=== PATIENT | male | born 1940 | race Caucasian/White ===

== ENCOUNTER 2020-12-27 09:58 | Outpatient (REF) | payer MEDICARE, OTHER, SELFPAY ==
[2020-12-27 11:17] LABS: MANUAL DIFF FLAG NO
[2020-12-27 11:27] LABS: Basophils Percent Auto 0.4 % (0-2); Eosinophils Absolute Auto 0.1 X10*3/uL (0.0-0.4); Hematocrit 41.9 % (42-52); Hemoglobin 14.5 g/dl (14.0-18.0); Imm Gran Abs Auto 0.01 X10*3/uL (0.00-0.03); Imm Gran Pct Auto 0.2 % (0.0-0.4); Lymphocytes Absolute Auto 0.8 X10*3/uL (1.2-4.9); Lymphocytes Percent Auto 16.8 % (20-40); Mean Corpuscular HGB Conc 34.6 g/dl (31.0-36.0); Mean Corpuscular Hemoglobin 30.2 pg (27.0-33.0); Mean Corpuscular Volume 87.3 fL (80-98); Mean Platelet Volume 9.3 fL (9.4-12.4); Monocytes Absolute Auto 0.6 X10*3/uL (0.1-1.2); Monocytes Percent Auto 11.6 % (2-11); Neutrophils Absolute Auto 3.4 X10*3/uL (2.0-8.3); Platelet Count 146 X10*3/uL (160-400); Red Cell Distribution Width 13.4 % (11.0-16.0); White Blood Count 4.9 X10*3/uL (4.8-10.8)
[2020-12-27 11:34] LABS: Estimated Average Glucose 148 mg/dL; Hemoglobin A1c % 6.8 %
[2020-12-27 12:05] LABS: Alanine Aminotransferase 18 U/L (0-40); Albumin Level 4.5 g/dL (3.5-5.0); Alkaline Phosphatase 68 U/L (39-117); Anion Gap 14 (12-20); Aspartate Amino Transferase 19 U/L (5-37); Blood Urea Nitrogen 18 mg/dL (9-16); Calcium 9.6 mg/dL (8.4-10.2); Carbon Dioxide 24 mmol/L (22-29); Chloride 107 mmol/L (96-108); Estimated Glomerular Filt Rate > 60; Glucose Fasting 142 mg/dL (60-99); Potassium 4.2 mmol/L (3.3-5.1); Sodium 141 mmol/L (135-145); Total Protein 7.1 g/dL (6.5-8.0)
[2020-12-27 12:13] LABS: Cholesterol 150 mg/dL; HDL Cholesterol 52 mg/dL; LDL Cholesterol Calculated 73 mg/dl; Triglycerides 125 mg/dL
[2020-12-27 12:17] LABS: Prostate Specific Antigen Scr < 0.05 ng/mL (<0.05-4.0)
== END 2020-12-27 09:59 | disposition home or self-care (01) ==
LOC: HO.HMGCLDS 09:58
PROVIDERS: Visit Provider Internal Medicine
DX: Z12.5 Encounter for screening for malignant neoplasm of prostate (principal); E78.5 Hyperlipidemia, unspecified; R73.01 Impaired fasting glucose
CPT/HCPCS: 36415; 80053; 80061; 83036; 84153; 85025

== ENCOUNTER 2021-01-30 13:34 | Outpatient (REF) | payer MEDICARE, OTHER, SELFPAY ==
--- NOTE | ~2021-01-30 | US_ITS ---
EXAMINATION: US SCROTUM CLINICAL INFORMATION: Painless mass right testicle. COMPARISON: None TECHNIQUE: A sonogram of the scrotum was performed assessing pastor-scale appearance and color Doppler flow. Spectral Doppler analysis of the arterial and venous flow were performed in the testes bilaterally. FINDINGS: RIGHT: Right testicle measures 3.8 x 1.7 x 3.0 cm, volume 10.2 mL. 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 There is a adjacent 4 mm simple appearing cyst in the inferior testicle adjacent to the dilated rete testis. No other focal testicular lesion is seen. . Spectral Doppler analysis of the arterial and venous flow is normal in the right testis. Right epididymal head is normal in size. No right hydrocele or varicocele is seen. Right epididymal Doppler flow is normal. LEFT: Left testicle measures 3.9 x 1.7 x 2.6 cm, volume 9.2 mL. 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 There is a 9 x 5 x 7 mm adjacent cyst in the inferior left testicle. No other focal testicular parenchymal lesions are visualized. Spectral Doppler analysis of the arterial and venous flow is normal in the left testis. Left epididymal head is normal in size. No left hydrocele or varicocele is seen. Left epididymal Doppler flow is normal. US/US scrotum IMPRESSION: No mass seen. 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
== END 2021-01-30 13:35 | disposition home or self-care (01) ==
LOC: HO.US 13:34
PROVIDERS: Visit Provider Internal Medicine
DX: N50.89 Other specified disorders of the male genital organs (principal)
CPT/HCPCS: 76870

== ENCOUNTER → 2021-03-01 13:45 | Outpatient (BNVA) | payer MEDICARE, OTHER, SELFPAY | PROVIDERS: PCP Internal Medicine; Visit Provider Internal Medicine | DX: G47.33 Obstructive sleep apnea (adult) (pediatric) (principal); Z99.89 Dependence on other enabling machines and devices | CPT/HCPCS: 99212 ==

== ENCOUNTER → 2021-03-15 12:51 | Outpatient (REF) | payer MEDICARE, OTHER, SELFPAY | LOC: HO.SL 12:51 | PROVIDERS: PCP Internal Medicine; Visit Provider Internal Medicine | DX: G47.33 Obstructive sleep apnea (adult) (pediatric) (principal) | CPT/HCPCS: 95806 ==

== ENCOUNTER 2021-06-21 09:39 | Outpatient (REF) | payer MEDICARE, OTHER, SELFPAY ==
[2021-06-21 11:41] LABS: Creatinine Urine 133.91 mg/dL; Microalbum/Creatinine Ratio Ur 42.5 ug/mg cr
[2021-06-21 11:42] LABS: Estimated Average Glucose 151 mg/dL; Hemoglobin A1c % 6.9 %
[2021-06-21 12:02] LABS: Anion Gap 11 (12-20); Blood Urea Nitrogen 17 mg/dL (9-16); Calcium 9.4 mg/dL (8.4-10.2); Carbon Dioxide 26 mmol/L (22-29); Chloride 106 mmol/L (96-108); Estimated Glomerular Filt Rate > 60; Glucose Random 175 mg/dL (60-115); Potassium 4.4 mmol/L (3.3-5.1); Sodium 139 mmol/L (135-145)
== END 2021-06-21 09:40 | disposition home or self-care (01) ==
LOC: HO.HMGCLDS 09:39
PROVIDERS: PCP Internal Medicine; Visit Provider Internal Medicine
DX: E11.9 Type 2 diabetes mellitus without complications (principal); I10 Essential (primary) hypertension
CPT/HCPCS: 36415; 80048; 82043; 83036

== ENCOUNTER → 2021-08-30 13:35 | Outpatient (BNVA) | payer MEDICARE, OTHER, SELFPAY | PROVIDERS: PCP Internal Medicine; Visit Provider Internal Medicine | DX: G47.33 Obstructive sleep apnea (adult) (pediatric) (principal); Z99.89 Dependence on other enabling machines and devices | CPT/HCPCS: Q3014 ==

== ENCOUNTER 2021-12-20 09:00 | Outpatient (REF) | payer MEDICARE, OTHER, SELFPAY ==
[2021-12-20 11:18] LABS: MANUAL DIFF FLAG NO
[2021-12-20 11:43] LABS: Estimated Average Glucose 166 mg/dL; Hemoglobin A1c % 7.4 %
[2021-12-20 11:48] LABS: Alanine Aminotransferase 26 U/L (0-40); Albumin Level 4.2 g/dL (3.5-5.0); Alkaline Phosphatase 62 U/L (39-117); Anion Gap 12 (12-20); Aspartate Amino Transferase 24 U/L (5-37); Bilirubin Total 0.9 mg/dL (0.0-1.0); Blood Urea Nitrogen 12 mg/dL (9-16); Calcium 9.1 mg/dL (8.4-10.2); Carbon Dioxide 26 mmol/L (22-29); Chloride 107 mmol/L (96-108); Cholesterol 141 mg/dL; Estimated Glomerular Filt Rate > 60; Glucose Fasting 158 mg/dL (60-99); HDL Cholesterol 48 mg/dL; LDL Cholesterol Calculated 72 mg/dl; Sodium 141 mmol/L (135-145); Total Protein 6.6 g/dL (6.5-8.0); Triglycerides 106 mg/dL
[2021-12-20 11:55] LABS: Creatinine Urine 145.15 mg/dL; Microalbum/Creatinine Ratio Ur 39.2 ug/mg cr
[2021-12-20 11:57] LABS: Basophils Percent Auto 0.5 % (0-2); Eosinophils Absolute Auto 0.1 X10*3/uL (0.0-0.4); Hematocrit 40.8 % (42.0-52.0); Hemoglobin 13.9 g/dl (14.0-18.0); Imm Gran Abs Auto 0.02 X10*3/uL (0.00-0.03); Imm Gran Pct Auto 0.5 % (0.0-0.4); Lymphocytes Absolute Auto 0.9 X10*3/uL (1.2-4.9); Lymphocytes Percent Auto 20.5 % (20-40); Mean Corpuscular HGB Conc 34.1 g/dl (31.0-36.0); Mean Corpuscular Hemoglobin 29.9 pg (27.0-33.0); Mean Corpuscular Volume 87.7 fL (80.0-98.0); Mean Platelet Volume 9.6 fL (9.4-12.4); Monocytes Absolute Auto 0.7 X10*3/uL (0.1-1.2); Monocytes Percent Auto 16.7 % (2-11); Neutrophils Absolute Auto 2.6 x10*3/uL (2.0-8.3); Neutrophils Percent Auto 58.8 % (45-73); Platelet Count 143 X10*3/uL (160-400); Red Blood Count 4.65 X10*6/uL (4.60-5.80); Red Cell Distribution Width 13.7 % (11.0-16.0); White Blood Count 4.4 X10*3/uL (4.8-10.8)
== END 2021-12-20 09:01 | disposition home or self-care (01) ==
LOC: HO.HMGCLDS 09:00
PROVIDERS: Visit Provider Internal Medicine
DX: E11.9 Type 2 diabetes mellitus without complications (principal); I10 Essential (primary) hypertension; G47.33 Obstructive sleep apnea (adult) (pediatric); E78.00 Pure hypercholesterolemia, unspecified; K57.90 Diverticulosis of intestine, part unspecified, without perforation or abscess without bleeding
CPT/HCPCS: 36415; 80053; 80061; 82043; 83036; 85025

== ENCOUNTER 2022-01-18 11:33 | Outpatient (REF) | payer MEDICARE, OTHER, SELFPAY ==
[2022-01-18 12:47] LABS: Influenza A PCR NEGATIVE (Negative); Influenza B PCR NEGATIVE (Negative); Resp Syncy Virus RNA Qual PCR NEGATIVE (Negative); SARS COV2 PCR INHOUSE NEGATIVE (Negative)
== END 2022-01-18 11:34 | disposition home or self-care (01) ==
LOC: HO.LNP 11:33
PROVIDERS: Visit Provider Internal Medicine
DX: R50.9 Fever, unspecified (principal); R19.7 Diarrhea, unspecified; Z20.822 Contact with and (suspected) exposure to COVID-19
CPT/HCPCS: 0241U

== ENCOUNTER → 2022-08-26 14:09 | Outpatient (BNVA) | payer MEDICARE, OTHER, SELFPAY | PROVIDERS: PCP Internal Medicine; Visit Provider Internal Medicine | DX: G47.33 Obstructive sleep apnea (adult) (pediatric) (principal); Z99.89 Dependence on other enabling machines and devices | CPT/HCPCS: Q3014 ==

== ENCOUNTER 2022-09-26 13:41 | Outpatient (REF) | payer MEDICARE, OTHER, SELFPAY ==
--- NOTE | 2022-09-26 10:00 | EMG_ITS ---
Left median and ulnar motor and sensory studies were performed. Left radial sensory study was performed and paraspinal muscles were tested with a needle. IMPRESSION: 1. 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 2. Mild left ulnar neuropathy across cubital tunnel. MD SHARA Godwin/BAM / [id number]
== END 2022-09-26 13:42 | disposition home or self-care (01) ==
LOC: HO.NEURO 13:41
PROVIDERS: PCP Internal Medicine; Visit Provider Nurse Practitioner Family
DX: M79.602 Pain in left arm (principal)
CPT/HCPCS: 95886; 95909

== ENCOUNTER 2022-11-23 06:37 | Outpatient (REF) | payer MEDICARE, OTHER, SELFPAY ==
[2022-11-23 11:19] LABS: MANUAL DIFF FLAG NO
[2022-11-23 11:29] LABS: Basophils Percent Auto 0.5 % (0-2); Eosinophils Absolute Auto 0.1 X10*3/uL (0.0-0.4); Eosinophils Percent Auto 2.1 % (0-4); Hemoglobin 14.2 g/dl (14.0-18.0); Imm Gran Abs Auto 0.02 X10*3/uL (0.00-0.03); Imm Gran Pct Auto 0.4 % (0.0-0.4); Lymphocytes Absolute Auto 0.8 X10*3/uL (1.2-4.9); Lymphocytes Percent Auto 13.8 % (20-40); Mean Corpuscular HGB Conc 33.8 g/dl (31.0-36.0); Mean Corpuscular Hemoglobin 29.2 pg (27.0-33.0); Mean Corpuscular Volume 86.4 fL (80.0-98.0); Mean Platelet Volume 9.8 fL (9.4-12.4); Monocytes Absolute Auto 0.7 X10*3/uL (0.1-1.2); Neutrophils Percent Auto 71.2 % (45-73); Platelet Count 153 X10*3/uL (160-400); Red Blood Count 4.86 X10*6/uL (4.60-5.80); Red Cell Distribution Width 13.4 % (11.0-16.0); White Blood Count 5.7 X10*3/uL (4.8-10.8)
[2022-11-23 11:35] LABS: Estimated Average Glucose 151 mg/dL; Hemoglobin A1c % 6.9 %
[2022-11-23 11:56] LABS: Alanine Aminotransferase 16 U/L (0-40); Albumin Level 4.1 g/dL (3.5-5.0); Alkaline Phosphatase 58 U/L (39-117); Anion Gap 12 (12-20); Aspartate Amino Transferase 15 U/L (5-37); Bilirubin Direct 0.3 mg/dL (0.0-0.5); Blood Urea Nitrogen 18 mg/dL (9-16); Calcium 9.3 mg/dL (8.4-10.2); Carbon Dioxide 28 mmol/L (22-29); Chloride 105 mmol/L (96-108); Cholesterol 147 mg/dL; Estimated Glomerular Filt Rate > 60; Glucose Fasting 154 mg/dL (60-99); HDL Cholesterol 48 mg/dL; LDL Cholesterol Calculated 74 mg/dl; Potassium 4.8 mmol/L (3.3-5.1); Sodium 140 mmol/L (135-145); Total Protein 6.4 g/dL (6.5-8.0); Triglycerides 125 mg/dL
[2022-11-23 11:57] LABS: Microalbum/Creatinine Ratio Ur 37.3 ug/mg cr; Protein/Creatinine Ratio, Ur 0.12 (<0.2); Total Protein Urine Random 23 mg/dL (<12)
[2022-11-23 11:58] LABS: Free T4 (Free Thyroxine) 1.02 ng/dL (0.71-1.85); Thyroid Stimulating Hormone 0.68 uIU/mL (0.32-4.0)
== END 2022-11-23 06:38 | disposition home or self-care (01) ==
LOC: HO.LAB 06:37
PROVIDERS: Visit Provider Nurse Practitioner Family
DX: I10 Essential (primary) hypertension (principal); E78.5 Hyperlipidemia, unspecified; E11.9 Type 2 diabetes mellitus without complications
CPT/HCPCS: 36415; 80048; 80061; 80076; 82043; 83036; 84156; 84439; 84443; 85025

== ENCOUNTER 2022-12-15 14:58 | Observation (INO) | payer OTHER, MEDICARE, SELFPAY ==
--- NOTE | ~2022-12-15 | CT_ITS ---
EXAMINATION: CT ABDOMEN AND PELVIS WITH CONTRAST CLINICAL INFORMATION: Left lower quadrant pain COMPARISON: None available. TECHNIQUE: Multidetector volumetric images were obtained from the superior aspect of the liver through the pubic symphysis following administration 85 mL of Omnipaque 350 intravenous contrast. Sagittal and coronal reformatted images were obtained on the technologist's workstation. Oral contrast: No This CT examination was performed using dose optimization techniques as appropriate, variously including the following: *Automated exposure control *Adjustment of mA and/or kV according to patient size (this includes techniques or standardized protocols for targeted exams where dose is matched to indication/reason for exam; i.e. extremities or head) *Use of iterative reconstruction technique DLP: 737 mGy-cm FINDINGS: LUNG BASES: The lung bases are clear. The heart size is normal. LIVER, GALLBLADDER, AND BILIARY TREE: The liver is normal in size, shape, and attenuation. No focal hepatic lesion or biliary ductal dilatation is present. The gallbladder is unremarkable with no evidence of radiopaque gallstones, gallbladder wall thickening, or obvious pericholecystic inflammatory changes. PANCREAS: Unremarkable. SPLEEN: Unremarkable. ADRENAL GLANDS: Unremarkable. KIDNEYS AND URETERS: The kidneys are normal in size, shape, and attenuation. No hydronephrosis, hydroureter, or calculi seen. No perinephric stranding. There is a punctate to moderate hypodensity midpole and a 5 mm hypodensity upper pole right kidney probable cysts. BLADDER: Unremarkable. GASTROINTESTINAL TRACT: There is large amount of stool and scattered diverticuli seen throughout the colon without mural thickening or pericolic fat stranding. There is a focal annular short segment thickening of the descending colon on axial image 36/3 and sagittal image 24/6 this may represent spasm or underlying lesion is hard to exclude. The small bowel loops are normal caliber. The stomach is nondistended. No free air or free fluid seen. ABDOMINAL WALL: No significant hernia is appreciated. LYMPH NODES: Normal. VASCULAR: Bilateral sclerotic calcification abdominal aorta without aneurysmal dilatation. There is a reticular aortic left renal vein. PELVIC VISCERA: There is no free fluid or free air. OSSEOUS STRUCTURES: No aggressive lytic or sclerotic process seen. There is vacuum disc phenomena L4-L5 disc level with L4-L5 facet joint arthropathy. No aggressive lytic or sclerotic process seen. CT/CT abdomen pelvis w IV con IMPRESSION: 1. Diffuse colonic diverticulosis without diverticulitis. There is a short segment annular thickening descending colon which could be secondary to spasm or underlying lesion. Correlate with clinical exam, endoscopy or barium enema. No proximal bowel distention seen. Moderate constipation. 2. No acute intra-abdominal process seen. 3. 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 Fleischner guidelines were followed.
[2022-12-15 15:05] VITALS: BP 176/68; PULSE 75; RESP 16; TEMP 36.9; O2SAT 97; BMI 25.5
--- NOTE | 2022-12-15 15:12 | ED.ABDPAIN ---
HPI - Abdominal Pain General Chief Complaint: General Medical <Nishi Tellez NP - Last Filed: 12/15/22 18:41> Stated Complaint: abd pain <Nishi Tellez NP - Last Filed: 12/15/22 18:41> Time Seen by Provider: 12/15/22 15:02 <Nishi Tellez NP - Last Filed: 12/15/22 18:41> Source: patient and family <Nishi Tellez NP - Last Filed: 12/15/22 18:41> Mode of arrival: ambulatory <Nishi Tellez NP - Last Filed: 12/15/22 18:41> Limitations: no limitations <MEHRDAD Patel Last Filed: 12/15/22 18:41> History of Present Illness HPI narrative: 82-year-old male with a history of hypertension and hyperlipidemia presents to the ER with complaints of left lower quadrant abdominal pain for 1 week. Patient reports no nausea, vomiting, diarrhea, fever or urinary symptoms. His last BM was 3 days ago which is atypical for him. Patient is currently taking cephalexin after having a skin surgical procedure several days <Nishi Tellez NP - Last Filed: 12/15/22 18:41> Related Data Home Medications: Home Medications Medication Instructions Recorded Confirmed aspirin 81 mg tablet,delayed 81 mg PO DAILY 08/30/20 release metoprolol tartrate 25 mg tablet 25 mg PO BID 08/30/20 pravastatin 40 mg tablet 40 mg PO BEDTIME 08/30/20 Previous Rx's Medication Instructions Recorded docusate sodium 100 mg capsule 100 mg PO BID #60 caps 12/15/22 (Colace) lactulose 10 gram/15 mL oral 15 ml PO DAILY PRN laxative effect 12/15/22 solution #237 mL polyethylene glycol 3350 17 17 g PO BID #238 grams 12/15/22 gram/dose oral powder (Miralax) <MEHRDAD Patel Last Filed: 12/15/22 18:41> Allergies/Adverse Reactions: Allergies Allergy/AdvReac Type Severity Reaction Status Date / Time lactose [Lactose] Allergy Mild DIARRHEA Verified 08/26/22 14:23 <Nishi Tellez NP - Last Filed: 12/15/22 18:41> Review of Systems Review of Systems Yes all other systems are reviewed and are negative <Nishi Tellez NP - Last Filed: 12/15/22 18:41> Constitutional: Reports no additional constitutional complaints, Denies body ache(s), Denies chills, Denies fever(s), Denies headache(s) and Denies weakness <Nishi Tellez EXPLOSIVE TECHNICIAN - Last Filed: 12/15/22 18:41> Eyes: Reports no additional eye complaints and Denies change in vision <Nishi Tellez EXPLOSIVE TECHNICIAN - Last Filed: 12/15/22 18:41> Reports system reviewed and no additional complaints, except as documented, Denies dizziness, Denies headache(s), Denies nasal congestion, Denies nasal discharge and Denies neck pain <Nishi Tellez NP - Last Filed: 12/15/22 18:41> Cardiovascular: Reports no additional cardiovascular complaints, Denies chest pain, Denies leg edema and Denies dyspnea <Nishi Tellez EXPLOSIVE TECHNICIAN - Last Filed: 12/15/22 18:41> Respiratory: Reports no additional respiratory complaints, Denies cough and Denies dyspnea <Nishi Tellez EXPLOSIVE TECHNICIAN - Last Filed: 12/15/22 18:41> Gastrointestinal: Reports no additional gastrointestinal complaints, Reports abdominal pain, Reports constipation, Denies diarrhea, Denies nausea and Denies vomiting <Nishi Tellez EXPLOSIVE TECHNICIAN - Last Filed: 12/15/22 18:41> Genitourinary: Denies urinary incontinence <Nishi Tellez EXPLOSIVE TECHNICIAN - Last Filed: 12/15/22 18:41> Musculoskeletal: Reports no additional musculoskeletal complaints, Denies back pain, Denies arthralgias, Denies joint swelling, Denies neck pain, Denies numbness and Denies tingling <Nishi Tellez NP - Last Filed: 12/15/22 18:41> Skin/Breast: Reports system reviewed and no additional complaints, except as docu and Denies rash <Nishi Tellez EXPLOSIVE TECHNICIAN - Last Filed: 12/15/22 18:41> Reports system reviewed and no additional complaints, except as documented, Denies dizziness, Denies headache(s), Denies numbness, Denies tingling and Denies weakness <Nishi Tellez NP - Last Filed: 12/15/22 18:41> [facility] Past Medical History Attestation statement: The following information was validated with the patient. <Nishi Tellez NP - Last Filed: 12/15/22 18:41> Source: old records reviewed and nursing notes reviewed <Nishi Tellez NP - Last Filed: 12/15/22 18:41> Medical History: Medical History AAKASH (obstructive sleep apnea) AAKASH on CPAP <Nishi Tellez NP - Last Filed: 12/15/22 18:41> Social History Social History: Social History Patient Tobacco Use Status: Former Tobacco user Advance Directives: No Advance Directives Information Provided: No <Nishi Tellez NP - Last Filed: 12/15/22 18:41> Physical Exam ED Vital Signs: Vital Signs - 24 hr 12/15/22 15:05 12/15/22 16:33 Temperature 98.4 F 98.1 F Pulse Rate 75 65 Respiratory Rate 16 16 Blood Pressure 176/68 H 175/69 H Pulse Oximetry 97 98 Oxygen Delivery Method Room Air Room Air BMI result Body Mass Index 25.5 <Nishi Tellez NP - Last Filed: 12/15/22 18:41> Vital Signs - 24 hr 12/15/22 15:05 12/15/22 16:33 Temperature 98.4 F 98.1 F Pulse Rate 75 65 Respiratory Rate 16 16 Blood Pressure 176/68 H 175/69 H Pulse Oximetry 97 98 Oxygen Delivery Method Room Air Room Air BMI result Body Mass Index 25.5 <Alix Hernandez NP - Last Filed: 12/15/22 22:34> Const General: cooperative, healthy appearing, comfortable and no acute distress <Nishi Tellez NP - Last Filed: 12/15/22 18:41> Orientation/consciousness: patient oriented x3 <Nishi Tellez NP - Last Filed: 12/15/22 18:41> Limitations: no limitations <Nishi Tellez EXPLOSIVE TECHNICIAN - Last Filed: 12/15/22 18:41> HENMT Head: Yes normal to inspection <Nishi Tellez EXPLOSIVE TECHNICIAN - Last Filed: 12/15/22 18:41> Ears: hearing grossly normal bilaterally <Nishi Tellez EXPLOSIVE TECHNICIAN - Last Filed: 12/15/22 18:41> Eyes General: appearance normal, both eyes and all related structures <Nishi Tellez EXPLOSIVE TECHNICIAN - Last Filed: 12/15/22 18:41> Pupils: Equal, round and reactive pupils present <Nishi Tellez EXPLOSIVE TECHNICIAN - Last Filed: 12/15/22 18:41> Neck Neck: Yes normal visual inspection and Yes full ROM <Nishi Tellez EXPLOSIVE TECHNICIAN - Last Filed: 12/15/22 18:41> Chest Chest palpation & inspection: normal inspection of the chest <Nishi eTllez EXPLOSIVE TECHNICIAN - Last Filed: 12/15/22 18:41> Resp Effort & Inspection: normal respiratory effort <Nishi Tellez EXPLOSIVE TECHNICIAN - Last Filed: 12/15/22 18:41> Auscultation: clear to auscultation bilaterally <Nishi Tellez EXPLOSIVE TECHNICIAN - Last Filed: 12/15/22 18:41> Cardio Rate: regular rate <Nishi Tellez EXPLOSIVE TECHNICIAN - Last Filed: 12/15/22 18:41> Rhythm: regular rhythm <Nishi Tellez EXPLOSIVE TECHNICIAN - Last Filed: 12/15/22 18:41> Peripheral pulses: Peripheral pulses 2+ throughout <Nishi Tellez EXPLOSIVE TECHNICIAN - Last Filed: 12/15/22 18:41> GI Inspection: Yes normal to inspection <Nishi Tellez EXPLOSIVE TECHNICIAN - Last Filed: 12/15/22 18:41> Palpation (GI): Soft to palpation and Tenderness to palpation present (GI) in the LLQ <Nishi Tellez EXPLOSIVE TECHNICIAN - Last Filed: 12/15/22 18:41> Auscultation: normal bowel sounds <Nishi Tellez EXPLOSIVE TECHNICIAN - Last Filed: 12/15/22 18:41> General: Yes no CVA tenderness <Nishi Tellez, EXPLOSIVE TECHNICIAN - Last Filed: 12/15/22 18:41> Back/Spine/Pelvis Back: no CVA tenderness <Nishijonny Tellez, EXPLOSIVE TECHNICIAN - Last Filed: 12/15/22 18:41> Thoracic/Lumbar Spine: thoracic and lumbar spine normal to inspection <Nishijonny Tellez, EXPLOSIVE TECHNICIAN - Last Filed: 12/15/22 18:41> Skin General skin exam: no rashes or lesions noted <Nishijonny Tellez, EXPLOSIVE TECHNICIAN - Last Filed: 12/15/22 18:41> Neuro General: patient oriented x3 and moves all extremities <Nishi Tellez, EXPLOSIVE TECHNICIAN - Last Filed: 12/15/22 18:41> Cranial nerves: Yes Equal, round and reactive pupils present <Nishi Tellez, EXPLOSIVE TECHNICIAN - Last Filed: 12/15/22 18:41> Cognition (Neuro): normal cognition <Nishi Tellez, EXPLOSIVE TECHNICIAN - Last Filed: 12/15/22 18:41> Gait exam (Neuro): Normal gait present <Nishi Tellez, EXPLOSIVE TECHNICIAN - Last Filed: 12/15/22 18:41> Extrem General: Yes normal to inspection, Yes no pedal edema and Yes no calf tenderness <Nishi Tellez, EXPLOSIVE TECHNICIAN - Last Filed: 12/15/22 18:41> Course Course Course Narrative: CT shows IMPRESSION: 1.? Diffuse colonic diverticulosis without diverticulitis. There is a short segment annular thickening descending colon which could be secondary to spasm or underlying lesion. Correlate with clinical exam, endoscopy or barium enema. No proximal bowel distention seen. Moderate constipation. 2.? No acute intra-abdominal process seen. 3.? 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 ? -On rectal exam patient with large amount of stool in the rectal vault unable to tolerate rectal disimpaction. Will give SSE <Nishi Tellez, EXPLOSIVE TECHNICIAN - Last Filed: 12/15/22 18:41> CT shows IMPRESSION: 1.? Diffuse colonic diverticulosis without diverticulitis. There is a short segment annular thickening descending colon which could be secondary to spasm or underlying lesion. Correlate with clinical exam, endoscopy or barium enema. No proximal bowel distention seen. Moderate constipation. 2.? No acute intra-abdominal process seen. 3.? 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 ? -On rectal exam patient with large amount of stool in the rectal vault unable to tolerate rectal disimpaction. Will give SSE 22:33 multiple attempts to disimpact, 2nd soapsuds enema given with no affect. Discussion with Gastroenterology as well as hospitalist. Plan of care is to admit, glycerin suppositories, with GoLYTELY. Possible sigmoidoscopy versus colonoscopy tomorrow. Admitted to hospitalist Medicine. <Alix Hernandez NP - Last Filed: 12/15/22 22:34> Reevaluation(s) Reevaluation #1: [id number] out to Alix CRONIN pending repeat exam and having bowel movement <Nishi Tellez NP - Last Filed: 12/15/22 18:41> Medical Decision Making Medical Decision Making MDM Narrative: 82-year-old male with history of hypertension hyperlipidemia here with left lower quadrant abdominal pain for 1 week Patient with tenderness on exam of left lower quadrant with no rebound or guarding Will check labs, UA, CT <Nishi Tellez NP - Last Filed: 12/15/22 18:41> Differential Diagnosis Differential Diagnoses: The differential diagnosis associated with the presentation includes <Nishi Tellez NP - Last Filed: 12/15/22 18:41> Diverticulitis <Nishi Tellez NP - Last Filed: 12/15/22 18:41> Consult Healthcare Provider Management of the patient was discussed with: Wedding Decorator <Nishi Tellez NP - Last Filed: 12/15/22 18:41> CT shows Diffuse colonic diverticulosis without diverticulitis. There is a short segment annular thickening descending colon which could be secondary to spasm or underlying lesion. Correlate with clinical exam, endoscopy or barium enema. No proximal bowel distention seen. Moderate constipation. -I spoke to Dr Ruano as patient will likely need an outpatient colonoscopy. <Nishi Tellez NP - Last Filed: 12/15/22 18:41> Lab Data [facility] Lab Attestation statement: I reviewed the patient's lab results. <Nishi Tellez, MEHRDAD - Last Filed: 12/15/22 18:41> Result Diagrams: 12/15/22 15:20 12/15/22 15:20 <Nishi Tellez NP - Last Filed: 12/15/22 18:41> Labs: Lab Results 12/15/22 12/15/22 12/15/22 Range/Units 15:20 15:20 15:20 WBC 11.4 H (4.8-10.8) X10*3/uL RBC 4.64 (4.60-5.80) X10*6/uL Hgb 13.8 L (14.0-18.0) g/dl Hct 39.0 L (42.0-52.0) % MCV 84.1 (80.0-98.0) fL MCH 29.7 (27.0-33.0) pg MCHC 35.4 (31.0-36.0) g/dl RDW 13.2 (11.0-16.0) % Plt Count 175 (160-400) X10*3/uL MPV 9.1 L (9.4-12.4) fL Immature Gran % (Auto) 0.4 (0.0-0.4) % Neut % (Auto) 82.0 H (45-73) % Lymph % (Auto) 8.0 L (20-40) % [place] % (Auto) 8.6 (2-11) % Eos % (Auto) 0.7 (0-4) % Baso % (Auto) 0.3 (0-2) % Lymph # (Auto) 0.9 L (1.2-4.9) X10*3/uL [place] # (Auto) 1.0 (0.1-1.2) X10*3/uL Eos # (Auto) 0.1 (0.0-0.4) X10*3/uL Baso # (Auto) 0.0 (0.0-0.2) X10*3/uL Abs Immat Gran (auto) 0.05 H (0.00-0.03) X10*3/uL Absolute Neuts (auto) 9.3 H (2.0-8.3) x10*3/uL Absolute Nucleated RBC 0.000 (0.0-0.012) X10*3/uL Nucleated RBC % (auto) 0.0 (0.0-0.2) /100WBC Sodium 139 (135-145) mmol/L Potassium 4.7 (3.3-5.1) mmol/L Chloride 106 (96-108) mmol/L Carbon Dioxide 23 (22-29) mmol/L Anion Gap 15 (12-20) BUN 19 H (9-16) mg/dL Creatinine 1.14 (0.5-1.4) mg/dL Estim Creat Clear Calc 48.3 Estimated GFR > 60 Random Glucose 244 H (60-115) mg/dL Calcium 9.4 (8.4-10.2) mg/dL Magnesium 2.2 (1.6-2.6) mg/dL Total Bilirubin 0.6 (0.0-1.0) mg/dL Direct Bilirubin 0.2 (0.0-0.5) mg/dL AST 16 (5-37) U/L ALT 17 (0-40) U/L Alkaline Phosphatase 66 (39-117) U/L Total Protein 6.5 (6.5-8.0) g/dL Albumin 4.1 (3.5-5.0) g/dL Lipase 18 (8-78) U/L Urine Color Urine Appearance Urine pH (5.0-9.0) Ur Specific [place] (1.005-1.025) Urine Protein (Neg-Trace) mg/dL Urine Glucose (UA) (Negative) mg/dL Urine Ketones (Negative) mg/dL Urine Blood (Negative) Urine Nitrite (Negative) Ur Leukocyte Esterase (Negative) 12/15/22 Range/Units 17:23 WBC (4.8-10.8) X10*3/uL RBC (4.60-5.80) X10*6/uL Hgb (14.0-18.0) g/dl Hct (42.0-52.0) % MCV (80.0-98.0) fL MCH (27.0-33.0) pg MCHC (31.0-36.0) g/dl RDW (11.0-16.0) % Plt Count (160-400) X10*3/uL MPV (9.4-12.4) fL Immature Gran % (Auto) (0.0-0.4) % Neut % (Auto) (45-73) % Lymph % (Auto) (20-40) % [place] % (Auto) (2-11) % Eos % (Auto) (0-4) % Baso % (Auto) (0-2) % Lymph # (Auto) (1.2-4.9) X10*3/uL [place] # (Auto) (0.1-1.2) X10*3/uL Eos # (Auto) (0.0-0.4) X10*3/uL Baso # (Auto) (0.0-0.2) X10*3/uL Abs Immat Gran (auto) (0.00-0.03) X10*3/uL Absolute Neuts (auto) (2.0-8.3) x10*3/uL Absolute Nucleated RBC (0.0-0.012) X10*3/uL Nucleated RBC % (auto) (0.0-0.2) /100WBC Sodium (135-145) mmol/L Potassium (3.3-5.1) mmol/L Chloride (96-108) mmol/L Carbon Dioxide (22-29) mmol/L Anion Gap (12-20) BUN (9-16) mg/dL Creatinine (0.5-1.4) mg/dL Estim Creat Clear Calc Estimated GFR Random Glucose (60-115) mg/dL Calcium (8.4-10.2) mg/dL Magnesium (1.6-2.6) mg/dL Total Bilirubin (0.0-1.0) mg/dL Direct Bilirubin (0.0-0.5) mg/dL AST (5-37) U/L ALT (0-40) U/L Alkaline Phosphatase (39-117) U/L Total Protein (6.5-8.0) g/dL Albumin (3.5-5.0) g/dL Lipase (8-78) U/L Urine Color Yellow Urine Appearance Clear Urine pH 8.0 (5.0-9.0) Ur Specific [place] >= 1.030 H (1.005-1.025) Urine Protein Negative (Neg-Trace) mg/dL Urine Glucose (UA) 500 H (Negative) mg/dL Urine Ketones Negative (Negative) mg/dL Urine Blood Negative (Negative) Urine Nitrite Negative (Negative) Ur Leukocyte Esterase Negative (Negative) <Nishi Tellez, EXPLOSIVE TECHNICIAN - Last Filed: 12/15/22 18:41> Lab Results 12/15/22 12/15/22 12/15/22 Range/Units 15:20 15:20 15:20 WBC 11.4 H (4.8-10.8) X10*3/uL RBC 4.64 (4.60-5.80) X10*6/uL Hgb 13.8 L (14.0-18.0) g/dl Hct 39.0 L (42.0-52.0) % MCV 84.1 (80.0-98.0) fL MCH 29.7 (27.0-33.0) pg MCHC 35.4 (31.0-36.0) g/dl RDW 13.2 (11.0-16.0) % Plt Count 175 (160-400) X10*3/uL MPV 9.1 L (9.4-12.4) fL Immature Gran % (Auto) 0.4 (0.0-0.4) % Neut % (Auto) 82.0 H (45-73) % Lymph % (Auto) 8.0 L (20-40) % [place] % (Auto) 8.6 (2-11) % Eos % (Auto) 0.7 (0-4) % Baso % (Auto) 0.3 (0-2) % Lymph # (Auto) 0.9 L (1.2-4.9) X10*3/uL [place] # (Auto) 1.0 (0.1-1.2) X10*3/uL Eos # (Auto) 0.1 (0.0-0.4) X10*3/uL Baso # (Auto) 0.0 (0.0-0.2) X10*3/uL Abs Immat Gran (auto) 0.05 H (0.00-0.03) X10*3/uL Absolute Neuts (auto) 9.3 H (2.0-8.3) x10*3/uL Absolute Nucleated RBC 0.000 (0.0-0.012) X10*3/uL Nucleated RBC % (auto) 0.0 (0.0-0.2) /100WBC Sodium 139 (135-145) mmol/L Potassium 4.7 (3.3-5.1) mmol/L Chloride 106 (96-108) mmol/L Carbon Dioxide 23 (22-29) mmol/L Anion Gap 15 (12-20) BUN 19 H (9-16) mg/dL Creatinine 1.14 (0.5-1.4) mg/dL Estim Creat Clear Calc 48.3 Estimated GFR > 60 Random Glucose 244 H (60-115) mg/dL Calcium 9.4 (8.4-10.2) mg/dL Magnesium 2.2 (1.6-2.6) mg/dL Total Bilirubin 0.6 (0.0-1.0) mg/dL Direct Bilirubin 0.2 (0.0-0.5) mg/dL AST 16 (5-37) U/L ALT 17 (0-40) U/L Alkaline Phosphatase 66 (39-117) U/L Total Protein 6.5 (6.5-8.0) g/dL Albumin 4.1 (3.5-5.0) g/dL Lipase 18 (8-78) U/L Urine Color Urine Appearance Urine pH (5.0-9.0) Ur Specific [place] (1.005-1.025) Urine Protein (Neg-Trace) mg/dL Urine Glucose (UA) (Negative) mg/dL Urine Ketones (Negative) mg/dL Urine Blood (Negative) Urine Nitrite (Negative) Ur Leukocyte Esterase (Negative) 12/15/22 Range/Units 17:23 WBC (4.8-10.8) X10*3/uL RBC (4.60-5.80) X10*6/uL Hgb (14.0-18.0) g/dl Hct (42.0-52.0) % MCV (80.0-98.0) fL MCH (27.0-33.0) pg MCHC (31.0-36.0) g/dl RDW (11.0-16.0) % Plt Count (160-400) X10*3/uL MPV (9.4-12.4) fL Immature Gran % (Auto) (0.0-0.4) % Neut % (Auto) (45-73) % Lymph % (Auto) (20-40) % [place] % (Auto) (2-11) % Eos % (Auto) (0-4) % Baso % (Auto) (0-2) % Lymph # (Auto) (1.2-4.9) X10*3/uL [place] # (Auto) (0.1-1.2) X10*3/uL Eos # (Auto) (0.0-0.4) X10*3/uL Baso # (Auto) (0.0-0.2) X10*3/uL Abs Immat Gran (auto) (0.00-0.03) X10*3/uL Absolute Neuts (auto) (2.0-8.3) x10*3/uL Absolute Nucleated RBC (0.0-0.012) X10*3/uL Nucleated RBC % (auto) (0.0-0.2) /100WBC Sodium (135-145) mmol/L Potassium (3.3-5.1) mmol/L Chloride (96-108) mmol/L Carbon Dioxide (22-29) mmol/L Anion Gap (12-20) BUN (9-16) mg/dL Creatinine (0.5-1.4) mg/dL Estim Creat Clear Calc Estimated GFR Random Glucose (60-115) mg/dL Calcium (8.4-10.2) mg/dL Magnesium (1.6-2.6) mg/dL Total Bilirubin (0.0-1.0) mg/dL Direct Bilirubin (0.0-0.5) mg/dL AST (5-37) U/L ALT (0-40) U/L Alkaline Phosphatase (39-117) U/L Total Protein (6.5-8.0) g/dL Albumin (3.5-5.0) g/dL Lipase (8-78) U/L Urine Color Yellow Urine Appearance Clear Urine pH 8.0 (5.0-9.0) Ur Specific [place] >= 1.030 H (1.005-1.025) Urine Protein Negative (Neg-Trace) mg/dL Urine Glucose (UA) 500 H (Negative) mg/dL Urine Ketones Negative (Negative) mg/dL Urine Blood Negative (Negative) Urine Nitrite Negative (Negative) Ur Leukocyte Esterase Negative (Negative) <Alix Hernandez, EXPLOSIVE TECHNICIAN - Last Filed: 12/15/22 22:34> Independent Interpretation I performed an independent interpretation of an: CT Scan <Nishi Tellez NP - Last Filed: 12/15/22 18:41> Interpretation: I indepedentely reviewed the CT scan and agree with the radiologist report <Nishi Tellez NP - Last Filed: 12/15/22 18:41> Radiology Impression Discussion of test interpretation with radiology: I have reviewed the radiologist's reading. <Nishi Tellez NP - Last Filed: 12/15/22 18:41> Radiologist Impression: FINDINGS: LUNG BASES: The lung bases are clear. The heart size is normal.? LIVER, GALLBLADDER, AND BILIARY TREE: The liver is normal in size, shape, and attenuation. No focal hepatic lesion or biliary ductal dilatation is present. The gallbladder is unremarkable with no evidence of radiopaque gallstones, gallbladder wall thickening, or obvious pericholecystic inflammatory changes.? PANCREAS: Unremarkable.? SPLEEN: Unremarkable.? ADRENAL GLANDS: Unremarkable.? KIDNEYS AND URETERS: The kidneys are normal in size, shape, and attenuation. No hydronephrosis, hydroureter, or calculi seen. No perinephric stranding. There is a punctate to moderate hypodensity midpole and a 5 mm hypodensity upper pole right kidney probable cysts. BLADDER: Unremarkable.? GASTROINTESTINAL TRACT: There is large amount of stool and scattered diverticuli seen throughout the colon without mural thickening or pericolic fat stranding. There is a focal annular short segment thickening of the descending colon on axial image 36/3 and sagittal image 24/6 this may represent spasm or underlying lesion is hard to exclude. The small bowel loops are normal caliber. The stomach is nondistended. No free air or free fluid seen. ABDOMINAL WALL: No significant hernia is appreciated.? LYMPH NODES: Normal. VASCULAR: Bilateral sclerotic calcification abdominal aorta without aneurysmal dilatation. There is a reticular aortic left renal vein. PELVIC VISCERA: There is no free fluid or free air.? OSSEOUS STRUCTURES: No aggressive lytic or sclerotic process seen. There is vacuum disc phenomena L4-L5 disc level with L4-L5 facet joint arthropathy. No aggressive lytic or sclerotic process seen.? CT/CT abdomen pelvis w IV con IMPRESSION: 1.? Diffuse colonic diverticulosis without diverticulitis. There is a short segment annular thickening descending colon which could be secondary to spasm or underlying lesion. Correlate with clinical exam, endoscopy or barium enema. No proximal bowel distention seen. Moderate constipation. 2.? No acute intra-abdominal process seen. 3.? 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 ? Fleischner guidelines were followed. <Nishi Tellez NP - Last Filed: 12/15/22 18:41> Medications Administered Discontinued Medications Generic Name Dose Route Start Last Admin Trade Name Freq PRN Reason Stop Dose Admin Acetaminophen 650 mg 12/15/22 20:08 12/15/22 21:24 Acetaminophen 325 Mg Tablet PO 12/15/22 20:09 Not Given ONCE ONE Iohexol 100 ml 12/15/22 16:21 12/15/22 16:22 Iohexol 350 Mg/Ml 100 Ml Infus..Btl IV 12/15/22 16:22 85 ml ONCE ONE Administration <Nishi Tellez NP - Last Filed: 12/15/22 18:41> Medications Administered Discontinued Medications Generic Name Dose Route Start Last Admin Trade Name Freq PRN Reason Stop Dose Admin Acetaminophen 650 mg 12/15/22 20:08 12/15/22 21:24 Acetaminophen 325 Mg Tablet PO 12/15/22 20:09 Not Given ONCE ONE Iohexol 100 ml 12/15/22 16:21 12/15/22 16:22 Iohexol 350 Mg/Ml 100 Ml Infus..Btl IV 12/15/22 16:22 85 ml ONCE ONE Administration <Alix Hernandez NP - Last Filed: 12/15/22 22:34> Discharge Plan Discharge Clinical Impression: Constipation <Nishi Tellez NP - Last Filed: 12/15/22 18:41> Patient Disposition: Admitted As Inpatient <Nishi Tellez NP - Last Filed: 12/15/22 18:41> Additional Instructions: Your CT scan shows a lot of constipation. You also have diverticulosis but no signs of diverticulitis. This is a common finding in patients. It is not a cause of your pain. There is some thickening in the lower colon. This may be from spasming of the colon but we cannot rule out a lesion or mass. Therefore it is recommended that you have a colonoscopy to evaluate this further. I spoke to the hat binder on-call. Please call them tomorrow to set up an appointment We are starting you on a bowel regimen Make sure you are increasing fluids and fiber in your diet Return for any worsening pain, vomiting, fever, black or bloody stool <Nishi Tellez NP - Last Filed: 12/15/22 18:41>
[2022-12-15 15:24] LABS: MANUAL DIFF FLAG NO
[2022-12-15 15:25] LABS: Basophils Percent Auto 0.3 % (0-2); Eosinophils Absolute Auto 0.1 X10*3/uL (0.0-0.4); Eosinophils Percent Auto 0.7 % (0-4); Hemoglobin 13.8 g/dl (14.0-18.0); Imm Gran Abs Auto 0.05 X10*3/uL (0.00-0.03); Imm Gran Pct Auto 0.4 % (0.0-0.4); Lymphocytes Absolute Auto 0.9 X10*3/uL (1.2-4.9); Mean Corpuscular HGB Conc 35.4 g/dl (31.0-36.0); Mean Corpuscular Hemoglobin 29.7 pg (27.0-33.0); Mean Corpuscular Volume 84.1 fL (80.0-98.0); Mean Platelet Volume 9.1 fL (9.4-12.4); Monocytes Percent Auto 8.6 % (2-11); Neutrophils Absolute Auto 9.3 x10*3/uL (2.0-8.3); Platelet Count 175 X10*3/uL (160-400); Red Blood Count 4.64 X10*6/uL (4.60-5.80); Red Cell Distribution Width 13.2 % (11.0-16.0); White Blood Count 11.4 X10*3/uL (4.8-10.8)
--- NOTE | 2022-12-15 15:31 | PC.NURSE ---
Alert and oriented, resp even and unlabored. IV established, labs drawn and sent. Pt awaiting CT scan, resting in bed with call kaufman in reach.
[2022-12-15 15:44] LABS: Alanine Aminotransferase 17 U/L (0-40); Albumin Level 4.1 g/dL (3.5-5.0); Alkaline Phosphatase 66 U/L (39-117); Anion Gap 15 (12-20); Aspartate Amino Transferase 16 U/L (5-37); Bilirubin Direct 0.2 mg/dL (0.0-0.5); Bilirubin Total 0.6 mg/dL (0.0-1.0); Blood Urea Nitrogen 19 mg/dL (9-16); Calcium 9.4 mg/dL (8.4-10.2); Carbon Dioxide 23 mmol/L (22-29); Chloride 106 mmol/L (96-108); Creatinine Clr Calc Pharmacy 48.3; Estimated Glomerular Filt Rate > 60; Glucose Random 244 mg/dL (60-115); Lipase 18 U/L (8-78); Magnesium 2.2 mg/dL (1.6-2.6); Potassium 4.7 mmol/L (3.3-5.1); Sodium 139 mmol/L (135-145); Total Protein 6.5 g/dL (6.5-8.0)
--- NOTE | 2022-12-15 16:07 | PC.NURSE ---
Pt off to CT scan
[2022-12-15] MEDS: iohexoL 350 MG/ML 100 ML INFUS..BTL IV (16:22)
[2022-12-15 16:33] VITALS: BP 175/69; PULSE 65; RESP 16; TEMP 36.7; O2SAT 98
[2022-12-15 17:32] LABS: Appearance Urine Clear; Color Urine Yellow; Glucose Urine UA 500 mg/dL (Negative); Leukocyte Esterase Urine Negative (Negative); Nitrite Urine Negative (Negative); Specific Gravity - Urine >= 1.030 (1.005-1.025); Urine Blood Negative (Negative); Urine Ketones Negative (Negative); Urine Protein Negative (Neg-Trace)
--- NOTE | 2022-12-15 18:08 | PC.NURSE ---
Provider to do rectal exam, soap cricket enema provided for patient, tolerating well.
--- NOTE | 2022-12-15 20:08 | PC.NURSE ---
pt states he is in 10/10 pain Candy, [employer] aware per verbal order 650 mg tylenol to be administered to pt order entered per verbal order med to follow
--- NOTE | 2022-12-15 21:24 | PC.NURSE ---
pt refused tylenol for pain states that tylenol causes constipation
--- NOTE | 2022-12-15 22:26 | PC.NURSE ---
PEG med not in ED Pyxis called pharmacy no answer
--- NOTE | 2022-12-15 22:39 | PC.NURSE ---
pharmacy brought down glycerin supp to ED
[2022-12-15] MEDS: Glycerin Adult SUPP.RECT 2 SUPP PR (22:45)
[2022-12-15] MEDS: PEG 3350/Na Sulf,Bicarb,Cl/KCL 4,000 ML SOLN.RECON 4000 ML PO (22:57)
--- NOTE | 2022-12-15 23:08 | PM.IMHP ---
History of Present Illness Date of Service: 12/15/22 Chief Complaint: constipation 82-year-old male with past medical history of AAKASH on CPAP, who presents to the hospital with complaints of constipation. Patient reports that he had a surgery on his eye on Friday of last week, he underwent anesthesia and ever since has not had a bowel movement. States that he developed lower abdominal pain which brought him to the hospital. He states that he had mild constipation the day prior to his surgery but usually has regular bowel movements. his abdominal pain is 8/10, localized to the lower abdomen, nonradiating, constant, no relieving factors, worsened when they placed glycerin suppository in the ED. vitals reviewed stable labs are significant for WBC count of 11.4, labs otherwise unremarkable, Abdomen pelvic CT shows diffuse colonic diverticulosis without diverticulitis, short-segment annular thickening descending colon which could be secondary to spasm or underlying lesion, no acute intra-abdominal process seen patient given multiple enemas, suppositories with no success, patient started on GoLYTELY, GI consulted recommend admission for observation, possible sigmoidoscopy in a.m. Review of Systems Review of Systems: Yes all other systems are reviewed and are negative [facility] Medical History History of prostate cancer AAKASH (obstructive sleep apnea) AAKASH on CPAP Surgical History H/O prostatectomy History of eye surgery Social History Patient Tobacco Use Status: Former Tobacco user Advance Directives: No Advance Directives Information Provided: No Meds Allergies Allergy/AdvReac Type Severity Reaction Status Date / Time lactose [Lactose] Allergy Mild DIARRHEA Verified 12/15/22 23:45 Home Medications Medication Instructions Recorded Confirmed Last Taken Type aspirin 81 mg tablet,delayed 81 mg PO DAILY 08/30/20 12/15/22 Unknown History release metoprolol tartrate 25 mg tablet 25 mg PO BID 08/30/20 12/15/22 Unknown History pravastatin 40 mg tablet 40 mg PO BEDTIME 08/30/20 12/15/22 Unknown History Physical Exam Vital Signs and Narrative: Vital Signs: Last Vital Signs Temp 98.1 F 12/15/22 16:33 Pulse 65 12/15/22 16:33 Resp 16 12/15/22 16:33 BP 175/69 H 12/15/22 16:33 Pulse Ox 98 12/15/22 16:33 O2 Del Method Room Air 12/15/22 16:33 BMI result Body Mass Index 25.5 Const: General: cooperative and no acute distress Orientation/consciousness: patient oriented x3 Eyes: General: appearance normal, both eyes and all related structures Pupils: Equal, round and reactive pupils present Resp: Effort & Inspection: normal respiratory effort Auscultation: clear to auscultation bilaterally Cardio: Rate: regular rate Rhythm: regular rhythm GI: Other: tender in the lower abdomen, no rebound or guarding Palpation (GI): Soft to palpation Auscultation: normal bowel sounds Skin: General skin exam: no rashes or lesions noted Neuro: General: patient oriented x3 Cranial nerves: Yes Equal, round and reactive pupils present Cognition (Neuro): normal cognition Extrem: General: Yes normal to inspection and Yes no pedal edema Results Labs 12/15/22 15:20 12/15/22 15:20 Labs: Laboratory Results - last 24 hr 12/15/22 12/15/22 12/15/22 15:20 15:20 15:20 MCV 84.1 MCH 29.7 MCHC 35.4 RDW 13.2 Plt Count 175 MPV 9.1 L Immature Gran % (Auto) 0.4 Neut % (Auto) 82.0 H Lymph % (Auto) 8.0 L [place] % (Auto) 8.6 Eos % (Auto) 0.7 Baso % (Auto) 0.3 Lymph # (Auto) 0.9 L [place] # (Auto) 1.0 Eos # (Auto) 0.1 Baso # (Auto) 0.0 Abs Immat Gran (auto) 0.05 H Absolute Neuts (auto) 9.3 H Absolute Nucleated RBC 0.000 Nucleated RBC % (auto) 0.0 Anion Gap 15 Estim Creat Clear Calc 48.3 Estimated GFR > 60 Random Glucose 244 H Calcium 9.4 Magnesium 2.2 Total Bilirubin 0.6 Direct Bilirubin 0.2 AST 16 ALT 17 Alkaline Phosphatase 66 Total Protein 6.5 Albumin 4.1 Lipase 18 Urine Color Urine Appearance Urine pH Ur Specific [place] Urine Protein Urine Glucose (UA) Urine Ketones Urine Blood Urine Nitrite Ur Leukocyte Esterase 12/15/22 17:23 MCV MCH MCHC RDW Plt Count MPV Immature Gran % (Auto) Neut % (Auto) Lymph % (Auto) [place] % (Auto) Eos % (Auto) Baso % (Auto) Lymph # (Auto) [place] # (Auto) Eos # (Auto) Baso # (Auto) Abs Immat Gran (auto) Absolute Neuts (auto) Absolute Nucleated RBC Nucleated RBC % (auto) Anion Gap Estim Creat Clear Calc Estimated GFR Random Glucose Calcium Magnesium Total Bilirubin Direct Bilirubin AST ALT Alkaline Phosphatase Total Protein Albumin Lipase Urine Color Yellow Urine Appearance Clear Urine pH 8.0 Ur Specific [place] >= 1.030 H Urine Protein Negative Urine Glucose (UA) 500 H Urine Ketones Negative Urine Blood Negative Urine Nitrite Negative Ur Leukocyte Esterase Negative Imaging Radiologist's Impressions: Impressions Abdomen/Pelvis CT 12/15/22 16:41 IMPRESSION: 1. Diffuse colonic diverticulosis without diverticulitis. There is a short segment annular thickening descending colon which could be secondary to spasm or underlying lesion. Correlate with clinical exam, endoscopy or barium enema. No proximal bowel distention seen. Moderate constipation. 2. No acute intra-abdominal process seen. 3. 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 Fleischner guidelines were followed. Assessment and Plan (1) Constipation: Status: Acute (2) Abnormal abdominal CT scan: Status: Acute (3) Abdominal pain: Status: Acute Plan 82-year-old male with past medical history of AAKASH on CPAP as well as prostate cancer status post prostatectomy presents to the hospital with complaints of abdominal pain and constipation # acute abdominal pain - likely secondary to constipation - GI consult, recommended glycerin suppositories as well as GoLYTELY - if does not have BM, plan for possible sigmoidoscopy in a.m. - Tylenol p.r.n. for pain control # constipation - likely secondary to anesthesia - management as above - monitor for BM # abnormal CT scan of the abdomen - shows mass versus spasm - patient states heads colonoscopy in 2018 which showed polyp and he is planned for a repeat colonoscopy in June - GI consulted DVT prophylaxis: SCDs /early ambulation Time Spent With Patient Time: Total time managing care of this patient today ____ minutes. Quality Stroke Does the patient have a stroke diagnosis?: No VTE Prior VTE?: No VTE Risk Level:: Medical - low VTE Device Contraindication: N/A - Device Ordered VTE Drug Contraindication: Treatment Not Indicated
--- NOTE | 2022-12-15 23:39 | PC.NURSE ---
called nursing sup, text med, pt and location of med to be brought down to ED
--- NOTE | 2022-12-15 23:46 | PC.NURSE ---
med rec completed
[2022-12-16] MEDS: 0.9 % Sodium Chloride Flush 3 ML SYRINGE IVFLUSH ×2 (00:23→07:34)
[2022-12-16 01:03] LABS: COVID-19 Test Negative (Negative); IDNOW Serial# BCCEAD1C
--- NOTE | 2022-12-16 01:24 | PC.NURSE ---
report given to MARSHA Benavides; pt to room 386
[2022-12-16 02:21] VITALS: BMI 26.0
[2022-12-16 02:30] VITALS: BP 161/72; PULSE 86; RESP 16; TEMP 36.7; O2SAT 97
--- NOTE | 2022-12-16 03:15 | PC.NURSE ---
PATIENT ADMITTED TO [place] [id number] VIA STRETCHER FROM ED WITH DX:CONSTIPATION. PT TREATED IN ED WITH SSE AND CARE(SEE ED REPORTS). PT ADMITTED WITH STOOL PREP IN PROGRESS FOR PLANNED COLONOSCOPY/SIGMOIDOSCOPY AND TOLERATING WELL. BEDSIDE COMMODE TO ROOM, PT A/O TIMES 3, DENIED PAIN, ABD ROUND, SOFT, WITH SOME TENDERNESS, ABLE TO HAVE A STOOL IN ED PRIOR TO TRANSFER, LUNG ALDANA CLEAR, BP SLIGHTLY ELEVATED BUT NOTED BETTER THAN PREVIOUS READINGS AND WILL MONITOR. PT DENIED HEADACHES, WEAKNESS, DIZZINESS, OR NAUSEA. PT ADMITTED PLACEMENT OBSERVATION AND INTERVENTIONS COMPLETED. PT WEARS A CPAP AT HOME FOR AAKASH, HOWEVER, HE RECENTLY HAD A SURGICAL PROCEDURE UNDER LEFT EYE/FACIAL CHEEK AND UNABLE TO WEAR CPAP PAST WEEK, MD AWARE, PT WITH NO S/SX DISTRESS. LEFT FACIAL CHEEK IS BRUISED, VERY SMALL DRSG, AND FEW SUTURES NOTED. PT STATED SUTURES WERE DUE FOR REMOVAL TODAY, 12-16-22 AND WILL FOLLOW UP. ACCOMPANIED PT TO FLOOR AND THEN ESCORTED BACK TO ED WAITING AREA FOR CLOSER ACCESS TO HER CAR. PT EDUCATED ON BED CONTROLS, CALL TAVAREZ USE, SAFETY, AND PLAN OF CARE.
[2022-12-16 04:00] VITALS: RESP 20
[2022-12-16 06:23] LABS: MANUAL DIFF FLAG NO
[2022-12-16 06:27] LABS: Basophils Percent Auto 0.3 % (0-2); Eosinophils Percent Auto 0.3 % (0-4); Hematocrit 38.6 % (42.0-52.0); Hemoglobin 13.4 g/dl (14.0-18.0); Imm Gran Abs Auto 0.06 X10*3/uL (0.00-0.03); Imm Gran Pct Auto 0.5 % (0.0-0.4); Lymphocytes Absolute Auto 0.7 X10*3/uL (1.2-4.9); Lymphocytes Percent Auto 6.1 % (20-40); Mean Corpuscular HGB Conc 34.7 g/dl (31.0-36.0); Mean Corpuscular Hemoglobin 29.8 pg (27.0-33.0); Mean Corpuscular Volume 85.8 fL (80.0-98.0); Mean Platelet Volume 9.4 fL (9.4-12.4); Monocytes Absolute Auto 0.9 X10*3/uL (0.1-1.2); Monocytes Percent Auto 8.4 % (2-11); Neutrophils Absolute Auto 9.3 x10*3/uL (2.0-8.3); Neutrophils Percent Auto 84.4 % (45-73); Platelet Count 171 X10*3/uL (160-400); Red Cell Distribution Width 13.2 % (11.0-16.0)
[2022-12-16 06:53] LABS: Anion Gap 17 (12-20); Blood Urea Nitrogen 14 mg/dL (9-16); Calcium 9.3 mg/dL (8.4-10.2); Carbon Dioxide 26 mmol/L (22-29); Chloride 103 mmol/L (96-108); Estimated Glomerular Filt Rate > 60; Glucose Random 158 mg/dL (60-115); Potassium 4.5 mmol/L (3.3-5.1); Sodium 141 mmol/L (135-145)
[2022-12-16 07:14] VITALS: BP 114/54; PULSE 61; RESP 18; TEMP 36.9; O2SAT 96
--- NOTE | 2022-12-16 07:47 | PHA.MEDREC ---
Pharmacy Consult ? Medication Reconciliation Pharmacy has reviewed the medication reconciliation completed by Dina. Metformin was missed and added to home list. Patient reported he has not take aspirin is a while, therefore it was removed from list. Shelby Rodriguez, PharmD
[2022-12-16] MEDS: Aspirin Enteric Coated 81 MG TABLET.DR PO (09:36)
[2022-12-16] MEDS: Metoprolol Tartrate 25 MG TABLET PO (09:36)
--- NOTE | 2022-12-16 10:17 | PM.DS ---
DS: Providers Provider Date of Service: 12/16/22 Date of admission: 12/15/22 23:06 Date of discharge: 12/16/22 Primary care physician: Royce Kay MD Consults: 12/15/22 23:06 Consult to Gastroenterology Routine Consulting Provider: David Vaughn Reason for consultation: pt known to you. Severe constipation, Mass? Has provider been notified: No DS: Diagnosis Discharge Diagnosis (1) Constipation: Status: Acute (2) Abnormal abdominal CT scan: Status: Acute (3) Abdominal pain: Status: Acute DS: Summary Hospital Course Hospital Course: From admission H+P by hospitalist Radha Real, 12/15/22: 82-year-old male with past medical history of AAKASH on CPAP, who presents to the hospital with complaints of constipation.? Patient reports that he had a surgery on his eye on Friday of last week, he underwent anesthesia and ever since has not had a bowel movement.? States that he developed lower abdominal pain? which brought him to the hospital.? He states that he had mild constipation the day prior to his surgery but usually has regular bowel movements.? his abdominal pain is 8/10, localized to the lower abdomen, nonradiating, constant,? no relieving factors,? worsened when they? placed glycerin suppository in the ED. ?vitals reviewed stable ?labs are significant for WBC count of 11.4, labs otherwise unremarkable, Abdomen pelvic CT shows diffuse colonic diverticulosis without diverticulitis, short-segment annular thickening descending colon which could be secondary to spasm or underlying lesion, no acute intra-abdominal process seen ?patient given multiple enemas, suppositories with no success, patient started on GoLYTELY, GI consulted recommend admission for observation, possible sigmoidoscopy in a.m. He was admitted to the medical-surgical floor with Gastroenterology consultation. He was given GoLYTELY preparation and had several bowel movements. He was prescribed a bowel regimen and discharged. As for the CT finding on the descending colon, he should follow up with his physician office secretary, Dr Vaughn, for colonoscopy. Time Spent with Patient Time attestation: Total time managing care of this patient today __25__ minutes. Discharge coordination time: Less than 30 minutes Quality: Safe Use of Opioids Does Pt have an Active Cancer Diagnosis on the Problem List?: No Quality: Stroke Does the patient have a stroke diagnosis?: No Physical Exam Vital Signs: Vital Signs: Last Vital Signs Temp 98.5 F 12/16/22 07:14 Pulse 61 12/16/22 07:14 Resp 18 12/16/22 07:14 BP 114/54 L 12/16/22 07:14 Pulse Ox 96 12/16/22 07:14 O2 Del Method Room Air 12/16/22 07:14 BMI result Body Mass Index 26.0 Gen: in no acute distress HEENT: sclera anicteric, moist mucus membranes Neck: supple Lungs: clear to auscultation bilaterally Heart: regular rate and rhythm, no murmurs Abd: soft, non-tender, non-distended Ext: no edema Skin: warm/well-perfused Neuro: alert and oriented x3, no focal findings Psych: appropriate affect DS: Data Data Completed and Pending Completed studies during hospitalization [Text1]: Laboratory Results WBC 11.0 X10*3/uL (4.8-10.8) H 12/16/22 05:38 RBC 4.50 X10*6/uL (4.60-5.80) L 12/16/22 05:38 Hgb 13.4 g/dl (14.0-18.0) L 12/16/22 05:38 Hct 38.6 % (42.0-52.0) L 12/16/22 05:38 MCV 85.8 fL (80.0-98.0) 12/16/22 05:38 MCH 29.8 pg (27.0-33.0) 12/16/22 05:38 MCHC 34.7 g/dl (31.0-36.0) 12/16/22 05:38 RDW 13.2 % (11.0-16.0) 12/16/22 05:38 Plt Count 171 X10*3/uL (160-400) 12/16/22 05:38 MPV 9.4 fL (9.4-12.4) 12/16/22 05:38 Immature Gran % (Auto) 0.5 % (0.0-0.4) H 12/16/22 05:38 Neut % (Auto) 84.4 % (45-73) H 12/16/22 05:38 Lymph % (Auto) 6.1 % (20-40) L 12/16/22 05:38 [place] % (Auto) 8.4 % (2-11) 12/16/22 05:38 Eos % (Auto) 0.3 % (0-4) 12/16/22 05:38 Baso % (Auto) 0.3 % (0-2) 12/16/22 05:38 Lymph # (Auto) 0.7 X10*3/uL (1.2-4.9) L 12/16/22 05:38 [place] # (Auto) 0.9 X10*3/uL (0.1-1.2) 12/16/22 05:38 Eos # (Auto) 0.0 X10*3/uL (0.0-0.4) 12/16/22 05:38 Baso # (Auto) 0.0 X10*3/uL (0.0-0.2) 12/16/22 05:38 Abs Immat Gran (auto) 0.06 X10*3/uL (0.00-0.03) H 12/16/22 05:38 Absolute Neuts (auto) 9.3 x10*3/uL (2.0-8.3) H 12/16/22 05:38 Absolute Nucleated RBC 0.000 X10*3/uL (0.0-0.012) 12/16/22 05:38 Nucleated RBC % (auto) 0.0 /100WBC (0.0-0.2) 12/16/22 05:38 Sodium 141 mmol/L (135-145) 12/16/22 05:38 Potassium 4.5 mmol/L (3.3-5.1) 12/16/22 05:38 Chloride 103 mmol/L (96-108) 12/16/22 05:38 Carbon Dioxide 26 mmol/L (22-29) 12/16/22 05:38 Anion Gap 17 (12-20) 12/16/22 05:38 BUN 14 mg/dL (9-16) 12/16/22 05:38 Creatinine 1.08 mg/dL (0.5-1.4) 12/16/22 05:38 Estim Creat Clear Calc 51.0 12/16/22 05:38 Estimated GFR > 60 12/16/22 05:38 Random Glucose 158 mg/dL (60-115) H 12/16/22 05:38 Calcium 9.3 mg/dL (8.4-10.2) 12/16/22 05:38 Magnesium 2.2 mg/dL (1.6-2.6) 12/15/22 15:20 Total Bilirubin 0.6 mg/dL (0.0-1.0) 12/15/22 15:20 Direct Bilirubin 0.2 mg/dL (0.0-0.5) 12/15/22 15:20 AST 16 U/L (5-37) 12/15/22 15:20 ALT 17 U/L (0-40) 12/15/22 15:20 Alkaline Phosphatase 66 U/L (39-117) 12/15/22 15:20 Total Protein 6.5 g/dL (6.5-8.0) 12/15/22 15:20 Albumin 4.1 g/dL (3.5-5.0) 12/15/22 15:20 Lipase 18 U/L (8-78) 12/15/22 15:20 Urine Color Yellow 12/15/22 17:23 Urine Appearance Clear 12/15/22 17:23 Urine pH 8.0 (5.0-9.0) 12/15/22 17:23 Ur Specific [place] >= 1.030 (1.005-1.025) H 12/15/22 17:23 Urine Protein Negative mg/dL (Neg-Trace) 12/15/22 17:23 Urine Glucose (UA) 500 mg/dL (Negative) H 12/15/22 17:23 Urine Ketones Negative mg/dL (Negative) 12/15/22 17:23 Urine Blood Negative (Negative) 12/15/22 17:23 Urine Nitrite Negative (Negative) 12/15/22 17:23 Ur Leukocyte Esterase Negative (Negative) 12/15/22 17:23 COVID-19 ([facility]) Negative (Negative) 12/16/22 00:37 COVID-19 Clin Com See Note 12/16/22 00:37 Impressions Abdomen/Pelvis CT 12/15/22 16:41 IMPRESSION: 1. Diffuse colonic diverticulosis without diverticulitis. There is a short segment annular thickening descending colon which could be secondary to spasm or underlying lesion. Correlate with clinical exam, endoscopy or barium enema. No proximal bowel distention seen. Moderate constipation. 2. No acute intra-abdominal process seen. 3. 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 Fleischner guidelines were followed. Discharge Plan Discharge Patient Disposition: Home, Self-Care Discharge Diagnosis: severe constipation Referrals: David Vaughn [Physician] - 1 Week Royce Kay MD [Primary Care Provider] - 1 week Discharge Medications: New polyethylene glycol 3350 [Miralax] 17 gram/dose powder 17 g PO BID Qty: 238 0RF docusate sodium [Colace] 100 mg capsule 100 mg PO BID Qty: 60 0RF lactulose 10 gram/15 mL solution 15 ml PO DAILY PRN (Reason: laxative effect) Qty: 237 0RF polyethylene glycol 3350 [Miralax] 17 gram/dose powder 17 g PO DAILY Qty: 510 0RF Continued metformin 500 mg tablet 250 mg PO DAILY Probiotic 1 cap PO DAILY metoprolol tartrate 25 mg tablet 25 mg PO BID pravastatin 40 mg tablet 40 mg PO BEDTIME Discharge Orders: Discharge Order (Routine); Ordered 12/16/22 Ordered By: Lesley He Diet: high-fibre Activity on Discharge: As tolerated Stand Alone Forms: Patient Portal Discharge page Care Plan Goals: relief of constipation Health Concerns: constipation thickening in lower colon Plan of Treatment: Your CT scan shows a lot of constipation. You also have diverticulosis but no signs of diverticulitis. This is a common finding in patients. It is not a cause of your pain. There is some thickening in the lower colon. This may be from spasming of the colon but we cannot rule out a lesion or mass. Therefore it is recommended that you have a colonoscopy to evaluate this further. I spoke to the physician office secretary on-call. Please call them tomorrow to set up an appointment We are starting you on a bowel regimen Make sure you are increasing fluids and fiber in your diet Return for any worsening pain, vomiting, fever, black or bloody stool Assessment: See Discharge Summary.
--- NOTE | 2022-12-16 10:18 | PM.GICN ---
History of Present Illness Data of Consult Service Date: 12/16/22 Primary Care Provider: Royce Kay MD [facility] Reason for consult: Constipation This is an 82-year-old gentleman with past medical history of prostate cancer, obstructive sleep apnea, recent eye surgery, who presented to the hospital yesterday for worsening abdominal pain. Patient reports that since his surgery last week, he has not been able to have any bowel movements, and has progressively developed lower crampy abdominal pain which he could not manage at home. This was associated with nausea, but no vomiting. He tried ioip-wnw-metylre medications at home without any luck. In the emergency room, he was noted to be widely stable. Labs were significant for mild leukocytosis Chem 7 within normal limits with normal calcium. Magnesium not checked. TSH normal from last month. CT abdomen and pelvis personally reviewed and shows large fecal burden. There also seems to be small area of focal wall thickening in the descending colon. A bedside evaluation today, patient reports resolution of his symptoms. Has passed at least 10 bowel movements since last night after starting GoLYTELY. Has a good appetite. Reports his last colonoscopy was in 2019, and due for the next 06/[address] Vaughn office. Review of Systems Review of Systems: Yes all other systems are reviewed and are negative PMFSH Past Medical History Medical History History of prostate cancer AAKASH (obstructive sleep apnea) AAKASH on CPAP Surgical History Surgical History H/O prostatectomy History of eye surgery Social History Social History Patient Tobacco Use Status: Former Tobacco user Second Hand Smoke Exposure: No Meds Allergies Allergy/AdvReac Type Severity Reaction Status Date / Time lactose [Lactose] Allergy Mild DIARRHEA Verified 12/15/22 23:45 Active Medications: Current Medications Acetaminophen (Acetaminophen 325 Mg Tablet) 650 mg PO Q6H PRN PRN Reason: Pain, Mild (Pain Scale 1-3) Aspirin (Aspirin Enteric Coated 81 Mg Tablet.) 81 mg PO DAILY [facility] Last Admin: 12/16/22 09:36 Dose: 81 mg Metoprolol Tartrate (Metoprolol Tartrate 25 Mg Tablet) 25 mg PO BID [facility]; Protocol Last Admin: 12/16/22 09:36 Dose: 25 mg Ondansetron HCl (Ondansetron Hcl 4 Mg/2 Ml Vial) 4 mg IVPUSH Q8H PRN PRN Reason: Nausea and Vomiting Pravastatin Sodium (Pravastatin Sodium 40 Mg Tablet) 40 mg PO BEDTIME CARRIE Sodium Chloride (0.9 % Sodium Chloride Flush 3 Ml Syringe) 3 ml IVFLUSH QSHIFT CARRIE Last Admin: 12/16/22 07:34 Dose: 3 ml Home Medications Medication Instructions Recorded Confirmed Last Taken Type metoprolol tartrate 25 mg tablet 25 mg PO BID 08/30/20 12/15/22 Unknown History pravastatin 40 mg tablet 40 mg PO BEDTIME 08/30/20 12/15/22 Unknown History Probiotic 1 cap PO DAILY 12/16/22 12/16/22 Unknown History metformin 500 mg tablet 250 mg PO DAILY 12/16/22 12/16/22 Unknown History Physical Exam Vital Signs: Vital Signs: Last Vital Signs Temp 98.5 F 12/16/22 07:14 Pulse 61 12/16/22 07:14 Resp 18 12/16/22 07:14 BP 114/54 L 12/16/22 07:14 Pulse Ox 96 12/16/22 07:14 O2 Del Method Room Air 12/16/22 07:14 BMI result Body Mass Index 26.0 Gen appear: Nontoxic-appearing HEENT: no icterus, no cervical lymphadenopathy Chest: No overt resp distress CVS: S1/S2, regular Abd: soft, nontender, nondistended, bowel sounds normoactive Psych: Stable affect, answering questions appropriately Neuro: A/Ox3 noted to move all extremities spontaneously Ext: no peripheral edema Results Labs 12/16/22 05:38 12/16/22 05:38 Labs: Short CBC 12/15/22 12/16/22 Range/Units 15:20 05:38 WBC 11.4 H 11.0 H (4.8-10.8) X10*3/uL Hgb 13.8 L 13.4 L (14.0-18.0) g/dl Hct 39.0 L 38.6 L (42.0-52.0) % Plt Count 175 171 (160-400) X10*3/uL BMP 12/15/22 12/16/22 15:20 05:38 Sodium 139 141 Potassium 4.7 4.5 Chloride 106 103 Carbon Dioxide 23 26 BUN 19 H 14 Creatinine 1.14 1.08 Calcium 9.4 9.3 Liver Function 12/15/22 Range/Units 15:20 Total Bilirubin 0.6 (0.0-1.0) mg/dL Direct Bilirubin 0.2 (0.0-0.5) mg/dL AST 16 (5-37) U/L ALT 17 (0-40) U/L Alkaline Phosphatase 66 (39-117) U/L Albumin 4.1 (3.5-5.0) g/dL Urine 12/15/22 Range/Units 17:23 Urine Color Yellow Urine Appearance Clear Urine pH 8.0 (5.0-9.0) Ur Specific Lebo >= 1.030 H (1.005-1.025) Urine Protein Negative (Neg-Trace) mg/dL Urine Glucose (UA) 500 H (Negative) mg/dL Imaging CT scan - abdomen: Radiologist's impression: 1.? Diffuse colonic diverticulosis without diverticulitis. There is a short segment annular thickening descending colon which could be secondary to spasm or underlying lesion. Correlate with clinical exam, endoscopy or barium enema. No proximal bowel distention seen. Moderate constipation. 2.? No acute intra-abdominal process seen. 3.? 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 Assessment and Plan (1) Abnormal abdominal CT scan: Status: Acute (2) Abdominal pain: Status: Acute (3) Constipation: Status: Acute Symptoms of abdominal pain and cramping have resolved with the resolution of constipation. Would recommend discharging on a scheduled regimen. He was also advised to call the GI office for follow up on abnormal CT scan. Recommendations: - Cont miralax PO daily, can decrease to PRN when BMs regulated - Increase fiber intake - Encourage ambulation - Outpatient GI follow up with Dr Vaughn for abnormal CT scan Thank you for allowing me to participate in his care. Please not hesitate to reach out for any questions or concerns. Time Spent With Patient Time: Total time managing care of this patient today ____ minutes. Procedures Date of Service Date of Service: 12/16/22
--- NOTE | 2022-12-16 10:28 | MHC.CM.PN ---
PATIENT LIVES WITH /HCP COPY REQUESTED. SHE IS ON HER WAY IN TO TRANSPORT PATIENT HOME - SELF CARE COVID VACCINATED. NO CANE OR WALKER. RAJPUT 4 IN CHART
[2022-12-16 10:59] LABS: Magnesium 2.2 mg/dL (1.6-2.6)
== END 2022-12-16 12:00 | disposition home or self-care (01) ==
LOC: HO.ED 22:33 → HO.EDOVER 23:14 → HO.S3 12-16 01:10
PROVIDERS: Internal Medicine; Nurse Practitioner Family; Physician Assistant; Admitting Provider Internal Medicine; Emergency Provider Emergency Medicine; PCP Internal Medicine; Visit Provider Family Medicine
DX: K59.00 Constipation, unspecified (principal); R10.32 Left lower quadrant pain; R93.5 Abnormal findings on diagnostic imaging of other abdominal regions, including retroperitoneum; K57.90 Diverticulosis of intestine, part unspecified, without perforation or abscess without bleeding; Z20.822 Contact with and (suspected) exposure to COVID-19; I10 Essential (primary) hypertension; E78.5 Hyperlipidemia, unspecified; Z85.46 Personal history of malignant neoplasm of prostate; Z79.82 Long term (current) use of aspirin; Z79.02 Long term (current) use of antithrombotics/antiplatelets; Z79.899 Other long term (current) drug therapy
CPT/HCPCS: 36415; 74177; 80048; 80076; 81003; 83690; 83735; 85025; 87635; 99221; 99284; 99285; Q9967

== ENCOUNTER 2023-02-12 11:43 | Day surgery (SDC) | payer MEDICARE, OTHER, SELFPAY ==
[2023-02-12 12:19] LABS: Glucose, Whole Blood 90 mg/dL (60-115)
[2023-02-12 12:20] VITALS: BMI 24.7
[2023-02-12 12:26] VITALS: BP 146/74; PULSE 88; RESP 18; TEMP 36.2; O2SAT 98
--- NOTE | 2023-02-12 13:05 | MHC.SHP ---
Pre-Procedural Eval Section A Date of Service: 02/12/23 The patient is an INPATIENT: No Changes since office visit: No Cold of Flu in the past 2 weeks, No New Medical Problems, No Changes in Medication and No Patient answered all questions The History & Physical has been completed within 30 days and I have reviewed it.: Yes Section B Chief Complaint: Abnormal findings on diagnostic imaging Allergies: Allergies Allergy/AdvReac Type Severity Reaction Status Date / Time lactose [Lactose] Allergy Mild DIARRHEA Verified 12/15/22 23:45 Plan I have reviewed the history and physical and performed a pertinent physical examination on my patient. No changes have occurred unless specified. Time Spent With Patient Time: Total time managing care of this patient today ____ minutes.
--- NOTE | 2023-02-12 13:07 | HO.ANESPROP2 ---
[facility] Active Problems Active Problems: All Active Problems (Updated 02/11/23 @ 12:55 by Letitia Najera RN) Constipation (Acute) AAKASH (obstructive sleep apnea) (Acute) AAKASH on CPAP (Acute) Past Medical History Medical History Abdominal pain Abnormal abdominal CT scan Diabetes History of prostate cancer AAKASH (obstructive sleep apnea) AAKASH on CPAP Surgical History Surgical History H/O prostatectomy History of bladder surgery History of eye surgery History of Problems with Anesthesia: No Social History Social History Patient Tobacco Use Status: Former Tobacco user Quit Date: 1998 Second Hand Smoke Exposure: No Use of substances other than those prescribed or required for medical reasons: No Are you DNR?: No Advance Directives: No Advance Directives Information Provided: Yes Current occupational status: retired [employer] Allergies Allergy/AdvReac Type Severity Reaction Status Date / Time lactose [Lactose] Allergy Mild DIARRHEA Verified 12/15/22 23:45 Home Medications Medication Instructions Recorded Confirmed Last Taken Type metoprolol tartrate 25 mg tablet 25 mg PO BID 08/30/20 12/15/22 Unknown History pravastatin 40 mg tablet 40 mg PO BEDTIME 08/30/20 12/15/22 Unknown History Probiotic 1 cap PO DAILY 12/16/22 12/16/22 Unknown History metformin 500 mg tablet 250 mg PO DAILY 12/16/22 12/16/22 Unknown History Exam Exam Date and Time: February 12, 2023 1307 Height,Weight and Vital Signs: Height 5 ft 7 in Weight 71.668 kg Last Vital Signs Temp 97.2 F 02/12/23 12:26 Pulse 88 02/12/23 12:26 Resp 18 02/12/23 12:26 BP 146/74 H 02/12/23 12:26 Pulse Ox 98 02/12/23 12:26 O2 Del Method Room Air 02/12/23 12:26 Pertinent Lab Results Pertinent Lab Results: Laboratory Tests 02/12/23 12:15 POC Glucose 90 Airway Mallampati Class: II TM Dist: >3cm Neck ROM: Full Heart: RRR Lungs: CTA Assessment and Plan Final Anesthetic Review History of Problems with Anesthesia: No NPO: Yes ASA Class: II Final Preanesthetic Review: Meds/Allgs Chart Reviewed, Consent Obtained/Reviewed and Anes Risks/Benef Reviewed Patient Risk: Low Procedure Risk: Low Anesthetic Plan Anesthetic Plan: MAC: Disposition: Standard PACU
[2023-02-12] MEDS: Lactated Ringers 1,000 ML 100 ML IVCONT (13:11)
[2023-02-12 13:40] VITALS: BP 117/65; PULSE 71; RESP 16; TEMP 36.5; O2SAT 94
--- NOTE | 2023-02-12 13:43 | PM.OP ---
Brief Operative Note Date of Service: 02/12/23 Pre-op diagnosis: abnl ct scan colon Post-op diagnosis: same Procedure: colonosocpy Surgeon: David Vaughn Anesthesia: MAC Was an Major Assembler used for this Procedure?: No Estimated blood loss (mL): 0 Pathology: none sent Condition: stable Disposition: PACU
--- NOTE | 2023-02-12 13:52 | OP_ITS ---
DATE OF SERVICE: 02/12/2023 SURGEON: David Vaughn MD INDICATIONS: Abnormal CT scan of the colon. PREOPERATIVE DIAGNOSIS: POSTOPERATIVE DIAGNOSIS: PROCEDURE PERFORMED: Colonoscopy to the terminal ileum. ESTIMATED BLOOD LOSS: COMPLICATIONS: ANESTHESIA: Monitored anesthesia care. ASSISTANTS: SPECIMENS: DESCRIPTION OF PROCEDURE: A history and physical was performed. The risks and benefits of the procedure were explained to the patient. Informed consent was obtained. The patient was placed in the left lateral decubitus position. A digital rectal exam was performed and was found to be normal. The Olympus pediatric video colonoscope was introduced into the rectum and advanced to the cecum without difficulty. The cecum was identified by transillumination, palpation, and identification of ileocecal valve. Examination was performed. The scope was removed. He tolerated the procedure well and was returned to the recovery area in stable condition. FINDINGS: The terminal ileum was examined and appeared normal. The visualized colonic mucosa was normal. The quality of the prep was good. There was extensive sigmoid diverticulosis with diverticula throughout the remainder of the colon. No mass, lesion was identified. No polyps were seen. Retroflexed examination showed some moderate-sized internal hemorrhoids. IMPRESSION: Normal colonoscopy. RECOMMENDATION: 1. Follow up as needed. 2. Repeat colonoscopy is recommended in 10 years for average risk individuals. This is optional based on the patient's age. MD NICKIE Conner/BAM / [id number]
[2023-02-12 13:55] VITALS: BP 118/59; PULSE 71; RESP 16; TEMP 36.9; O2SAT 95
== END 2023-02-12 14:19 | disposition home or self-care (01) ==
PROVIDERS: PCP Internal Medicine; Visit Provider Internal Medicine Gastroenterology
PROC: 0DJD8ZZ Inspection of Lower Intestinal Tract, Via Natural or Artificial Opening Endoscopic (ICD-10-PCS; CPT 45378; principal; 2023-02-12 13:00)
DX: R93.3 Abnormal findings on diagnostic imaging of other parts of digestive tract (principal); R10.31 Right lower quadrant pain; K57.30 Diverticulosis of large intestine without perforation or abscess without bleeding; K64.8 Other hemorrhoids; Z86.010 Personal history of colon polyps; K59.01 Slow transit constipation; M19.90 Unspecified osteoarthritis, unspecified site; G47.33 Obstructive sleep apnea (adult) (pediatric); E78.00 Pure hypercholesterolemia, unspecified; R73.03 Prediabetes; E73.9 Lactose intolerance, unspecified; Z79.84 Long term (current) use of oral hypoglycemic drugs; Z79.82 Long term (current) use of aspirin; Z79.899 Other long term (current) drug therapy; Z85.46 Personal history of malignant neoplasm of prostate; Z87.891 Personal history of nicotine dependence
CPT/HCPCS: 45378; 82947

== ENCOUNTER 2023-03-25 14:32 | Outpatient (REF) | payer MEDICARE, OTHER, SELFPAY ==
[2023-03-25 16:35] LABS: Estimated Average Glucose 140 mg/dL; Hemoglobin A1c % 6.5 %
[2023-03-25 16:41] LABS: Anion Gap 13 (12-20); Blood Urea Nitrogen 17 mg/dL (9-16); Calcium 10.4 mg/dL (8.4-10.2); Carbon Dioxide 27 mmol/L (22-29); Chloride 106 mmol/L (96-108); Estimated Glomerular Filt Rate > 60; Glucose Random 149 mg/dL (60-115); Potassium 4.8 mmol/L (3.3-5.1); Sodium 141 mmol/L (135-145)
== END 2023-03-25 14:33 | disposition home or self-care (01) ==
LOC: HO.HMGCLDS 14:32
PROVIDERS: PCP Internal Medicine; Visit Provider Internal Medicine
DX: E11.9 Type 2 diabetes mellitus without complications (principal); I10 Essential (primary) hypertension
CPT/HCPCS: 36415; 80048; 83036

== ENCOUNTER 2023-05-14 13:20 | Outpatient (AMB) | payer MEDICARE, OTHER, SELFPAY ==
[2023-05-14 13:25] VITALS: BP 142/68; PULSE 53; O2SAT 98; BMI 26.4
--- NOTE | 2023-05-14 13:25 | A.OFFVIS_ITS ---
Intake Vital Signs 05/14/23 13:25 Height 5 ft 7 in Weight 168 lb 10.458 oz BMI 26.4 BP 142/68 H Blood Pressure Location Lt brachial Position Sitting Pulse 53 Pulse Source Pulse Oximeter Pulse Oximetry (%) 98 Oxygen Delivery Method Room Air Intake Visit Reasons: Obstructive sleep apnea Director Of Promotions Required: No Accompanied by: Self / Same As Patient Allergies lactose [Lactose] Allergy (Mild, Verified 05/14/23 13:50) DIARRHEA Medication List - Last Reconciled 05/14/23 by Tom Capellan MD aspirin 81 mg PO DAILY diclofenac potassium 50 mg PO TID PRN docusate sodium (Colace) 100 mg PO BID lactulose 15 mL PO DAILY PRN metformin 250 mg PO DAILY metoprolol tartrate 25 mg PO BID pravastatin 40 mg PO BEDTIME [Probiotic 1 cap PO DAILY] Do you need a note to return to daycare/school/sports/work: No HPI Obstructive sleep apnea HPI Details Aldair is 83 years old male, with diagnosis of chronic obstructive sleep apnea, which has been treated with CPAP all along. His current CPAP machine, was refurbished about 5 months ago, .and is working well He uses every night for 5-6 hours and sleeps well. He gets his CPAP supplies from the [place] respiratory services. Denies any issues with the CPAP mask or machine at this time. [facility] Medical History Abdominal pain Abnormal abdominal CT scan Diabetes History of prostate cancer AAKASH (obstructive sleep apnea) AAKASH on CPAP Surgical History H/O prostatectomy History of bladder surgery History of eye surgery Social History Patient Tobacco Use Status: Former Tobacco user Quit Date: quit 1998 Second Hand Smoke Exposure: No Current occupational status: retired Review of Systems Const All systems reviewed & are unremarkable except as noted in HPI and below Eyes Reports no additional complaints ENT Reports no additional complaints Card Denies chest pain, Denies irregular heart rhythm, Denies leg edema and Denies dyspnea Resp Denies cough, Denies dyspnea and Denies wheezing GI Reports no additional complaints Reports no additional complaints Skin/Breast Reports system reviewed and no additional complaints, except as documented Neuro Reports no additional complaints Psych Reports no additional complaints Aller/Immun Denies wheezing Physical Exam Vital Signs: Last Vital Signs Pulse 53 05/14/23 13:25 BP 142/68 H 05/14/23 13:25 Pulse Ox 98 05/14/23 13:25 Oxygen Delivery Method Room Air 05/14/23 13:25 BMI result Body Mass Index 26.4 Const General: healthy appearing, comfortable, no acute distress, alert and awake Orientation/consciousness: patient oriented x3 HEENT Head: Yes normal to inspection General nose exam: No nasal polyps present and No nasal discharge present Face and sinus: Yes sinuses nontender Mouth: oropharynx normal Teeth and gingiva: other (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) Throat: Yes posterior oropharynx normal Eyes General: appearance normal, both eyes and all related structures Neck Neck: Yes normal visual inspection, Yes no lymphadenopathy, Yes trachea midline and Yes no JVD Thyroid: Thyroid normal Chest Chest palpation & inspection: normal inspection of the chest, normal palpation of entire chest wall and no tenderness Resp Effort & Inspection: normal respiratory effort Auscultation: clear to auscultation bilaterally and no wheezes Cardio Palpation: normal PMI Rate: regular rate Rhythm: regular rhythm Heart sounds: no gallops and no murmurs Peripheral pulses: Peripheral pulses 2+ throughout GI Palpation (GI): Soft to palpation, nontender, No hepatosplenomegaly present and no masses Auscultation: normal bowel sounds Back/Spine/Pelvis Thoracic/Lumbar Spine: thoracic and lumbar spine normal to inspection Skin General skin exam: no rashes or lesions noted Neuro General: patient oriented x3 and no focal motor deficits Cranial nerves: Yes CN's II-XII intact bilaterally Extrem General: Yes normal to inspection, Yes no clubbing, cyanosis or edema and Yes no calf tenderness Psych Speech and movement: Normal speech and movement present Results Reviewed Results Reviewed: Compliance report is reviewed for the last 30 nights. Used 30/30 nights, 100%. Average use per night 5 hours 24 minutes. 95th percentile pressure used 9.6. Residual AHI 0.8 Assessment & Plan Assessment & Plan (1) AAKASH on CPAP: Comment: He is regular user of CPAP, every night and is benefitting. Has no issues with the CPAP mask or the machine . The new machine that he uses is not noisy . PATIENT COMMENDED FOR HIS GOOD COMPLIANCE, AND ADVISED TO CONTINUE USING THE MACHINE REGULARLY. REVISIT Q 6 MONTHS Code(s): G47.33 - Obstructive sleep apnea (adult) (pediatric); Z99.89 - Dependence on other enabling machines and devices Coding Level of Care Code Est Pt Level 3 (66464) Diagnoses AAKASH on CPAP G47.33; Z99.89
== END 2023-05-14 13:49 | disposition home or self-care (01) ==
PROVIDERS: PCP Internal Medicine; Visit Provider Internal Medicine
DX: G47.33 Obstructive sleep apnea (adult) (pediatric) (principal); Z99.89 Dependence on other enabling machines and devices
CPT/HCPCS: 99213

== ENCOUNTER → 2023-05-14 13:20 | Outpatient (BNVA) | payer MEDICARE, OTHER, SELFPAY | PROVIDERS: PCP Internal Medicine; Visit Provider Internal Medicine | DX: G47.33 Obstructive sleep apnea (adult) (pediatric) (principal); Z99.89 Dependence on other enabling machines and devices; Z87.891 Personal history of nicotine dependence | CPT/HCPCS: 99212 ==

== ENCOUNTER 2023-05-27 12:49 | Outpatient (AMB) | payer MEDICARE, OTHER, SELFPAY ==
--- NOTE | 2023-05-27 13:05 | MHC.OFFVIS ---
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 He complains of pain, locking and catching of the left ring finger for a little over a year now. [facility], he had no improvements. History of left middle finger trigger release. He is looking to discuss surgery. 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 He complains of pain, locking and catching of the left ring finger for a little over a year now. He has a history of osteoarthritis. [facility], he had no improvements. When asked about numbness and tingling he reports that he has trouble with numbness and tingling every night in both hands. He also says that he had a nerve conduction study. History of left middle finger trigger release and release of his right middle finger and right ring finger. He has a history of diabetes mellitus and he is currently taking metformin. His average blood glucose level ranges around 130-140. His HbA1C was 6.7%. He is not taking Eliquis or Plavix. He is taking medication for hyperlipidemia. [facility] Medical History (Updated 05/27/23 @ 14:08 by Filomena Allen MD) Diabetes Abdominal pain Abnormal abdominal CT scan History of prostate cancer AAKASH (obstructive sleep apnea) AAKASH on CPAP Surgical History (Updated 05/27/23 @ 13:17 by Bhavana Brito CMA) S/P trigger finger release History of bladder surgery H/O prostatectomy History of eye surgery Social History Patient Tobacco Use Status: Former Tobacco user Quit Date: quit 1998 Second Hand Smoke Exposure: No Current occupational status: retired Review of Systems Const All systems reviewed & are unremarkable except as noted in HPI and below Physical Exam Vital Signs: BMI result Body Mass Index 26.3 Const General: cooperative, healthy appearing and no acute distress Orientation/consciousness: patient oriented x3 HEENT Head: Yes normocephalic and Yes atraumatic Eyes EOM: EOMs intact bilaterally Resp Effort & Inspection: normal respiratory effort and able to speak in complete sentences Cardio Jugular venous distension: no JVD Skin General skin exam: turgor normal, ecchymosis (No) and erythema (No) Rashes: no rashes Trauma: no lacerations or abrasions Neuro Other: Vascular: Cap refill brisk General: patient oriented x3 Extrem Other: Evaluation of left Upper Extremity: The patient is alert, oriented, and in no acute distress He has some generalized osteoarthritic changes in both hands. His arthritis has resulted in him having slight flexion contractures of multiple PIP joints. He can bring his fingers close to a fist. Left upper extremity exam: He has some visible catching of the left ring finger and some tenderness over the left ring finger A1 gustavo. He feels like the sensation in his left hand is normal.? He reports that he gets numbness and tingling at night and with daily activities. No erythema or ecchymosis. Good cap refill to all digits. 09/26/22: EMG/NCV. By Dr. Garner. I have reviewed the nerve conduction study report today.? Impression: 1. 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 Left ring finger trigger finger 2. Left carpal tunnel syndrome, mild to moderate Symptoms intermittent but daily worse at night. I educated the patient about these, conditions Discussed operative and non operative treatment options, and he would like to proceed with surgery. The risks and benefits of operative treatment were discussed with the patient and the patient wishes to proceed with surgery. These risks include, but are not limited to risk of damage to blood vessels, nerves, tendons, infection, recurrence, incomplete relief of preoperative symptoms, persistent pain, possible need for further surgery and the risks associated with regional blocks and anesthesia. The plan is to take the patient to the operating room sometime in the next few weeks for the following procedures: 1. Left ring finger trigger release under local 2. Left carpal tunnel release All of the preoperative paperwork including the consent was filled out today. All the patient's questions were answered. The patient understands that they will be contacted by our home care scheduler soon to schedule this procedure 3. Right hand numbness and tingling Unfortunately he did not have a nerve conduction study on this side. He says the symptoms are intermittent but daily We will reassess this side at a later date. It is possible we may be able to proceed without new nerve conduction study. Scribed for Dr. Filomena Allen by Luis El, medical chief technician, on 05/27/2023. I, Dr. Filomena Allen, have personally reviewed and agree with the information entered by the scribe. Coding Level of Care Code New Pt Level 4 (54770) Diagnoses Carpal tunnel syndrome of left wrist G56.02 Trigger finger, left ring finger M65.342
[2023-05-27 13:17] VITALS: BMI 26.3
== END 2023-05-27 13:58 | disposition home or self-care (01) ==
PROVIDERS: PCP Internal Medicine; Visit Provider Orthopaedic Surgery
DX: G56.02 Carpal tunnel syndrome, left upper limb (principal); M65.342 Trigger finger, left ring finger
CPT/HCPCS: 99204

== ENCOUNTER → 2023-05-27 12:49 | Outpatient (BNVA) | payer MEDICARE, OTHER, SELFPAY | PROVIDERS: PCP Internal Medicine; Visit Provider Orthopaedic Surgery ==

== ENCOUNTER 2023-06-28 09:11 | Outpatient (REF) | payer MEDICARE, OTHER, SELFPAY ==
[2023-06-28 11:19] LABS: MANUAL DIFF FLAG NO
[2023-06-28 11:22] LABS: Basophils Percent Auto 0.4 % (0-2); Eosinophils Absolute Auto 0.1 X10*3/uL (0.0-0.4); Eosinophils Percent Auto 1.8 % (0-4); Hematocrit 39.2 % (42.0-52.0); Hemoglobin 13.6 g/dl (14.0-18.0); Imm Gran Abs Auto 0.02 X10*3/uL (0.00-0.03); Imm Gran Pct Auto 0.4 % (0.0-0.4); Lymphocytes Absolute Auto 0.9 X10*3/uL (1.2-4.9); Lymphocytes Percent Auto 17.2 % (20-40); Mean Corpuscular HGB Conc 34.7 g/dl (31.0-36.0); Mean Corpuscular Hemoglobin 30.4 pg (27.0-33.0); Mean Corpuscular Volume 87.5 fL (80.0-98.0); Mean Platelet Volume 9.5 fL (9.4-12.4); Monocytes Absolute Auto 0.6 X10*3/uL (0.1-1.2); Monocytes Percent Auto 11.2 % (2-11); Neutrophils Absolute Auto 3.5 x10*3/uL (2.0-8.3); Platelet Count 154 X10*3/uL (160-400); Red Blood Count 4.48 X10*6/uL (4.60-5.80); Red Cell Distribution Width 13.2 % (11.0-16.0)
[2023-06-28 11:47] LABS: Alanine Aminotransferase 15 U/L (0-40); Albumin Level 4.3 g/dL (3.5-5.0); Alkaline Phosphatase 59 U/L (39-117); Anion Gap 14 (12-20); Aspartate Amino Transferase 18 U/L (5-37); Bilirubin Total 0.9 mg/dL (0.0-1.0); Blood Urea Nitrogen 16 mg/dL (9-16); Calcium 9.9 mg/dL (8.4-10.2); Carbon Dioxide 24 mmol/L (22-29); Chloride 106 mmol/L (96-108); Cholesterol 146 mg/dL (<200); Estimated Glomerular Filt Rate > 60; Glucose Fasting 146 mg/dL (60-99); HDL Cholesterol 53 mg/dL (>40); LDL Cholesterol Calculated 71 mg/dL (<100); Potassium 4.2 mmol/L (3.3-5.1); Sodium 140 mmol/L (135-145); Total Protein 7.1 g/dL (6.5-8.0); Triglycerides 111 mg/dL (<150)
[2023-06-28 11:49] LABS: Estimated Average Glucose 146 mg/dL; Hemoglobin A1c % 6.7 % (<6.0)
[2023-06-28 11:50] LABS: Creatinine Urine 108.85 mg/dL; Microalbum/Creatinine Ratio Ur 40.4 ug/mg cr (<30)
[2023-06-28 12:24] LABS: Prostate Specific Antigen < 0.10 ng/mL (<0.05-4.0)
== END 2023-06-28 09:12 | disposition home or self-care (01) ==
LOC: HO.HMGCLDS 09:11
PROVIDERS: PCP Internal Medicine; Visit Provider Internal Medicine
DX: Z12.5 Encounter for screening for malignant neoplasm of prostate (principal); I10 Essential (primary) hypertension; E11.9 Type 2 diabetes mellitus without complications; E78.00 Pure hypercholesterolemia, unspecified; G47.33 Obstructive sleep apnea (adult) (pediatric)
CPT/HCPCS: 36415; 80053; 80061; 82043; 82570; 83036; 84153; 85025

== ENCOUNTER 2023-07-03 11:26 | Day surgery (SDC) | payer MEDICARE, OTHER, SELFPAY ==
[2023-07-03 12:05] VITALS: BMI 26.3
--- NOTE | 2023-07-03 15:02 | P.OP_ITS ---
Operative Note Operative Note Date of Service: 07/03/23 Narrative: Preop diagnosis: 1. left Carpal tunnel syndrome 2. Left ring finger trigger finger Postop diagnosis: same Procedure: 1. left Carpal tunnel release 2. Left ring finger trigger release Surgeon: Filomena Allen MD Anesthesia: local block using 1% lidocaine with epinephrine Findings: Thickened transverse carpal ligament. EBL: Less than 5 mL Specimens: None Complications: None Disposition: Brought to recovery room in stable condition Plan: Follow-up for 10-14 days for wound check and suture removal Indications: The patient is 83 years old, with left carpal tunnel syndrome and a left ring finger trigger finger that have been unresponsive to nonoperative management. The risks and benefits of operative treatment including but not limited to risk of damage to blood vessels, nerves, tendons, infection, persistent pain, persistent symptoms, or possible need for additional surgery were discussed with the patient and the patient wishes to proceed with surgery. Procedure: Once consent was obtained a local block was performed using a combination of 1% lidocaine with epinephrine. The patient was then brought back to the operating suite and placed on the operative table in supine position. The left upper extremity was prepped and draped in a standard surgical fashion. Once assured that we had a good block, a 2.0 cm longitudinal incision was made centered over the carpal tunnel. The incision was made through the skin to the subcutaneous tissues using a #15 blade. Dissection was made down to the level of the transverse carpal ligament with care being taken to protect the palmar cutaneous nerve. Once the transverse carpal ligament was clearly visualized, a longitudinal incision was made in the transverse carpal ligament 1st using a #15 blade, then using tenotomy scissors under direct visualization. Care was taken to look for and protect the motor branch of the median nerve. Our attention was then turned to the trigger finger. A 1.5 cm oblique inc ision was made centered over the A1 gustavo of the left ring finger . The incision was made through the skin to the subcutaneous tissues using a #15 blade. Careful dissection was made down to the level of the A1 gustavo using tenotomy scissors, with care being taken to protect the nearby neurovascular structures. A longitudinal incision was made in the A1 gustavo 1st using a #15 blade, then using tenotomy scissors under direct visualization. The A1 gustvao was noted to be thickened. Following our A1 gustavo release, we no longer saw any locking or catching of the digit with flexion and extension. Once satisfied with our carpal tunnel release and trigger finger release the wounds were copiously irrigated with normal saline and hemostasis was obtained with a brief period of local pressure. The skin edges were reapproximated with some 5.0 nylon suture material and a sterile dressing was applied. The patient appears to have tolerated the procedure well and with no complications. All digits were well vascularized at the conclusion of the case.
--- NOTE | 2023-07-03 15:02 | MHC.SHP ---
Pre-Procedural Eval Section A Date of Service: 07/03/23 The patient is an INPATIENT: No Changes since office visit: No Cold of Flu in the past 2 weeks, No New Medical Problems, No Changes in Medication and No Patient answered all questions The History & Physical has been completed within 30 days and I have reviewed it.: Yes Section B Chief Complaint: trigger finger,carpal tunnel syndrome Allergies: Allergies Allergy/AdvReac Type Severity Reaction Status Date / Time lactose [Lactose] Allergy Mild DIARRHEA Verified 05/14/23 13:50 Plan I have reviewed the history and physical and performed a pertinent physical examination on my patient. No changes have occurred unless specified. Time Spent With Patient Time: Total time managing care of this patient today ____ minutes.
[2023-07-03 15:45] VITALS: BP 138/63; PULSE 58; RESP 20; TEMP 36.3; O2SAT 96
== END 2023-07-03 16:04 | disposition home or self-care (01) ==
PROVIDERS: PCP Internal Medicine; Visit Provider Orthopaedic Surgery
PROC: (CPT 26055; principal; 2023-07-03 13:00)
PROC: (CPT 64721; 2023-07-03 13:00)
DX: G56.02 Carpal tunnel syndrome, left upper limb (principal); M65.342 Trigger finger, left ring finger; E11.9 Type 2 diabetes mellitus without complications; G47.33 Obstructive sleep apnea (adult) (pediatric); Z99.89 Dependence on other enabling machines and devices; Z98.890 Other specified postprocedural states
CPT/HCPCS: 64721; 26055; J0171

== ENCOUNTER → 2023-07-03 11:26 | Outpatient (BNV) | payer MEDICARE, OTHER, SELFPAY | PROVIDERS: PCP Internal Medicine; Visit Provider Orthopaedic Surgery | DX: G56.02 Carpal tunnel syndrome, left upper limb (principal); M65.342 Trigger finger, left ring finger | CPT/HCPCS: 26055; 64721 ==

== ENCOUNTER 2023-07-04 10:31 | Outpatient (AMB) | payer MEDICARE, OTHER, SELFPAY ==
--- NOTE | 2023-07-04 10:44 | A.OFFVIS_ITS ---
Intake Vital Signs 07/04/23 10:45 Height 5 ft 7 in Weight 168 lb BMI 26.3 Intake Visit Reasons: PO LT RF TR, CTR 07/03/23AR Intake Note: Aldair an 83 year old male presents today for a post operative dressing change s/p left RF trigger release and CTR, DOS 07/03/23 AR. Allergies lactose [Lactose] Allergy (Mild, Verified 07/04/23 10:46) DIARRHEA HPI PO LT RF TR, CTR 07/03/23AR HPI Details 83-year-old male who returns to the [facility] today for post-op dressing change for left ring finger CTR, 07/03/[address] Allen. [facility] Medical History (Updated 05/27/23 @ 14:08 by Filomena Allen MD) Diabetes Abdominal pain Abnormal abdominal CT scan History of prostate cancer AAKASH (obstructive sleep apnea) AAKASH on CPAP Surgical History S/P trigger finger release History of bladder surgery H/O prostatectomy History of eye surgery Social History Patient Tobacco Use Status: Former Tobacco user Quit Date: quit 1998 Second Hand Smoke Exposure: No Current occupational status: retired Review of Systems Const All systems reviewed & are unremarkable except as noted in HPI and below Physical Exam Vital Signs: BMI result Body Mass Index 26.3 Extrem Other: Left ring finger: Incision clean, dry and intact. No erythema or drainage. NVI. Assessment & Plan Assessment & Plan (1) Trigger finger, left ring finger: Code(s): M65.342 - Trigger finger, left ring finger Plan His incision was redressed with gauze and nonstick bandages and wrapped with Coban. He will see us back for his routine post-op appointment. Patient Instructions: Scribed for Blanca Hui PA-C, by Richie Vines medical record coder, on 07/04/2023 at 10:45 AM EST. I, Blanca Hui PA-C, have personally reviewed and agree with the information entered by the scribe. Coding Level of Care Code Global (70278) Diagnoses Trigger finger, left ring finger M65.342
[2023-07-04 10:45] VITALS: BMI 26.3
== END 2023-07-04 11:15 | disposition home or self-care (01) ==
PROVIDERS: PCP Internal Medicine; Visit Provider Physician Assistant
DX: M65.342 Trigger finger, left ring finger (principal); G56.02 Carpal tunnel syndrome, left upper limb
CPT/HCPCS: 99024

== ENCOUNTER → 2023-07-04 10:31 | Outpatient (BNVA) | payer MEDICARE, OTHER, SELFPAY | PROVIDERS: PCP Internal Medicine; Visit Provider Physician Assistant ==

== ENCOUNTER 2023-07-15 15:14 | Outpatient (AMB) | payer OTHER, SELFPAY ==
--- NOTE | 2023-07-15 15:42 | MHC.OFFVIS ---
Intake Vital Signs 07/15/23 15:58 Height 5 ft 7 in Weight 168 lb BMI 26.3 Intake Visit Reasons: PO LT RF TR, CTR 07/03/23AR Intake Note: Aldair 83 yr old male presents today for his P/O visit for his left Ring trigger release and CTR from 07/03/23. States his numbness has improved. Sutures removed and steri strips applied. Allergies lactose [Lactose] Allergy (Mild, Verified 07/15/23 15:58) DIARRHEA HPI PO LT RF TR, CTR 07/03/23AR HPI Details Aldair is an 83 year old right hand dominant man who presents S/P left ring finger trigger release & left carpal tunnel release, DOS: 07/03/23. He says his sensation is now normal and he no longer has any locking or catching. He is happy with the results of his surgery. He does have some stiffness in his fingers, due to PIP joint OA. [facility] Medical History (Updated 05/27/23 @ 14:08 by Filomena Allen MD) Diabetes Abdominal pain Abnormal abdominal CT scan History of prostate cancer AAKASH (obstructive sleep apnea) AAKASH on CPAP Surgical History S/P trigger finger release History of bladder surgery H/O prostatectomy History of eye surgery Social History Patient Tobacco Use Status: Former Tobacco user Quit Date: quit 1998 Second Hand Smoke Exposure: No Current occupational status: retired Review of Systems Const All systems reviewed & are unremarkable except as noted in HPI and below Physical Exam Vital Signs: BMI result Body Mass Index 26.3 Const General: no acute distress and alert Orientation/consciousness: patient oriented x3 Neuro General: patient oriented x3 Extrem Other: The patient was alert oriented and in no acute distress The incision is healing well with no erythema drainage or evidence of infection. Sutures removed and Steri-Strips applied No locking or catching of the ring finger Normal sensation to all digits Cap refill is brisk Psych Appearance: grossly normal Affect: normal affect Attitude: cooperative Assessment & Plan Assessment & Plan (1) Carpal tunnel syndrome of left wrist: Code(s): G56.02 - Carpal tunnel syndrome, left upper limb (2) Trigger finger, left ring finger: Code(s): M65.342 - Trigger finger, left ring finger Plan Assessment and plan: 1. Left ring finger trigger finger, S/P release DOS: 07/03/23 2. Left carpal tunnel syndrome, S/P release DOS: 07/03/23 Pre-operative symptoms intermittent but daily worse at night. Now with normal sensation He has a flexion contracture of the ring finger PIP joint Measuring ~15-20 degrees The patient appears to be doing well post-operatively I educated him about the post-operative course I explained the signs and symptoms of infection, if the patient develops any new or worsening erythema, drainage, pain, or warmth they should contact the clinic or attend the ED. I discussed activity modifications, he is to lift nothing heavier than a cellphone for the next two weeks I demonstrated ROM exercises today in clinic for him to perform at home He will perform gentle ROM exercises at home, 20x daily for minimum 10 seconds He should avoid any underwater activities for the next 5 days He should gently massage about the incision site to reduce the risk of hypersensitivity He can follow up prn 3. Right hand numbness and tingling Unfortunately he did not have a nerve conduction study on this side. He says the symptoms are intermittent but daily We will reassess this side at a later date. It is possible we may be able to proceed without new nerve conduction study. Scribed for Filomena Allen MD by Wenceslao Solano, anesthesiology medical doctor, on 07/15/23 at 4:00 PM, EST. Coding Level of Care Code Global (92162) Diagnoses Carpal tunnel syndrome of left wrist G56.02 Trigger finger, left ring finger M65.342
[2023-07-15 15:58] VITALS: BMI 26.3
== END 2023-07-15 16:16 | disposition home or self-care (01) ==
PROVIDERS: PCP Internal Medicine; Visit Provider Orthopaedic Surgery
DX: G56.02 Carpal tunnel syndrome, left upper limb (principal); M65.342 Trigger finger, left ring finger
CPT/HCPCS: 99024

== ENCOUNTER → 2023-07-15 15:14 | Outpatient (BNVA) | payer MEDICARE, OTHER, SELFPAY | PROVIDERS: PCP Internal Medicine; Visit Provider Orthopaedic Surgery ==

== ENCOUNTER 2023-10-30 08:13 | Outpatient (AMB) | payer MEDICARE, OTHER, SELFPAY ==
[2023-10-30 08:17] VITALS: BP 150/70; PULSE 70; TEMP 36.8; O2SAT 98; BMI 26.0
--- NOTE | 2023-10-30 08:17 | AM.OFFWIN_ITS ---
Intake Vital Signs 10/30/23 08:17 Height 5 ft 7 in Weight 166 lb BMI 26.0 BP 150/70 H Blood Pressure Location Lt brachial Position Sitting Pulse 70 Pulse Source Pulse Oximeter Temp 98.3 F Temp Source Temporal Artery Scan Pulse Oximetry (%) 98 Oxygen Delivery Method Room Air Intake Visit Reasons: EP sore throat nasal drip chills in lobby Intake Note: pt is here for c.o sore throat, nasal drip and body chills Patient Tobacco Use Status: Former Tobacco user Quit Date: quit 1998 Allergies lactose [Lactose] Allergy (Mild, Verified 10/30/23 08:17) DIARRHEA Do you need a note to return to daycare/school/sports/work: No HPI HPI Comments History of Present Illness Details This is an 83-year-old male with a past medical history of [id number] diabetes, hypertension, hyperlipidemia and sleep apnea presenting for evaluation of postnasal drip, sore throat and cough that he has had for the past three days. Patient denies having any fevers, chills, difficulty swallowing, chest pain or shortness a breath. Patient does report right ear pain that has resolved and is not currently present. Patient has not taken any medication for treatment of his symptoms and states that his is now exhibiting similar symptoms. [facility] Medical History (Updated 10/30/23 @ 08:45 by Sushila Beatty PA-C) Diabetes Abdominal pain Abnormal abdominal CT scan History of prostate cancer AAKASH (obstructive sleep apnea) AAKASH on CPAP Surgical History S/P trigger finger release History of bladder surgery H/O prostatectomy History of eye surgery Social History Comment: S3 Patient Tobacco Use Status: Former Tobacco user Quit Date: quit 1998 Second Hand Smoke Exposure: No Current occupational status: retired Review of Systems Const All systems reviewed & are unremarkable except as noted in HPI and below Denies chills, Denies fatigue and Denies fever(s) Eyes Reports no additional complaints ENT Reports as per HPI, Reports otalgia (right ear pain, resolved), Denies lip swelling, Denies nasal congestion, Reports post nasal drip and Reports sore throat Card Reports no additional complaints and Denies dyspnea Resp Reports as per HPI, Reports cough, Denies pain with cough, Denies dyspnea, Denies stridor and Denies wheezing GI Reports as per HPI Skin/Breast Reports system reviewed and no additional complaints, except as documented Endo Denies fatigue Aller/Immun Reports no additional complaints, Denies lip swelling and Denies wheezing Physical Exam Vital Signs: Last Vital Signs Temp 98.3 F 10/30/23 08:17 Pulse 70 10/30/23 08:17 BP 150/70 H 10/30/23 08:17 Pulse Ox 98 10/30/23 08:17 Oxygen Delivery Method Room Air 10/30/23 08:17 BMI result Body Mass Index 26.0 afebrile Const General: cooperative, healthy appearing, comfortable, no acute distress, well developed, alert and awake; No ill appearing Nutritional Appearance: average body habitus Orientation/consciousness: patient oriented x3 Limitations: no limitations HEENT Head: Yes normal to inspection and Yes normocephalic Ears: hearing grossly normal bilaterally, external ears normal, TM's normal bilaterally and EAC's normal General nose exam: Normal external nose present Face and sinus: Yes normal facial exam and Yes sinuses nontender Mouth: moist mucous membranes Teeth and gingiva: dentition normal Throat: Yes posterior oropharynx normal (There is no edema, erythema or exudates of the posterior oropharynx.) and Yes postnasal drainage Eyes Conjunctivae: conjunctivae normal Sclerae: sclerae normal Corneas: corneas normal Pupils: Equal, round and reactive pupils present EOM: EOMs intact bilaterally Neck Lymphatic: no lymphadenopathy noted Resp Effort & Inspection: normal respiratory effort Auscultation: clear to auscultation bilaterally Cardio Rate: regular rate Rhythm: regular rhythm Skin General skin exam: no rashes or lesions noted Neuro General: patient oriented x3 Cranial nerves: Yes Equal, round and reactive pupils present Psych Appearance: grossly normal Mental Status: mental status grossly normal Insight: Good insight present (Psych) Judgement: Good judgement present (Psych) Results Reviewed Results Reviewed: Rapid strep testing is negative. Assessment & Plan Assessment & Plan (1) Acute pharyngitis: Comment: Rapid strep test is negative. Code(s): J02.9 - Acute pharyngitis, unspecified Plan: Tylenol as needed for discomfort and. Patient to follow up with his primary care provider if symptoms are not improving in 5-7 days. Coding Level of Care Code Est Pt Level 3 (33779) Diagnoses Acute pharyngitis J02.9 Time Spent (min) 20
== END 2023-10-30 10:08 | disposition home or self-care (01) ==
PROVIDERS: PCP Internal Medicine; Visit Provider Physician Assistant
DX: J02.9 Acute pharyngitis, unspecified (principal)
CPT/HCPCS: 87880; 99213

== ENCOUNTER 2023-11-10 13:10 | Outpatient (AMB) | payer OTHER, SELFPAY ==
[2023-11-10 13:22] VITALS: BP 122/62; PULSE 58; O2SAT 98; BMI 26.6
--- NOTE | 2023-11-10 13:22 | A.OFFVIS_ITS ---
Intake Vital Signs 11/10/23 13:22 Height 5 ft 7 in Weight 170 lb BMI 26.6 BP 122/62 Blood Pressure Location Lt brachial Position Sitting Pulse 58 Pulse Source Pulse Oximeter Pulse Oximetry (%) 98 Oxygen Delivery Method Room Air Intake Visit Reasons: Obstructive sleep apnea Intake Note: pt is here for follow up and states he had some lack of usage on cpap due to URI. Regional Clinical Director Required: No Allergies lactose [Lactose] Allergy (Mild, Verified 11/10/23 13:41) DIARRHEA Medication List - Last Reconciled 11/10/23 by Tom Capellan MD aspirin 81 mg PO DAILY diclofenac potassium 50 mg PO TID PRN lactulose 15 mL PO DAILY PRN metformin 250 mg PO DAILY metoprolol tartrate 25 mg PO BID pravastatin 40 mg PO BEDTIME [Probiotic 1 cap PO DAILY] Do you need a note to return to daycare/school/sports/work: No HPI Obstructive sleep apnea HPI Details Aldair is 83 years old gentleman, a , who is here for follow-up for his sleep apnea. In the last 6 months he has been using CPAP regularly except for the last 10 days, that he could not use the CPAP due to acute respiratory infection. He has been treated with a course of azithromycin and now he does feel better, but. Nose is still somewhat congested Before this episode he was using it every night at least for 5 hours per night and sleeping well. He has no issue with the CPAP device, he has been getting his supplies from the [place] outpatient. With the use of CPAP his sleep has definitely . Improved [facility] Medical History Diabetes Abdominal pain Abnormal abdominal CT scan History of prostate cancer AAKASH (obstructive sleep apnea) AAKASH on CPAP Surgical History S/P trigger finger release History of bladder surgery H/O prostatectomy History of eye surgery Social History Comment: S3 Patient Tobacco Use Status: Former Tobacco user Quit Date: quit 1998 Second Hand Smoke Exposure: No Current occupational status: retired Review of Systems Const All systems reviewed & are unremarkable except as noted in HPI and below Eyes Reports no additional complaints ENT Reports no additional complaints Card Denies chest pain, Denies irregular heart rhythm, Denies leg edema and Denies dyspnea Resp Denies cough, Denies dyspnea and Denies wheezing GI Reports no additional complaints Reports no additional complaints Skin/Breast Reports system reviewed and no additional complaints, except as documented Neuro Reports no additional complaints Psych Reports no additional complaints Aller/Immun Denies wheezing Physical Exam Vital Signs: Last Vital Signs Pulse 58 11/10/23 13:22 BP 122/62 11/10/23 13:22 Pulse Ox 98 11/10/23 13:22 Oxygen Delivery Method Room Air 11/10/23 13:22 BMI result Body Mass Index 26.6 Const General: healthy appearing, comfortable, no acute distress, alert and awake Orientation/consciousness: patient oriented x3 HEENT Head: Yes normal to inspection General nose exam: No nasal polyps present and No nasal discharge present Face and sinus: Yes sinuses nontender Mouth: oropharynx normal Teeth and gingiva: other (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) Throat: Yes posterior oropharynx normal Eyes General: appearance normal, both eyes and all related structures Neck Neck: Yes normal visual inspection, Yes no lymphadenopathy, Yes trachea midline and Yes no JVD Thyroid: Thyroid normal Chest Chest palpation & inspection: normal inspection of the chest, normal palpation of entire chest wall and no tenderness Resp Effort & Inspection: normal respiratory effort Auscultation: clear to auscultation bilaterally and no wheezes Cardio Palpation: normal PMI Rate: regular rate Rhythm: regular rhythm Heart sounds: no gallops and no murmurs Peripheral pulses: Peripheral pulses 2+ throughout GI Palpation (GI): Soft to palpation, nontender, No hepatosplenomegaly present and no masses Auscultation: normal bowel sounds Back/Spine/Pelvis Thoracic/Lumbar Spine: thoracic and lumbar spine normal to inspection Skin General skin exam: no rashes or lesions noted Neuro General: patient oriented x3 and no focal motor deficits Cranial nerves: Yes CN's II-XII intact bilaterally Extrem General: Yes normal to inspection, Yes no clubbing, cyanosis or edema and Yes no calf tenderness Psych Speech and movement: Normal speech and movement present Results Reviewed Results Reviewed: Compliance report for the last 30 nights is reviewed Before October 27 he was using the CPAP every night. Average use per night 5 hours 37 minutes. There is no air leak. Residual AHI 0.7 Assessment & Plan Assessment & Plan (1) AAKASH on CPAP: Comment: He is a regular user of CPAP, every night and is benefitting. Has no issues with the CPAP mask or the machine . The new machine that he uses is not noisy . Code(s): G47.33 - Obstructive sleep apnea (adult) (pediatric); Z99.89 - Dependence on other enabling machines and devices Plan: PATIENT COMMENDED FOR HIS GOOD COMPLIANCE, AND ADVISED TO CONTINUE USING THE MACHINE REGULARLY. REVISIT Q 6 MONTHS. ADVISED TO START USING THE CPAP SOON HIS NASAL CONGESTION IMPROVES. ADVISE THAT HE MAY USE FLONASE 2 SPRAY IN EACH NOSTRIL DAILY IN THE EVENING. Coding Level of Care Code Est Pt Level 3 (00350) Diagnoses AAKASH on CPAP G47.33; Z99.89
== END 2023-11-10 13:46 | disposition home or self-care (01) ==
PROVIDERS: PCP Internal Medicine; Visit Provider Internal Medicine
DX: G47.33 Obstructive sleep apnea (adult) (pediatric) (principal); Z99.89 Dependence on other enabling machines and devices
CPT/HCPCS: 99213

== ENCOUNTER → 2023-11-10 13:10 | Outpatient (BNVA) | payer MEDICARE, OTHER, SELFPAY | PROVIDERS: PCP Internal Medicine; Visit Provider Internal Medicine | DX: G47.33 Obstructive sleep apnea (adult) (pediatric) (principal); Z99.89 Dependence on other enabling machines and devices | CPT/HCPCS: 99212 ==

== ENCOUNTER 2023-12-02 13:00 | Outpatient (RCR) | payer OTHER, SELFPAY ==
--- NOTE | 2023-10-10 16:34 | MHC.OT.OEV ---
[address] [phone] F: [phone] Occupational Therapy Evaluation Patient Name: Aldair Galvez Diagnosis: (L) post carpal tunnel release and (L)4th digit trigger finger release Date of Onset: Date of Surgery: 07/03/23 Attending Provider: Filomena Allen Prescribed Treatment: Follow Up Appointment: History of Current Condition: Patient is an 83 year old male who was referred by Filomena Allen MD s/p (L) carpal tunnel release and 4th digit trigger release on 07/03/2023. Significant Medical History: Diabetes II Abdominal pain Abnormal abdominal CT scan History of prostate cancer AAKASH (obstructive sleep apnea) HTN Hyperlipidemia AAKASH on CPAP Precautions/Contraindications: Diabetes II Patient Goals: To increase skip operator strength and to decrease pain. 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 Current Level of Function and Occupation Self Care, Employment, Leisure: min (A) self care tasks Sons complete heavy chores such as mowing the lawn Sleep: Pain wakes him up AAKASH Driving: (I) Vision: Balance: Pain Assessment Pain Score: 10 Pain Scale Used: Pain Location and Description: (L)ring finger to volar wrist can go from 2/10 to 10/10 Aggravating Factors: Making a fist, holding digits in a flexion for long periods of time. Alleviating Factors: Skin and Soft Tissue Assessment Skin and Soft Tissue: Scar Tissue Comments: Nerve assessment Ulnar Nerve: Median Nerve: Left Impaired Radial Nerve: Comments: Sensory Assessment Temperature: Light Touch: Left Impaired Proprioception: Vibration: Comments: Monofilament Test Edema Assessment Upper Extremity: Lower Extremity: Comments: Edema present in hands (B'ly) Dexterity Assessment Dexterity: Right Impaired Comments: Flexion Dexterity Test (L)hand 31.78seconds Special Tests Comments: AROM(PROM) Strength Cervical Cervical Flexion: Cervical Extension: Cervical Lateral Flexion: Cervical Rotation: Comments: Shoulder Flexion: Extension: Abduction: Internal Rotation: External Rotation: Comments: WFL Flexion: Extension: Abduction: Internal Rotation: External Rotation: Comments: Elbow Flexion: Extension: Pronation: Supination: Comments: WFL Flexion: Extension: Pronation: Supination: Comments: Wrist Flexion: Extension: Ulnar Deviation: Radial Deviation: Comments: Flexion: 75* (L) Extension: 60* (L) Ulnar Deviation: Radial Deviation: Comments: Thumb Thumb CMC Flexion: Thumb MCP Flexion: Thumb IP Flexion: Radial Abduction: Palmar Abduction: B[place]all (Kapandji 0-10): Comments: Thumb opposition impaired, restricted due to pain Digits Index MCP: PIP: 64 flexion (L) DIP: Long MCP: PIP: 72 flexion (L) DIP: Ring MCP: PIP: 82 flexion (L) DIP: Small MCP: PIP: 80 flexion (L) DIP: Comments: (L)PIP extension WFL Gross Grasp: Lateral Pinch: Two-Point Pinch: Three-Jaw Casey: Comments: Not TESTED Patient Education Primary Language: [place]an Gifts Officer Required: No Current Knowledge: Teaching Method: Education Needs Identified on Evaluation: How did patient/family demonstrate learning? Barriers to Learning: Readiness for Learning: Who was educated? Comments: Plan of Care Assessment: Patient is an 83 year old right handed male with PMHx of DM s/p (L) carpal tunnel release and 4th digit trigger release on 07/03/2023. Patient reports he lives in s [address] [place] home with his and was (I)ADLs/IADLs. 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 He reported pain that can fo from a 2 to a 10/10 pain from the volar (L) wrist to his 4th digit and at times he will feel a zap . He stated he is having difficulty with open jars and that he would have a hard time bunching a balloon. Patient's (L) digit range of motion is as follows: PIP 2nd 64*, 3rd 72*,4th 82*,5th 80*; extension WFL; wrist flexion 75*, extension 60*. Edema is present in both hands. Quick DASH= 36.4 indicating patient's perceived impairment of upper extremity. Patient presents with impaired strength, pain, edema, impaired ROM and impaired performance during self care tasks. Due to the documented impairments it is recommended that patient receive skilled OT in order for patient to achieve his PLOF of (I) and to achieve his stated goals. Thank you for your referral. STG Duration: 2 weeks Short Term Goals: Patient will report 8/10 pain in (L) hand Patient will increase skip operator strength in order to perform functional tasks Patient will increase wrist extension to 70* Patient will increase 4th digit PIP flexion to 90* LTG Duration: Skilled Nursing Goals: Patient will report 8/10 pain in (L) hand Patient will increase skip operator strength in order to perform functional tasks Patient will be (I) with HEP Patient will have ROM of 4th digit WFL Patient will have wrist ROM WFL Frequency and Duration: The patient will be seen 2x a week for 4 weeks Treatment Plan: Therapeutic Exercise Therapeutic Activity Home Exercise Program Patient Education Edema Control ADL Training Kinesiotaping OT evaluation and treat Electronically Signed By: Penny Zhou OTR/L, CLT Reviewed/agree with student documentation: Therapist: Please sign and return to therapist, Thank you for your referral.
--- NOTE | 2023-12-02 13:33 | MHC.OT.DC ---
[address] [phone] F: [phone] Occupational Therapy Discharge Note Patient Name: Aldair Galvez Provider: Filomena Allen Diagnosis: (L) post carpal tunnel release and (L)4th digit trigger finger release Date of Surgery: 07/03/23 Date of Evaluation: 10/10/23 Date of Discharge: Treatments to Date: 8 Cancellations to Date: No Shows to Date: Discharge Status: Improved Function Independent with HEP Patient Elected to Stop Discharge Summary: Patient is discharged from skilled OT as patient has achieved maximal potential during therapy. He reports 0/10 in the (L) volar wrist and in the (L)4th digit. He has increased his PIP flexion to 90* and is able to make a functional fist. His wrist flexion is a slightly under as he achieved 60* but is functional. He is (I) with HEP. Patient stated he would like to elect to stop therapy as he has no pain and is able to perform functional tasks. As patient is pain free and able to perform functional tasks with (I) patient no longer requires skilled OT intervention. Thank you for your referral patient was a pleasure to work with. Electronically Signed By: SYLVAIN Ayala/Lilly, CLT Reviewed/agree with student documentation: Therapist: Please Sign and return to therapist, thank you for your referral.
== END 2023-12-02 13:35 | disposition home or self-care (01) ==
LOC: HO.OT 13:00
PROVIDERS: PCP Internal Medicine; Visit Provider Orthopaedic Surgery
DX: M25.642 Stiffness of left hand, not elsewhere classified (principal); M65.342 Trigger finger, left ring finger; G56.02 Carpal tunnel syndrome, left upper limb
CPT/HCPCS: 97035; 97110; 97140; 97166

== ENCOUNTER 2024-02-03 14:56 | Outpatient (REF) | payer MEDICARE, OTHER, SELFPAY ==
[2024-02-03 15:59] LABS: Anion Gap 15 (12-20); Blood Urea Nitrogen 27 mg/dL (9-16); Calcium 10.1 mg/dL (8.4-10.2); Carbon Dioxide 25 mmol/L (22-29); Chloride 109 mmol/L (96-108); Estimated Glomerular Filt Rate > 60; Glucose Random 110 mg/dL (60-115); Potassium 5.1 mmol/L (3.3-5.1); Sodium 144 mmol/L (135-145)
== END 2024-02-03 14:57 | disposition home or self-care (01) ==
LOC: HO.LAB 14:56
PROVIDERS: PCP Internal Medicine; Visit Provider Internal Medicine
DX: I12.9 Hypertensive chronic kidney disease with stage 1 through stage 4 chronic kidney disease, or unspecified chronic kidney disease (principal); N18.9 Chronic kidney disease, unspecified; E87.5 Hyperkalemia
CPT/HCPCS: 36415; 80048

== ENCOUNTER 2024-05-25 13:17 | Outpatient (AMB) | payer MEDICARE, OTHER, SELFPAY ==
[2024-05-25 13:25] VITALS: BP 120/60; PULSE 66; O2SAT 98; BMI 24.7
--- NOTE | 2024-05-25 13:25 | A.OFFVIS_ITS ---
Vital Signs 05/25/24 13:25 Height 5 ft 7 in Weight 158 lb BMI 24.7 BP 120/60 Blood Pressure Location Lt brachial Position Sitting Pulse 66 Pulse Source Pulse Oximeter Pulse Oximetry (%) 98 Oxygen Delivery Method Room Air Intake Visit Reasons: Obstructive sleep apnea Intake Note: pt is here for follow up and states he is feeling good, had a back surgery. Fringe Maker Required: No Allergies lactose [Lactose] Allergy (Mild, Verified 05/25/24 13:58) DIARRHEA Medication List - Last Reconciled 05/25/24 by Tom Capellan MD aspirin 81 mg PO DAILY lactulose 15 mL PO DAILY PRN metformin 250 mg PO DAILY metoprolol tartrate 25 mg PO BID pravastatin 40 mg PO BEDTIME [Probiotic 1 cap PO DAILY] Do you need a note to return to daycare/school/sports/work: No HPI HPI Obstructive sleep apnea: Details: HANNA, 84 YEARS OLD GENTLEMAN, COMES FOR FOLLOW-UP AFTER 6 MONTHS FOR HIS USE OF CPAP. 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 HE IS VERY COMPLIANT AND BENEFITING FROM THE USE OF CPAP. HOWEVER HE WOULD LIKE TO TAKE A BREAK ONCE OR TWICE A MONTH. HIS USAGE OVERNIGHT HAS BEEN AROUND 5 HOURS. HE HAS LOST SOME WEIGHT BECAUSE HE HAD BACK SURGERY AND ALSO HE WAS STARTED ON METFORMIN FOR CONTROL OF DIABETES. HE HAS NO ISSUES WITH THE USE OF CPAP. [facility] Medical History Diabetes Abdominal pain Abnormal abdominal CT scan History of prostate cancer AAKASH (obstructive sleep apnea) AAKASH on CPAP Surgical History S/P trigger finger release History of bladder surgery H/O prostatectomy History of eye surgery Social History Comment: S3 Patient Tobacco Use Status: Former Tobacco user Second Hand Smoke Exposure: No Current occupational status: retired Review of Systems Const All systems reviewed & are unremarkable except as noted in HPI and below Eyes Reports no additional complaints ENT Reports no additional complaints Card Denies chest pain, Denies irregular heart rhythm, Denies leg edema and Denies dyspnea Resp Denies cough, Denies dyspnea and Denies wheezing GI Reports no additional complaints Reports no additional complaints Skin/Breast Reports system reviewed and no additional complaints, except as documented Neuro Reports no additional complaints Psych Reports no additional complaints Aller/Immun Denies wheezing Physical Exam Vital Signs: Last Vital Signs Pulse 66 05/25/24 13:25 BP 120/60 05/25/24 13:25 Pulse Ox 98 05/25/24 13:25 Oxygen Delivery Method Room Air 05/25/24 13:25 BMI result Body Mass Index 24.7 Const General: healthy appearing, comfortable, no acute distress, alert and awake Orientation/consciousness: patient oriented x3 HEENT Head: Yes normal to inspection General nose exam: No nasal polyps present and No nasal discharge present Face and sinus: Yes sinuses nontender Mouth: oropharynx normal Teeth and gingiva: other (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) Throat: Yes posterior oropharynx normal Eyes General: appearance normal, both eyes and all related structures Neck Neck: Yes normal visual inspection, Yes no lymphadenopathy, Yes trachea midline and Yes no JVD Thyroid: Thyroid normal Chest Chest palpation & inspection: normal inspection of the chest, normal palpation of entire chest wall and no tenderness Resp Effort & Inspection: normal respiratory effort Auscultation: clear to auscultation bilaterally and no wheezes Cardio Palpation: normal PMI Rate: regular rate Rhythm: regular rhythm Heart sounds: no gallops and no murmurs Peripheral pulses: Peripheral pulses 2+ throughout GI Palpation (GI): Soft to palpation, nontender, No hepatosplenomegaly present and no masses Auscultation: normal bowel sounds Back/Spine/Pelvis Thoracic/Lumbar Spine: Thoracic/lumbar spine scar(s) (TWO SMALL SCARS OVER THE LOWER BACK FROM RECENT SPINAL SURGERY) and thoraco-lumbar ROM limited Skin General skin exam: no rashes or lesions noted Neuro General: patient oriented x3 and no focal motor deficits Cranial nerves: Yes CN's II-XII intact bilaterally Extrem General: Yes normal to inspection, Yes no clubbing, cyanosis or edema and Yes no calf tenderness Psych Speech and movement: Normal speech and movement present Results Reviewed Results Reviewed: COMPLIANCE REPORT FOR THE LAST 30 NIGHTS SHOWS THAT HE HAS USED 100% OF THE NIGHTS. AVERAGE USE IT PER NIGHT 5 HOURS 10 MINUTES. PRESSURE USED MOSTLY 8-9 CM. NO SIGNIFICANT AIR LEAK. 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 HE IS VERY COMPLIANT, USING 100% OF THE TIME., AND SLEEPS VERY WELL. HE HAS NO ISSUES WITH THE MASK OR CPAP DEVICE. Code(s): G47.33 - Obstructive sleep apnea (adult) (pediatric); Z99.89 - Dependence on other enabling machines and devices Category: Medical Plan: COMMENDED FOR GOOD COMPLIANCE AND ADVISED TO CONTINUE USING THE CPAP EVERY NIGHT. HE WANTS TO TAKE BREAK ABOUT 1 DAY A WEEK, AND I SAID OKAY LONG HE DOES NOT MAKE MORE OFTEN. Coding Level of Care Code Est Pt Level 3 (57222) Diagnoses AAKASH on CPAP G47.33; Z99.89
== END 2024-05-25 13:59 | disposition home or self-care (01) ==
PROVIDERS: PCP Internal Medicine; Visit Provider Internal Medicine
DX: G47.33 Obstructive sleep apnea (adult) (pediatric) (principal); Z99.89 Dependence on other enabling machines and devices
CPT/HCPCS: 99213

== ENCOUNTER → 2024-05-25 13:17 | Outpatient (BNVA) | payer MEDICARE, OTHER, SELFPAY | PROVIDERS: PCP Internal Medicine; Visit Provider Internal Medicine | DX: G47.33 Obstructive sleep apnea (adult) (pediatric) (principal); Z99.89 Dependence on other enabling machines and devices | CPT/HCPCS: 99212 ==

== ENCOUNTER 2024-07-21 08:38 | Outpatient (REF) | payer MEDICARE, OTHER, SELFPAY ==
[2024-07-21 10:07] LABS: MANUAL DIFF FLAG NO
[2024-07-21 10:17] LABS: Basophils Percent Auto 0.6 % (0-2); Eosinophils Absolute Auto 0.1 X10*3/uL (0.0-0.4); Eosinophils Percent Auto 2.4 % (0-4); Hematocrit 39.2 % (42.0-52.0); Hemoglobin 13.5 g/dl (14.0-18.0); Imm Gran Abs Auto 0.01 X10*3/uL (0.00-0.03); Imm Gran Pct Auto 0.2 % (0.0-0.4); Lymphocytes Absolute Auto 0.7 X10*3/uL (1.2-4.9); Lymphocytes Percent Auto 13.3 % (20-40); Mean Corpuscular HGB Conc 34.4 g/dl (31.0-36.0); Mean Corpuscular Hemoglobin 30.3 pg (27.0-33.0); Mean Corpuscular Volume 87.9 fL (80.0-98.0); Mean Platelet Volume 9.5 fL (9.4-12.4); Monocytes Absolute Auto 0.5 X10*3/uL (0.1-1.2); Monocytes Percent Auto 9.7 % (2-11); Neutrophils Absolute Auto 3.9 x10*3/uL (2.0-8.3); Neutrophils Percent Auto 73.8 % (45-73); Platelet Count 137 X10*3/uL (160-400); Red Blood Count 4.46 X10*6/uL (4.60-5.80); Red Cell Distribution Width 14.2 % (11.0-16.0); White Blood Count 5.3 X10*3/uL (4.8-10.8)
[2024-07-21 10:18] LABS: Appearance Urine Clear; Color Urine Yellow; Glucose Urine UA Negative (Negative); Leukocyte Esterase Urine Negative (Negative); Nitrite Urine Negative (Negative); PH 5.5 (5.0-9.0); Urine Blood Negative (Negative); Urine Ketones Negative (Negative); Urine Protein Trace mg/dL (Neg-Trace)
[2024-07-21 10:29] LABS: Estimated Average Glucose 146 mg/dL; Hemoglobin A1c % 6.7 % (<6.0); Total Hemoglobin (HGBA1C) 3548.1151 umol/L
[2024-07-21 10:32] LABS: Alanine Aminotransferase 19 U/L (0-40); Albumin Level 4.5 g/dL (3.5-5.0); Alkaline Phosphatase 62 U/L (39-117); Anion Gap 13 (12-20); Aspartate Amino Transferase 22 U/L (5-37); Bilirubin Total 0.7 mg/dL (0.0-1.0); Blood Urea Nitrogen 18 mg/dL (9-16); Calcium 10.1 mg/dL (8.4-10.2); Carbon Dioxide 27 mmol/L (22-29); Chloride 106 mmol/L (96-108); Cholesterol 153 mg/dL (<200); Estimated Glomerular Filt Rate > 60; Glucose Fasting 146 mg/dL (60-99); HDL Cholesterol 55 mg/dL (>40); LDL Cholesterol Calculated 73 mg/dL (<100); Potassium 5.1 mmol/L (3.3-5.1); Sodium 141 mmol/L (135-145); Total Protein 7.2 g/dL (6.5-8.0); Triglycerides 125 mg/dL (<150)
[2024-07-21 11:16] LABS: Creatinine Urine 134.09 mg/dL; Microalbum/Creatinine Ratio Ur 44.7 ug/mg cr (<30)
[2024-07-21 11:38] LABS: Prostate Specific Antigen Scr < 0.10 ng/mL (<0.05-4.0)
== END 2024-07-21 08:39 | disposition home or self-care (01) ==
LOC: HO.HMGCLDS 08:38
PROVIDERS: PCP Internal Medicine; Visit Provider Internal Medicine
DX: I10 Essential (primary) hypertension (principal); E11.9 Type 2 diabetes mellitus without complications; E78.00 Pure hypercholesterolemia, unspecified; G47.33 Obstructive sleep apnea (adult) (pediatric); Z12.5 Encounter for screening for malignant neoplasm of prostate
CPT/HCPCS: 36415; 80053; 80061; 81003; 82043; 82570; 83036; 84153; 85025

== ENCOUNTER 2024-11-17 13:09 | Outpatient (AMB) | payer MEDICARE, OTHER, SELFPAY ==
--- NOTE | 2024-11-17 13:23 | A.OFFVIS_ITS ---
Vital Signs 11/17/24 13:24 Height 5 ft 7 in Weight 162 lb 0.636 oz BMI 25.4 BP 130/64 Blood Pressure Location Lt brachial Position Sitting Pulse 54 Pulse Source Pulse Oximeter Pulse Oximetry (%) 96 Oxygen Delivery Method Room Air Intake Visit Reasons: Obstructive sleep apnea Intake Note: pt is here for AAKASH follow up and states he is having an issue with his tongue ? cpap related. Allergies lactose [Lactose] Allergy (Mild, Verified 11/17/24 13:40) DIARRHEA Medication List - Last Reconciled 11/17/24 by Tom Capellan MD aspirin 81 mg PO DAILY lactulose 15 mL PO DAILY PRN metformin 250 mg PO DAILY metoprolol tartrate 25 mg PO BID pravastatin 40 mg PO BEDTIME [Probiotic 1 cap PO DAILY] Do you need a note to return to daycare/school/sports/work: No HPI HPI Obstructive sleep apnea: Details: Hanna is 84 years old gentleman, a , who comes for follow-up related to his sleep apnea and use of CPAP. He has lost some weight and actually at this time his BMI is perfectly normal. 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 He uses CPAP very regularly and he gets his supplies the on time from the [place] outpatient respiratory service. He is complaining of dryness of the mouth when he wakes up in the morning. And during the daytime he has some irritation of the tongue. Currently using nasal mask which is causing irritation of the skin. And he probably keeps his mouth open during the night. [facility] Medical History Diabetes Abdominal pain Abnormal abdominal CT scan History of prostate cancer AAKASH (obstructive sleep apnea) AAKASH on CPAP Surgical History S/P trigger finger release History of bladder surgery H/O prostatectomy History of eye surgery Social History Comment: S3 Patient Tobacco Use Status: Former Tobacco user Second Hand Smoke Exposure: No Current occupational status: retired Review of Systems Const All systems reviewed & are unremarkable except as noted in HPI and below Eyes Reports no additional complaints ENT Reports no additional complaints Card Denies chest pain, Denies irregular heart rhythm, Denies leg edema and Denies dyspnea Resp Denies cough, Denies dyspnea and Denies wheezing GI Reports no additional complaints Reports no additional complaints Skin/Breast Reports system reviewed and no additional complaints, except as documented Neuro Reports no additional complaints Psych Reports no additional complaints Aller/Immun Denies wheezing Physical Exam Vital Signs: Last Vital Signs Pulse 54 11/17/24 13:24 BP 130/64 11/17/24 13:24 Pulse Ox 96 11/17/24 13:24 Oxygen Delivery Method Room Air 11/17/24 13:24 BMI result Body Mass Index 25.4 Const General: healthy appearing, comfortable, no acute distress, alert and awake Orientation/consciousness: patient oriented x3 HEENT Head: Yes normal to inspection General nose exam: No nasal polyps present and No nasal discharge present Face and sinus: Yes sinuses nontender Mouth: oropharynx abnormals (But space is a bit narrow, Mallampati class 3.) Teeth and gingiva: other (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) Throat: Yes posterior oropharynx normal and Yes other (He has whitish covering on the tongue withreddish areas,geographical tongue) Eyes General: appearance normal, both eyes and all related structures Neck Neck: Yes normal visual inspection, Yes no lymphadenopathy, Yes trachea midline and Yes no JVD Thyroid: Thyroid normal Chest Chest palpation & inspection: normal inspection of the chest, normal palpation of entire chest wall and no tenderness Resp Effort & Inspection: normal respiratory effort Auscultation: clear to auscultation bilaterally and no wheezes Cardio Palpation: normal PMI Rate: regular rate Rhythm: regular rhythm Heart sounds: no gallops and no murmurs Peripheral pulses: Peripheral pulses 2+ throughout GI Palpation (GI): Soft to palpation, nontender, No hepatosplenomegaly present and no masses Auscultation: normal bowel sounds Back/Spine/Pelvis Thoracic/Lumbar Spine: Thoracic/lumbar spine scar(s) (TWO SMALL SCARS OVER THE LOWER BACK FROM RECENT SPINAL SURGERY) and thoraco-lumbar ROM limited Skin General skin exam: no rashes or lesions noted Neuro General: patient oriented x3 and no focal motor deficits Cranial nerves: Yes CN's II-XII intact bilaterally Extrem General: Yes normal to inspection, Yes no clubbing, cyanosis or edema and Yes no calf tenderness Psych Speech and movement: Normal speech and movement present Assessment & Plan Assessment & Plan (1) AAKASH on CPAP: Comment: HANNA DOES HAVE OBSTRUCTIVE SLEEP APNEA, 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 HE IS VERY COMPLIANT, USING 100% OF THE TIME., AND SLEEPS VERY WELL. He is having some skin irritation due to the nasal mask, Complains of dry mouth because he is using nasal mask and most likely keeps his mouth open during sleep. Code(s): G47.33 - Obstructive sleep apnea (adult) (pediatric); Z99.89 - Dependence on other enabling machines and devices Category: Medical Plan: Will change the mask to fullface, advised to use. Humidification regularly He can do frequent mouth washes during the daytime. Coding Level of Care Code Est Pt Level 3 (05828) Diagnoses AAKASH on CPAP G47.33; Z99.89
[2024-11-17 13:24] VITALS: BP 130/64; PULSE 54; O2SAT 96; BMI 25.4
--- OUTSIDE RECORDS SUMMARY | 2024-11-17 15:40 | XMS_ITS | Encounter Summary ---
Author Name [facility] [place] Organization [place] Address [address] [place] [id number] Care Team Providers Care Band Saw Marker Name Role Phone AIYANA HANDY Primary Care Provider Unavaila ble Insurance Providers: All historical and current Section Date Range: From patient's date of to the date document was created. This section includes the names of all active insurance providers for the patient. Insurance Provider Type of Coverage Plan Name Start of Policy Coverage End of Policy Coverage Group Number Member ID Insurance Provider's Telephone Number Policy Navarrete's Name Patient's Relationship to Policy Navarrete [employer] [place] [facility] [address] [address] Mar 15, 2018 [id number] PATIENT MEDICARE (WNR) MEDICARE (M) PART B Nov 13, 2010 PART B [id number] DOMINIC BEDOLLA RT PATIENT MEDICARE (WNR) MEDICARE (M) PART A January 13, 2007 PART A [id number] DOMINIC BEDOLLA RT PATIENT Selected Encounter This section includes the information on record at [place] for the Encounter. Date/Time Encounter Type Encounter Description Reason Provider Source Oct 21, 2024 02:00 PM OFFICE O/P EST MOD 30 MIN DERMATOLOGY ICD-10-CM L82.0 Inflamed seborrheic keratosis ABRAHAM LOPEZ Encounter Template Text not used by [place] Assessments - Encounter Diagnoses This section includes the primary and secondary diagnoses documented for the Encounter. Date/Time Primary/Secondary Diagnosis Diagnosis Name Provider Source Oct 21, 2024 02:56 PM PRIMARY Inflamed seborrheic keratosis [facility] [place] [facility] Oct 21, 2024 02:56 PM SECONDARY Nevus, [facility] [place] [facility] Oct 21, 2024 02:56 PM SECONDARY Other melanin hyperpigmentation [facility] [place] [facility] Oct 21, 2024 02:56 PM SECONDARY Other seborrheic keratosis [facility] [place] [facility] Oct 21, 2024 02:56 PM SECONDARY Other specified follicular disorders [facility] [place] [facility] Plan of Treatment: Future Appointments (+ 6 months) and Future Tests (+/- 45 days) The Plan of Treatment section includes future care activities for the patient [facility] [place] [facility]. This section includes future appointments and future orders which are active, pending or scheduled. Future Appointments This section includes appointments that were scheduled to occur 6 months from the date of the Encounter, up to a maximum of 20 appointments. The data comes from all [place] treatment facilities. Appointment Date/Time Appointment Type Appointme nt Facility Name January 18, 2025 01:00 PM AMBULATORY - MEDICINE [facility] [place] [facility] January 24, 2025 01:30 PM AMBULATORY - MEDICINE [facility] [place] [facility] Active, Pending, and Scheduled Orders This section includes a listing of several types of active, pending, and scheduled orders, including clinic medications orders, diagnostic test orders, procedure orders and consult orders; where the start date of the order is 45 days before the date of the Encounter or 45 days after the date of theEncounter. The data comes from all [place] treatment facilities. Test Date/Time Test Type Test Details Facility Name Sep 24, 2024 06:41 AM Consult Order COMMUNITY CARE-PODIATRY Cons Ged In[facility]'s [facility] [place] [facility] Social History: Smoking Status (Most current) and Tobacco Use (All prior to encounter date) This section includes the most current, and the historical, smoking and tobacco- related health factors from the [place] facility where the Encounter took place. Current Smoking Status This section includes the most current smoking, or tobacco-related health factor, from the [place] facility where the Encounter took place. Date/Time Current Smoking Status Comment Facil ity 2024 02:30 PM VA-TOBACCO QUIT 15 YRS OR MORE [place] [facility] Tobacco Use History This section includes a history of the smoking, or tobacco-related health factors, that were collected on or before the date of the Encounter. The data comes from the [place] facility where the Encounter took place. Date/Time Smoking Status/Tobacco Use Comment F acmarie 2024 02:30 PM VA-TOBACCO QUIT 15 YRS OR MORE [facility] [place] [facility] Dec 23, 2022 02:30 PM VA-TOBACCO FORMER USER [facility] [place] [facility] Dec 23, 2022 02:30 PM VA-TOBACCO QUIT 15 YRS OR MORE [facility] [facility] Nov 19, 2021 02:00 PM VA-TOBACCO FORMER USER [facility] [facility] Nov 19, 2021 02:00 PM VA-TOBACCO QUIT 15 YRS OR MORE [facility] [facility] Dec 08, 2020 11:00 AM VA-TOBACCO FORMER USER [facility] [facility] Dec 08, 2020 11:00 AM VA-TOBACCO QUIT 15 YRS OR MORE [place] [facility] [place] [facility] Encounter Notes: All associated encounter notes This section contains the clinical notes associated to the Encounter. Date/Time Encounter Note(s) Provider Source Oct 21, 2024 01:55 PM DERMATOLOGY OUTPATIENT NOTE: LOCAL TITLE: DERMATOLOGY CLINIC NOTE STANDARD TITLE: DERMATOLOGY OUTPATIENT NOTE DATE OF NOTE: OCT 21, 2024@13:55 ENTRY DATE: OCT 21, 2024@13:55:19 AUTHOR: LUIS ANGEL LOPEZ EXP COSIGNER: URGENCY: STATUS: COMPLETED OCT 21, 2024 ASHLEYLAURAAGUILAR MARTINEZ January 84 PATIENT PHONE - Patient here for FOLLOW UP CHIEF COMPLAINT: Irritated Seborrheic Keratoses HPI: Reviewed records from last Dermatology visit: 11/11/23; ISKs s/p LN2. is also s/p TeleDerm 05/2024. Reviewed images and report; L arm lesion. [place] reports he was seen by non-VA Derm at [facility] - L arm lesion treated with cryo, but states 'the doc said it was nothing.' He has a few areas on L side of face and back, occasionally itchy. Would like them looked at. denies any other new/changing/bleeding/non- healing lesions. REVIEW OF SYSTEMS: Constitutional-neg Skin/Hair/Nails-see HPI DermHx: Denies h/o MM or NMSC Family Hx: Denies known h/o MM PastMedHx: Reviewed History of Sun Exposure/Sunburns: +yes, h/o sunburns - none blistering. Denies prior use of tanning beds. Active Outpatient Medications (including Supplies): Active Outpatient Medications Status 1) ACCU-CHEK GUIDE (GLUCOSE) TEST STRIP USE 1 STRIP TO TEST ACTIVE BLOOD SUGARS DIRECTED BY PROVIDER 2) ACETAMINOPHEN 325MG TAB TAKE TWO TABLETS BY MOUTH EVERY 4 ACTIVE HOURS NEEDED Indication: FOR PAIN 3) DM 10/GUAIFENESN 100MG/5ML (AF & SF) LIQ TAKE 5 MLS (1 HOLD TEASPOONFUL) BY MOUTH EVERY 6 HOURS NEEDED Indication: FOR COUGH 4) INCONT LINER PREVAIL GUARDS #[id number] USE 1 LINER TOPICALLY ACTIVE EVERY 6 HOURS NEEDED Active Non-VA Medications Status 1) Non-VA ASPIRIN 81MG EC TAB 81MG BY MOUTH ONCE DAILY ACTIVE 2) Non-VA METFORMIN HCL 500MG TAB 250MG BY MOUTH TWICE DAILY ACTIVE 3) Non-VA METOPROLOL TARTRATE 50MG TAB 25MG BY MOUTH TWICE ACTIVE DAILY 4) Non-VA PRAVASTATIN NA 40MG TAB 40MG BY MOUTH ONCE DAILY ACTIVE 8 Total Medications PHYSICAL EXAM: Powell Skintype II General-AxOx3, NAD, pleasant, breathing unlabored, speech clear Focused cutaneous examination, as permitted by the patient, including scalp, face, eyes, ears, neck, chest, back, abd, hands, fingers Pertinent findings per below: -Multiple scattered stuck-on appearing waxy mayen and brown papules and plaques with noted milia-like cysts, comedo-like openings and fissures/ridges on dermoscopy [lesions of concern]. -Scattered uniformly pigmented light mayen and brown jagged macules in sun distributed areas. -Multiple scattered symmetrical evenly pigmented brown macules and papules, most under 6mm. -L upper arm with atrophic scar at site of prior cryo [telderm imaged] -face with a few scattered flesh tone papules with dermoscopy noting white/yellowish content/lobules and a crown of vessels peripherally not crossing the center of lesion , <3mm Diagnosis/Plan: #Seborrheic Keratoses, Irritated -The was educated regarding the benign nature, but given irritation/pain, destructive treatment requested. -Liquid nitrogen cryotherapy performed as a destructive method. -Liquid nitrogen (2 cycles x 5-8sec) x #3 lesions performed. -Side effects including but not limited to redness, crusting, swelling, blistering, scarring, and hypopigmentation discussed. -Wound care discussed in length. #Seborrheic Keratoses: -The was educated regarding the benign nature, but to return with any growth, change or symptoms in area. #Solar Lentigines -The was educated regarding the benign nature and relation to chronic sun exposure, but to return with any growth, change or symptoms in area. -Photoprotection discussed. #Nevi: -ABCDEs of melanotic lesions discussed, self examinations encouraged -No concerning lesions today on examination -A full body skin check is recommended yearly -Photoprotection discussed. #Sebaceous Hyperplasia -The was educated regarding the benign nature of these enlarged oil glands, but to return with any growth, change or symptoms in area. RTC PRN * educated to RTC ofe if any new, changing, symptomatic lesions. * Education on sun protection and avoidance strategies was provided. * Differential diagnosis, prescription options and risks/benefits were discussed with the patient, who consented to treatment plan. * consented to photography for documentation if indicated. * A dermatoscope was used during the exam. * NUB = Neoplasm of Uncertain Behavior of Skin * NMSC = Nonmelanoma Skin Cancer * AK = Actinic Keratosis ------TIME ESTIMATION To include but not limied to: -Review of medical records -Time spent with patient including obtaining history, physical exam, shared decision making, procedures and counseling -Post visit documentation; HPI and physical exam findings, clinical researching, medical decision making, medication and lab ordering Total estimated time = 30 min ------- Medication Reconciliation: Outpatient: Has the patient been taking medications as documented in the EMLR? YES: The patient has been taking medications as documented in the EMLR. Essential Medication List for Review used to complete this medication reconciliation. INCLUDED IN THIS LIST: Alphabetical list of active outpatient prescriptions dispensed from this [facility] (local) and dispensed from another [place] or [facility]D facility (remote) as well as inpatient orders (local, pending and active), local clinic medications, locally documented non-VA medications, and local prescriptions that have or been discontinued in the past 90 days. - All changes in medications, including all non-VA/Herbal/OTC medications were entered into CPRS. - If there were any medications the patient should no longer take, they were discontinued. - The patient/caregiver was instructed to update this list, discard old lists, and take this list to the next appointment, whether with a VA or non-VA provider. JLV Link Data on this list may not be complete. Please check JLV. Allergies/ADRs (Tool #5) FACILITY ALLERGY/ADR -------- No Remote Allergy/ADR Data available for this patient [place] [facility] [place] [facility] No Known Allergies Med Recon [facility] (Tool #1) INCLUDED IN THIS LIST: Alphabetical list of active outpatient prescriptions dispensed from this [place] (local) and dispensed from another [place] or [facility] facility (remote) as well as inpatient orders (local pending and active), local clinic medications, locally documented non-VA medications, and local prescriptions that have or been discontinued in the past 90 days. Non-VA Meds Last Documented On: Jun 14, 2022 NOTE The display of VA prescriptions dispensed from another [place] or [facility] facility (remote) is limited to active outpatient prescription entries matched to National Drug File at the originating site and may not include some items such as investigational drugs, compounds, etc. NOT INCLUDED IN THIS LIST: Medications self-entered by the patient into personal health records (i.e. [employer]frame) are NOT included in this list. Non-VA medications documented outside this [place], remote inpatient orders (regardless of status) and remote clinic medications are NOT included in this list. The patient and provider must always discuss medications the patient is taking, regardless of where the medication was dispensed or obtained. OUTPT ACETAMINOPHEN 325MG TAB (Status = Active) TAKE TWO TABLETS BY MOUTH EVERY 4 HOURS NEEDED FOR PAIN Rx# [id number] Last Released: 06/11/24 Qty/Days Supply: 200/30 Rx Expiration Date: 02/16/25 Refills Remainin Indication: FOR PAIN Non-VA ASPIRIN 81MG EC TAB TAKE ONE TABLET BY MOUTH ONCE DAILY Medication prescribed by Non-VA provider. OUTPT DM 10/GUAIFENESN 100MG/5ML (AF & SF) LIQ (Status = On Hold) TAKE 5 MLS (1 TEASPOONFUL) BY MOUTH EVERY 6 HOURS NEEDED FOR COUGH Rx# [id number] Last Released: 12/01/23 Qty/Days Supply: 240/10 Rx Expiration Date: 12/01/24 Refills Remainin Indication: FOR COUGH Non-VA METFORMIN HCL 500MG TAB TAKE ONE-HALF TABLET BY MOUTH TWICE DAILY Medication prescribed by Non-VA provider. Non-VA METOPROLOL TARTRATE 50MG TAB TAKE ONE-HALF TABLET BY MOUTH TWICE DAILY Medication prescribed by Non-VA provider. Non-VA PRAVASTATIN NA 40MG TAB TAKE ONE TABLET BY MOUTH ONCE DAILY Medication prescribed by Non-VA provider. SUPPLIES OUTPT ACCU-CHEK GUIDE (GLUCOSE) TEST STRIP (Status = Active) USE 1 STRIP TO TEST BLOOD SUGARS DIRECTED BY PROVIDER Rx# [id number] Last Released: 10/20/24 Qty/Days Supply: 50/180 Rx Expiration Date: 05/04/25 Refills Remainin OUTPT INCONT LINER PREVAIL GUARDS #[id number] (Status = Active) USE 1 LINER TOPICALLY EVERY 6 HOURS NEEDED Rx# [id number] Last Released: 10/18/24 Qty/Days Supply: 126/30 Rx Expiration Date: 05/27/25 Refills Remainin /amrita/ LUIS ANGEL LOPEZ DNP, PROGRAM CHECKER-C NURSE PRACTITIONER Signed: 10/21/2024 14:56 LUIS ANGEL LOPEZ [facility]
--- OUTSIDE RECORDS SUMMARY | 2024-11-17 15:40 | XMS_ITS | Encounter Summary ---
Author Name [facility] [place] Address [address] [place] [address] Care Team Providers Care Medical Assembler Name Role Phone CECIL GELLER Primary Care Provider Unavaila ble Insurance Providers: [...] to Policy Navarrete [employer] [place] MED[employer] SUPP[employer] STATE [employer] Y SUPP PL Mar 15, 2018 [id number] [address]A RT PATIENT MEDICARE (WNR) MEDICARE (M) PART B Nov 13, 2010 PART B [id number] DOMINIC BEDOLLA RT PATIENT MEDICARE (WNR) MEDICARE (M) PART A January 13, 2007 PART A [id number] DOMINIC BEDOLLA RT PATIENT Selected Encounter This section includes the information on record at [place] for the Encounter. Date/Time Encounter Type Encounter Description Reason Pro vider Source May 26, 2024 12:44 PM Outpatient Encounter ADMIN PAT ACTIVTIES (MASNONCT) IHE Encounter Template Text not used by [place] Plan of Treatment: Future Appointments (+ 6 months) and Future Tests (+/- 45 days) The Plan of Treatment section includes future care activities for the patient from all [place] [facility]. This section includes future appointments and future orders which are active, pending or scheduled. Future Appointments This section includes appointments that were scheduled to occur 6 months from the date of the Encounter, up to a maximum of 20 appointments. The data comes from all [place] treatment facilities. Appointment Date/Time Appointment Type Appointme nt Facility Name Jun 15, 2024 02:00 PM AMBULATORY - MEDICINE [place] [facility] [place] [facility] Jul 14, 2024 01:00 PM AMBULATORY - MEDICINE [place] C [facility] [place] [facility] Jul 23, 2024 01:20 PM AMBULATORY - MEDICINE [place] C [facility] [place] [facility] Jul 29, 2024 02:00 PM AMBULATORY - MEDICINE [place] C [facility] [place] [facility] Aug 03, 2024 10:00 AM AMBULATORY - MEDICINE [place] C [facility] [place] [facility] Aug 11, 2024 01:00 PM AMBULATORY - NONE [place] [facility] [facility] Aug 18, 2024 01:30 PM AMBULATORY - REHAB MEDICIN E [place] [facility] [place] [facility] Aug 19, 2024 01:00 PM AMBULATORY - MEDICINE [place] C [facility] [facility] Sep 28, 2024 01:00 PM AMBULATORY - NONE [place] [facility] [facility] Oct 21, 2024 02:00 PM AMBULATORY - MEDICINE [facility] [place] [facility] Social History: Smoking Status (Most current) and Tobacco Use (All prior to encounter date) This section includes the most current, and the historical, smoking and tobacco- related health factors from the [place] facility where the Encounter took place. Current Smoking Status This section includes the most current smoking, or tobacco-related health factor, from the [place] facility where the Encounter took place. Date/Time Current Smoking Status Comment Facil ity 2024 02:30 PM [facility]CO [facility]RS [facility] Tobacco Use History This section includes a history of the smoking, or tobacco-related health factors, that were collected on or before the date of the Encounter. The data comes from the [place] facility where the Encounter took place. Date/Time Smoking Status/Tobacco Use Comment F acility 2024 02:30 PM VA-TOBACCO QUIT 15 YRS OR MORE [facility] [facility] Dec 23, 2022 02:30 PM VA-TOBACCO FORMER USER VA [facility] [facility] Dec 23, 2022 02:30 PM VA-TOBACCO QUIT 15 YRS OR MORE [facility] [facility] Nov 19, 2021 02:00 PM VA-TOBACCO FORMER USER VA [facility] [facility] Nov 19, 2021 02:00 PM VA-TOBACCO QUIT 15 YRS OR MORE [facility] [facility] Dec 08, 2020 11:00 AM VA-TOBACCO FORMER USER VA [facility] [facility] Dec 08, 2020 11:00 AM VA-TOBACCO QUIT 15 YRS OR MORE [place] [facility] [place] [facility] Encounter Notes: All associated encounter notes This section contains the clinical notes associated to the Encounter. Date/Time Encounter Note(s) Provider Source May 26, 2024 12:44 PM PHARMACY NOTE: LOCAL TITLE: V1 PHARMACY CUSTOMER CARE MEDICATION RENEWAL STANDARD TITLE: PHARMACY NOTE DATE OF NOTE: MAY 26, 2024@12:44 ENTRY DATE: MAY 26, 2024@12:44:47 AUTHOR: JOSE DANIEL PULIDO EXP COSIGNER: URGENCY: STATUS: COMPLETED V1 PHARMACY CUSTOMER CARE MEDICATION RENEWAL Has ADDENDA Date: May Division: [facility] referred by Pharmacy Call Center for medication renewal: Non-controlled/maintenanc e medication Medications requested: [id number] INCONT LINER PREVAIL GUARDS #[id number] Defer to primary care provider To be mailed . Please review and renew if appropriate. *This note was generated by [facility]/[place] Pharmacy Customer Care. If you have any questions or need assistance, do not contact this author. Please refer all questions to your local, on-site pharmacy departments. /amrita/ JOSE DANIEL PULIDO Shift Stacker, [place]/Pharmacy Customer Care Signed: 05/26/2024 12:45 Receipt Acknowledged By: 05/27/2024 07:51 /amrita/ Cecil Geller DNP, BLENDING TECHNICIAN-BC, CNL Primary Care Nurse Practitioner 05/26/2024 13:46 /amrita/ Mirtha Ludwig MSN RN CNL Primary Care RN 05/26/2024 ADDENDUM STATUS: COMPLETED Renewed as requested /amrita/ Mirtha Ludwig MSN RN CNL Primary Care RN Signed: 05/26/2024 13:47 JOSE DANIEL PULIDO [facility]
--- OUTSIDE RECORDS SUMMARY | 2024-11-17 15:40 | XMS_ITS | Encounter Summary ---
Author Name [facility] [facility] [place] Address [address] [place] [id number] Care Team Providers Care Hearing Therapy Director Name Role Phone AIYANA HANDY Primary Care [...] to Policy [facility] [facility] [address] Mar 15, 2018 [id number] DOM[address] BEDOLLA RT PATIENT MEDICARE (WNR) MEDICARE (M) PART B Nov 13, 2010 PART B [id number] DOMINIC BEDOLLA RT PATIENT MEDICARE (WNR) MEDICARE (M) PART A January 13, 2007 PART A [id number] DOMINIC BEDOLLA RT PATIENT Selected Encounter This section includes the information on record at [place] for the Encounter. Date/Time Encounter Type Encounter Description Reason Provider Source Nov 04, 2024 09:23 AM COLLJ & INTERPJ DATA EA 30 D SLEEP MEDICINE ICD-10-CM G47.33 Obstructive sleep apnea (adult) (pediatric) RODOLFO MCDANIEL IHE Encounter Template Text not used by [place] Assessments - Encounter Diagnoses This section includes the primary and secondary diagnoses documented for the Encounter. Date/Time Primary/Secondary Diagnosis Diagnosis Name Provider Source Nov 04, 2024 09:25 AM PRIMARY Obstructive sleep apnea (adult) (pediatric) RODOLFO MCDANIEL [facility] Plan of Treatment: Future Appointments (+ 6 months) and Future Tests (+/- 45 days) The Plan of Treatment section includes future care activities for the patient from all [place] [facility]. This section includes future appointments and future orders which are active, pending or scheduled. Future Appointments This section includes appointments that were scheduled to occur 6 months from the date of the Encounter, up to a maximum of 20 appointments. The data comes from all [place] treatment facilities. Appointment Date/Time Appointment Type Appointme nt Facility Name January 18, 2025 01:00 PM AMBULATORY - MEDICINE [facility] January 24, 2025 01:30 PM AMBULATORY MEDICINE [facility] Active, Pending, and Scheduled Orders This section includes a listing of several types of active, pending, and scheduled orders, including clinic medications orders, diagnostic test orders, procedure orders and consult orders; where the start date of the order is 45 days before the date of the Encounter or 45 days after the date of theEncounter. The data comes from all [place] treatment facilities. Test Date/Time Test Type Test Details Facility Name Sep 24, 2024 06:41 AM Consult Order COMMUNITY CARE-PODIATRY Cons [facility] Worker's Choice [facility] Social History: Smoking Status (Most current) and Tobacco Use (All prior to encounter date) This section includes the most current, and the historical, smoking and tobacco- related health factors from the [place] facility where the Encounter took place. Current Smoking Status This section includes the most current smoking, or tobacco-related health factor, from the [place] facility where the Encounter took place. Date/Time Current Smoking Status Comment Facil ity 2024 02:30 PM [place]-TOBACCO FORMER USER [facility] Tobacco Use History This section includes a history of the smoking, or tobacco-related health factors, that were collected on or before the date of the Encounter. The data comes from the [place] facility where the Encounter took place. Date/Time Smoking Status/Tobacco Use Comment F acility 2024 02:30 PM [place]-TOBACCO QUIT 15 YRS OR MORE [facility] [place] [facility] Dec 23, 2022 02:30 PM VA-TOBACCO FORMER USER [facility] [place] [facility] Dec 23, 2022 02:30 PM VA-TOBACCO QUIT 15 YRS OR MORE [facility] [place] [facility] Nov 19, 2021 02:00 PM VA-TOBACCO FORMER USER [facility] [place] [facility] Nov 19, 2021 02:00 PM VA-TOBACCO QUIT 15 YRS OR MORE [facility] [place] [facility] Dec 08, 2020 11:00 AM VA-TOBACCO FORMER USER [facility] [place] [facility] Dec 08, 2020 11:00 AM VA-TOBACCO QUIT 15 YRS OR MORE [place] [facility] [place] [facility] Encounter Notes: All associated encounter notes This section contains the clinical notes associated to the Encounter. Date/Time Encounter Note(s) Provider Source Nov 04, 2024 09:23 AM SLEEP MEDICINE NOT E: LOCAL TITLE: CPAP CLINIC NOTE STANDARD TITLE: SLEEP MEDICINE NOTE DATE OF NOTE: NOV 04, 2024@09:23 ENTRY DATE: NOV 04, 2024@09:23:49 AUTHOR: RODOLFO MCDANIEL COSIGNER: URGENCY: STATUS: COMPLETED [employer] diagnosed with sleep apnea had Airview data download after device replacement. Supplies ordered via [facility]. AirView Compliance Report Usage 10/05/2024 - 11/03/2024 Usage days 21/30 days (70%) >= 4 hours 15 days (50%) < 4 hours 6 days (20%) Usage hours 98 hours 59 minutes Average usage (total days) 3 hours 18 minutes Average usage (days used) 4 hours 43 minutes Median usage (days used) 4 hours 52 minutes Total used hours (value since last reset - 11/03/2024) 113 hours AirS[employer] 11 AutoSet Serial number [id number] Mode AutoSet Min Pressure 6 cmH2O Max Pressure 16 cmH2O EPR Fulltime EPR level 3 Response Soft Therapy Pressure - cmH2O Median: 6.4 95th percentile: 9.4 Maximum: 10.5 Leaks - L/min Median: 0.2 95th percentile: 8.9 Maximum: 24.5 Events per hour AI: 0.6 HI: 0.1 AHI: 0.7 Apnea Index Central: 0.1 Obstructive: 0.5 Unknown: 0.0 RERA Index 0.0 [place] respiration (average duration per night) 0 minutes (0%) /amrita/ RODOLFO MCDANIEL RESPIRATORY THERAPIST Signed: 11/04/2024 09:26 RODOLFO MCDANIEL [place] [facility]
--- OUTSIDE RECORDS SUMMARY | 2024-11-17 15:40 | XMS_ITS ---
Author Name [facility] [place] Organization [facility] [place] [facility] [place] Address [address] [place] [id number] Care Team Providers Care Associate [employer] Name Role Phone AIYANA GELLER Primary Care Provider Unavaila ble Insurance [...] to Policy [facility] [place] [facility] [address] Mar 15, 2018 [id number] DOM[address] BEDOLLA RT PATIENT MEDICARE (WNR) MEDICARE (M) PART B Nov 13, 2010 PART B [id number] RODOLFO THORNTONLAURAENETU RT PATIENT MEDICARE (WNR) MEDICARE (M) PART A January 13, 2007 PART A [id number] DOMINIC BEDOLLA RT PATIENT Selected Encounter This section includes the information on record at [place] for the Encounter. Date/Time Encounter Type Encounter Description Reason Provider Source Jul 29, 2024 02:00 PM OFFICE O/P EST MOD 30 MIN PRIMARY CARE/MEDICINE ICD-10-CM M54.2 Cervicalgia JARRETT GELLER AM Encounter Template Text not used by [place] Assessments - Encounter Diagnoses This section includes the primary and secondary diagnoses documented for the Encounter. 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 GELLER,WILL [facility] [place] [facility] Jul 29, 2024 02:24 PM SECONDARY Pain in unspecified hand GELLER,WILL [facility] [place] [facility] Jul 29, 2024 02:24 PM SECONDARY Type 2 diabetes mellitus without complications GELLER,WILL [facility] [place] [facility] Plan of Treatment: Future Appointments (+ 6 months) and Future Tests (+/- 45 days) The Plan of Treatment section includes future care activities for the patient from all [place] [facility]. This section includes future appointments and future orders which are active, pending or scheduled. Future Appointments This section includes appointments that were scheduled to occur 6 months from the date of the Encounter, up to a maximum of 20 appointments. The data comes from all [place] treatment facilities. Appointment Date/Time Appointment Type Appointme nt Facility Name Aug 03, 2024 10:00 AM AMBULATORY - MEDICINE [place] [facility] [place] [facility] Aug 11, 2024 01:00 PM AMBULATORY - NONE [place] [facility] [place] [facility] Aug 18, 2024 01:30 PM AMBULATORY - REHAB MEDICIN [facility] [place] [facility] Aug 19, 2024 01:00 PM AMBULATORY - MEDICINE [place] [facility] [place] [facility] Sep 28, 2024 01:00 PM AMBULATORY - NONE [place] [facility] [place] [facility] Oct 21, 2024 02:00 PM AMBULATORY - MEDICINE [place] [facility] [place] [facility] January 18, 2025 01:00 PM AMBULATORY - MEDICINE [place] [facility] [place] [facility] January 24, 2025 01:30 PM AMBULATORY - MEDICINE [facility] Lab Results: +/- 30 days of the encounter This section includes the Chemistry and Hematology Lab Results on record with [place] for the patient. Radiology Reports and Pathology Reports are provided separately, in subsequent sections. Lab Results This section contains the Chemistry/Hematology Results that were resulted 30 days before or 30 daysafter the date of the Encounter. Date/Time Source Result Type Result - Unit Interpretation Reference Range Comment Aug 11, 2024 12:49 PM [facility] BASIC METABOLIC PANEL (non-fasting) Specimen Type: SERUM No comment entered. Ordering Provider: JARRETT GELLER AM Report Released Date/Time: Jul 07, 2024 09:55 AM Reporting Lab: [address] [address] Performing Lab: [address] [address] UREA NITROGEN 23 mg/dL 7-25 GLUCOSE 123 mg/dL H 65-100 SODIUM 141 mmol/L 135-145 POTASSIUM 4.9 mmol/L 3.5-5.0 CHLORIDE 108 mmol/L 100-110 CO2 23 meq/L 20-30 CREATININE, Serum 1.08 mg/dL 0.50-1.40 eGFR(CKD-EPI 2020) 69 mL/min >60 Aug 11, 2024 12:49 PM [facility] CBC Specimen Type: BLOOD No comment entered. Ordering Provider: JARRETT GELLER AM Report Released Date/Time: Jul 07, 2024 09:55 AM Reporting Lab: [address] [address] Performing Lab: [address] [address] WBC 6.26 10*3/uL 4.50-11.00 RBC 4.21 10*6/uL L 4.23-5.66 HGB 12.8 g/dL 12.8-17 HCT 36.2 L 39.2-50.4 MCV 86.0 fL 82-99 MCHC 35.4 g/dL H 30.8-35.1 PLT 149 10*3/uL 140-360 RDW-CV 13.2 12.0-16.0 MCH 30.4 pg 26.2-32.6 Aug 11, 2024 12:49 PM [facility] LIPID PANEL, NON FASTING Specimen Type: SERUM No comment entered. Ordering Provider: JARRETT GELLER AM Report Released Date/Time: Jul 07, 2024 09:55 AM Reporting Lab: [address] [address] Performing Lab: [address] [address] CHOLESTEROL 144 mg/dL TRIGLYCERIDE 204 mg/dL H 0-150 LDL calculated 52 mg/dL 0-129 CHOL/HDL 2.8 HDL CHOLESTEROL 51 mg/dL 40-60 Aug 11, 2024 12:49 PM [facility] HEMOGLOBIN A1C PANEL Specimen Type: BLOOD Comment: Values obtained from A1C measurements can vary. For atypical A1C assays, a reported value of 7.0 could actually be between 6.72 and 7.28 if measured by a reference method. A reported value of 9.0 could actually be between 8.73 and 9.27. Ref: http://www.ngs p.org/CAPdata. asp Ordering Provider: JARRETT GELLER AM Report Released Date/Time: Jul 07, 2024 09:55 AM Reporting Lab: [address] [address] Performing Lab: [address] [address] HEMOGLOBIN A1C 6.8 H 4.0-5.6 Aug 11, 2024 12:49 PM [facility] LIVER FUNCTION Specimen Type: SERUM No comment entered. Ordering Provider: JARRETT GELLER AM Report Released Date/Time: Jul 07, 2024 09:55 AM Reporting Lab: [address] [address] Performing Lab: [address] [address] PROTEIN,TOTAL 6.8 g/dL 6.0-8.3 ALBUMIN 3.9 g/dL 3.5-5.0 ALKALINE PHOSPHATASE 56 U/L 40-150 AST 16 U/L 5-34 ALT 16 U/L BILIRUBIN, TOTAL 0.4 mg/dL 0.2-1.2 Aug 11, 2024 12:49 PM [facility] MICROALBUMIN CREATININE RATIO PANEL Specimen Type: URINE No comment entered. Ordering Provider: JARRETT GELLER AM Report Released Date/Time: Jul 07, 2024 09:55 AM Reporting Lab: [facility] [address] [facility] [address] Performing Lab: [address] [address] MICROALBUMIN/C REATININE RATIO 63.6 mg/g H 0-29.9 MICROALBUMIN,Q UANTITATIVE 4.8 mg/dL RR UNAVAIL CREATININE URINE 75.42 mg/dL Vital Signs: All taken on the encounter date This section contains inpatient and outpatient Vital Signs collected on the date of the Encounter. Date/Time Temperature Pulse Blood Pressure Respiratory Rate SP02 Pain Height Weight Body Mass Index Source Jul 29, 2024 02:00 PM 138/78 [facility] Jul 29, 2024 01:49 PM 98.3 60 155/71 20 98 8 65 161 27 [facility] Social History: Smoking Status (Most current) and Tobacco Use (All prior to encounter date) This section includes the most current, and the historical, smoking and tobacco- related health factors from the [place] facility where the Encounter took place. Current Smoking Status This section includes the most current smoking, or tobacco-related health factor, from the [place] facility where the Encounter took place. Date/Time Current Smoking Status Comment Facil ity 2024 02:30 PM VA-TOBACCO FORMER USER [facility] Tobacco Use History This section includes a history of the smoking, or tobacco-related health factors, that were collected on or before the date of the Encounter. The data comes from the [place] facility where the Encounter took place. Date/Time Smoking Status/Tobacco Use Comment F acility 2024 02:30 PM VA-TOBACCO QUIT 15 YRS OR MORE [facility] Dec 23, 2022 02:30 PM VA-TOBACCO FORMER USER [place] [facility] [place] [facility] Dec 23, 2022 02:30 PM VA-TOBACCO QUIT 15 YRS OR MORE [facility] [place] [facility] Nov 19, 2021 02:00 PM VA-TOBACCO FORMER USER [facility] [place] [facility] Nov 19, 2021 02:00 PM VA-TOBACCO QUIT 15 YRS OR MORE [facility] [place] [facility] Dec 08, 2020 11:00 AM VA-TOBACCO FORMER USER [facility] [place] [facility] Dec 08, 2020 11:00 AM VA-TOBACCO QUIT 15 YRS OR MORE [facility] Radiology Reports: +/- 30 days of the encounter Radiology Reports For cases when an order for radiology services may have been completed prior to the date of the Encounter, the report list includes the Radiology Reports that were completed up to 30 days before dateof the Encounter. For cases when an order for radiology services may have been completed after the date of the Encounter, the report list also includes the Radiology Reports that were completed up to30 days after date of the Encounter. The data comes from all [place] treatment facilities. Date/Time Radiology Report Provider Source Aug 11, 2024 12:58 PM ULTRASOUND SCROTUM: HANNA RAMIREZ [id number] -[id number] M Exm Date: AUG 11, 2024@12:58 Req Phys: AIYANA GELLER Loc: CWM/NO/PACT 7 (Req'g Loc) Img Loc: ULTRASOUND Service: Unknown [place] [facility] [place] [address] (Case [id number] COMPLETE) ULTRASOUND SCROTUM (US Detailed) CPT:89457 Reason for Study: mass Clinical History: small mobile non painful lump left side of scrotum Report Status: Verified Date Reported: AUG 11, 2024 Date Verified: AUG 11, 2024 Beverage Host E-Sig: Report: SCROTAL SONOGRAM Technique: Multiple transverse and longitudinal sonograms of the scrotum. Color Doppler was used where appropriate. 27 images available for review. Comparison: None History: mass FINDINGS: Right: The right testis is 4.0 x 1.7 x 2.2 cm and has a homogeneous echo pattern. A 0.4 cm cyst. No solid lesion. Normal Doppler flow and arterial and venous signal within the testis. The epididymis is normal. No hydrocele. Left: The left testis is 3.9 x 1.6 x 3.1 cm and is also homogeneous. Tubular ectasia of the rete testis. No focal lesion. Normal Doppler flow and arterial and venous signal within the testis. The epididymis is normal. No hydrocele. No discrete abnormality in the area of palpable lump. Impression: No significant abnormality. READING PHYSICIAN: Cy Candelario M.D. -[phone] 08/11/2024 11:56 [facility] [employer] [phone] (For Medical Practitioner Use Only) Attention Patients / Veterans: If you have questions or concerns about these test results, please contact your ordering provider or primary care team. Primary Diagnostic Code: NO ALERT REQUIRED Primary Interpreting Staff: RADIOLOGY,OUTSIDE SERVICE, Staff Physician / RADIOLOGY,OUTSIDE SERVICE [facility] Encounter Notes: All associated encounter notes This section contains the clinical notes associated to the Encounter. Date/Time Encounter Note(s) Provider Source Jul 29, 2024 02:17 PM PRIMARY CARE NURSE PRACTITIONER OUTPATIENT NOTE: LOCAL TITLE: NURSE PRACTITIONER OUTPATIENT NOTE STANDARD TITLE: PRIMARY CARE NURSE PRACTITIONER OUTPATIENT NOTE DATE OF NOTE: JUL 29, 2024@14:17 ENTRY DATE: JUL 29, 2024@14:17:20 AUTHOR: AIYANA GELLER COSIGNER: URGENCY: STATUS: COMPLETED Chief complaint: Patient is a 84 year old . HPI: Pleasant male [place] here to follow up. He had cervical spinal fusion in March, was doing well, now having radiating pain from neck down into both arms. I suggested he follow back with neurosurgery, he is in agreement. He also noticed a marble size lump left side of testicle, non painful, will get u/s. Also having bilat thumb joint pain, will refer to OT. Allergies: Patient has answered NKA The following VA and Non-VA meds were reconciled with patient. The patient was educated on the use of the medications including indication and side effects. Active and Recently Outpatient Medications (excluding Supplies): Active Outpatient Medications Status = 1) ACCU-CHEK GUIDE (GLUCOSE) TEST STRIP USE 1 STRIP TO ACTIVE (S) TEST BLOOD SUGARS DIRECTED BY PROVIDER 2) ACETAMINOPHEN 325MG TAB TAKE TWO TABLETS BY MOUTH ACTIVE EVERY 4 HOURS NEEDED FOR PAIN 3) DM 10/GUAIFENESN 100MG/5ML (AF & SF) LIQ TAKE 5 MLS HOLD (1 TEASPOONFUL) BY MOUTH EVERY 6 HOURS NEEDED FOR COUGH Inactive Outpatient Medications Status = 1) GOV-PAXLOVID [id number] RENAL PKT 2 TAKE 1 TABLET NILMATRELVIR AND 1 TABLET RITONAVIR BY MOUTH TWICE DAILY FOR COVID-19 - PLEASE OVERNIGHT MAIL 2) GUAIFENESIN 100MG/5ML (ALC-F/SF) LIQUID TAKE 1 TEASPOONFUL BY MOUTH EVERY 6 HOURS NEEDED FOR COUGH -- PLEASE MAIL OVERNIGHT WITH PAXLOVID. Active Non-VA Medications Status = 1) Non-VA ASPIRIN 81MG EC TAB 81MG BY MOUTH ONCE DAILY ACTIVE 2) Non-VA METFORMIN HCL 500MG TAB 250MG BY MOUTH TWICE ACTIVE DAILY 3) Non-VA METOPROLOL TARTRATE 50MG TAB 25MG BY MOUTH ACTIVE TWICE DAILY 4) Non-VA PRAVASTATIN NA 40MG TAB 40MG BY MOUTH ONCE ACTIVE DAILY 9 Total Medications Review of Systems: Constitutional: (-)for Fevers, chills, weakness, nights sweats On examination: 98.3 F [36.8 C] (07/29/2024 13:49)155/71 (07/29/2024 13:49)60 (07/29/2024 13:49)20 (07/29/2024 13:49)8 (07/29/2024 13:49)BMI: 26.8161 lb [73.03 kg] (07/29/2024 13:49) [place] is alert and oriented X3 Neck: supple without masses, trachea midline, ln not palpable, no thyromegaly Cardiovasc: 2plus carotids without bruits, no JVD Heart Reguler rate and rhythm NL S1S2 no S3 or murmur Respiration: Normal respiratory effort, lungs clear ABD: Benign normal active bowel sounds no HSM no rebound or referred pain EXT: no clubbing, edema, or cyanosis : small palpable mass left side of scrotum Assessment/plan: Active problems - Computerized Problem List is the source for the followin. Cervicalgia - see above 2. 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 Diabetes Mellitus Type 2 ([facility] [id number]) - well controlled 4. Hypertension - repeat 138/78 Review of medial record = 5mins Time spent with Patient including shared decision making = 20 mins Post visit documentation = 5mins Total time = 30 mins Follow up visit in 6 mos. PAVE Foot Check: A complete foot check was completed at this encounter. VISUAL INSPECTION: Includes inspection for skin breaks, deformity, erythema, trauma, pallor on elevation, dependent rubor, nail deformities, extensive callus and pitting edema. Visual exam results: Normal PEDAL PULSES: Includes palpation of dorsalis and posterior tibial pulses and signs/symptoms of vascular compromise like pain, pallor, parasthesia or paralysis. Present (even if diminished) SENSORY CHECK: Includes 10 gram Monofilament ([place]-Delisa) test of sensation. Intact (Greater than or equal to 80% of sites checked) Abnormal (Less than 80% of sites checked): Intact LOW-RISK: LOW RISK INFORMATION PROVIDED: 1. Advised patient not to walk barefoot. 2. Explained the importance of daily foot checks for changes. 3. Stressed the importance of daily foot hygiene, including bathing and complete drying. Medication Reconciliation: Outpatient: Has the patient been taking medications as documented in the EMLR? YES: The patient has been taking medications as documented in the EMLR. Essential Medication List for Review used to complete this medication reconciliation. INCLUDED IN THIS LIST: Alphabetical list of active outpatient prescriptions dispensed from this [place] (local) and dispensed from another [place] or [facility] facility (remote) as well as inpatient orders [...] whether with a VA or non-VA provider. /amrita/ Aiyana Geller DNP, PARTS FINISHER-BC, CNL Primary Care Nurse Practitioner Signed: 07/29/2024 14:23 AIYANA GELLER [facility] Jul 29, 2024 01:57 PM PREVENTIVE MEDICINE NURSING NOTE: LOCAL TITLE: CLINICAL REMINDERS/NURSING STANDARD TITLE: PREVENTIVE MEDICINE NURSING NOTE DATE OF NOTE: JUL 29, 2024@13:57 ENTRY DATE: JUL 29, 2024@13:57:16 AUTHOR: MAXIMINO SHAH COSIGNER: URGENCY: STATUS: COMPLETED Influenza Immunization: The patient has received the seasonal influenza vaccine for the current season at another location. Documented: INFLUENZA, UNSPECIFIED FORMULATION Historical Date Administered: Jun 24, 2024 Outside Location: Outside Healthcare Provider Information Source: FROM PATIENT'S RECALL Comment: per statement from vet COVID-19 Immunization: Vaccine given previously - no written/electronic documentation available Comment: per statement from vett The patient was instructed to bring a copy of their COVID-19 vaccine information to their next appointment so that this can be accurately recorded in their [place] medical record. /amrita/ Maximino Shah [employer] Cataloger CAMPAIGN MANAGEMENT SENIOR MANAGER,PRIMARY CARE Signed: 07/29/2024 13:59 MAXIMINO SHAH [facility] Jul 29, 2024 01:53 PM PREVENTIVE MEDICINE NURSING NOTE: LOCAL TITLE: CLINICAL REMINDERS/NURSING STANDARD TITLE: PREVENTIVE MEDICINE NURSING NOTE DATE OF NOTE: JUL 29, 2024@13:53 ENTRY DATE: JUL 29, 2024@13:53:46 AUTHOR: MAXIMINO SHAH [facility] COSIGNER: URGENCY: STATUS: COMPLETED Advance Directive Screen MH AD: Patient does not have an Advance Directive completed and is requesting more information. A consult was sent to Social Work Services at this visit so that an appointment can be made with the patient to review the advance directive. The patient received education about Advance Directives and written notification of his/her rights. RHS Screen: RHS Screen Session Format: Face to Face Environmental Check Upon inquiry, the individual reports that the environment is safe to proceed. Informed Consent to Screen and Document The individual consents to proceed with screening. The individual consents to documentation of responses. PRIMARY SCREEN: In the past 12 months, how often did a current or former intimate partner (e.g., boyfriend, girlfriend, , , sexual partner): 1. Scream or curse at you Never 2. Insult or talk down to you Never 3. Threaten you with harm Never 4. Physically hurt you Never 5. Force or pressure you to have sexual contact against your will, or when you were unable to say no Never ?? The HITS tool (items 1-4 above) is [place] copyright protected by Jordon Mckeon MD, and the user has full rights to use it throughout the [place] system. PRIMARY SCREEN RESULT: The Primary Screen is NEGATIVE. The individual answered never to all forms of IPV above (i.e., answered never to all 5 items) The individual accepts education and/or resources: No EDUCATION: Other: not interested at this time /amrita/ Maximino Shah [employer] Cataloger CAMPAIGN MANAGEMENT SENIOR MANAGER,PRIMARY CARE Signed: 07/29/2024 13:55 MAXIMINO SHAH [facility]
--- OUTSIDE RECORDS SUMMARY | 2024-11-17 15:40 | XMS_ITS | Clinical Summary ---
Author Organization 175 [facility] Address [address] [place] [address] Phone Care Team Providers Care Green End Department Supervisor Name Role Phone Daniel Chen MD Primary Care Provider [phone] Allergies Active Allergy Reactions Criticality Noted Date Comments Lactose Diarrhea 08/19/2024 Medications acetaminophen (TYLENOL) 325 mg tablet Take 3 tablets (975 mg total) by mouth. 04/15/2024 Active aspirin 81 mg EC tablet Take 1 tablet (81 mg total) by mouth 1 (one) time each day. 05/08/2024 Active blood sugar diagnostic (FreeStyle Lite Strips) test strip USE 1 STRIP VIA METER ONCE DAILY 06/23/2024 Active diazePAM (Valium) 2 mg tablet Take 1 tablet (2 mg total) by mouth. 04/15/2024 Active metFORMIN (GLUCOPHAGE) 500 mg tablet Take 0.5 tablets (250 mg total) by mouth 1 (one) time each day. 05/28/2024 Active metoprolol tartrate (LOPRESSOR) 25 mg tablet Take 1 tablet (25 mg total) by mouth. 12/06/2022 Active oxyCODONE (ROXICODONE) 5 mg immediate release tablet Take 1 tablet (5 mg total) by mouth every 6 (six) hours if needed. for pain for 3 days Max Daily Amount: 20 mg 04/21/2024 Active pravastatin (PRAVACHOL) 40 mg tablet Take 1 tablet (40 mg total) by mouth 1 (one) time each day. Active tamsulosin (Flomax) 0.4 mg 24 hr capsule Take 1 capsule (0.4 mg total) by mouth. 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; Acute pain of left shoulder 09/14/2024 1:00 PM EST Treatment [facility] Occup[facility] [address] [phone] Carolee Wilson, OT Pain of both elbows (Primary Dx) 09/09/2024 12:30 PM EST Treatment [facility] [address] [phone] Carolee Wilson, OT Pain of both elbows (Primary Dx) 09/07/2024 12:30 PM EST Treatment [facility] [address] [phone] Carolee Wilson, OT Pain of both elbows (Primary Dx) 09/02/2024 1:00 PM EST Treatment [facility] [address] [place] [phone] Carolee Wilson, OT Pain of both elbows (Primary Dx) 08/30/2024 1:00 PM EST Evaluation [facility] [address] [place] [phone] Carolee Wilson, OT Pain of both elbows 08/30/2024 Plan of Care Documentation [facility] [address] [place] [phone] 08/19/2024 1:00 PM EST Consult Orthopedic Surgery [facility] [address] [phone] Carolee Hanson PA Bilateral hand pain (Primary Dx); Pain of both elbows; Arthritis of carpometacarpal (CMC) joint of both thumbs; Lateral epicondylitis of both elbows from Last 3 Months Immunizations Name Administration Dates Next Due Influenza Quadravalent, 0.5m l (Fluad) 65yo and older 06/02/2020 Influenza Quadravalent, 0.5m l (Fluzone High-dose) 65yo and older 05/26/2023,06/20/2022,06/16/2021 Influenza trivalent, 0.5mL ( Fluzone High-dose) 65yo and older 06/23/2019,06/15/2018,06/11/2017 Influenza trivalent, with pr eservative (Fluzone; Afluria) 6mo and older 05/30/2010 Pneumococcal conjugate 13 va lent (Prevnar 13, PCV13) 2mo and older 06/19/2016,07/25/2015 Pneumococcal polysaccharide 23 valent (Pneumovax 23) 2yo and older 01/03/2007 RSV, bivalent, protein subun it RSVpreF, 0.5mL, Preservative Free (Arexvy) 60yo and older 06/16/2023 Zoster Live 08/16/2009 Zoster recombinant (Shingrix ) 19yo and older 11/25/2019 Social History Tobacco Use Types Packs/Day Years Used Date Smoking Tobacco: Never Assessed Sex and Gender Information Value Date Recorded Sex Assigned at Not on file Legal Sex Male 4:02 PM EST Gender Identity Not on file Sexual Orientation Not on file Last Filed Vital Signs Vital Sign Reading Time Taken Comments Blood Pressure - - Pulse - - Temperature - - Respiratory Rate - - Oxygen Saturation - - Inhaled Oxygen Concentration - - Weight 70.8 kg (156 lb) 08/19/2024 12:39 PM EST Height 170.2 cm (5' 7 ) 08/19/2024 12:39 PM EST Body Mass Index 24.43 08/19/2024 12:39 PM EST Plan of Treatment Health Maintenance Due Date Last Done Comments Diabetes: Annual GFR (Glomerular Filtration Rate) 1942 Diabetes: Annual Foot Exam 01/30/1952 Diabetes: Annual Retina Eye Exam 01/30/1952 Pneumococcal Vaccine: 50+ Years (3 of 3 - PPSV23, PCV20 or PCV21) 08/14/2016 06/19/2016, 07/25/2015, 07/25/2015, Additional history exists Cholesterol Screening (Lipid Panel) 08/10/2024 Depression Screening 08/10/2024 Falls Risk Assessment 08/10/2024 Medicare Annual Wellness Visit 08/10/2024 Social Influencers of Health Screening 08/10/2024 Diabetes: Annual Urine Albumin-Creatinine Ratio (uACR) 08/30/2024 Diabetes: Blood Sugar Control Test (HGBA1C) 08/30/2024 Hypertension/CHF/CAD Annual BMP Blood Test 08/30/2024 DTaP,Tdap,and Td Vaccines (2 - Td or Tdap) 06/04/2030 06/04/2020 Zoster Vaccines Completed 04/01/2020, 11/13, 08/16/2009 RSV Immunization Patients 60+ Years Old Completed 06/16/2023 COVID-19 Vaccine Completed 05/28/2024, 10/2022, 01/10/2023, Additional history exists Influenza Vaccine Completed 06/24/2024, , 06/20/2022, Additional history exists HIB Vaccines Aged Out No longer eligi ble based on patient's age to complete this topic HPV Vaccines Aged Out No longer eligi ble based on patient's age to complete this topic Hepatitis A Vaccines Aged Out No long er eligible based on patient's age to complete this topic Hepatitis B Vaccines Aged Out No long er eligible based on patient's age to complete this topic IPV Vaccines Aged Out No longer eligi ble based on patient's age to complete this topic MMR Vaccines Aged Out No longer eligi ble based on patient's age to complete this topic Meningococcal ACWY Vaccine Aged Out N o longer eligible based on patient's age to complete this topic Meningococcal B Vacine Aged Out No lo nger eligible based on patient's age to complete this topic RSV Immunization Patients Under 20 months Aged Out No longer eligible based on patient's age to complete this topic Varicella Vaccines Aged Out No longer eligible based on patient's age to complete this topic Goals Goal Patient Goal Type Associated Problems Recent Progress Patient-Stated? 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 Non-dom L steam cleaner at least 70% of R 09/14/24 MET and EXCEEDED Procedures Procedure Name Priority Date/Time Associated Diagnosis Comments XR ELBOW 3+ VIEWS BILAT Routine 08/19/2024 1:26 PM EST Pain of both elbows XR HAND 3+ VIEWS BILAT Routine 08/19/2024 1:18 PM EST Bilateral hand pain HI ARTHROCENTESIS/ASP IRATION/INJECTION SMALL JOINT/BURSA WO U/S GUIDANCE Routine 08/19/2024 1:00 PM EST Arthritis of carpometacarpal (CMC) joint of both thumbs from Last 3 Months Results * XR Elbow 3+ Views bilat (08/19/2024 1:26 PM EST) Anatomical Region Laterality Modality Upper Extremities, Elbow Bilateral Compute d Radiography Narrative 08/19/2024 2:17 PM EST Date of Visit: 08/18/2024 Reason for visit: Bilateral elbow pain Views: AP, lateral complete bilateral elbows Comparison: None Findings: No fracture, dislocation or lytic lesions. ??There is calcification/bone spurs noted at bilateral lateral epicondyles. ?? Olecranon bone spurs noted. ??Normal radiocapitellar and ulnohumeral relationships. Impression: Spurring of bilateral lateral epicondyles with questionable lateral epicondylitis and olecranon bone spurs. us Carolee VILLANUEVA IMG XR PROCEDURES Final Resul t * XR Hand 3+ Views bilat (08/19/2024 1:18 PM EST) Anatomical Region Laterality Modality Upper Extremities, Hand Bilateral Computed Radiography Narrative 08/19/2024 2:16 PM EST Date of Visit:08/19/24 Reason for visit: Bilateral thumb pain Views: AP, lateral oblique hands Comparison: None Findings: No fracture, dislocation or lytic lesions. ??There is diffuse arthritic changes in his hands with arthritic changes at DIP and PIP joints. ??Moderate bilateral thumb basal joint arthritis with bone spur formation and subchondral bone cyst. 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 Carolee VILLANUEVA IMG XR PROCEDURES Final Resul t * HI ARTHROCENTESIS/ASPIRATION/INJECTION SMALL JOINT/BURSA WO U/S GUIDANCE (08/19/2024 1:00 PM EST) Narrative Carolee Hanson PA - 08/19/2024 1:00 PM EST RICH Busch ? 08/19/2024 ??2:20 PM Hand / UE Inj/Asp: bilateral thumb CMC for osteoarthritis Indications: pain Details: dorsal approach Medications (Right): 0.5 mL lidocaine 1 %; 40 mg triamcinolone acetonide 40 mg/mL Medications (Left): 0.5 mL lidocaine 1 %; 40 mg triamcinolone acetonide 40 mg/mL Informed Consent: ??Laterality: ??Bilateral ??Relevant images/test results available and reviewed: yes ?Health status cleared: ??Yes ??Procedure/treatment, purpose, treatment alternatives, risks/potential complications and benefits explained: yes ?Risk/complications/benefits details: ??Risks of infection, thinning of the skin and temporary skin discoloration discussed. ??Discussed risks of temporary increased pain after injection and swelling and mild redness at injection site for couple days. ??Explained occasionally cortisone injection can cause facial flushing temporarily. ??Benefits pain management. ??For postop injection pain ice, Tylenol and/or NSAIDs if patient can take ??Patient questions answered: yes ?Patient agrees, verbalizes understanding, and wants to proceed: yes ?Consent given by: ??Patient ??Pre-procedure timeout performed: yes ?? Carolee VILLANUEVA IN CLINIC/BEDSIDE ORDERABLES Final Result from Last 3 Months Insurance MEDICARE [facility] Care Teams Green End Department Supervisor Relationship Specialty Start Date End Date Daniel Chen MD [address] [place] [phone] PCP - General Family Medicine 08/10/24
--- OUTSIDE RECORDS SUMMARY | 2024-11-17 15:40 | XMS_ITS ---
Author Name [facility] Organization [facility] [place] Address [address] [place] [id number] Care Team Providers Care Textile Artist Name Role Phone AIYANA GELLER Primary Care [...] to Policy [facility] Mar 15, 2018 [id number] RT PATIENT MEDICARE (WNR) MEDICARE (M) PART B Nov 13, 2010 PART B [id number] DOMINIC BEDOLLA RT PATIENT MEDICARE (WNR) MEDICARE (M) PART A January 13, 2007 PART A [id number] DOMINIC BEDOLLA RT PATIENT Selected Encounter This section includes the information on record at [place] for the Encounter. Date/Time Encounter Type Encounter Description Reason Provider Source May 21, 2024 01:30 PM UNLISTED SPEC DERM SVC/PX DERMATOLOGY ICD-10-CM Z13.89 Encounter for screening for other disorder WARD PEREZ Encounter Template Text not used by [place] Assessments - Encounter Diagnoses This section includes the primary and secondary diagnoses documented for the Encounter. Date/Time Primary/Secondary Diagnosis Diagnosis Name Provider Source May 21, 2024 01:12 PM PRIMARY Encounter for screening for other disorder WARD PEREZ [facility] [place] [facility] Plan of Treatment: Future Appointments (+ 6 months) and Future Tests (+/- 45 days) The Plan of Treatment section includes future care activities for the patient [facility] This section includes future appointments and future orders which are active, pending or scheduled. Future Appointments This section includes appointments that were scheduled to occur 6 months from the date of the Encounter, up to a maximum of 20 appointments. The data comes from all [place] treatment facilities. Appointment Date/Time Appointment Type Appointme nt Facility Name May 25, 2024 01:45 PM AMBULATORY - MEDICINE [facility] [place] [facility] Jun 15, 2024 02:00 PM AMBULATORY - MEDICINE [facility] [place] [facility] Jul 14, 2024 01:00 PM AMBULATORY - MEDICINE [facility] [place] [facility] Jul 23, 2024 01:20 PM AMBULATORY - MEDICINE [facility] [place] [facility] Jul 29, 2024 02:00 PM AMBULATORY - MEDICINE [facility] [place] [facility] Aug 03, 2024 10:00 AM AMBULATORY - MEDICINE [facility] [place] [facility] Aug 11, 2024 01:00 PM AMBULATORY - NONE [facility] [place] [facility] Aug 18, 2024 01:30 PM AMBULATORY - REHAB MEDICIN E [facility] [place] [facility] Aug 19, 2024 01:00 PM AMBULATORY - MEDICINE [facility] [place] [facility] Sep 28, 2024 01:00 PM AMBULATORY - NONE [facility] [place] [facility] Oct 21, 2024 02:00 PM AM[facility]ULATORY - MEDICINE [facility] [place] [facility] Social History: Smoking Status (Most current) and Tobacco Use (All prior to encounter date) This section includes the most current, and the historical, smoking and tobacco- related health factors from the [place] facility where the Encounter took place. Current Smoking Status This section includes the most current smoking, or tobacco-related health factor, from the [place] facility where the Encounter took place. Date/Time Current Smoking Status Comment Facil ity 2024 02:30 PM VA-TOBACCO QUIT 15 YRS OR MORE [facility] [place] [facility] Tobacco Use History This section includes a history of the smoking, or tobacco-related health factors, that were collected on or before the date of the Encounter. The data comes from the [place] facility where the Encounter took place. Date/Time Smoking Status/Tobacco Use Comment F acility 2024 02:30 PM VA-TOBACCO QUIT 15 YRS OR MORE [facility] [place] [facility] Dec 23, 2022 02:30 PM VA-TOBACCO FORMER USER [facility] [place] [facility] Dec 23, 2022 02:30 PM VA-TOBACCO QUIT 15 YRS OR MORE [facility] [place] [facility] Nov 19, 2021 02:00 PM VA-TOBACCO FORMER USER [facility] [place] [facility] Nov 19, 2021 02:00 PM VA-TOBACCO QUIT 15 YRS OR MORE [facility] [place] [facility] Dec 08, 2020 11:00 AM VA-TOBACCO FORMER USER [facility] [place] [facility] Dec 08, 2020 11:00 AM VA-TOBACCO QUIT 15 YRS OR MORE [facility] [place] [facility] Encounter Notes: All associated encounter notes This section contains the clinical notes associated to the Encounter. Date/Time Encounter Note(s) Provider Source Jun 15, 2024 08:02 AM ADDENDUM: LOCAL TITLE: Addendum STANDARD TITLE: ADDENDUM DATE OF NOTE: JUN 15, 2024@08:02:18 ENTRY DATE: JUN 15, 2024@08:02:18 AUTHOR: LUIS ANGEL LOPEZ EXP COSIGNER: URGENCY: STATUS: COMPLETED DERM PR[employer] EXCHANGE SERVICE ADVISOR - please notify that the lesion on his arm can be treated at upcoming appt 10/2024, however - to reach out to clinic for any further changes or symptoms in the area. /amrita/ LUIS ANGEL LOPEZ DNP, TECHNICAL BUSINESS ANALYST-C NURSE PRACTITIONER Signed: 06/15/2024 08:03 Receipt Acknowledged By: 06/30/2024 15:34 /amrita/ LUKASZ MAN LPN PRIVATE BRAN[employer] EXCHANGE SERVICE ADVISOR --- Original Document --- 05/25/24 PATIENT NOTIFICATION TELEHEALTH RESULTS: Provided below are the results from pts telederm imaging reading. Ordering Provider is responsible to give pt the results and prescribe any treatments, recommendations or consult to dermatology for a face to face etc. REMOTE RESULTS SAGE Document from: [facility] Associated on: May 24, 2024@12:46:50 LOCAL TITLE: CONSULT-TELEDERMATOLOGY IMAGING REPORT STANDARD TITLE: TELEIMAGING REPORT DATE OF NOTE: MAY 24, 2024@12:45 ENTRY DATE: MAY 24, 2024@12:45:04 AUTHOR: PADDY ROSENBERG EXP COSIGNER: URGENCY: STATUS: COMPLETED HISTORY: 84-year-old male presents for evaluation of a lesion on the left upper arm that he reports has been present for a few months now. It is associated with itching and redness. He does not have a history of skin problems and does not have a family history of melanoma. OVERALL CONSULT/IMAGE QUALITY: Fully satisfactory EXAM: 5 mm x 8 mm pink, scaly papule on the left upper lateral arm. IMPRESSION BASED ON IMAGES AND INFORMATION REVIEWED: PROBLEM A: Diagnosis: Actinic Keratosis vs Irritated seborrheic keratosis RECOMMENDATIONS FOR REFERRING PROVIDER: PROBLEM A: Liquid nitrogen cryotherapy: RECOMMENDED FOLLOW-UP: Consult to Dermatology clinic for follow up MADIE: Routine Cumulative time of review and management: 5 minutes or more /qi Rosenberg PA-C Dermatology Signed: 05/24/2024 12:46 * END OF REMOTE RESULTS * /amrita/ WARD PEREZ TELEHEALTH CLINICAL CAKE PULLER Signed: 05/25/2024 09:20 Receipt Acknowledged By: 06/15/2024 08:02 /es/ LUIS ANGEL LOPEZ DNP, TECHNICAL BUSINESS ANALYST-C NURSE PRACTITIONER 05/27/2024 07:52 /es/ Aiyana Geller DNP, TECHNICAL BUSINESS ANALYST-BC, CNL Primary Care Nurse Practitioner LUIS ANGEL LOPEZ [facility] [place] [facility] May 25, 2024 09:19 AM TELEHEALTH NOTE: LOCAL TITLE: PATIENT NOTIFICATION TELEHEALTH RESULTS STANDARD TITLE: TELEHEALTH NOTE DATE OF NOTE: MAY 25, 2024@09:19 ENTRY DATE: MAY 25, 2024@09:19:25 AUTHOR: WARD PEREZ EXP COSIGNER: URGENCY: STATUS: COMPLETED PATIENT NOTIFICATION TELEHEALTH RESULTS Has ADDENDA Provided below are the results from pts telederm imaging reading. Ordering Provider is responsible to give pt the results and prescribe any treatments, recommendations or consult to dermatology for a face to face etc. REMOTE RESULTS SAGE Document from: [facility] Associated on: May 24, 2024@12:46:50 LOCAL TITLE: CONSULT-TELEDERMATOLOGY IMAGING REPORT STANDARD TITLE: TELEIMAGING REPORT DATE OF NOTE: MAY 24, 2024@12:45 ENTRY DATE: MAY 24, 2024@12:45:04 AUTHOR: PADDY ROSENBERG EXP COSIGNER: URGENCY: STATUS: COMPLETED HISTORY: 84-year-old male presents for evaluation of a lesion on the left upper arm that he reports has been present for a few months now. It is associated with itching and redness. He does not have a history of skin problems and does not have a family history of melanoma. OVERALL CONSULT/IMAGE QUALITY: Fully satisfactory EXAM: 5 mm x 8 mm pink, scaly papule on the left upper lateral arm. IMPRESSION BASED ON IMAGES AND INFORMATION REVIEWED: PROBLEM A: Diagnosis: Actinic Keratosis vs Irritated seborrheic keratosis RECOMMENDATIONS FOR REFERRING PROVIDER: PROBLEM A: Liquid nitrogen cryotherapy: RECOMMENDED FOLLOW-UP: Consult to Dermatology clinic for follow up MADIE: Routine Cumulative time of review and management: 5 minutes or more /amrita/ Paddy Rosenberg PA-C Dermatology Signed: 05/24/2024 12:46 * END OF REMOTE RESULTS * /amrita/ WARD PEREZ TELEHEALTH CLINICAL CAKE PULLER Signed: 05/25/2024 09:20 Receipt Acknowledged By: 06/15/2024 08:02 /amrita/ LUIS ANGEL LOPEZ DNP, ABDON-C NURSE PRACTITIONER 05/27/2024 07:52 /amrita/ Aiyana Geller DNP, JOHN, CNL Primary Care Nurse Practitioner 06/15/2024 ADDENDUM STATUS: COMPLETED DERM PR[employer] EXCHANGE SERVICE ADVISOR - please notify that the lesion on his arm can be treated at upcoming appt 10/2024, however - to reach out to clinic for any further changes or symptoms in the area. /amrita/ LUIS ANGEL LOPEZ DNP, TECHNICAL BUSINESS ANALYST-C NURSE PRACTITIONER Signed: 06/15/2024 08:03 Receipt Acknowledged By: 06/30/2024 15:34 /amrita/ LUKASZ MAN LPN LPN 06/30/2024 ADDENDUM STATUS: COMPLETED notified of message from provider. He agrees and will contact if area worsens. /amrita/ LUKASZ MAN LPN LPN Signed: 06/30/2024 15:36 WARD PEREZ [facility] [place] [facility] May 21, 2024 12:56 PM TELEHEALTH CONSULT: LOCAL TITLE: CONSULT REPORT/TELEDERMATOLOGY IMAGING REQUEST STANDARD TITLE: TELEHEALTH CONSULT DATE OF NOTE: MAY 21, 2024@12:56 ENTRY DATE: MAY 21, 2024@12:56:44 AUTHOR: WARD PEREZ EXP COSIGNER: URGENCY: STATUS: COMPLETED Teledermatology Consult Request The patient was educated regarding the Teledermatology process at this encounter. Comment: Patient educated on telederm process and verbalizes understanding Patient DOES consent to have images taken, viewed, and interpreted using the Teledermatology process. This consult addresses: A new condition Images were acquired: In clinic HISTORY: Prior skin history: None reported Have you had a skin cancer before? None Reported Patient reports no family history of melanoma. Taking new med/supplements: None reported Immunosuppression history: None reported Other significant history: None reported Chief Complaint: left upper arm is a red spot, a quarter of an inch big and is rough to the touch and states that it's getting bigger in the past three or four months PROBLEM A LOCATION(S): Upper Extremity Left upper arm DURATION: few months maybe 3 SYMPTOMS: Itch, Redness CHANGES: Size TREATMENT: No BIOPSY: No Supervisor Abattoir's comments: Imaged per providers direction and facility protocol /amrita/ WARD PEREZ TELEHEALTH CLINICAL CAKE PULLER Signed: 05/21/2024 13:12 WARD PEREZ [facility]
--- OUTSIDE RECORDS SUMMARY | 2024-11-17 15:40 | XMS_ITS ---
Author Name [facility] Organization [facility] [place] Address [address] [place] [id number] Care Team Providers Care Scouring Train Operator Name Role Phone AIYANA HANDY Primary Care [...] to Policy [facility] [place] [facility] [employer] [address] Mar 15, 2018 [id number] DOMINIC BEDOLLA RT PATIENT MEDICARE (WNR) MEDICARE (M) PART B Nov 13, 2010 PART B [id number] DOMINIC BEDOLLA RT PATIENT MEDICARE (WNR) MEDICARE (M) PART A January 13, 2007 PART A [id number] DOMINIC BEDOLLA PATIENT Selected Encounter This section includes the information on record at NH for the Encounter. Date/Time Encounter Type Encounter Description Reason Provider Source Jul 14, 2024 01:00 PM COMPRE OPH EXAM EST PT 1/> OPTOMETRY ICD-10-CM H25.813 Combined forms of age-related cataract, bilateral MIKAYLA GIFFORD [facility] Encounter Template Text not used by NH Assessments - Encounter Diagnoses This section includes the primary and secondary diagnoses documented for the Encounter. Date/Time Primary/Secondary Diagnosis Diagnosis Name Provider Source Jul 14, 2024 02:13 PM PRIMARY Combined forms of age-related cataract, bilateral MIKAYLA GIFFORD [place] [facility] [place] [facility] Jul 14, 2024 02:13 PM SECONDARY Tesha's syndrome MIKAYLA GIFFORD [facility] [place] [facility] Jul 14, 2024 02:13 PM SECONDARY Unspecified disorder of refraction [facility] Plan of Treatment: Future Appointments (+ 6 months) and Future Tests (+/- 45 days) The Plan of Treatment section includes future care activities for the [facility] This section includes future appointments and future orders which are active, pending or scheduled. Future Appointments This section includes appointments that were scheduled to occur 6 months from the date of the Encounter, up to a maximum of 20 appointments. The data comes from all [place] treatment facilities. Appointment Date/Time Appointment Type Appointme nt Facility Name Jul 23, 2024 01:20 PM AMBULATORY - MEDICINE [facility] [place] [facility] Jul 29, 2024 02:00 PM AMBULATORY - MEDICINE [facility] [place] [facility] Aug 03, 2024 10:00 AM AMBULATORY - MEDICINE [facility] [place] [facility] Aug 11, 2024 01:00 PM AMBULATORY - NONE [facility] [place] [facility] Aug 18, 2024 01:30 PM AMBULATORY - REHAB MEDICIN E [facility] [place] [facility] Aug 19, 2024 01:00 PM AMBULATORY - MEDICINE [facility] [place] [facility] Sep 28, 2024 01:00 PM AMBULATORY - NONE [facility] [place] [facility] Oct 21, 2024 02:00 PM AMBULATORY - MEDICINE [facility] [place] [facility] Lab Results: +/- 30 days of the encounter This section includes the Chemistry and Hematology Lab Results on record with VA for the patient. Radiology Reports and Pathology Reports are provided separately, in subsequent sections. Lab Results This section contains the Chemistry/Hematology Results that were resulted 30 days before or 30 daysafter the date of the Encounter. Date/Time Source Result Type Result - Unit Interpretation Reference Range Comment Aug 11, 2024 12:49 PM [facility] LIPID PANEL, NON FASTING Specimen Type: SERUM No comment entered. Ordering Provider: JARRETT HANDY AM Report Released Date/Time: Jul 07, 2024 09:55 AM Reporting Lab: [address] [address] Performing Lab: [address] [address] CHOLESTEROL 144 mg/dL TRIGLYCERIDE 204 mg/dL H 0-150 LDL calculated 52 mg/dL 0-129 CHOL/HDL 2.8 HDL CHOLESTEROL 51 mg/dL 40-60 Aug 11, 2024 12:49 PM [facility] CBC Specimen Type: BLOOD No comment entered. Ordering Provider: JARRETT HANDY AM Report Released Date/Time: Jul 07, 2024 09:55 AM Reporting Lab: [address] [address] Performing Lab: [address] [address] WBC 6.26 10*3/uL 4.50-11.00 RBC 4.21 10*6/uL L 4.23-5.66 HGB 12.8 g/dL 12.8-17 HCT 36.2 L 39.2-50.4 MCV 86.0 fL 82-99 MCHC 35.4 g/dL H 30.8-35.1 PLT 149 10*3/uL 140-360 RDW-CV 13.2 12.0-16.0 MCH 30.4 pg 26.2-32.6 Aug 11, 2024 12:49 PM [facility] BASIC METABOLIC PANEL (non-fasting) Specimen Type: SERUM No comment entered. Ordering Provider: JARRETT HANDY AM Report Released Date/Time: Jul 07, 2024 09:55 AM Reporting Lab: [address] [address] Performing Lab: [facility] [address] [facility] [address] UREA NITROGEN 23 mg/dL 7-25 GLUCOSE 123 mg/dL H 65-100 SODIUM 141 mmol/L 135-145 POTASSIUM 4.9 mmol/L 3.5-5.0 CHLORIDE 108 mmol/L 100-110 CO2 23 meq/L 20-30 CREATININE, Serum 1.08 mg/dL 0.50-1.40 eGFR(CKD-EPI 2020) 69 mL/min >60 Aug 11, 2024 12:49 PM [facility] HEMOGLOBIN A1C PANEL Specimen Type: BLOOD Comment: Values obtained from A1C measurements can vary. For atypical A1C assays, a reported value of 7.0 could actually be between 6.72 and 7.28 if measured by a reference method. A reported value of 9.0 could actually be between 8.73 and 9.27. Ref: http://www.ngs p.org/CAPdata. asp Ordering Provider: JARRETT HANDY AM Report Released Date/Time: Jul 07, 2024 09:55 AM Reporting Lab: [facility] [address] [facility] [address] Performing Lab: [address] [address] HEMOGLOBIN A1C 6.8 H 4.0-5.6 Aug 11, 2024 12:49 PM [facility] MICROALBUMIN CREATININE RATIO PANEL Specimen Type: URINE No comment entered. Ordering Provider: JARRETT HANDY AM Report Released Date/Time: Jul 07, 2024 09:55 AM Reporting Lab: [facility] [address] [facility] [address] Performing Lab: [address] [address] MICROALBUMIN/C REATININE RATIO 63.6 mg/g H 0-29.9 MICROALBUMIN,Q UANTITATIVE 4.8 mg/dL RR UNAVAIL CREATININE URINE 75.42 mg/dL Aug 11, 2024 12:49 PM [facility] LIVER FUNCTION Specimen Type: SERUM No comment entered. Ordering Provider: JARRETT HANDY AM Report Released Date/Time: Jul 07, 2024 09:55 AM Reporting Lab: [facility] [place] [facility] [address] [facility] [address] Performing Lab: [facility] [place] [facility] [address] [facility] [address] PROTEIN,TOTAL 6.8 g/dL 6.0-8.3 ALBUMIN 3.9 g/dL 3.5-5.0 ALKALINE PHOSPHATASE 56 U/L 40-150 AST 16 U/L 5-34 ALT 16 U/L BILIRUBIN, TOTAL 0.4 mg/dL 0.2-1.2 Social History: Smoking Status (Most current) and Tobacco Use (All prior to encounter date) This section includes the most current, and the historical, smoking and tobacco- related health factors from the NH facility where the Encounter took place. Current Smoking Status This section includes the most current smoking, or tobacco-related health factor, from the NH facility where the Encounter took place. Date/Time Current Smoking Status Comment Facil ity 2024 02:30 PM [facility]-TOBACCO QUIT 15 YRS OR MORE [facility] Tobacco Use History This section includes a history of the smoking, or tobacco-related health factors, that were collected on or before the date of the Encounter. The data comes from the [place] facility where the Encounter took place. Date/Time Smoking Status/Tobacco Use Comment F acmarie 2024 02:30 PM VA-TOBACCO QUIT 15 YRS OR MORE [facility] [place] [facility] Dec 23, 2022 02:30 PM VA-TOBACCO FORMER USER [facility] [place] [facility] Dec 23, 2022 02:30 PM VA-TOBACCO QUIT 15 YRS OR MORE [facility] [place] [facility] Nov 19, 2021 02:00 PM VA-TOBACCO FORMER USER [facility] [place] [facility] Nov 19, 2021 02:00 PM VA-TOBACCO QUIT 15 YRS OR MORE [facility] [place] [facility] Dec 08, 2020 11:00 AM VA-TOBACCO FORMER USER [facility] [place] [facility] Dec 08, 2020 11:00 AM VA-TOBACCO QUIT 15 YRS OR MORE [facility] Radiology Reports: +/- 30 days of [...] the Encounter. The data comes from all [place] treatment facilities. Date/Time Radiology Report Provider Source Aug 11, 2024 12:58 PM ULTRASOUND SCROTUM: HANNA RAMIREZ [id number] -[id number] M Exm Date: AUG 11, 2024@12:58 Req Phys: AIYANA HANDY Loc: CWM/NO/PACT 7 (Req'g Loc) Img Loc: ULTRASOUND Service: [facility] [place] [address] (Case [id number] COMPLETE) ULTRASOUND SCROTUM (US Detailed) CPT:81538 Reason for Study: mass Clinical History: small mobile non painful lump left side of scrotum Report Status: Verified Date Reported: AUG 11, 2024 Date Verified: AUG 11, 2024 Staple Side Laster E-Sig: Report: SCROTAL SONOGRAM Technique: Multiple transverse [...] significant abnormality. READING PHYSICIAN: Cy Candelario M.D. -[phone] 08/11/2024 11:56 PST [facility] Active Circleradiology Program [phone] (For Medical Practitioner Use Only) Attention Patients / Veterans: If you have questions or concerns about these test results, please contact your ordering provider or primary care team. Primary Diagnostic Code: NO ALERT REQUIRED Primary Interpreting Staff: RADIOLOGY,OUTSIDE SERVICE, Staff Physician / RADIOLOGY,OUTSIDE SERVICE [facility] Encounter Notes: All associated encounter notes This section contains the clinical notes associated to the Encounter. Date/Time Encounter Note(s) Provider Source Jul 14, 2024 11:03 AM OPTOMETRY TECHNICI AN NOTE: LOCAL TITLE: OPTOMETRY FILM LABORATORY TECHNICIAN NOTE STANDARD TITLE: OPTOMETRY FILM LABORATORY TECHNICIAN NOTE DATE OF NOTE: JUL 14, 2024@11:03 ENTRY DATE: JUL 14, 2024@11:03:44 AUTHOR: JOE SUAREZ COSIGNER: URGENCY: STATUS: COMPLETED OPTOMETRY FILM LABORATORY TECHNICIAN NOTE Has ADDENDA Active problems - Computerized Problem List is the source for the followin. Low back pain 2. Cervicalgia 3. Sleep apnea 4. Primary malignant neoplasm of lacrimal gland duct 5. Diabetes Mellitus Type 2 ([facility] [id number]) 6. Hypertension 7. Erectile Dysfunction ([facility] [id number]) 8. Hyperlipidemia ([facility] [id number]) 9. Skin Lesion ([facility] [id number]) 10. Prostate Cancer ([facility] [id number]) 11. Under care of multiple providers 12. Tinnitus 13. Diverticulosis of colon without diverticulitis 14. Hand pain Active Outpatient Medications (including Supplies): Active Outpatient [...] MOUTH EVERY 6 HOURS NEEDED FOR COUGH 4) GOV-PAXLOVID [id number] RENAL PKT 2 TAKE 1 ACTIVE TABLET NILMATRELVIR AND 1 TABLET RITONAVIR BY MOUTH TWICE DAILY FOR COVID-19 - PLEASE OVERNIGHT MAIL 5) GUAIFENESIN 100MG/5ML (ALC-F/SF) LIQUID TAKE 1 ACTIVE TEASPOONFUL BY MOUTH EVERY 6 HOURS NEEDED FOR COUGH -- PLEASE MAIL OVERNIGHT WITH PAXLOVID. 6) INCONT LINER PREVAIL GUARDS #[id number] USE 1 LINER ACTIVE (S) TOPICALLY EVERY 6 HOURS NEEDED Active Non-VA Medications Status 1) Non-VA ASPIRIN 81MG EC TAB 81MG BY MOUTH ONCE DAILY ACTIVE 2) Non-VA METFORMIN HCL 500MG TAB 250MG BY MOUTH TWICE ACTIVE DAILY 3) Non-VA METOPROLOL TARTRATE 50MG TAB 25MG BY MOUTH ACTIVE TWICE DAILY 4) Non-VA PRAVASTATIN NA 40MG TAB 40MG BY MOUTH ONCE ACTIVE DAILY 10 Total Medications Allergies: Patient has answered NKA All medications including those prescribed by outside VA's, community providers, and all OTC meds were reviewed and reconciled with patient to the best of their abilities. This 84 year old MALE is seen today for a CEE. Medical, eye, personal, and social history are all reviewed and is contributory or is not contributory to today's visit. Optometry Business Services Coordinator Attending Provider Note: Date of Last Exam:07/07/2023 Location: [facility] Last Dr Dewey appt: 3-4 months ago, and due in August 2024 again there. Chief Complaint:Vision may be a little harder in the distance, for driving (maybe). TV viewing is OK. 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 Upper lid surgery by Dr. Bermeo OU with a history of Tesha syndrome OS. Ophthalmic Migarane hisory:(self reported) None recently (-) Pain: (-) CHAND: (-) Diplopia: (-) Flashes: (+) Floaters:not new (-) Amaurosis Fugax/Tia's: (-) Eye Injury: (+) Eye Surgery: Oncocytoma removal x2 left caruncle. Blepharoplasty OU upper lids. (-) TBI DIABEIC: Yes LAST A1C: PERTINENT LABS: HEMOGLOBIN A1C TREND Collection DT Spec HGBA1c 01/26/2024 13:07 BLOOD 6.8 H 05/22/2023 08:38 BLOOD 6.7 H 06/07/2022 08:25 BLOOD 6.3 H NEW ALLERGIES TO REPORT: No EYE MEDICATION(S):None CURRENT RX WITH BCVA: Refraction:06/2023 +2.75 - 1.00 X 72 20/20 - +2.50 sphere 20/20 - +2.50 for reading DVA: ( )SC ( )CC (x)Phoropter ( )CL OD: 20/25-1/+2 OS: 20/20-1/+2 NVA OU: 20/ MANIFEST REFRACTION(MRx): OD:+2.75 -1.25 x 067 20/20-2 OS:no improvement 20/20+2 ADD:+2.50 OU 20/20 16-20 CVF: Appear FTFC OU EOMS: Appear Full OU PUPILS: Appear ERRL(-)APD seen (OS min react) INTRAOCULAR PRESSURE (IOP) METHOD: Goldmann Time:1:18 OD:15 OS:15 ANTERIOR CHAMBER (AC): Penlight or slit lamp (if available) exam appears unremarkable. Pupils are dilated. Dilation and driving precautions reviewed with patient and patient expresses understanding. Medication: 1% Tropicamide, 2.5% Phenylephrine OU Time:1:20 Visual Imaging Performed Today:none Additional Comments: /amrita/ JOE SUAREZ OPTOMETRY TECH Signed: 07/14/2024 13:25 07/14/2024 ADDENDUM STATUS: COMPLETED 84-year-old male is in for annual follow-up without complaints. He had seen Dr. Campbell at [facility] over the years. He also saw for removal of oncocytoma of the left caruncle x2 this past November and December 2022. He also denies any other eye injury or disease since his last exam. Medical history includes type 2 diabetes. 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 Upper lid surgery by Dr. Bermeo OU with a history of Tesha syndrome OS. JAZMÍN: 07/07/2023 (-) Pain: (-) CHAND: (-) Diplopia: (-) Flashes: (-) Floaters: (-) Amaurosis Fugax/Tia's: (-) Eye Injury: (+) Eye Surgery: Oncocytoma removal x2 left caruncle. Blepharoplasty OU upper lids. (-) TBI Lids and lashes were clear both eyes. Corneas and conjunctiva were clear both eyes. Anterior chambers were deep clear and quiet with open angles. Iris was flat both eyes without neovascularization. Grade 2+ nuclear sclerotic and cortical cataracts were seen OU. Vitreous is clear and clear OU. Approximately 40% horizontal and vertical cupping was seen OU with healthy rims and margins and no neovascularization. Normal pigmentary architecture of the macula was seen with a two third artery to vein ratio. No lipid or edema was seen OU. Retinal peripheries were intact in all quadrants OU. A: Combined cataracts not visually significant OU. 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 History of diabetes without ocular manifestations. Refraction disorder P: Ordered PAL. The patient will return in 12 months or sooner if any problems arise. [place] Education: After discussion and answering all 's questions, demonstrated and verbalized understanding of diagnosis and treatment. Yes [x] No [ ] Medication Reconciliation: Outpatient: Has the patient been taking medications as documented in the EMLR? YES: The patient has been taking medications as documented in the EMLR. Essential Medication List for Review used to complete this medication reconciliation. INCLUDED IN THIS LIST: Alphabetical list of active outpatient prescriptions dispensed from this [facility] (local) and dispensed from another VA or [facility]D facility (remote) as well as [...] with a VA or non-VA provider. /amrita/ MIKAYLA GIFFORD OD STAFF BLUNGER LOADER Signed: 07/14/2024 14:14 JOE SUAREZ [facility]
--- OUTSIDE RECORDS SUMMARY | 2024-11-17 15:40 | XMS_ITS | Patient Health Record ---
Author Organization [facility] Address [address] [place] [address] Care Team Providers Care Dialysis Nurse Name Role Phone Royce Kay MD Primary Care Provider David Stewart Jr Unavailable Allergies Allergen (clinical drug ingredient) Drug/Non Drug Allergy documented on EMR Reaction Allergy Type Onset Date Status lactose intolerant (uncoded) Unknown Allergy Active Reason For Referral No Information Medications Medication SIG (Take, Route, Frequency, Duration) Notes Start Date End Date Status Metoprolol Succinate ER 25 MG 1 tablet Orally twice a day Active Fiber Complete - as directed Orally o nce a day Active Probiotic - 1 capsule Orally onc e a day Active Aspir-Low 81 MG 1 tablet Orally Once a day for 30 day(s) Active Pravastatin Sodium 40 MG 1 tablet Orally Once a day for 30 day(s) Active MiraLax (colon prep) 17 GM/SCOOP mixed with Gatorade or Crystal Light Orally begin at 5:00 p.m. the day before the procedure for 1 day 01/31/2023 Active Dicyclomine HCl 10 MG 1 tablet Orally 2- 4 times a day 01/31/2023 Active metFORMIN HCl ER 500 MG 1 tablet with ev ening meal Orally Once a day for 30 day(s) Active Immunizations Vaccine Route Administration Date Status Comme nts Influenza Unknown 07/22/2018 Administered Influenza Unknown 06/25/2022 Administered Social History Tobacco Use: Social History Observation Description Date Details (start date - stop date) Former Smoker NA - NA Tobacco Use/Smoking Question Answer Notes Patient is a former smoker How long has it been since you last smoked? > 10 years Alcohol Screen Question Answer Notes Did you have a drink contain ing alcohol in the past year? Yes How often did you have a dri nk containing alcohol in the past year? 4 or more times a week (4 points) How many drinks did you have on a typical day when you were drinking in the past year? 1 or 2 drinks (0 point) How often did you have 6 or more drinks on one occasion in the past year? Never (0 point) Points 4 Interpretation Positive Problems Problem Type SNOMED Code ICD Code Onset Dates Problem Status W/U Status Risk Notes Problem 354915293 Colon cancer screening (Z12.11) Active confirmed Problem 00895313 Slow transit constipation (K59.01) Active confirmed Problem 190571863 Abnormal CT scan , colon (R93.3) Active confirmed Problem 71140708 Hypertension, unspecified type (I10) Active confirmed Problem 295525379 RLQ abdominal pain (R10.31) Active confirmed Plan Of Treatment Future Test Test Name Order Date COLONOSCOPY 03/17/2019 COLONOSCOPY 01/31/2023 Insurance Providers Payer Name Payer Address Payer Phone Subscriber Number Group Number Insured Name Patient Relationship to Insured Coverage Start Date Coverage End Date MEDICARE OF [place] [address] [place] [address] [id number] HANNA JEAN-BAPTISTE Self - patient is the insured [facility] [address] [place] [phone] [id number] HANNA JEAN-BAPTISTE Self - patient is the insured Medical (General) History Medical History History ICD Code prostate cancer AAKASH/CPAP pre diabetes Elevated cholesterol Colon polyps, colonoscopy 07/03, five-ye ar followup Surgical History Surgery Date(Month/Year) prostatectomy Urethral sling 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
--- OUTSIDE RECORDS SUMMARY | 2024-11-17 15:41 | XMS_ITS ---
Author Name [facility] Organization [facility] Address [address] [place] [id number] Care Team Providers Care Composition Molder Name Role Phone AIYANA GELLER Primary Care Provider [facility] Insurance Providers: All historical and current Section [...] to Policy [facility] [facility] Mar 15, 2018 [id number] DOMINIC BEDOLLA RT PATIENT MEDICARE (WNR) MEDICARE (M) PART B Nov 13, 2010 PART B [id number] DOMINIC BEDOLLA RT PATIENT MEDICARE (WNR) MEDICARE (M) PART A January 13, 2007 PART A [id number] DOMINIC BEDOLLA RT PATIENT Selected Encounter This section includes the information on record at NH for the Encounter. Date/Time Encounter Type Encounter Description Reason Provider Source Aug 18, 2024 01:30 PM MANUAL THERAPY 1/> [facility] ICD-10-CM M79.643 Pain in unspecified hand MACHON,SHAVONNE E IHE Encounter Template Text not used by [place] Assessments - Encounter Diagnoses This section includes the primary and secondary diagnoses documented for the Encounter. Date/Time Primary/Secondary Diagnosis Diagnosis Name Provider Source Aug 18, 2024 03:49 PM PRIMARY Pain in unspecified hand YASMINROSSSHAVONNE [facility] Plan of Treatment: Future Appointments (+ 6 months) and Future Tests (+/- 45 days) The Plan of Treatment section includes future care activities for the patient from [facility] This section includes future appointments and future orders which are active, pending or scheduled. Future Appointments This section includes appointments that were scheduled to occur 6 months from the date of the Encounter, up to a maximum of 20 appointments. The data comes from all [place] treatment facilities. Appointment Date/Time Appointment Type Appointme nt Facility Name Aug 19, 2024 01:00 PM AMBULATORY - MEDICINE [facility] Sep 28, 2024 01:00 PM [facility] Oct 21, 2024 02:00 PM [facility] January 24, 2025 01:30 PM [facility] Active, Pending, and Scheduled Orders This section includes a listing of several types of active, pending, and scheduled orders, including clinic medications orders, diagnostic test orders, procedure orders and consult orders; where the start date of the order is 45 days before the date of the Encounter or 45 days after the date of theEncounter. The data comes from all [place] treatment [facility]. Test Date/Time Test Type Test Details Facility Name Jul 07, 2024 09:17 AM Consult Order RESPIRATOR Y THERAPY/ [facility] OUTPT Cons Director [employer] [facility] [facility] Jul 30, 2024 11:22 AM Consult Order COMMUNITY CARE-NEUROSURGERY Cons Director [employer] [facility] Aug 04, 2024 09:37 AM Consult Order COMMUNITY CARE-ORTHO SURGICAL Cons Director [employer] [facility] Lab Results: +/- 30 days of the encounter This section includes the Chemistry and Hematology Lab Results on record with NH for the patient. Radiology Reports and Pathology Reports are provided separately, in subsequent sections. Lab Results This section contains the Chemistry/Hematology Results that were resulted 30 days before or 30 daysafter the date of the Encounter. Date/Time Source Result Type Result - Unit Interpretation Reference Range Comment Aug 11, 2024 12:49 PM [facility] LIPID PANEL, NON FASTING Specimen Type: SERUM No comment entered. Ordering Provider: JARRETT GELLER AM Report Released Date/Time: Jul 07, 2024 09:55 AM Reporting Lab: [address] [address] Performing Lab: [address] [address] CHOLESTEROL 144 mg/dL TRIGLYCERIDE 204 mg/dL H 0-150 LDL calculated 52 mg/dL 0-129 CHOL/HDL 2.8 HDL CHOLESTEROL 51 mg/dL 40-60 Aug 11, 2024 12:49 PM [facility] CBC Specimen Type: BLOOD No comment entered. Ordering Provider: JARRETT GELLER AM Report Released Date/Time: Jul 07, 2024 09:55 AM Reporting Lab: [address] [address] Performing Lab: [address] [address] WBC 6.26 10*3/uL 4.50-11.00 RBC 4.21 10*6/uL L 4.23-5.66 HGB 12.8 g/dL 12.8-17 HCT 36.2 L 39.2-50.4 MCV 86.0 fL 82-99 MCHC 35.4 g/dL H 30.8-35.1 PLT 149 10*3/uL 140-360 RDW-CV 13.2 12.0-16.0 MCH 30.4 pg 26.2-32.6 Aug 11, 2024 12:49 PM [facility] BASIC METABOLIC PANEL (non-fasting) Specimen Type: SERUM No comment entered. Ordering Provider: JARRETT GELLER AM Report Released Date/Time: Jul 07, 2024 09:55 AM Reporting Lab: [address] [address] Performing Lab: [facility] [address] [facility] [address] UREA NITROGEN 23 mg/dL 7-25 GLUCOSE 123 mg/dL H 65-100 SODIUM 141 mmol/L 135-145 POTASSIUM 4.9 mmol/L 3.5-5.0 CHLORIDE 108 mmol/L 100-110 CO2 23 meq/L 20-30 CREATININE, Serum 1.08 mg/dL 0.50-1.40 eGFR(CKD-EPI 2020) 69 mL/min >60 Aug 11, 2024 12:49 PM [facility] HEMOGLOBIN A1C PANEL Specimen Type: [...] Jul 07, 2024 09:55 AM Reporting Lab: [facility] [address] [facility] [address] Performing Lab: [address] [address] HEMOGLOBIN A1C 6.8 H 4.0-5.6 Aug 11, 2024 12:49 PM [facility] MICROALBUMIN CREATININE RATIO PANEL Specimen Type: URINE No comment entered. Ordering Provider: JARRETT GELLER AM Report Released Date/Time: Jul 07, 2024 09:55 AM Reporting Lab: [facility] [address] [facility] [address] Performing Lab: [address] [address] MICROALBUMIN/C REATININE RATIO 63.6 mg/g H 0-29.9 MICROALBUMIN,Q UANTITATIVE 4.8 mg/dL RR UNAVAIL CREATININE URINE 75.42 mg/dL Aug 11, 2024 12:49 PM [facility] LIVER FUNCTION Specimen Type: SERUM No comment entered. Ordering Provider: JARRETT GELLER AM Report Released Date/Time: Jul 07, 2024 09:55 AM Reporting Lab: [place] [facility] [place] [facility] [address] [facility] [address] Performing Lab: [place] [facility] [place] [facility] [address] [facility] [address] PROTEIN,TOTAL 6.8 g/dL 6.0-8.3 ALBUMIN 3.9 g/dL [...] ity 2024 02:30 PM VA-TOBACCO FORMER USER [place] [facility] Tobacco Use History This section includes a history of the smoking, or tobacco-related health factors, that were collected on or before the date of the Encounter. The data comes from the [place] facility where the Encounter took place. Date/Time Smoking Status/Tobacco Use Comment F acmarie 2024 02:30 PM VA-TOBACCO QUIT 15 YRS OR MORE [place] [facility] [place] [facility] Dec 23, 2022 02:30 PM VA-TOBACCO FORMER USER [facility] [place] [facility] Dec 23, 2022 02:30 PM VA-TOBACCO QUIT 15 YRS OR MORE [facility] [place] [facility] Nov 19, 2021 02:00 PM VA-TOBACCO FORMER USER [facility] [place] [facility] Nov 19, 2021 02:00 PM VA-TOBACCO QUIT 15 YRS OR MORE [facility] [place] [facility] Dec 08, 2020 11:00 AM VA-TOBACCO FORMER USER [facility] [place] [facility] Dec 08, 2020 11:00 AM VA-TOBACCO QUIT 15 YRS OR MORE [place] [facility] [place] [facility] Radiology Reports: +/- 30 days of the [...] 2024 12:58 PM ULTRASOUND SCROTUM: HANNA RAMIREZ [id number] -[id number] M Exm Date: AUG 11, 2024@12:58 Req Phys: AIYANA GELLER Loc: CWM/NO/PACT 7 (Req'g Loc) Img Loc: ULTRASOUND Service: [facility] [place] [address] (Case [id number] COMPLETE) ULTRASOUND SCROTUM (US Detailed) CPT:32941 Reason for Study: mass Clinical History: small mobile non painful lump left side of scrotum Report Status: Verified Date Reported: AUG 11, 2024 Date Verified: AUG 11, 2024 Bedspread Seamer E-Sig: Report: SCROTAL SONOGRAM Technique: Multiple transverse [...] significant abnormality. READING PHYSICIAN: Cy Candelario M.D. -[id number] 08/11/2024 11:56 PST [facility] [employer]radiology Program [phone] (For Medical Practitioner Use Only) Attention Patients / Veterans: If you have questions or concerns about these test results, please contact your ordering provider or primary care team. Primary Diagnostic Code: NO ALERT REQUIRED Primary Interpreting Staff: RADIOLOGY,OUTSIDE SERVICE, Staff Physician / RADIOLOGY,OUTSIDE SERVICE [facility] Encounter Notes: All associated encounter notes This section contains the clinical notes associated to the Encounter. Date/Time Encounter Note(s) Provider Source Aug 18, 2024 12:43 PM OCCUPATIONAL MEDIC INE CONSULT: LOCAL TITLE: CONSULT REPORT/OCCUPATIONAL THERAPY STANDARD TITLE: OCCUPATIONAL MEDICINE CONSULT DATE OF NOTE: AUG 18, 2024@12:43 ENTRY DATE: AUG 18, 2024@12:43:53 AUTHOR: SHAVONNE FLORES COSIGNER: AIYANA GELLER URGENCY: STATUS: COMPLETED Initial Evaluation date: Aug Progress Note Date: Treatment #: eval Treatment time: Diagnosis: Pain in unspecified Hand(ICD-10-CM M79.643) Provider: Yimi OT Treatment Precautions: CA (treated, not cleared) Patient identified by full name and date of * S: Mr. Ramirez is an 84 y/o [facility] male who was referred to OT for b/l hand pain. He was seen in the OT clinic on 08/18/2024. He is known to this keno writer from previous sessions. PMH: Active problems - Computerized Problem List is the source for the followin. Low back pain 2. Cervicalgia 3. Sleep apnea 4. Primary malignant neoplasm of lacrimal gland duct 5. Diabetes Mellitus Type [address] ([facility] [id number]) 6. Hypertension 7. Erectile Dysfunction ([facility] [id number]) 8. Hyperlipidemia ([facility] [id number]) 9. Skin Lesion ([facility] [id number]) 10. Prostate Cancer ([facility] [id number]) 11. Under care of multiple providers 12. Tinnitus 13. Diverticulosis of colon without diverticulitis 14. Hand pain JAIME: pt reports that his b/l thumbs have been bothering him for a little less than a year. it seems to be flaring up lately. He also feels that he has no strength in his hands. he reports they ache at night and the aching radiates up his arm. since he last saw this keno writer he had CTR and trigger finger releases of b/l hands. he feels his L is worse than his R. he reports he will be seeing Dr. Ibarra tomorrow for similar issues (L lat epi, possible CTS). Imaging: none of the hand in CPRS Pain Level: 3-4/10 at rest, increasing to 9/10 at worst Pain Location: thenar musculature/cmc joint Aggravating Factors: gripping, night time Alleviating Factors: Tylenol Arthritis O: Pt is R hand dominant. Carson is retired. 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 Carson worked with [employer] equipment in the [employer] for 3 years. He enjoys doing crossword puzzles on his computer during. 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 Special Tests: Grind: (+) L [place]: (-) b/l Emotional Disabilities Teacher Strength Per Dynamometer: measured in pounds per pressure (norms: age) [R] [L] 1. 36# (norm:85#) 28# (norm:80#) 2. 37# 28# 3. 43# 26# Prehension Strength (pinch meter/pounds per pressure) [R] [L] lat: 20# (norm: 19#) 14# (norm: 19#) 2 pt: 10# (norm: 14#) 5# (norm: 13#) 3 pt: 12# (norm: 18#) 8# (norm: 19#) Palpation: pt reports numbness in his R hand upon waking. will monitor. TX: *MHP to L hand prior to tx, x3' *mobilization/FDM to 1st dorsal interosseous/thenar musculature x9' *measurements obtained for CMC restriction splint; 8.25 . ordered Comfort Cool CMC Restriction splint to be delivered to pt's home. ASSESSMENT: Kenny is an 84 y/o male who presents to the OT clinic w/ s/s of b/l CMC arthritis, L>R, as evidenced by pt report, clinical presentation and positive provocative testing. His resources representative and pinch are decreased as compared to norms b/l, but more so on the L. He was interested in trialing tx and reported that the L had less pain than the R following. Pt was interested in f/u in 2 weeks. Will discuss CMC splint as well as his visit w/ Dr. Ibarra. PLAN: Plan to f/u w/ in 2 weeks. Will perform another tx and review CMC wear. May also add on visits if pt feels it is helpful. Pt also presenting w/ likely lat epi, may request another consult to address this as well. Pt is in agreement w/ this POC. GOALS: 1. pt will be compliant w/ splint wear 2. pt will report pain < 9/10 at worst 3. pt will report 50% improvement since initiating tx * The practitioner's co-signature on this note signifies agreement with plan of care and clinical diagnosis code. /amrita/ Shavonne Flores, MS OTR/L, CHT Occupational Therapist Signed: 08/18/2024 15:49 /amrita/ Aiyana Geller DNP, SOAP TENDER-BC, CNL Primary Care Nurse Practitioner Cosigned: 08/19/2024 06:44 SHAVONNE FLORES [facility]
--- OUTSIDE RECORDS SUMMARY | 2024-11-17 15:41 | XMS_ITS | Continuity of Care Document ---
Author Name [facility] Organization [facility] Care Team Providers Care Lead Network Architect Name Role Phone [facility] Unavailable Unavailable Problems Combined list of problems from Department of Defense and Veterans Affairs facilities. It does not include entries that were removed or entered in error. Problem Status Onset Date Problem Type Date of Resolution Comments Source Cervicalgia Active Condition [facility] Diabetes Mellitus Type 2 (SCT 62401177) Active Condition [facility] Diverticulosis of colon without diverticulitis Active Condition [facility] Erectile Dysfunction (SCT 499279376) Active Condition [facility] Hand pain Active Condition [facility] Hyperlipidemia (SCT 69556519) Active Condition [facility] Hypertension Active Condition [facility] Low back pain Active Condition [facility] 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 Alva [facility] Skin Lesion (SCT 17614498) Active Condition Dec 08, 2020 Entered By: JARRETT HANDY AM Comment: maintains annual visits [facility] Sleep apnea Active Condition Dec 24, 2022 Entered By: JARRETT HANDY AM Comment: Sleep Study done at [facility] Tinnitus Active Condition [facility] Under care of multiple providers Active Condition Dec 08, 2020 Entered By: JARRETT HANDY AM Comment: [facility] Diagnosis: ICD-10-CM G47.33 Obstructive sleep apnea (adult) (pediatric) Active Diagnosis [facility] Diagnosis: ICD-10-CM L82.0 Inflamed seborrheic keratosis Active Diagnosis [facility] Diagnosis: ICD-10-CM M79.643 Pain in unspecified hand Active Diagnosis [facility] Diagnosis: ICD-10-CM M54.2 Cervicalgia Active Diagnosis [facility] Diagnosis: ICD-10-CM Z46.0 Encounter for fit/adjst of spectacles and contact lenses Active Diagnosis [facility] Diagnosis: ICD-10-CM H25.813 Combined forms of age-related cataract, bilateral Active Diagnosis [facility] Diagnosis: ICD-10-CM U07.1 COVID-19 Active Diagnosis [facility] Diagnosis: ICD-10-CM L57.0 Actinic keratosis Active Diagnosis [facility] Diagnosis: ICD-10-CM Z13.89 Encounter for screening for other disorder Active Diagnosis [facility] Diagnosis: ICD-10-CM M54.50 Low back pain, unspecified Active Diagnosis [facility] Diagnosis: ICD-10-CM J20.9 Acute bronchitis, unspecified Active Diagnosis [facility] Diagnosis: ICD-10-CM Z71.89 Other specified counseling Active Diagnosis [facility] Diagnosis: ICD-10-CM M77.9 Enthesopathy, unspecified Active Diagnosis [facility] Medications Combined list of outpatient medications from Department of Defense and Veterans Affairs facilities.Medications provided include 1) outpatient medications from the last 15 months, and 2) patient-reported medications. Medication Details Route Status Patient Instructions Prescription Expires Prescription Number Last Dispense Date Ordering Provider Order Date Order Qty Source ACETAMINOPH EN 325MG TAB TAKE TWO TABLETS BY MOUTH EVERY 4 HOURS NEEDED FOR PAIN ORAL ACTIVE 02/16/2025 [id number] AIYANA HANDY 2023 [facility] ALBUTEROL 90MCG/ACTUA T (CFC-F) INHL,ORAL,8 .5GM DOSE COUNTER INHALE 2 PUFFS BY MOUTH EVERY 4 HOURS NEEDED FOR BRONCHOS PASM RESPIR ATORY (INHAL ATION) 12/31/2023 [id number] 4 ANA MARADIAGA 2023 1 [facility] ASPIRIN 81MG TAB,EC TAKE ONE TABLET BY MOUTH ONCE DAILY ORAL ACTIVE [facility] AZITHROMYCI N 250MG TAB TAKE TWO TABLETS BY MOUTH NOW FOR 1 DAY, THEN TAKE ONE TABLET ONCE DAILY FOR 4 DAYS ORAL 11/30/2023 [id number] 4 AIYANA HANDY 2023 6 [facility] DEXTROMETHO RPHAN HBR 10MG/GUAIFE NESIN 100MG/5ML (AF & SF) LIQUID TAKE 5 MLS (1 TEASPOON FUL) BY MOUTH EVERY 6 HOURS NEEDED FOR COUGH ORAL HOLD 12/01/2024 [id number] 4 ANA MARADIAGA 2023 240 [facility] DEXTROMETHO RPHAN HBR 10MG/GUAIFE NESIN 100MG/5ML (AF & SF) LIQUID TAKE 5 MLS BY MOUTH EVERY 6 HOURS NEEDED FOR COUGH ORAL DISCONT INUED (EDIT) 12/01/2024 [id number] 4 ANA MARADIAGA 2023 240 [place] [facility] DICLOFENAC NA 50MG TAB,EC TAKE ONE TABLET BY MOUTH EVERY 8 HOURS NEEDED FOR PAIN AND INFLAMMA TION ORAL DISCONT INUED BY PROVIDE R 12/23/2024 [id number] 4 AIYANA HANDY 2023 90 [place] [facility] DICLOFENAC NA 50MG TAB,EC TAKE ONE TABLET BY MOUTH EVERY 8 HOURS NEEDED FOR PAIN AND INFLAMMA TION ORAL DISCONT INUED 05/26/2024 [id number] 4 AIYANA HANDY [address] [facility] GOV-NIRMATR CAREY 150MG X 1/RITONAVIR 100MG X 1 TAB RENAL PACK,2 TAKE 1 TABLET NILMATRE LVIR AND 1 TABLET RITONAVI R BY MOUTH TWICE DAILY FOR COVID-19 - PLEASE OVERANALY T MAIL ORAL 07/15/2024 [id number] 4 HOLLIE DAVIS [address] [facility] GUAIFENESIN 100MG/5ML (SF & AF) LIQUID TAKE 1 TEASPOON FUL BY MOUTH EVERY 6 HOURS NEEDED FOR COUGH -- PLEASE MAIL OVERNIGH Samina WITH PAXLOVID . ORAL 07/15/2024 [id number] 4 HOLLIE DAVIS [address] [facility] METFORMIN HCL 500MG TAB TAKE ONE-HALF TABLET BY MOUTH TWICE DAILY ORAL ACTIVE AIYANA HANDY [address] [facility] METOPROLOL TARTRATE 50MG TAB TAKE ONE-HALF TABLET BY MOUTH TWICE DAILY ORAL ACTIVE AIYANA HANDY [address] [facility] PRAVASTATIN NA 40MG TAB TAKE ONE TABLET BY MOUTH ONCE DAILY ORAL ACTIVE AIYANA HNADY [address] [facility] PREDNISONE 20MG TAB TAKE TWO TABLETS BY MOUTH ONCE DAILY DIRECTED BY PROVIDER ORAL 12/31/2023 [id number] 4 ANA MARADIAGA [address] [facility] Immunizations Combined list of available immunizations from the Department of Defense and Veterans Affairs facilities. Immunization Series Date Given Administered By Site Reaction Lot Number CVX Code Drug Project Surveyor Status Comments Source INFLUENZA, UNSPECIFIED FORMULATION 2023 88 complet ed per statement from vet [facility] INFLUENZA, HIGH-DOSE, QUADRIVALENT 2022 SREE [place] LEFT DELTO ID [id number] A 197 complet ed [facility] COVID-19 (PFIZER), MRNA, LNP-S, PF, 30 MCG/0.3 ML DOSE 2 2021 208 complet ed [facility] COVID-19 (PFIZER), MRNA, LNP-S, PF, 30 MCG/0.3 ML DOSE 1 2021 208 complet ed [facility] INFLUENZA, UNSPECIFIED FORMULATION 2020 88 complet ed [facility] INFLUENZA, UNSPECIFIED FORMULATION 2019 88 complet ed [facility] TD(ADULT) UNSPECIFIED FORMULATION 2019 139 complet ed [facility] ZOSTER RECOMBINANT 2 2019 187 complet ed YES [facility] ZOSTER RECOMBINANT 1 2019 187 complet ed YES [facility] PNEUMOCOCCAL POLYSACCHARID E PPV23 2014 33 complet ed [facility] Results Combined list of recent chemistry, hematology and other laboratory results from Department of Defense and Veterans Affairs, ranging from 15 months to all on record, depending upon the facility. Order Name Results Value Reference Range Date Interpretation Specimen Comments Source CBC LEUKOCYTES [#/VOLUME] IN BLOOD BY AUTOMATED COUNT 6.26 10*3/u L 4.50 - 11.00 08/11 Specimen Type: BLOOD No comment entered. Ordering Provider: KATE HANDY Report Released Date/Time: Jul 07, 2024 09:55 AM Reporting Lab: [place] [facility] [place] [facility] [address] [facility] [address] Performing Lab: [facility] [address] [facility] [address] [facility] CBC ERYTHROCYTE S [#/VOLUME] IN BLOOD BY AUTOMATED COUNT 4.21 10*6/u L 4.23 - 5.66 08/11 L Specimen Type: BLOOD No comment entered. Ordering Provider: KATE HANDY Report Released Date/Time: Jul 07, 2024 09:55 AM Reporting Lab: [facility] [facility] [address] [facility] [address] Performing Lab: [facility] [place] [facility] [address] [facility] [address] [facility] CBC HEMOGLOBIN [MASS/VOLUM E] IN BLOOD 12.8 g/dL 12.8 - 17 08/11 Specimen Type: BLOOD No comment entered. Ordering Provider: KATE HANDY Report Released Date/Time: Jul 07, 2024 09:55 AM Reporting Lab: [facility] [place] [facility] [address] [facility] [address] Performing Lab: [facility] [place] [address] [address] [place] [facility] CBC HEMATOCRIT [VOLUME FRACTION] OF BLOOD BY AUTOMATED COUNT 36.2 39.2 - 50.4 08/11 L Specimen Type: BLOOD No comment entered. Ordering Provider: KATE HANDY Report Released Date/Time: Jul 07, 2024 09:55 AM Reporting Lab: [facility] [place] [facility] [address] [facility] [address] Performing Lab: [facility] [place] [address] [address] [facility] CBC MCV [ENTITIC VOLUME] BY AUTOMATED COUNT 86.0 fL 82 - 99 08/11 Specimen Type: BLOOD No comment entered. Ordering Provider: KATE HANDY Report Released Date/Time: Jul 07, 2024 09:55 AM Reporting Lab: [facility] [place] [facility] [address] [facility] [address] Performing Lab: [facility] [place] [address] [address] [facility] CBC MCHC [MASS/VOLUM E] BY AUTOMATED COUNT 35.4 g/dL 30.8 - 35.1 08/11 H Specimen Type: BLOOD No comment entered. Ordering Provider: KATE HANDY Report Released Date/Time: Jul 07, 2024 09:55 AM Reporting Lab: [facility] [place] [facility] [address] [facility] [address] Performing Lab: [facility] [place] [facility] [address] [facility] [address] [facility] CBC PLATELETS [#/VOLUME] IN BLOOD BY AUTOMATED COUNT 149 10*3/u L 140 - 360 08/11 Specimen Type: BLOOD No comment entered. Ordering Provider: KATE HANDY Report Released Date/Time: Jul 07, 2024 09:55 AM Reporting Lab: [facility] [place] [address] [address] Performing Lab: [facility] [place] [facility] [address] [facility] [address] [facility] [facility] CBC ERYTHROCYTE DISTRIBUTIO N WIDTH [RATIO] BY AUTOMATED COUNT 13.2 12.0 - 16.0 08/11 Specimen Type: BLOOD No comment entered. Ordering Provider: KATE HANDY Report Released Date/Time: Jul 07, 2024 09:55 AM Reporting Lab: [facility] [place] [address] [address] Performing Lab: [facility] [place] [facility] [address] [facility] [address] [facility] CBC MCH [ENTITIC MASS] BY AUTOMATED COUNT 30.4 pg 26.2 - 32.6 08/11 Specimen Type: BLOOD No comment entered. Ordering Provider: KATE HANDY Report Released Date/Time: Jul 07, 2024 09:55 AM Reporting Lab: [facility] [place] [address] [address] Performing Lab: [facility] [place] [address] [address] [facility] BASIC METABOLIC PANEL (non-fast ing) UREA NITROGEN [MASS/VOLUM E] IN SERUM OR PLASMA 23 mg/dL 7 - 25 08/11 Specimen Type: SERUM No comment entered. Ordering Provider: KATE HANDY Report Released Date/Time: Jul 07, 2024 09:55 AM Reporting Lab: [address] [address] Performing Lab: [facility] [address] [facility] [address] [facility] BASIC METABOLIC PANEL (non-fast ing) GLUCOSE [MASS/VOLUM E] IN SERUM OR PLASMA 123 mg/dL 65 - 100 08/11 H Specimen Type: SERUM No comment entered. Ordering Provider: KATE HANDY Report Released Date/Time: Jul 07, 2024 09:55 AM Reporting Lab: [address] [address] Performing Lab: [facility] [address] [facility] [address] [facility] BASIC METABOLIC PANEL (non-fast ing) SODIUM [MOLES/VOLU ME] IN SERUM OR PLASMA 141 mmol/L 135 - 145 08/11 Specimen Type: SERUM No comment entered. Ordering Provider: KATE HANDY Report Released Date/Time: Jul 07, 2024 09:55 AM Reporting Lab: [address] [address] Performing Lab: [facility] [address] [facility] [address] [facility] BASIC METABOLIC PANEL (non-fast ing) POTASSIUM [MOLES/VOLU ME] IN SERUM OR PLASMA 4.9 mmol/L 3.5 - 5.0 08/11 Specimen Type: SERUM No comment entered. Ordering Provider: KATE HANDY Report Released Date/Time: Jul 07, 2024 09:55 AM Reporting [facility]: [facility] [place] [facility] [address] [facility] [address] Performing Lab: [facility] [address] [facility] [address] [facility] BASIC METABOLIC PANEL (non-fast ing) CHLORIDE [MOLES/VOLU ME] IN SERUM OR PLASMA 108 mmol/L 100 - 110 08/11 Specimen Type: SERUM No comment entered. Ordering Provider: KATE HANDY Report Released Date/Time: Jul 07, 2024 09:55 AM Reporting Lab: [facility] [address] [facility] [address] Performing Lab: [facility]-BIRMINGHAMTRN [facility]ENTERUSE[address] [address] [facility]ITALN [facility]ENTERUSE [facility] BASIC METABOLIC PANEL (non-fast ing) CARBON DIOXIDE, TOTAL [MOLES/VOLU ME] IN SERUM OR PLASMA 23 meq/L 20 - 30 08/11 Specimen Type: SERUM No comment entered. Ordering Provider: KATE HANDY Report Released Date/Time: Jul 07, 2024 09:55 AM Reporting Lab: [facility]-BIRMINGHAMTRN [facility] [address] [facility] [address] Performing Lab: [facility]ENTERUSE[address] [address] [facility]ITALN [facility]ENTERUSE [facility] BASIC METABOLIC PANEL (non-fast ing) CREATININE [MASS/VOLUM E] IN SERUM OR PLASMA 1.08 mg/dL 0.50 - 1.40 08/11 Specimen Type: SERUM No comment entered. Ordering Provider: KATE HANDY Report Released Date/Time: Jul 07, 2024 09:55 AM Reporting Lab: [facility] [place] [facility] [address] [facility] [address] Performing Lab: [facility]ENTERUSE[address] [address] [facility]ITALN [facility]ENTERUSE [facility] BASIC METABOLIC PANEL (non-fast ing) GLOMERULAR FILTRATION RATE/1.73 SQ M.PREDICTED [VOLUME RATE/AREA] IN SERUM, PLASMA OR BLOOD BY CREATININE- BASED FORMULA (CKD-EPI 2020) 69 mL/min 60 08/11 Specimen Type: SERUM No comment entered. Ordering Provider: KATE HANDY Report Released Date/Time: Jul 07, 2024 09:55 AM Reporting Lab: [facility] [place] [address] [address] Performing Lab: [place] [facility] [address] [address] [facility]ENTERUSE [facility] LIPID PANEL, NON FASTING CHOLESTEROL [MASS/VOLUM E] IN SERUM OR PLASMA 144 mg/dL 08/11 Specimen Type: SERUM No comment entered. Ordering Provider: KATE HANDY Report Released Date/Time: Jul 07, 2024 09:55 AM Reporting Lab: [facility] [place] [address] [address] Performing Lab: [facility] [place] [address] [address] [facility]ERN [facility]USE [facility] LIPID PANEL, NON FASTING TRIGLYCERID E [MASS/VOLUM E] IN SERUM OR PLASMA 204 mg/dL 0 - 150 08/11 H Specimen Type: SERUM No comment entered. Ordering Provider: KATE HANDY Report Released Date/Time: Jul 07, 2024 09:55 AM Reporting Lab: [facility] [place] [address] [address] Performing Lab: [facility] [place] [address] [address] [facility] TRN MASSUSE [facility] LIPID PANEL, NON FASTING CHOLESTEROL IN LDL [MASS/VOLUM E] IN SERUM OR PLASMA BY CALCULATION 52 mg/dL 0 - 129 08/11 Specimen Type: SERUM No comment entered. Ordering Provider: KATE HANDY Report Released Date/Time: Jul 07, 2024 09:55 AM Reporting Lab: [facility] [place] [address] [address] Performing Lab: [facility] [address] [facility] [address] [facility]N [facility]ENTERUSE [facility] LIPID PANEL, NON FASTING CHOLESTEROL .TOTAL/CHOL ESTEROL IN HDL [MASS RATIO] IN SERUM OR PLASMA 2.8 08/11 Specimen Type: SERUM No comment entered. Ordering Provider: KATE HANDY Report Released Date/Time: Jul 07, 2024 09:55 AM Reporting Lab: [facility]N [facility] [address] [facility] [address] Performing Lab: [facility] CENTERUSE[address] [address] [facility] LIPID PANEL, NON FASTING CHOLESTEROL IN HDL [MASS/VOLUM E] IN SERUM OR PLASMA 51 mg/dL 40 - 60 08/11 Specimen Type: SERUM No comment entered. Ordering Provider: KATE HANDY Report Released Date/Time: Jul 07, 2024 09:55 AM Reporting Lab: [facility] [address] [facility] [address] Performing Lab: [facility]ITALN [address] [address] [facility] HEMOGLOBI N A1C PANEL HEMOGLOBIN A1C/HEMOGLO BIN.TOTAL IN BLOOD BY HPLC 6.8 4.0 - 5.6 08/11 H Specimen Type: BLOOD Comment: Values obtained from A1C measurement s can vary. For atypical A1C assays, a reported value of 7.0 could actually be between 6.72 and 7.28 if measured by a reference method. A reported value of 9.0 could actually be between 8.73 and 9.27. Ref: http://www. ngsp.org/[place] Pdata.asp Ordering Provider: KATE HANDY Report Released Date/Time: Jul 07, 2024 09:55 AM Reporting Lab: [address] [address] Performing Lab: [address] [address] [facility] MICROALBU MIN CREATININ E RATIO PANEL MICROALBUMI N/CREATININ E [MASS RATIO] IN URINE 63.6 mg/g 0 - 29.9 08/11 H Specimen Type: URINE No comment entered. Ordering Provider: KATE HANDY Report Released Date/Time: Jul 07, 2024 09:55 AM Reporting Lab: [facility] [place] [facility] [address] [facility] [address] Performing Lab: [facility] [place] [facility] [address] [facility] [address] [facility] MICROALBU MIN CREATININ E RATIO PANEL MICROALBUMI N [MASS/VOLUM E] IN URINE 4.8 mg/dL 08/11 Specimen Type: URINE No comment entered. Ordering Provider: KATE HANDY Report Released Date/Time: Jul 07, 2024 09:55 AM Reporting Lab: [facility] [place] [address] [address] Performing Lab: [facility] [place] [address] [address] [facility] MICROALBU MIN CREATININ E RATIO PANEL CREATININE [MASS/VOLUM E] IN URINE 75.42 mg/dL 08/11 Specimen Type: URINE No comment entered. Ordering Provider: KATE HANDY Report Released Date/Time: Jul 07, 2024 09:55 AM Reporting Lab: [facility] [place] [facility] [address] [place] [address] Performing Lab: [facility] [place] [facility] [address] [place] [address] [facility] LIVER FUNCTION PROTEIN [MASS/VOLUM E] IN SERUM OR PLASMA 6.8 g/dL 6.0 - 8.3 08/11 Specimen Type: SERUM No comment entered. Ordering Provider: KATE HANYD Report Released Date/Time: Jul 07, 2024 09:55 AM Reporting Lab: [facility] [place] [address] [address] Performing Lab: [facility] [place] [facility] [address] [facility] [address] [facility] [place] [facility] LIVER FUNCTION ALBUMIN [MASS/VOLUM E] IN SERUM OR PLASMA 3.9 g/dL 3.5 - 5.0 08/11 Specimen Type: SERUM No comment entered. Ordering Provider: KATE HANDY Report Released Date/Time: Jul 07, 2024 09:55 AM Reporting Lab: [facility] [place] [facility] [address] [facility] [address] Performing Lab: [facility] [place] [facility] [address] [facility] [address] [place] [facility] [place] [facility] LIVER FUNCTION ALKALINE PHOSPHATASE [ENZYMATIC ACTIVITY/VO LUME] IN SERUM OR PLASMA 56 U/L 40 - 150 08/11 Specimen Type: SERUM No comment entered. Ordering Provider: KATE HANDY Report Released Date/Time: Jul 07, 2024 09:55 AM Reporting Lab: [facility] [place] [facility] [address] [facility] [address] Performing Lab: [facility] [place] [facility] [address] [facility] [address] [facility] [place] [facility] LIVER FUNCTION ASPARTATE AMINOTRANSF ERASE [ENZYMATIC ACTIVITY/VO LUME] IN SERUM OR PLASMA 16 U/L 5 - 34 08/11 Specimen Type: SERUM No comment entered. Ordering Provider: KATE HANDY Report Released Date/Time: Jul 07, 2024 09:55 AM Reporting Lab: [facility] [place] [facility] [address] [facility] [address] Performing Lab: [facility] [place] [facility] [address] [facility] [address] [facility] [place] [facility] LIVER FUNCTION ALANINE AMINOTRANSF ERASE [ENZYMATIC ACTIVITY/VO LUME] IN SERUM OR PLASMA 16 U/L 08/11 Specimen Type: SERUM No comment entered. Ordering Provider: HANDY,WI LLIAM J Report Released Date/Time: Jul 07, 2024 09:55 AM Reporting Lab: [facility] [place] [facility] [address] [facility] [address] Performing Lab: [facility] [place] [facility] [address] [facility] [address] [facility] LIVER FUNCTION BILIRUBIN.T OTAL [MASS/VOLUM E] IN SERUM OR PLASMA 0.4 mg/dL 0.2 - 1.2 08/11 Specimen Type: SERUM No comment entered. Ordering Provider: KATE HANDY Report Released Date/Time: Jul 07, 2024 09:55 AM Reporting Lab: [facility] [address] [facility] [address] Performing Lab: [facility] [address] [facility] [address] [facility] CBC LEUKOCYTES [#/VOLUME] IN BLOOD BY AUTOMATED COUNT 5.89 10*3/u L 4.50 - 11.00 01/25 Specimen Type: BLOOD No comment entered. Ordering Provider: KATE HANDY Report Released Date/Time: January 14, 2024 03:08 PM Reporting Lab: [facility] [address] [facility] [address] Performing Lab: [facility] [address] [facility] [address] [facility] CBC ERYTHROCYTE S [#/VOLUME] IN BLOOD BY AUTOMATED COUNT 4.41 10*6/u L 4.23 - 5.66 01/25 Specimen Type: BLOOD No comment entered. Ordering Provider: KATE HANDY Report Released Date/Time: January 14, 2024 03:08 PM Reporting Lab: [facility] [place] [facility] [address] [facility] [address] Performing Lab: [facility] [address] [place] [address] [facility] CBC HEMOGLOBIN [MASS/VOLUM E] IN BLOOD 13.4 g/dL 12.8 - 17 01/25 Specimen Type: BLOOD No comment entered. Ordering Provider: KATE HANDY Report Released Date/Time: January 14, 2024 03:08 PM Reporting Lab: [facility] [address] [facility] [address] Performing Lab: [facility] [place] [facility] [address] [facility] [address] [facility] CBC HEMATOCRIT [VOLUME FRACTION] OF BLOOD BY AUTOMATED COUNT 38.2 39.2 - 50.4 01/25 L Specimen Type: BLOOD No comment entered. Ordering Provider: KATE HANDY Report Released Date/Time: January 14, 2024 03:08 PM Reporting Lab: [facility] [address] [facility] [address] Performing Lab: [facility] [place] [facility] [address] [facility] [address] [facility] CBC MCV [ENTITIC VOLUME] BY AUTOMATED COUNT 86.6 fL 82 - 99 01/25 Specimen Type: BLOOD No comment entered. Ordering Provider: KATE HANDY Report Released Date/Time: January 14, 2024 03:08 PM Reporting Lab: [facility] [place] [facility] [address] [facility] [address] Performing Lab: [facility] [place] [facility] [address] [facility] [address] [facility] CBC MCHC [MASS/VOLUM E] BY AUTOMATED COUNT 35.1 g/dL 30.8 - 35.1 01/25 Specimen Type: BLOOD No comment entered. Ordering Provider: KATE HANDY Report Released Date/Time: January 14, 2024 03:08 PM Reporting Lab: [facility] [place] [facility] [address] [facility] [address] Performing Lab: [facility] [place] [facility] [address] [facility] [address] [facility] CBC PLATELETS [#/VOLUME] IN BLOOD BY AUTOMATED COUNT 156 10*3/u L 140 - 360 01/25 Specimen Type: BLOOD No comment entered. Ordering Provider: KATE HANDY Report Released Date/Time: January 14, 2024 03:08 PM Reporting Lab: [facility] [place] [facility] [address] [facility] [address] Performing Lab: [facility] [place] [facility] [address] [facility] [address] [facility] CBC ERYTHROCYTE DISTRIBUTIO N WIDTH [RATIO] BY AUTOMATED COUNT 13.4 12.0 - 16.0 01/25 Specimen Type: BLOOD No comment entered. Ordering Provider: KATE HANDY Report Released Date/Time: January 14, 2024 03:08 PM Reporting Lab: [facility] [place] [address] [address] Performing Lab: [facility] [place] [facility] [address] [facility] [address] [facility] CBC MCH [ENTITIC MASS] BY AUTOMATED COUNT 30.4 pg 26.2 - 32.6 01/25 Specimen Type: BLOOD No comment entered. Ordering Provider: KATE HANDY Report Released Date/Time: January 14, 2024 03:08 PM Reporting Lab: [facility] [place] [address] [address] Performing Lab: [facility] [place] [address] [address] [facility] BASIC METABOLIC PANEL (non-fast ing) UREA NITROGEN [MASS/VOLUM E] IN SERUM OR PLASMA 30 mg/dL 7 - 25 01/25 H Specimen Type: SERUM No comment entered. Ordering Provider: KATE HANDY Report Released Date/Time: January 14, 2024 03:08 PM Reporting Lab: [facility] [place] [address] [address] Performing Lab: [facility] [place] [address] [facility] BASIC METABOLIC PANEL (non-fast ing) GLUCOSE [MASS/VOLUM E] IN SERUM OR PLASMA 113 mg/dL 65 - 100 01/25 H Specimen Type: SERUM No comment entered. Ordering Provider: KATE HANDY Report Released Date/Time: January 14, 2024 03:08 PM Reporting Lab: [address] [address] Performing Lab: [address] [address] [facility] BASIC METABOLIC PANEL (non-fast ing) SODIUM [MOLES/VOLU ME] IN SERUM OR PLASMA 140 mmol/L 135 - 145 01/25 Specimen Type: SERUM No comment entered. Ordering Provider: KATE HANDY Report Released Date/Time: January 14, 2024 03:08 PM Reporting Lab: [address] [address] Performing Lab: [address] [address] [facility] BASIC METABOLIC PANEL (non-fast ing) POTASSIUM [MOLES/VOLU ME] IN SERUM OR PLASMA 6.0 mmol/L 3.5 - 5.0 01/25 H Specimen Type: SERUM No comment entered. Ordering Provider: KATE HANDY Report Released Date/Time: January 14, 2024 03:08 PM Reporting Lab: [address] [address] Performing Lab: [address] [address] [facility] BASIC METABOLIC PANEL (non-fast ing) CHLORIDE [MOLES/VOLU ME] IN SERUM OR PLASMA 107 mmol/L 100 - 110 01/25 Specimen Type: SERUM No comment entered. Ordering Provider: KATE HANDY Report Released Date/Time: January 14, 2024 03:08 PM Reporting Lab: [facility] [place] [facility] [address] [facility] [address] Performing Lab: [facility] [place] [address] [facility] BASIC METABOLIC PANEL (non-fast ing) CARBON DIOXIDE, TOTAL [MOLES/VOLU ME] IN SERUM OR PLASMA 26 meq/L 20 - 30 01/25 Specimen Type: SERUM No comment entered. Ordering Provider: KATE HANDY Report Released Date/Time: January 14, 2024 03:08 PM Reporting Lab: [facility] [place] [address] Performing Lab: [facility] [address] [facility] BASIC METABOLIC PANEL (non-fast ing) CREATININE [MASS/VOLUM E] IN SERUM OR PLASMA 1.40 mg/dL 0.50 - 1.40 01/25 Specimen Type: SERUM No comment entered. Ordering Provider: KATE HANDY Report Released Date/Time: January 14, 2024 03:08 PM Reporting Lab: [facility] [place] [address] Performing Lab: [facility] [address] [facility]N [facility] BASIC METABOLIC PANEL (non-fast ing) GLOMERULAR FILTRATION RATE/1.73 SQ M.PREDICTED [VOLUME RATE/AREA] IN SERUM, PLASMA OR BLOOD BY CREATININE- BASED FORMULA (CKD-EPI 2020) 50 mL/min 60 01/25 L Specimen Type: SERUM No comment entered. Ordering Provider: KATE HANDY Report Released Date/Time: January 14, 2024 03:08 PM Reporting Lab: [facility] [place] [address] [address] Performing Lab: [facility] [address] [address] [facility] [place] [facility] LIPID PANEL, NON FASTING CHOLESTEROL [MASS/VOLUM E] IN SERUM OR PLASMA 146 mg/dL 01/25 Specimen Type: SERUM No comment entered. Ordering Provider: KATE HANDY Report Released Date/Time: January 14, 2024 03:08 PM Reporting Lab: [facility]IRMINGHAMTRN [facility]ENTER[facility] [address] [address] Performing Lab: [facility]MINGHAMTRN [facility]ENTERUSE[address] [address] [facility]ITALN [facility]ENTERUSE [facility] LIPID PANEL, NON FASTING TRIGLYCERID E [MASS/VOLUM E] IN SERUM OR PLASMA 132 mg/dL 0 - 150 01/25 Specimen Type: SERUM No comment entered. Ordering Provider: KATE HANDY Report Released Date/Time: January 14, 2024 03:08 PM Reporting Lab: [facility] [address] Performing Lab: [facility] [address] [facility]ENTERUSE [facility] LIPID PANEL, NON FASTING CHOLESTEROL IN LDL [MASS/VOLUM E] IN SERUM OR PLASMA BY CALCULATION 71 mg/dL 0 - 129 01/25 Specimen Type: SERUM No comment entered. Ordering Provider: KATE HANDY Report Released Date/Time: January 14, 2024 03:08 PM Reporting Lab: [facility]MINGHAMTRN [place] [address] [address] Performing Lab: [facility]-BIRMINGHAMTRN [facility]ENTERUSETS [address] [address] [facility]ENTERUSE [facility] LIPID PANEL, NON FASTING CHOLESTEROL .TOTAL/CHOL ESTEROL IN HDL [MASS RATIO] IN SERUM OR PLASMA 3.0 01/25 Specimen Type: SERUM No comment entered. Ordering Provider: KATE HANDY Report Released Date/Time: January 14, 2024 03:08 PM Reporting Lab: [facility]ENTERUSE[address] [address] Performing Lab: [facility] [address] [facility] [address] [facility]ENTERUSE [facility] LIPID PANEL, NON FASTING CHOLESTEROL IN HDL [MASS/VOLUM E] IN SERUM OR PLASMA 49 mg/dL 40 - 60 01/25 Specimen Type: SERUM No comment entered. Ordering Provider: KATE HANDY Report Released Date/Time: January 14, 2024 03:08 PM Reporting Lab: [facility]ITALN [facility] [address] [facility] [address] Performing Lab: [facility]PITALN [facility]ENTERUSE[facility] [address] [facility] [address] [facility]ENTERUSE [facility] HEMOGLOBI N A1C PANEL HEMOGLOBIN A1C/HEMOGLO BIN.TOTAL IN BLOOD BY HPLC 6.8 4.0 - 5.6 01/25 H Specimen Type: BLOOD Comment: Values obtained from A1C measurement s can vary. For atypical A1C assays, a reported value of 7.0 could actually be between 6.72 and 7.28 if measured by a reference method. A reported value of 9.0 could actually be between 8.73 and 9.27. Ref: http://www. ngsp.org/[place] Pdata.asp Ordering Provider: KATE HANDY Report Released Date/Time: January 14, 2024 03:08 PM Reporting Lab: [facility]USE[facility] [address] [facility] [address] Performing Lab: [facility]ENTERUSE[address] [address] [facility] Vital Signs Combined list of inpatient and outpatient Vital Signs from Department of Defense and Veterans Affairs, ranging from 12 months to all on record, depending upon the facility. Vital Sign Value Date Comments Source SYSTOLIC BLOOD PRESSURE 155 07/29/20 24 13:49:44 [facility] DIASTOLIC BLOOD PRESSURE 71 024 13:49:44 [facility] PULSE OXIMETRY 98 07/29/2024 13:49:44 [facility] WEIGHT 161 07/29/2024 13:49:44 [facility] BMI 27 kg/m2 07/29/2024 13:49:44 [facility] PAIN 8 07/29/2024 13:49:44 [facility] HEIGHT 65 07/29/2024 13:49:44 [facility] TEMPERATURE 98.3 07/29/2024 13:49:44 [facility] PULSE 60 07/29/2024 13:49:44 [facility] RESPIRATION 20 07/29/2024 13:49:44 [facility] SYSTOLIC BLOOD PRESSURE 171 01/29/20 24 14:10:21 [facility] DIASTOLIC BLOOD PRESSURE 72 024 14:10:21 [facility] PULSE OXIMETRY 99 2024 14[facility]10:21 [facility] WEIGHT 168 2024 14:10:21 [facility] BMI 28 kg/m2 2024 14:10:21 [facility] PAIN 0 2024 14:10:21 [facility] HEIGHT 65 2024 14:10:21 [facility] TEMPERATURE 98.6 2024 14:10:21 [facility] PULSE 52 2024 14:10:21 [facility] RESPIRATION 20 2024 14:10:21 [facility] SYSTOLIC BLOOD PRESSURE 140 12/01/19 24 10:08:33 [facility] DIASTOLIC BLOOD PRESSURE 60 024 10:08:33 [facility] PULSE OXIMETRY 98 12/01/2023 10:08:33 [facility] WEIGHT 169 12/01/2023 10:08:33 [facility] BMI 28 kg/m2 12/01/2023 10:08:33 [facility] TEMPERATURE 97.7 12/01/2023 10:08:33 [facility] PULSE 78 12/01/2023 10:08:33 [facility] RESPIRATION 18 12/01/2023 10:08:33 [facility] Encounters Combined list of: 1) Encounters from Department of Veterans Affairs facilities going backup to the last 18 months, not all VA inpatient encounters are included; 2) Encounters from the Department of [facility] facilities going backup to 280 months. Location Location Details Encounter Type Encounter Number Reason For Visit Attending Provider ADM Date DC Date Status Disposition Source [facility] Out[facility] Encounter [id number] Nellie HANDY 05/20 [facility] Encounter [id number] 05/21 [facility] Out[facility] Encounter [id number] 05/22 [facility] OFFICE O/P EST MOD 30-39 MIN [id number] Diagnos is: ICD-10- CM M54.2 Cervica lgia Nellie HANDY 05/26 [facility] Encounter [id number] 05/27 [facility] Out[facility] Encounter [id number] Nellie HANDYJENISE Celio 05/28 [facility] THERAPEUTI C EXERCISES [id number] Diagnos is: ICD-10- CM M77.9 Entheso lizzy, unspeci CHANCE Fritz 06/02 [facility] Out[facility] Encounter [id number] 06/17 [facility] THERAPEUTI C EXERCISES [id number] Diagnos is: ICD-10- CM M77.9 Entheso lizzy, unspeci CHANCE Fritz 06/26 [facility] Out[facility] Encounter [id number] 07/03 [facility] Encounter [id number] 07/04 [facility] Encounter [id number] 07/07 [facility] EYE EXAM NEW PATIENT [id number] Diagnos is: ICD-10- CM 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 t, bilDAVON Bear 07/07 [facility] Encounter [id number] 07/08 [facility] Out[facility] Encounter [id number] 07/08 [facility] FIT SPECTACLES MULTIFOCAL [id number] Diagnos is: ICD-10- CM Z46.0 Encount er for fit/adj st of spectac les and contact lenses JOSELITOSERAFIN CABRAL 07/08 [facility] THERAPEUTI C EXERCISES [id number] Diagnos is: ICD-10- CM M77.9 Entheso lizzy, unspeci Timothy Castellanos 07/09 [facility] Encounter [id number] 07/10 [facility] Out[facility] Encounter [id number] 07/15 [facility] Out[facility] Encounter [id number] 07/15 [facility] THERAPEUTI C EXERCISES [id number] Diagnos is: ICD-10- CM M77.9 Entheso lizzy, unspeci ROOSEVELT Calhoun 07/31 [facility] THERAPEUTI C EXERCISES [id number] Diagnos is: ICD-10- CM M77.9 Entheso lizzy, unspeci CHANCE Fritz 08/14 [facility] THERAPEUTI C EXERCISES [id number] Diagnos is: ICD-10- CM M77.9 Entheso lizzy, unspeci CHANCE Fritz 09/10 [facility] THERAPEUTI C EXERCISES [id number] Diagnos is: ICD-10- CM M77.9 Entheso lizzy, unspeci CHANCE Fritz 09/25 [facility] Out[facility] Encounter [id number] 09/26 [facility] SPRING[facility] COLLJ & INTERPJ DATA EA 30 D [id number] Diagnos is: ICD-10- CM G47.33 Obstruc tive sleep apnea (adult) (pediat jimena) MELODIE ESCALONA 09/30 [facility] Outpatient Encounter [id number] Nellie HANDY 10/06 [facility] Encounter [id number] 10/08 [facility] Encounter [id number] [place] CAMERON 10/29 [facility] Encounter [id number] 10/29 [facility] Out[facility] Encounter [id number] Timothy PERALES 10/29 [facility] OFFICE O/P EST MOD 30 MIN [id number] Diagnos is: ICD-10- CM M54.50 Low back pain, unspeci fied Nellie HANDY 10/31 [facility] En[facility] [id number] 11/06 [facility] Encounter [id number] 11/10 [facility] OFFICE O/P NEW LOW 30 MIN [id number] Diagnos is: ICD-10- CM L82.0 Inflame d seborrh eic keratos is LUIS ANGEL LOPEZ 11/11 [facility] En[facility] [id number] 11/25 [facility] Out[facility] Encounter [id number] 11/26 [facility] OFF/OP EST MAY X REQ PHY/QHP [id number] Diagnos is: ICD-10- CM Z71.89 Other specifi ed bereavement counselor Manny Stockton 11/30 [facility] OFFICE O/P EST LOW 20 MIN [id number] Diagnos is: ICD-10- CM J20.9 Acute bronchi tis, unspeci fiJACQUELINE Crawford 11/30 [facility] En[facility] [id number] 11/30 [facility] Out[facility] Encounter [id number] 12/23 [facility] Out[facility] Encounter [id number] 01/20 [facility] Encounter [id number] 01/26 [facility] OFFICE O/P EST LOW 20 MIN [id number] Diagnos is: ICD-10- CM M54.50 Low back pain, unspeci fied Nellie HANDY 01/28 [facility] Encounter [id number] 02/01 [facility] Out[facility] Encounter [id number] 02/15 [facility] Out[facility] Encounter [id number] 03/02 [facility] POS AIRWAY PRESSURE CPAP [id number] Diagnos is: ICD-10- CM G47.33 Obstruc tive sleep apnea (adult) (pediat jimena) MELODIE ESCALONA 03/09 [facility] En[facility] [id number] 03/29 [facility] Encounter [id number]/[id number] [facility] Encounter [id number] 1.04/14 [facility] Encounter [id number] 04/28 [facility] Encounter [id number] 04/30 [facility] Encounter [id number]/03 [facility] En[facility] [id number] 1.05/06 [facility] [id number] 1.05/13 [facility] [id number] 1.05/14 [facility] [id number] 1.05/18 [facility] [id number] [facility] [id number] [facility] UNLISTED SPEC DERM SVC/PX [id number] 1. Diagnos is: ICD-10- CM [facility] PER PEREZ ICA A 05/21 [facility] Outpatient Encounter [id number] Diagnos is: ICD-10- CM L57.0 Actinic keratos is DANIELLE PANTOJA PH J 05/24 [facility] Out[facility] En[facility] [id number] 1.05/24 [facility] [id number] 1.05/25 [facility] [id number] [facility] [id number] 06/11 [facility] En[facility] [id number] 1.06/15 [facility] En[facility] [id number] Diagnos is: ICD-10- CM U07.1 COVID-1 9 EMANUEL PHELPS 06/15 [facility] (631GE) QNHP OL DIG ASSMT&MGMT 5-10 [id number] 1GE. 94 Diagnos is: ICD-10- CM U07.1 COVID-1 9 NGHIA PRADO 06/15 [facility] (631GE[facility] [place] [facility] Outpatient Encounter [id number] 06/24 [facility] Outpatient Encounter [id number] 07/06 [facility]LL[facility] & INTERPJ DATA EA 30 D [id number] Diagnos is: ICD-10- CM G47.33 Obstruc tive sleep apnea (adult) (pediat jimena) MELODIE ESCALONA 07/07 [place] [facility] COMPRE [place]PH EXAM EST PT 1/ [id number] Diagnos is: ICD-10- CM 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 t, bilater al DAVON GIFFORD 07/14 [facility] FIT SPECTACLES MULTIFOCAL [id number] Diagnos is: ICD-10- CM Z46.0 Encount er for fit/adj st of spectac les and contact lenses DAVON GIFFORD 07/14 [facility] Outpatient [facility]counter [id number] 07/23 [facility] RPR&REFITG SPECT XCP APHAKIA [id number] Diagnos is: ICD-10- CM Z46.0 Encount er for fit/adj st of spectac les and contact lenses ALEXIS GOLDSTEIN 07/23 [facility] OFFICE O/P EST MOD 30 MIN [id number] Diagnos is: ICD-10- CM M54.2 Cervica Nellie Castillo 07/29 [facility] Outpatient Encounter [id number] 08/03 [facility] Outpatient Encounter [id number] 08/04 [facility] MANUAL THERAPY 1/> REGIONS [id number] 1. Diagnos is: ICD-10- CM M79.643 Pain in unspeci fied hand MACHON,PAUL LIE E 08/18 [facility] Outpatient Encounter [id number] 08/19 [facility] Out[facility] Encounter [id number] 08/27 [facility] Out[facility] Encounter [id number] 08/29 [facility] Out[facility] Encounter [id number] 09/09 [facility] Outpatient Encounter [id number] 09/21 [facility] PT EDUCATION NOC INDIVID [id number] Diagnos is: ICD-10- CM G47.33 Obstruc tive sleep apnea (adult) (pediat jimena) [facility] STEPHANIA ROCHE E P 09/28 [facility] OFF[facility] O/P EST MOD 30 MIN [id number] Diagnos is: ICD-10- CM L82.0 Inflame d seborrh eic keratos is LUIS ANGEL LOPEZ 10/21 [place] [facility] [place] [facility] [place] [facility] COLLJ & INTERPJ DATA EA 30 D [id number] Diagnos is: ICD-10- CM G47.33 Obstruc tive sleep apnea (adult) (pediat jimena) STEPHANIA MCDANIEL 11/04 [place] [facility] [place] [facility] Social History Combined list of available smoking, tobacco, and other social history from Department of Defense and Veterans Affairs facilities. Social History Type Response Date Comment Sourc e Tobacco smoking status NHIS VA-TOBACCO FORMER USER 2024 [place] [facility] [place] [facility] History of tobacco use KS-TOBACCO QUIT 15 YRS OR MORE 2024 [place] [facility] [facility] History of tobacco use KS-TOBACCO FORMER USER 12/23/2022 [facility] [place] [facility] History of tobacco use KS-TOBACCO FORMER USER 11/19/2021 [place] [facility] [place] [facility] History of tobacco use KS-TOBACCO FORMER USER 12/08/2020 [place] [facility] [place] [facility] Plan of Care List of future care activities from Department of Veterans Affairs facilities. Additional future care activities may be listed in the Assessment and Plan section. Date/Time Care Activity Care Activity Detail Facili ty 01/18/2025 AMBULATORY - MEDICINE AMBULATORY - MEDICI [place] [facility] [place] [facility] 01/24/2025 AMBULATORY - MEDICINE AMBULATORY - MEDICI NE [facility] [place] [facility]
--- OUTSIDE RECORDS SUMMARY | 2024-11-17 15:41 | XMS_ITS ---
Author Name [facility] [place] [facility] [place] Address [address] [place] [id number] Care Team Providers Care Manager Pathology Name Role Phone CECIL GELLER Primary Care [...] AGENC Y SUPP PL Mar 15, 2018 [id number] RT PATIENT MEDICARE (WNR) MEDICARE (M) PART B Nov 13, 2010 PART B [id number] DOMINIC BEDOLLA RT PATIENT MEDICARE (WNR) MEDICARE (M) PART A January 13, 2007 PART A [id number] DOMINIC BEDOLLA RT PATIENT Selected Encounter This section includes the information on record at [place] for the Encounter. Date/Time Encounter Type Encounter Description Reason Pro vider Source May 03, 2024 01:27 PM Outpatient Encounter ADMIN PAT ACTIVTIES (MASNONCT) IHE Encounter Template Text not used by [place] Plan of Treatment: Future Appointments (+ 6 months) and Future Tests (+/- 45 days) The Plan of Treatment section includes future care activities for the patient from all [place] [facility]. This section includes future appointments and future orders which are active, pending or scheduled. Future Appointments This section includes appointments that were scheduled to occur 6 months from the date of the Encounter, up to a maximum of 20 appointments. The data comes from all [place] treatment facilities. Appointment Date/Time Appointment Type Appointme nt Facility Name May 21, 2024 01:30 PM AMBULATORY - NONE [facility] [place] [facility] May 25, 2024 01:45 PM AMBULATORY - MEDICINE [place] [facility] [place] [facility] Jun 15, 2024 02:00 PM AMBULATORY - MEDICINE [place] [facility] [place] [facility] Jul 14, 2024 01:00 PM AMBULATORY - MEDICINE [place] [facility] [place] [facility] Jul 23, 2024 01:20 PM AMBULATORY - MEDICINE [place] [facility] [place] [facility] Jul 29, 2024 02:00 PM AMBULATORY - MEDICINE [place] [facility] [place] [facility] Aug 03, 2024 10:00 AM AMBULATORY - MEDICINE [place] [facility] [place] [facility] Aug 11, 2024 01:00 PM AMBULATORY - NONE [facility] [place] [facility] Aug 18, 2024 01:30 PM AMBULATORY - REHAB MEDICIN E [facility] [place] [facility] Aug 19, 2024 01:00 PM AMBULATORY - MEDICINE [place] [facility] [place] [facility] Sep 28, 2024 01:00 PM AMBULATORY - NONE [place] [facility] [place] [facility] Oct 21, 2024 02:00 PM AMBULATORY - MEDICINE [place] [facility] [place] [facility] Social History: Smoking Status (Most current) and Tobacco Use (All prior to encounter date) This section includes the most current, and the historical, smoking and tobacco- related health factors from the [facility] facility where the Encounter took place. Current Smoking Status This section includes the most current smoking, or tobacco-related health factor, from the [place] facility where the Encounter took place. Date/Time Current Smoking Status Comment Efren ity 2024 02:30 PM VA-TOBACCO FORMER USER [place] [facility] [place] [facility] Tobacco Use History This section includes a history of the smoking, or tobacco-related health factors, that were collected on or before the date of the Encounter. The data comes from the [place] facility where the Encounter took place. Date/Time Smoking Status/Tobacco Use Comment F acility 2024 02:30 PM VA-TOBACCO QUIT 15 YRS OR MORE [place] [facility] [place] [facility] Dec 23, 2022 02:30 PM VA-TOBACCO FORMER USER [place] [facility] [place] [facility] Dec 23, 2022 02:30 PM VA-TOBACCO QUIT 15 YRS OR MORE [place] [facility] [place] [facility] Nov 19, 2021 02:00 PM VA-TOBACCO FORMER USER [place] [facility] [place] [facility] Nov 19, 2021 02:00 PM VA-TOBACCO QUIT 15 YRS OR MORE [place] [facility] [place] [facility] Dec 08, 2020 11:00 AM VA-TOBACCO FORMER USER [place] [facility] [facility] Dec 08, 2020 11:00 AM VA-TOBACCO QUIT 15 YRS OR MORE [place] [facility] [place] [facility] Encounter Notes: All associated encounter notes This section contains the clinical notes associated to the Encounter. Date/Time Encounter Note(s) Provider Source May 03, 2024 01:27 PM MEDICATION MGT NOT E: LOCAL TITLE: MEDICATION RENEWAL STANDARD TITLE: MEDICATION MGT NOTE DATE OF NOTE: MAY 03, 2024@13:27 ENTRY DATE: MAY 03, 2024@13:27:36 AUTHOR: SASCHA RIVERA EXP COSIGNER: URGENCY: STATUS: COMPLETED MEDICATION RENEWAL Has ADDENDA pt req new medication order for: = 1) ACCU-CHEK GUIDE (GLUCOSE) TEST Thank you, Sascha /amrita/ SASCHA RIVERA Closing Manager Signed: 05/03/2024 13:30 Receipt Acknowledged By: 05/05/2024 12:49 /amrita/ Cecil J Geller DNP, J2EE DEVELOPER-BC, CNL Primary Care Nurse Practitioner 05/03/2024 13:35 /es/ Mirtha Ludwig MSN RN CNL Primary Care RN 05/03/2024 ADDENDUM STATUS: COMPLETED Renewed as requested /amrita/ Mirtha Ludwig MSN RN CNL Primary Care RN Signed: 05/03/2024 13:35 SASCHA RIVERA [facility]
--- OUTSIDE RECORDS SUMMARY | 2024-11-17 15:41 | XMS_ITS | Encounter Summary ---
Author Name [facility] [place] Address [address] [place] [id number] Care Team Providers Care Statistical Financial Analyst Name Role Phone AIYANA HANDY Primary Care [...] Policy [facility] MED[facility] [employer] [facility] SUPP PL Mar 15, 2018 [id number] [address]A RT PATIENT MEDICARE (WNR) MEDICARE (M) PART B Nov 13, 2010 PART B [id number] DOMINIC BEDOLLA RT PATIENT MEDICARE (WNR) MEDICARE (M) PART A January 13, 2007 PART A [id number] DOMINIC BEDOLLA PATIENT Selected Encounter This section includes the information on record at [place] for the Encounter. Date/Time Encounter Type Encounter Description Reason Provider Source Jul 23, 2024 01:20 PM RPR&REFITG SPECT XCP APHAKIA OPTOMETRY ICD-10-CM Z46.0 Encounter for fit/adjst of spectacles and contact lenses SAV GOLDSTEIN [facility] Encounter Template Text not used by [place] Assessments - Encounter Diagnoses This section includes the primary and secondary diagnoses documented for the Encounter. Date/Time Primary/Secondary Diagnosis Diagnosis Name Provider Source Jul 23, 2024 01:40 PM PRIMARY Encounter for fit/adjst of spectacles and contact lenses SAV GOLDSTEIN [place] [facility] [place] [facility] Plan of Treatment: Future Appointments (+ 6 months) and Future Tests (+/- 45 days) The Plan of Treatment section includes future care activities for the patient from all [place] treatmentfacilities. This section includes future appointments and future orders which are active, pending or scheduled. Future Appointments This section includes appointments that were scheduled to occur 6 months from the date of the Encounter, up to a maximum of 20 appointments. The data comes from all [place] treatment facilities. Appointment Date/Time Appointment Type Appointme nt Facility Name Jul 29, 2024 02:00 PM AMBULATORY - MEDICINE [place] [facility] [place] [facility] Aug 03, 2024 10:00 AM AMBULATORY - MEDICINE [place] [facility] [place] [facility] Aug 11, 2024 01:00 PM AMBULATORY - NONE [place] [facility] [place] [facility] Aug 18, 2024 01:30 PM AMBULATORY - REHAB MEDICIN E [facility] [place] [facility] Aug 19, 2024 01:00 PM AMBULATORY - MEDICINE [place] [facility] [place] [facility] Sep 28, 2024 01:00 PM AMBULATORY - NONE [place] [facility] [place] [facility] Oct 21, 2024 02:00 PM AMBULATORY - MEDICINE [place] [facility] [place] [facility] January 18, 2025 01:00 PM AMBULATORY - MEDICINE [place] [facility] [place] [facility] Lab Results: +/- 30 days of the encounter This section includes the Chemistry and Hematology Lab Results on record with [place] for the patient. Radiology Reports and Pathology Reports are provided separately, in subsequent sections. Lab Results This section contains the Chemistry/Hematology Results that were resulted 30 days before or 30 daysafter the date of the Encounter. Date/Time Source Result Type Result - Unit Interpretation Reference Range Comment Aug 11, 2024 12:49 PM [place] [facility] [facility] LIPID PANEL, NON FASTING Specimen Type: SERUM No comment entered. Ordering Provider: JARRETT HANDY AM Report Released Date/Time: Jul 07, 2024 09:55 AM Reporting Lab: [address] [address] Performing Lab: [address] [address] CHOLESTEROL 144 mg/dL TRIGLYCERIDE 204 mg/dL H 0-150 LDL calculated 52 mg/dL 0-129 CHOL/HDL 2.8 HDL CHOLESTEROL 51 mg/dL 40-60 Aug 11, 2024 12:49 PM [facility] CBC Specimen Type: BLOOD No comment entered. Ordering Provider: JARRETT HANDY AM Report Released Date/Time: Jul 07, 2024 09:55 AM Reporting Lab: [address] [address] Performing Lab: [address] [address] WBC 6.26 10*3/uL 4.50-11.00 RBC 4.21 10*6/uL L 4.23-5.66 HGB 12.8 g/dL 12.8-17 HCT 36.2 L 39.2-50.4 MCV 86.0 fL 82-99 MCHC 35.4 g/dL H 30.8-35.1 PLT 149 10*3/uL 140-360 RDW-CV 13.2 12.0-16.0 MCH 30.4 pg 26.2-32.6 Aug 11, 2024 12:49 PM [facility] BASIC METABOLIC PANEL (non-fasting) Specimen Type: SERUM No comment entered. Ordering Provider: JARRETT HANDY AM Report Released Date/Time: Jul 07, 2024 09:55 AM Reporting Lab: [address] [address] Performing Lab: [address] [address] UREA NITROGEN 23 mg/dL 7-25 GLUCOSE 123 mg/dL H 65-100 SODIUM 141 mmol/L 135-145 POTASSIUM 4.9 mmol/L 3.5-5.0 CHLORIDE 108 mmol/L 100-110 CO2 23 meq/L 20-30 CREATININE, Serum 1.08 mg/dL 0.50-1.40 eGFR(CKD-EPI 2020) 69 mL/min >60 Aug 11, 2024 12:49 PM [facility] HEMOGLOBIN A1C PANEL Specimen Type: BLOOD [...] Jul 07, 2024 09:55 AM Reporting Lab: [address] [address] Performing Lab: [address] [address] HEMOGLOBIN A1C 6.8 H 4.0-5.6 Aug 11, 2024 12:49 PM [facility] MICROALBUMIN CREATININE RATIO PANEL Specimen Type: URINE No comment entered. Ordering Provider: JARRETT HANDY AM Report Released Date/Time: Jul 07, 2024 09:55 AM Reporting Lab: [address] [address] Performing Lab: [address] [address] MICROALBUMIN/C REATININE RATIO 63.6 mg/g H 0-29.9 MICROALBUMIN,Q UANTITATIVE 4.8 mg/dL RR UNAVAIL CREATININE URINE 75.42 mg/dL Aug 11, 2024 12:49 PM [facility] LIVER FUNCTION Specimen Type: SERUM No comment entered. Ordering Provider: JARRETT HANDY AM Report Released Date/Time: Jul 07, 2024 09:55 AM Reporting Lab: [address] [address] Performing Lab: [facility] [facility] [address] [facility] [address] PROTEIN,TOTAL 6.8 g/dL 6.0-8.3 ALBUMIN 3.9 g/dL 3.5-5.0 ALKALINE PHOSPHATASE 56 U/L 40-150 AST 16 U/L 5-34 ALT 16 U/L BILIRUBIN, TOTAL 0.4 mg/dL 0.2-1.2 Social History: Smoking Status (Most current) and Tobacco Use (All prior to encounter date) This section includes the most current, and the historical, smoking and tobacco- related health factors from the [place] facility where the Encounter took place. Current Smoking Status This section includes the most current smoking, or tobacco-related health factor, from the [place] facility where the Encounter took place. Date/Time Current Smoking Status Comment Facil ity 2024 02:30 PM [facility]CO [facility] Tobacco Use History This section includes a history of the smoking, or tobacco-related health factors, that were collected on or before the date of the Encounter. The data comes from the [place] facility where the Encounter took place. Date/Time Smoking Status/Tobacco Use Comment F acility 2024 02:30 PM VA-TOBACCO QUIT 15 YRS OR MORE [place] [facility] [place] [facility] Dec 23, 2022 02:30 PM VA-TOBACCO FORMER USER [place] [facility] [place] [facility] Dec 23, 2022 02:30 PM VA-TOBACCO QUIT 15 YRS OR MORE [place] [facility] [place] [facility] Nov 19, 2021 02:00 PM VA-TOBACCO FORMER USER [place] [facility] [place] [facility] Nov 19, 2021 02:00 PM VA-TOBACCO QUIT 15 YRS OR MORE [place] [facility] [place] [facility] Dec 08, 2020 11:00 AM VA-TOBACCO FORMER USER [place] [facility] [place] [facility] Dec 08, 2020 11:00 AM VA-TOBACCO QUIT 15 YRS OR MORE [place] [facility] [place] [facility] Radiology Reports: +/- 30 days of [...] the Encounter. The data comes from all [place] treatment facilities. Date/Time Radiology Report Provider Source Aug 11, 2024 12:58 PM ULTRASOUND SCROTUM: HANNA RAMIREZ [id number] -[id number] M Exm Date: AUG 11, 2024@12:58 Req Phys: AIYANA HANDY Loc: CWM/NO/PACT 7 (Req'g Loc) Img Loc: ULTRASOUND Service: [place] [address] (Case [id number] COMPLETE) ULTRASOUND SCROTUM (US Detailed) CPT:89632 Reason for Study: mass Clinical History: small mobile non painful lump left side of scrotum Report Status: Verified Date Reported: AUG 11, 2024 Date Verified: AUG 11, 2024 Bone Cooking Operator E-Sig: Report: SCROTAL SONOGRAM Technique: Multiple transverse [...] significant abnormality. READING PHYSICIAN: Cy Candelario M.D. -[phone] 08/11/2024 11:56 [facility] National Teleradiology Program [phone] (For Medical Practitioner Use Only) Attention Patients / Veterans: If you have questions or concerns about these test results, please contact your ordering provider or primary care team. Primary Diagnostic Code: NO ALERT REQUIRED Primary Interpreting Staff: RADIOLOGY,OUTSIDE SERVICE, Staff Physician / RADIOLOGY,OUTSIDE SERVICE [facility] Encounter Notes: All associated encounter notes This section contains the clinical notes associated to the Encounter. Date/Time Encounter Note(s) Provider Source Jul 28, 2024 09:47 AM ADDENDUM: LOCAL TITLE: Addendum STANDARD TITLE: ADDENDUM DATE OF NOTE: JUL 28, 2024@09:47:06 ENTRY DATE: JUL 28, 2024@09:47:06 AUTHOR: MIKAYLA GIFFORD EXP COSIGNER: URGENCY: STATUS: COMPLETED Please order OD with +2.75 -1.25 X067. /amrita/ MIKAYLA GIFFODR OD STAFF COMMUNITY HEALTH ADVISOR Signed: 07/28/2024 09:48 Receipt Acknowledged By: 07/28/2024 10:12 /amrita/ Sav Goldstein [facility] [employer] Mixer ========= --- Original Document --- 07/23/24 OPTOMETRY NOTE: Patient seen for fitting appt today, c/o of OD blurry. Checked RX, OD was ordered as +1.25 -1.25 x067. Plant Hr Manager pulled orig eyeglass ticket today and verified this was what was written on ticket. Patient also requesting a smaller size frame today as well. Will ask provider to please advise on what RX should be ordered for OD. Per exam note, refraction OD was +2.75 -1.25 X067. Patient picked following frame below. New measurements taken. Will order once provider finalizes OD RX. FITTING INFORMATION FPD: NPD: [place]:R:34 L:32 SEG HT:R:14 L:14 Tint:None Shade:None VA Billable Items FRAME: MODERN MODZFLEX [id number] BROWN 50-19 Right Lens: POLY VA PROGRESSIVE PHOTOCHROMIC HENRY 1.586 POLY Left Lens: POLY VA PROGRESSIVE PHOTOCHROMIC HENRY 1.586 POLY KLEAR ANTI-REFLECTIVE COATING CLIN items Open [employer] - AR Coating 0004 - Progressive - Glass Plastic Poly 0005 - Transition /amrita/ Sav Goldstein [facility] [employer] Mixer Signed: 07/23/2024 13:40 Receipt Acknowledged By: 07/28/2024 09:46 /amrita/ MIKAYLA GIFFORD OD STAFF COMMUNITY HEALTH ADVISOR MIKAYLA GIFFORD [facility] [place] [place] [facility] Jul 23, 2024 01:33 PM OPTOMETRY NOTE: LOCAL TITLE: OPTOMETRY NOTE STANDARD TITLE: OPTOMETRY NOTE DATE OF NOTE: JUL 23, 2024@13:33 ENTRY DATE: JUL 23, 2024@13:34:01 AUTHOR: SAV GOLDSTEIN EXP COSIGNER: URGENCY: STATUS: COMPLETED OPTOMETRY NOTE Has ADDENDA Patient seen for fitting appt today, c/o of OD blurry. Checked RX, OD was ordered as +1.25 -1.25 x067. Plant Hr Manager pulled orig eyeglass ticket today and verified this was what was written on ticket. Patient also requesting a smaller size frame today as well. Will ask provider to please advise on what RX should be ordered for OD. Per exam note, refraction OD was +2.75 -1.25 X067. Patient picked following frame below. New measurements taken. Will order once provider finalizes OD RX. FITTING INFORMATION FPD: NPD: [place]:R:34 L:32 SEG HT:R:14 L:14 Tint:None Shade:None VA Billable Items FRAME: MODERN MODZFLEX [id number] BROWN 50-19 Right Lens: POLY VA PROGRESSIVE PHOTOCHROMIC HENRY 1.586 POLY Left Lens: POLY VA PROGRESSIVE PHOTOCHROMIC HENRY 1.586 POLY KLEAR ANTI-REFLECTIVE COATING CLIN items [employer] - AR Coating 0004 - Progressive - Glass Plastic Poly 0005 - Transition /amrita/ Sav Goldstein [facility] [employer] Mixer Signed: 07/23/2024 13:40 Receipt Acknowledged By: 07/28/2024 09:46 /amrita/ MIKAYLA GIFFORD OD STAFF COMMUNITY HEALTH ADVISOR 07/28/2024 ADDENDUM STATUS: COMPLETED Please order OD with +2.75 -1.25 X067. /amrita/ MIKAYLA GIFFORD OD STAFF COMMUNITY HEALTH ADVISOR Signed: 07/28/2024 09:48 Receipt Acknowledged By: * AWAITING SIGNATURE * SAV GOLDSTEIN CYNTHIA CHRISTINE [facility]
== END 2024-11-17 13:40 | disposition home or self-care (01) ==
PROVIDERS: PCP Internal Medicine; Visit Provider Internal Medicine
DX: G47.33 Obstructive sleep apnea (adult) (pediatric) (principal); Z99.89 Dependence on other enabling machines and devices
CPT/HCPCS: 99213

== ENCOUNTER → 2024-11-17 13:09 | Outpatient (BNVA) | payer MEDICARE, OTHER, SELFPAY | PROVIDERS: PCP Internal Medicine; Visit Provider Internal Medicine | DX: G47.33 Obstructive sleep apnea (adult) (pediatric) (principal); Z99.89 Dependence on other enabling machines and devices | CPT/HCPCS: 99212 ==

== ENCOUNTER 2024-12-02 13:32 | Outpatient (AMB) | payer MEDICARE, OTHER, SELFPAY ==
--- NOTE | 2024-12-02 13:52 | A.OFFPC_ITS ---
Vital Signs 12/02/24 13:54 Height 5 ft 7 in Weight 158 lb BMI 24.7 BP 124/70 Blood Pressure Location Lt brachial Position Sitting Pulse 52 Pulse Oximetry (%) 98 Oxygen Delivery Method Room Air Intake Visit Reasons: routine Intake Note: Pt is here for a follow appt,pt said he can not move his thumbs for a couple month after the OK gave him a shot. He also wanna speak with the Doctor regarding his sugar. Senior Software Engineer Required: No Allergies lactose [Lactose] Allergy (Mild, Verified 12/02/24 13:59) DIARRHEA Fall risk assessment: No Falls in past year Dental Screening Did you have a dental visit in the last 12 months?: Yes Did you have a dental problem in the last 6 months where you did not have access to dental care?: Yes Was dental information given to patient?: Yes HPI HPI Comments History of Present Illness Details This is an 84-year-old male with a past medical history of lsh-wlpvvzc-qfjfcwbpe diabetes, hypertension, hyperlipidemia and sleep apnea. Also follows OK Diabetes: on metformin 250 Reports blood glucose has been running high 150s-180s when previously under 150. Uses freestyle lite. Checks once daily fasting. Has been cheating on diet. Eye exam is up to date. Intermittently getting blurry vision Sees GI Dr Vaughn. ROS CONSTITUTIONAL: Denies weight loss, fever and chills. HEENT: Denies changes in vision and hearing. RESPIRATORY: Denies SOB and cough. CV: Denies palpitations and CP GI: Denies abdominal pain, nausea, vomiting and diarrhea. : Denies dysuria and urinary frequency. MSK: Denies new myalgia and joint pain. SKIN: Denies rash and pruritus. NEUROLOGICAL: Denies headache PSYCHIATRIC: Denies recent changes in mood. PHYSICAL EXAM: GENERAL: Alert and oriented x 3. NAD EYES: EOMI. Anicteric. HENT: Moist mucous membranes. No scleral icterus. No cervical lymphadenopathy. LUNGS: Clear to auscultation bilaterally. CARDIOVASCULAR: Regular rate and rhythm. No murmur. No JVD. ABDOMEN: Soft, non-tender +bs EXTREMITIES: No edema. Non-tender. SKIN: No rashes or lesions. Warm. NEUROLOGIC: No focal neurological deficits. CN II-XII grossly intact PSYCHIATRIC: Cooperative. Appropriate mood and affect [facility] Medical History (Updated 12/02/24 @ 14:31 by Flaquita Gómez MD) Diabetes Abdominal pain Abnormal abdominal CT scan History of prostate cancer AAKASH (obstructive sleep apnea) AAKASH on CPAP Surgical History S/P trigger finger release History of bladder surgery H/O prostatectomy History of eye surgery Social History Housing: House Comment: S3 Patient Tobacco Use Status: Former Tobacco user Second Hand Smoke Exposure: No service: No Current occupational status: retired Current occupational exposures/hazards: No Cognitive needs: No Hearing needs: No Vision needs: No Physical exam (Primary Care) Vital Signs: Last Vital Signs Pulse 52 12/02/24 13:54 BP 124/70 12/02/24 13:54 Pulse Ox 98 12/02/24 13:54 Oxygen Delivery Method Room Air 12/02/24 13:54 BMI result Body Mass Index 24.7 Tobacco/Smoking Status: Tobacco use Status Patient Tobacco Use Status Former Tobacco user 12/02/24 14:03 Coding Level of Care Code New Pt Level 4 (46874) Diagnoses Diabetes E11.9 Assessment & Plan Assessment & Plan (1) Diabetes: Code(s): E11.9 - Type 2 diabetes mellitus without complications Category: Medical Plan 84 y/o to establish care past medical, sugical social family reviewed meds [facility] return here for follow up improved dietary discretion Orders: Orders MMR IgG Measles Mumps Rubella Today Z01.84 - Encounter for antibody response examination Medications: New nystatin swish and spit 1 mL PO QID 10 days 40 mL 0RF
[2024-12-02 13:54] VITALS: BP 124/70; PULSE 52; O2SAT 98; BMI 24.7
--- OUTSIDE RECORDS SUMMARY | 2024-12-02 16:05 | XMS_ITS | Encounter Summary ---
Author Organization [facility] Address [address] [place] [address] Care Team Providers Care Licensed Pharmacist Name Role Phone Daniel Chen MD Primary Care Provider [phone] Reason for Visit * Reason Onset Date Comments provider 11/29/2024 Encounter Details Date Type Department Care Team (Late st Contact Info) Description 11/29/2024 Telephone Orthopedic Surgery - [place] [address] [facility] [address] [place] [phone] Carolee Hanson PA [address] [place] [phone] provider Social History Tobacco Use Types Packs/Day Years Used Date Smoking Tobacco: Never Assessed Sex and Gender Information Value Date Recorded Sex Assigned at Not on file Legal Sex Male 4:02 PM EST Gender Identity Not on file Sexual Orientation Not on file documented as of this encounter Progress Notes * RICH Busch - 11/29/2024 12:07 PM EDT I returned patient's call. He states cortisone injection to bilateral basal joints done August 19 helped significantly for about 2 months then over the past month he has been having increasing pain and some redness and inflammation over the basal joints. Seems to be worse in the morning and then get better as the day goes on though he does notice some skin discoloration. He does feel a bone spuron the right side and does have pain over the area. Does not sound like there is any infection. I stated I think this is most likely a flare of his arthritis some of the skin findings could be related to the cortisone. I offered an appointment. Wants to try to hold off on further cortisone injections. I recommended Tylenol and heat. He is seeing his primary care doctor on stated they could at least take a look at it and if there is any concerns again I would be happy to see him. He will call for an appointment if needed. * Judith Pollock - 11/29/2024 11:21 AM EDT Patient is calling stating that he was seen on 09/24 and had B/:L Thumb Cortisone Injections. And he now states both sites are Red to Pinkish in color, and very Painful to touch x ! Month if not longer. Please call him back @ [phone] . Thanks. documented in this encounter Plan of Treatment Not on file documented as of this encounter Goals Goal Patient Goal Type Associated Problems Recent Progress Patient-Stated? Author 8 visits General On track( 024 3:40 PM EST) No Carolee Wilson, OT Note: 1 Pt/ will return demo [...] signif pain 09/14/24 MET 5. Non-dom L mortuary operations manager at least 70% of R 09/14/24 MET and EXCEEDED documented as of this encounter Visit Diagnoses Not on filedocumented in this encounter Care Teams Licensed Pharmacist Relationship Specialty Start Date End Date Daniel Chen MD [address] [place] [address] PCP - General Family Medicine 08/10/24 documented as of this encounter
--- OUTSIDE RECORDS SUMMARY | 2024-12-02 16:05 | XMS_ITS | Clinical Summary ---
Author Organization [address] [facility] Address [address] [place] [address] Phone Care Team Providers Care Powder Worker Name Role Phone Daniel Chen MD Primary Care Provider [phone] Allergies Active Allergy Reactions Criticality Noted Date [...] Encounters Date Type Department Care Team Description 11/29/2024 Telephone Orthopedic Surgery [facility] [address] [facility] [address] [place] [phone] Carolee Hanson PA provider 09/24/2024 1:30 PM EST Office Visit Orthopedic Surgery [facility] [address] [facility] [address] [place] [phone] Carolee Hanson PA Lateral epicondylitis of both elbows (Primary Dx); Arthritis of carpometacarpal (CMC) joint of both thumbs; Acute pain of left shoulder 09/14/2024 1:00 PM EST Treatment [facility] Occupational Therapy [address] [phone] Carolee Wilson, OT Pain of both elbows (Primary Dx) 09/09/2024 12:30 PM EST Treatment [facility] Occupational Therapy [address] [phone] Carolee Wilson, OT Pain of both elbows (Primary Dx) 09/07/2024 12:30 PM EST Treatment [facility] Occupational Therapy [address] [phone] Carolee Wilson, OT Pain of both elbows (Primary Dx) from Last 3 Months Immunizations Name Administration [...] signif pain 09/14/24 MET 5. Non-dom L aws solution architect at least 70% of R 09/14/24 MET and EXCEEDED Insurance MEDICARE [facility] Care Teams Powder Worker Relationship Specialty Start Date End Date Daniel Chen MD [address] [address] PCP - General Family Medicine 08/10/24
--- OUTSIDE RECORDS SUMMARY | 2024-12-02 16:05 | XMS_ITS | Patient Health Record ---
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) Active confirmed Problem 189195419 Abnormal CT scan , colon (R93.3) Active confirmed Problem 85098379 Hypertension, unspecified type (I10) Active confirmed Problem 998470805 RLQ abdominal pain (R10.31) Active confirmed Plan Of Treatment Future Test Test Name Order Date COLONOSCOPY 03/17/2019 COLONOSCOPY 01/31/2023 Insurance Providers Payer Name Payer Address Payer Phone Subscriber Number Group Number Insured Name Patient Relationship to Insured Coverage Start Date Coverage End Date MEDICARE OF [place] [address] [place] [address] [phone] [id number] HANNA JEAN-BAPTISTE Self - patient is the insured [facility] [address] [place] [phone] [id number] HANNA JEAN-BAPTISTE Self - patient is the insured Medical (General) History Medical History History ICD Code prostate cancer AAKASH/CPAP pre diabetes Elevated cholesterol Colon polyps, colonoscopy 07/03, five-ye ar followup Surgical History Surgery Date(Month/Year) prostatectomy Urethral sling 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
== END 2024-12-02 14:18 | disposition home or self-care (01) ==
LOC: HO.HMCHD 13:32
PROVIDERS: PCP Internal Medicine; Visit Provider Internal Medicine
DX: E11.9 Type 2 diabetes mellitus without complications (principal)

== ENCOUNTER 2024-12-02 13:32 | Outpatient (REF) | payer MEDICARE, OTHER, SELFPAY ==
[2024-12-03 22:43] LABS: Rubeola IgG (Measles) >300.00 AU/mL
== END 2024-12-02 13:33 | disposition home or self-care (01) ==
LOC: HO.LAB 13:32
PROVIDERS: PCP Internal Medicine; Visit Provider Internal Medicine
DX: Z01.84 Encounter for antibody response examination (principal); E11.9 Type 2 diabetes mellitus without complications
CPT/HCPCS: 36415; 86735; 86762; 86765; 99202

== ENCOUNTER 2025-01-20 14:46 | Outpatient (AMB) | payer MEDICARE, OTHER, SELFPAY ==
--- NOTE | 2025-01-20 14:04 | AM.OFFVISNUR ---
Intake Visit Reasons: New Diab Allergies lactose [Lactose] Allergy (Mild, Verified 12/02/24 13:59) DIARRHEA Coding
[2025-01-20 14:50] VITALS: BP 122/70; PULSE 56; TEMP 36.2; O2SAT 98; BMI 24.6
--- NOTE | 2025-01-20 14:50 | A.OFFPC_ITS ---
Vital Signs 01/20/25 14:50 Height 5 ft 7 in Weight 157 lb BMI 24.6 BP 122/70 Blood Pressure Location Lt brachial Position Sitting Pulse 56 Pulse Source Pulse Oximeter Temp 97.2 F Temp Source Axillary Pulse Oximetry (%) 98 Oxygen Delivery Method Room Air Intake Visit Reasons: New Diab Accompanied by: Self / Same As Patient Allergies lactose [Lactose] Allergy (Mild, Verified 01/20/25 14:51) DIARRHEA Tobacco use date assessed: 01/20/25 Fall risk assessment: No Falls in past year Last assessed Fall Risk: 01/20/25 Dental Screening Dental Screen Date: 01/20/25 Did you have a dental visit in the last 12 months?: Yes Did you have a dental problem in the last 6 months where you did not have access to dental care?: No HPI HPI Comments History of Present Illness Details This is an 84-year-old male with a past medical history of iby-aftlgwn-mmpesbpna diabetes, hypertension, hyperlipidemia and sleep apnea. Also follows [place] Diabetes: on metformin 250 daily. Last visit Reports blood glucose has been running high 150s-180s when previously under 150. Uses freestyle lite[facility] exam is up to date. Intermittently getting blurry vision Sees GI Dr Vaughn. ROS CONSTITUTIONAL: Denies weight loss, fever and chills. HEENT: Denies changes in vision and hearing. RESPIRATORY: Denies SOB and cough. CV: Denies palpitations and CP GI: Denies abdominal pain, nausea, vomiting and diarrhea. : Denies dysuria and urinary frequency. MSK: Denies new myalgia and joint pain. SKIN: Denies rash and pruritus. NEUROLOGICAL: Denies headache PSYCHIATRIC: Denies recent changes in mood. PHYSICAL EXAM: GENERAL: Alert and oriented x 3. NAD EYES: EOMI. Anicteric. HENT: Moist mucous membranes. No scleral icterus. No cervical lymphadenopathy. LUNGS: Clear to auscultation bilaterally. CARDIOVASCULAR: Regular rate and rhythm. No murmur. No JVD. ABDOMEN: Soft, non-tender +bs EXTREMITIES: No edema. Non-tender. SKIN: No rashes or lesions. Warm. NEUROLOGIC: No focal neurological deficits. CN II-XII grossly intact PSYCHIATRIC: Cooperative. Appropriate mood and affect [facility] Medical History Diabetes Abdominal pain Abnormal abdominal CT scan History of prostate cancer AAKASH (obstructive sleep apnea) AAKASH on CPAP Surgical History History of colonoscopy (~02/12/23) S/P trigger finger release History of bladder surgery H/O prostatectomy History of eye surgery Family History Mother No problems noted. Father No problems noted. Social History Housing: House Comment: S3 Patient Tobacco Use Status: Former Tobacco user e-Cigarette/Vaping Use: Former Use Second Hand Smoke Exposure: No service: No Current occupational status: retired Current occupational exposures/hazards: No Cognitive needs: No Hearing needs: No Vision needs: Yes (rx glasses) Questionnaire PHQ-9 Over the last 2 weeks, how often have you been bothered by any of the following problems? 1. Little interest or pleasure in doing things: not at all 2. Feeling down, depressed, or hopeless: not at all 3. Trouble falling or staying asleep, or sleeping too much: not at all 4. Feeling tired or having little energy: not at all 5. Poor appetite or overeating: not at all 6. Feeling bad about yourself - or that you are a failure or have let yourself or your family down: not at all 7. Trouble concentrating on things, such as reading the newspaper or watching television: not at all 8. Moving or speaking so slowly that other people could have noticed. Or the opposite - being so fidgety or restless that you have been moving around a lot more than usual: not at all 9. Thoughts that you would be better off or of hurting yourself in some way: not at all Total score: 0 Source: Developed by Drs. Jose Angel Tinsley, Diane England, Kit Lyon and colleagues, with an educational cheko from [employer]. Thrive Questionnaire Date Thrive assessed: 01/20/25 I am a: Patient Within the past 12 months, did the food you bought not last and you didn't have the money to get more?: Never true Within the past 12 months, did you worry whether your food would run out before you got money to buy more?: Never true Do you have trouble paying for medicines?: No Do you have trouble getting transportation to medical appointments?: No Do you have trouble paying your heating and electricity bill?: No Do you have trouble taking care of your child, family member or friend?: No Do you have trouble with day-to-day activities such as bathing, preparing meals, shopping, managing finances, etc.?: No Are you currently unemployed and looking for a job?: No Are you interested in more education?: No THRIVE Score: 0 AUDIT C Alcohol Use Questionnaire (AUDIT-C) 1. How often do you have a drink containing alcohol?: Monthly or less 2. How many drinks containing alcohol do you have on a typical day when you are drinking?: 1 or 2 3. How often do you have six or more drinks on one occasion?: Less than monthly Total Score: 2 GEOVANNA-7 AMB Questionnaire GEOVANNA-7 Date GEOVANNA - 7 assessed: 01/20/25 Feeling nervous, anxious, or on edge: 0 = Not at all Not being able to stop or control worryin = Not at all Worrying too much about different things: 0 = Not at all Trouble relaxin = Not at all Being so restless that it is hard to sit still: 0 = Not at all Becoming easily annoyed or irritable: 0 = Not at all Feeling afraid as if something awful might happen: 0 = Not at all Total GEOVANNA-7 score (0-4 normal; 5-9 mild; 10-14 moderate; 15-21 severe): 0 Source: Developed by Drs. Jose Angel Tinsley, Diane England, Kit Lyon and colleagues, with an educational cheko from [employer]. Physical exam (Primary Care) Vital Signs: Last Vital Signs Temp 97.2 F 01/20/25 14:50 Pulse 56 01/20/25 14:50 BP 122/70 01/20/25 14:50 Pulse Ox 98 01/20/25 14:50 Oxygen Delivery Method Room Air 01/20/25 14:50 BMI result Body Mass Index 24.6 Tobacco/Smoking Status: Tobacco use Status Tobacco use date assessed 01/20/25 01/20/25 14:52 Patient Tobacco Use Status Former Tobacco user 01/20/25 14:52 e-Cigarette/Vaping Use Former Use 01/20/25 14:52 PHQ-9: PHQ-9 Score PHQ-9: Total score 0 01/23/25 14:00 Thrive Assessment: Date of Thrive Assessment Date Thrive assessed 01/20/25 01/20/25 14:52 Coding Level of Care Code Est Pt Level 4 (75687) Diagnoses Type 2 diabetes mellitus with hyperglycemia, without long-term current use of insulin E11.65 Diabetes mellitus complication status: with hyperglycemia Diabetes mellitus petroleum terminal plant operator insulin use: without petroleum terminal plant operator use Diabetes mellitus type: type 2 Assessment & Plan Assessment & Plan (1) Diabetes: Code(s): E11.9 - Type 2 diabetes mellitus without complications Category: Medical Qualifiers: Diabetes mellitus complication status: with hyperglycemia Diabetes mellitus petroleum terminal plant operator insulin use: without petroleum terminal plant operator use Diabetes mellitus type: type 2 Qualified Code(s): E11.65 - Type 2 diabetes mellitus with hyperglycemia Plan 84 with diabetes, now suboptimally controlled. increase metformin to 500mg daily.follow up diabetic follow up 2 months. Orders: Orders Hemoglobin A1c 3 Months E11.9 - Type 2 diabetes mellitus without complications Comprehensive Met. Panel 3 Months E11.9 - Type 2 diabetes mellitus without complications Medications: New blood sugar diagnostic (FreeStyle Lite Strips) As directed 100 ea 3RF Changed From metformin 250 mg PO DAILY To metformin 500 mg PO DAILY 90 tabs 3RF
--- OUTSIDE RECORDS SUMMARY | 2025-01-20 15:25 | XMS_ITS ---
Author Name [facility] Organization [facility] Address [address] [place] [id number] Care Team Providers Care Finish Grinder Name Role Phone AIYANA GELLER Primary Care [...] Policy [facility] [facility] Mar 15, 2018 [id number] DOMINIC BEDOLLA RT PATIENT MEDICARE (WNR) MEDICARE (M) PART B Nov 13, 2010 PART B [id number] RODOLFO THORNTONLAURANEETU RT PATIENT MEDICARE (WNR) MEDICARE (M) PART A January 13, 2007 PART A [id number] DOMINIC BEDOLLA RT PATIENT Selected Encounter This section includes the information on record at [place] for the Encounter. Date/Time Encounter Type Encounter Description Reason Provider Source Jul 29, 2024 02:00 PM OFFICE O/P EST MOD 30 MIN PRIMARY CARE/MEDICINE ICD-10-CM M54.2 Cervicalgia JARRETT GELLER AM Encounter Template Text not used by [place] Assessments - Encounter Diagnoses This section includes the primary and secondary diagnoses documented for the Encounter. 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 This section includes future appointments and future orders which are active, pending or scheduled. Future Appointments This section includes appointments that were scheduled to occur 6 months from the date of the Encounter, up to a maximum of 20 appointments. The data comes from all AR treatment facilities. Appointment Date/Time Appointment Type Appointme nt Facility Name Aug 03, 2024 10:00 AM AMBULATORY - MEDICINE [facility] [place] [facility] Aug 11, 2024 01:00 PM AMBULATORY - NONE [facility] [place] [facility] Aug 18, 2024 01:30 PM AMBULATORY - REHAB MEDICIN E [facility] [place] [facility] Aug 19, 2024 01:00 PM AMBULATORY - MEDICINE [facility] [place] [facility] Sep 28, 2024 01:00 PM AMBULATORY - NONE [facility] [place] [facility] Oct 21, 2024 02:00 PM AMBULATORY - MEDICINE [facility] [place] [facility] Dec 27, 2024 02:30 PM AMBULATORY - MEDICINE [facility] [place] [facility] January 18, 2025 01:00 PM AMBULATORY - MEDICINE [facility] Lab Results: +/- 30 days of the encounter This section includes the Chemistry and Hematology Lab Results on record with AR for the patient. Radiology Reports and Pathology Reports are provided separately, in subsequent sections. Lab Results This section contains the Chemistry/Hematology Results that were resulted 30 days before or 30 daysafter the date of the Encounter. Date/Time Source Result Type Result - Unit Interpretation Reference Range Specimen Type Comment Aug 11, 2024 12:49 PM [facility] CBC BLOOD Specimen Type: BLOOD No comment entered. Ordering Provider: AIYANA GELLER Report Released Date/Time: Jul 07, 2024 09:55 AM Reporting Lab: [address] [address] Performing Lab: [address] [address] WBC 6.26 10*3/uL 4.50-11.00 RBC 4.21 10*6/uL L 4.23-5.66 HGB 12.8 g/dL 12.8-17 HCT 36.2 L 39.2-50.4 MCV 86.0 fL 82-99 MCHC 35.4 g/dL H 30.8-35.1 PLT 149 10*3/uL 140-360 RDW-CV 13.2 12.0-16.0 MCH 30.4 pg 26.2-32.6 Aug 11, 2024 12:49 PM [facility] BASIC METABOLIC PANEL (non-fasting) SERUM Spe cimen Type: SERUM No comment entered. Ordering Provider: AIYANA GELLER Report Released Date/Time: Jul 07, 2024 09:55 AM Reporting Lab: [address] [address] Performing Lab: [address] [address] UREA NITROGEN 23 mg/dL 7-25 GLUCOSE 123 mg/dL H 65-100 SODIUM 141 mmol/L 135-145 POTASSIUM 4.9 mmol/L 3.5-5.0 CHLORIDE 108 mmol/L 100-110 CO2 23 meq/L 20-30 CREATININE, Serum 1.08 mg/dL 0.50-1.40 eGFR(CKD-EPI 2020) 69 mL/min >60 Aug 11, 2024 12:49 PM [facility] LIPID PANEL, NON FASTING SERUM Specimen Type: SERUM No comment entered. Ordering Provider: AIYANA GELLER Report Released Date/Time: Jul 07, 2024 09:55 AM Reporting Lab: [facility] [address] [address] Performing Lab: [facility] [address] [address] CHOLESTEROL 144 mg/dL TRIGLYCERIDE 204 mg/dL H 0-150 LDL calculated 52 mg/dL 0-129 CHOL/HDL 2.8 HDL CHOLESTEROL 51 mg/dL 40-60 Aug 11, 2024 12:49 PM [facility] HEMOGLOBIN A1C PANEL BLOOD Specimen Type: BLO OD Comment: Values obtained from A1C measurements can vary. For atypical A1C assays, a reported value of 7.0 could actually be between 6.72 and 7.28 if measured by a reference method. A reported value of 9.0 could actually be between 8.73 and 9.27. Ref: http://www.ngsp.org/CAPdata.asp Ordering Provider: AIYANA GELLER Report Released Date/Time: Jul 07, 2024 09:55 AM Reporting Lab: [facility] [address] [address] Performing Lab: [address] [address] HEMOGLOBIN A1C 6.8 H 4.0-5.6 Aug 11, 2024 12:49 PM [facility] LIVER FUNCTION SERUM Specimen Type: SERUM No comment entered. Ordering Provider: AIYANA GELLER Report Released Date/Time: Jul 07, 2024 09:55 AM Reporting Lab: [facility] [address] [address] Performing Lab: [address] [address] PROTEIN,TOTAL 6.8 g/dL 6.0-8.3 ALBUMIN 3.9 g/dL 3.5-5.0 ALKALINE PHOSPHATASE 56 U/L 40-150 AST 16 U/L 5-34 ALT 16 U/L BILIRUBIN, TOTAL 0.4 mg/dL 0.2-1.2 Aug 11, 2024 12:49 PM [facility] MICROALBUMIN CREATININE RATIO PANEL URINE Spe cimen Type: URINE No comment entered. Ordering Provider: AIYANA GELLER Report Released Date/Time: Jul 07, 2024 09:55 AM Reporting Lab: [facility] [address] [address] Performing Lab: [address] [address] MICROALBUMIN/CREATININE RATIO 63.6 mg/g H 0-29.9 MICROALBUMIN,QUANTITATIVE 4.8 mg/dL RR U NAVAIL CREATININE URINE 75.42 mg/dL Vital Signs: All taken on the encounter date This section contains inpatient and outpatient Vital Signs collected on the date of the Encounter. Date/Time Temperature Pulse Blood Pressure Respiratory Rate SP02 Pain Height Weight Body Mass Index Source Jul 29, 2024 02:00 PM 138[facility] Jul 29, 2024 01:49 PM 98.3 60 155/71 20 98 8 65 161 27 [facility] Social History: Smoking Status (Most current) and Tobacco Use (All prior to encounter date) This section includes the most current, and the historical, smoking and tobacco- related health factors from the AR facility where the Encounter took place. Current Smoking Status This section includes the most current smoking, or tobacco-related health factor, from the AR facility where the Encounter took place. Date/Time Current Smoking Status Comment Facil ity 2024 02:30 PM AR-TOBACCO QUIT 15 YRS OR MORE [facility] Tobacco Use History This section includes a history of the smoking, or tobacco-related health factors, that were collected on or before the date of the Encounter. The data comes from the AR facility where the Encounter took place. Date/Time Smoking Status/Tobacco Use Comment F acility 2024 02:30 PM [facility]-TOBACCO QUIT [facility] YRS OR MORE [facility] Dec 23, 2022 02:30 PM VA-TOBACCO FORMER USER [facility] [place] [facility] Dec 23, 2022 02:30 PM VA-TOBACCO QUIT 15 YRS OR MORE [facility] [place] [facility] Nov 19, 2021 02:00 PM VA-TOBACCO FORMER USER [facility] [place] [facility] Nov 19, 2021 02:00 PM VA-TOBACCO QUIT 15 YRS OR MORE [facility] [place] [facility] Dec 08, 2020 11:00 AM VA-TOBACCO FORMER USER [facility] [place] [facility] Dec 08, 2020 11:00 AM VA-TOBACCO QUIT 15 YRS OR MORE [facility] [place] [facility] Radiology Reports: +/- 30 days of [...] the Encounter. The data comes from all AR treatment facilities. Date/Time Radiology Report Provider Source Aug 11, 2024 12:58 PM ULTRASOUND SCROTUM: HANNA RAMIREZ [id number] -[id number] M Exm Date: AUG 11, 2024@12:58 Req Phys: AIYANA GELLER Loc: CWM/NO/PACT 7 (Req'g Loc) Img Loc: ULTRASOUND Service: Unknown [facility] [place] [address] (Case [id number] COMPLETE) ULTRASOUND SCROTUM (US Detailed) CPT:48213 Reason for Study: mass Clinical History: small mobile non painful lump left side of scrotum Report Status: Verified Date Reported: AUG 11, 2024 Date Verified: AUG 11, 2024 Odd Piece Checker E-Sig: Report: SCROTAL SONOGRAM Technique: Multiple transverse [...] significant abnormality. READING PHYSICIAN: Cy Candelario M.D. -[id number] 08/11/2024 11:56 [facility] National Teleradiology Program [phone] (For Medical Practitioner Use Only) Attention Patients / Veterans: If you have questions or concerns about these test results, please contact your ordering provider or primary care team. Primary Diagnostic Code: NO ALERT REQUIRED Primary Interpreting Staff: RADIOLOGY,OUTSIDE SERVICE, Staff Physician / RADIOLOGY,OUTSIDE SERVICE [facility] Encounter Notes: All associated encounter [...] 84 year old . HPI: Pleasant male here to follow up. He had cervical [...] Inactive Outpatient Medications Status = 1) GOV-PAXLOVID [id number] RENAL PKT 2 TAKE 1 TABLET NILMATRELVIR [...] 13:49)BMI: 26.8161 lb [73.03 kg] (07/29/2024 13:49) is alert and oriented X3 Neck: supple [...] doing well 3. Diabetes Mellitus Type 2 ([facility] [id number]) - well controlled 4. Hypertension - repeat [...] diminished) SENSORY CHECK: Includes 10 gram Monofilament (Joppa-Delisa) test of sensation. Intact (Greater than or [...] of active outpatient prescriptions dispensed from this AR (local) and dispensed from another AR or [facility] facility (remote) as well as inpatient orders [...] or non-VA provider. /amrita/ Aiyana Geller DNP, COMPLIANCE AND CONTROL ANALYST-BC, CNL Primary Care Nurse Practitioner Signed: 07/29/2024 14:23 AIYANA [facility]LLER [facility] Jul 29, 2024 01:57 PM PREVENTIVE [...] this can be accurately recorded in their AR medical record. /amrita/ Maximino Shah Health Customer Program Manager ADZING AND BORING MACHINE FEEDER,PRIMARY CARE Signed: 07/29/2024 13:59 MAXIMINO SHAH [facility] Jul 29, 2024 01:53 PM PREVENTIVE MEDICINE NURSING NOTE: LOCAL TITLE: CLINICAL REMINDERS/NURSING STANDARD TITLE: PREVENTIVE MEDICINE NURSING NOTE DATE OF NOTE: JUL 29, 2024@13:53 ENTRY DATE: JUL 29, 2024@13:53:46 AUTHOR: MAXIMINO SHAH EXP COSIGNER: URGENCY: STATUS: COMPLETED Advance Directive Screen [...] full rights to use it throughout the AR system. PRIMARY SCREEN RESULT: The Primary Screen is NEGATIVE. The individual answered never to all forms of IPV above (i.e., answered never to all 5 items) The individual accepts education and/or resources: No EDUCATION: Other: not interested at this time // Maximino Shah Health Customer Program Manager ADZING AND BORING MACHINE FEEDER,PRIMARY CARE Signed: 07/29/2024 13:55 MAXIMINO SHAH [facility]
--- OUTSIDE RECORDS SUMMARY | 2025-01-20 15:25 | XMS_ITS | Clinical Summary ---
Author Organization [address] [facility] Address [address] [place] [address] Phone Care Team Providers Care Contract Analyst Name Role Phone Daniel Chen MD Primary Care Provider [phone] Allergies Active Allergy Reactions Criticality Noted Date [...] Care Team Description 11/29/2024 Telephone Orthopedic Surgery [facility] [address] [place] [address] Carolee Hanson PA provider from Last 3 Months Immunizations Name Administration [...] 08/19/2024 12:39 PM EST Plan of Treatment Upcoming Encounters Date Type Department Care Team ([facility] st Contact Info) Description 02/15/2025 3:30 PM EDT Consult Orthopedic Surgery [facility] [address] [place] [address] Gavi Ibarra MD [address] [place] [address] Health Maintenance Due Date Last Done Comments [...] 08/30/2024 Hypertension/CHF/CAD Annual BMP Blood Test 08/30/2024 COVID-19 Vaccine (11 - Pfizer risk 2023- season) 2024 05/28/2024, 06/16/2023, 01/10/2023, Additional history exists DTaP,Tdap,and Td Vaccines (2 - Td or Tdap) 06/04/2030 06/04/2020 Zoster Vaccines Completed 04/01/2020, 11/13, 08/16/2009 RSV Immunization Adult Patients Completed 06/16/2023 Influenza Vaccine Completed 06/24/2024, , 06/20/2022, Additional [...] age to complete this topic Meningococcal B Vaccine Aged Out No l onger eligible based on patient's age to complete [...] signif pain 09/14/24 MET 5. Non-dom L client portfolio manager at least 70% of R 09/14/24 MET and EXCEEDED Insurance MEDICARE Care Teams Contract Analyst Relationship Specialty Start Date End Date Daniel Chen MD [address] [place] [address] PCP - General Family Medicine 08/10/24
--- OUTSIDE RECORDS SUMMARY | 2025-01-20 15:25 | XMS_ITS | Encounter Summary ---
Author Name [facility] [place] Address [address] [place] [id number] Care Team Providers Care Senior Business Broker Name Role Phone CECIL GELLER Primary Care [...] AGENC Y SUPP PL Mar 15, 2018 [id number] [phone] [id number] DOMIN[address] BEDOLLA RT PATIENT MEDICARE (WNR) MEDICARE (M) PART B Nov 13, 2010 PART B [id number] DOMINIC BEDOLLA RT PATIENT MEDICARE (WNR) MEDICARE (M) PART A January 13, 2007 PART A [id number] DOMINIC BEDOLLA RT PATIENT Selected Encounter This section includes the information on record at [place] for the Encounter. Date/Time Encounter Type Encounter Description Reason Pro vider Source May 03, 2024 01:27 PM Outpatient Encounter ADMIN PAT ACTIVTIES (MASNONCT) IHE Encounter Template Text not used by [place] Plan of Treatment: Future Appointments (+ 6 months) and Future Tests (+/- 45 days) The Plan of Treatment section includes future care activities for the patient from all [place] [facility] This section includes future appointments and future orders which are active, pending or scheduled. Future Appointments This section includes appointments that were scheduled to occur 6 months from the date of the Encounter, up to a maximum of 20 appointments. The data comes from all [place] treatment facilities. Appointment Date/Time Appointment Type Appointme nt Facility Name May 21, 2024 01:30 PM AM[facility]ULATORY [facility] NONE [facility] [place] [facility] May 25, 2024 01:45 PM AM[place]ULATORY [place]ICINE [place] [facility] [place] [facility] Jun 15, 2024 02:00 PM AM[place]ULATORY [place]ICINE [place] [facility] [place] [facility] Jul 14, 2024 01:00 PM AM[place]ULATORY [place]ICINE [place] [facility] [place] [facility] Jul 23, 2024 01:20 PM AM[place]ORY [place]ICINE [place] [facility] [place] [facility] Jul 29, 2024 02:00 PM AM[place]ATORY [place]IC[place] [facility] [place] [facility] Aug 03, 2024 10:00 AM AM[place]ULATORY [place]ICINE [place] [facility] [place] [facility] Aug 11, 2024 01:00 PM AMBULATORY - NONE [facility] [place] [facility] Aug 18, 2024 01:30 PM AMBULATORY - REHAB MEDICIN E [facility] [place] [facility] Aug 19, 2024 01:00 PM AMBULATORY - [place]ICINE [place] [facility] [place] [facility] Sep 28, 2024 01:00 PM AMBULATORY - NONE [place] [facility] [place] [facility] Oct 21, 2024 02:00 PM AM[place]ULATORY [place] [facility] [place] [facility] Social History: Smoking Status (Most current) and Tobacco Use (All prior to encounter date) This section includes the most current, and the historical, smoking and tobacco- related health factors from the [facility] facility where the Encounter took place. Current Smoking Status This section includes the most current smoking, or tobacco-related health factor, from the [place] facility where the Encounter took place. Date/Time Current Smoking Status Comment Efren ity 2024 02:30 PM VA-TOBACCO FORMER USER [place] [facility] [place] [facility] Tobacco Use History This section includes a history of the smoking, or tobacco-related health factors, that were collected on or before the date of the Encounter. The data comes from the [place] facility where the Encounter took place. Date/Time Smoking Status/Tobacco Use Comment F acility 2024 02:30 PM VA-TOBACCO QUIT 15 YRS OR MORE [place] [facility] [place] [facility] Dec 23, 2022 02:30 PM VA-TOBACCO FORMER USER [place] [facility] [place] [facility] Dec 23, 2022 02:30 PM VA-TOBACCO QUIT 15 YRS OR MORE [place] [facility] [place] [facility] Nov 19, 2021 02:00 PM VA-TOBACCO FORMER USER [place] [facility] [place] [facility] Nov 19, 2021 02:00 PM VA-TOBACCO QUIT 15 YRS OR MORE [place] [facility] [place] [facility] Dec 08, 2020 11:00 AM VA-TOBACCO FORMER USER [place] [facility] [place] [facility] Dec 08, 2020 11:00 AM VA-TOBACCO QUIT 15 YRS OR MORE [place] [facility] [place] [facility] Encounter Notes: All associated [...] TEST Thank you, Sascha /amrita/ SASCHA RIVERA [employer] Press Operator Signed: 05/03/2024 13:30 Receipt Acknowledged By: 05/05/2024 12:49 /amrita/ Cecil J Gelelr DNP, CONE WINDER-BC, CNL Primary Care Nurse Practitioner 05/03/2024 13:35 /es/ Mirtha Ludwig MSN RN CNL Primary Care RN 05/03/2024 ADDENDUM STATUS: COMPLETED Renewed as requested /amrita/ Mirtha Ludwig MSN RN CNL Primary Care RN Signed: 05/03/2024 13:35 SASCHA RIVERA [facility]
--- OUTSIDE RECORDS SUMMARY | 2025-01-20 15:25 | XMS_ITS ---
Author Name [facility] [place] Address [address] [place] [id number] Care Team Providers Care Building Illuminating Engineer Name Role Phone CECIL GELLER Primary Care Provider [facility] Insurance Providers: All historical and current Section [...] to Policy [facility]PP [facility] Mar 15, 2018 [id number] DOMINIC BEDOLLA RT PATIENT MEDICARE (WNR) MEDICARE (M) PART B Nov 13, 2010 PART B [id number] DOMINIC BEDOLLA RT PATIENT MEDICARE (WNR) MEDICARE (M) PART A January 13, 2007 PART A [id number] DOMINIC BEDOLLA RT PATIENT Selected Encounter This section includes the information on record at [place] for the Encounter. Date/Time Encounter Type Encounter Description Reason Provider Source Dec 27, 2024 02:30 PM OFFICE O/P EST HI 40 MIN PRIMARY CARE/MEDICINE ICD-10-CM E11.9 Type 2 diabetes mellitus without complications UMBERTO GELLER Encounter Template Text not used by [place] Assessments - Encounter Diagnoses This section includes the primary and secondary diagnoses documented for the Encounter. Date/Time Primary/Secondary Diagnosis Diagnosis Name Provider Source Dec 27, 2024 03:04 PM PRIMARY Type 2 diabetes mellitus without complications [facility] Dec 27, 2024 03:04 PM SECONDARY Chest pain on breathing [facility] Dec 27, 2024 03:04 PM SECONDARY Hyperlipidemia, unspecified [facility] Dec 27, 2024 03:04 PM SECONDARY Hypertensive heart disease without heart failure [facility] Dec 27, 2024 03:04 PM SECONDARY Pain in left shoulder [facility] Dec 27, 2024 03:04 PM SECONDARY Pain in unspecified hand [facility] Plan of Treatment: Future Appointments (+ 6 months) and Future Tests (+/- 45 days) The Plan of Treatment section includes future care activities for the patient from all [facility]. This section includes future appointments and future orders which are active, pending or scheduled. Future Appointments This section includes appointments that were scheduled to occur 6 months from the date of the Encounter, up to a maximum of 20 appointments. The data comes from all [facility]. Appointment Date/Time Appointment Type Appointme nt Facility Name January 18, 2025 01:00 PM AM[facility]UL[facility] January 31[facility] 2025 01:00 PM [facility] Feb 15, 2025 03:30 PM [facility] Active, Pending, and Scheduled Orders This section includes a listing of several types of active, pending, and scheduled orders, including clinic medications orders, diagnostic test orders, procedure orders and consult orders; where the start date of the order is 45 days before the date of the Encounter or 45 days after the date of theEncounter. The data comes from all VA treatment facilities. Test Date/Time Test Type Test Details Facility Name Dec 27, 2024 02:48 PM Consult Order COMMUNITY CARE-ORTHO SURGICAL Cons Wrap [facility] Dec 27, 2024 02:49 PM Consult Order OCCUPATION AL THERAPY OUTPT Cons Wrap [facility] Lab Results: +/- 30 days of the encounter This section includes the Chemistry and Hematology Lab Results on record with [place] for the patient. Radiology Reports and Pathology Reports are provided separately, in subsequent sections. Lab Results This section contains the Chemistry/Hematology Results that were resulted 30 days before or 30 daysafter the date of the Encounter. Date/Time Source Result Type Result - Unit Interpretation Reference Range Specimen Type Comment Dec 24, 2024 09:19 AM [facility] LIPID PANEL, NON FASTING SERUM Specimen Type: SERUM No comment entered. Ordering Provider: CECIL GELLER Report Released Date/Time: Dec 24, 2024 08:45 AM Reporting Lab: [facility] [address] [id number] Performing Lab: [facility] [address] [id number] CHOLESTEROL 136 mg/dL TRIGLYCERIDE 109 mg/dL 0-150 LDL calculated 60 mg/dL 0-129 CHOL/HDL 2.5 HDL CHOLESTEROL 54 mg/dL >40 Dec 24, 2024 09:19 AM [facility] BASIC METABOLIC PANEL (non-fasting) SERUM Spe cimen Type: SERUM No comment entered. Ordering Provider: CECIL GELLER Report Released Date/Time: Dec 24, 2024 08:45 AM Reporting Lab: [facility] [address] [phone] Performing Lab: [address] [address] UREA NITROGEN 18 mg/dL 8-26 GLUCOSE 156 mg/dL H 65-100 SODIUM 140 mmol/L 136-145 POTASSIUM 4.8 mmol/L 3.5-5.1 CHLORIDE 104 mmol/L 98-107 CO2 27 meq/L 23-31 CALCIUM 9.9 mg/dL 8.8-10 CREATININE, Serum 1.10 mg/dL 0.72-1.25 eGFR(CKD-EPI 2020) 67 mL/min >60 Dec 24, 2024 09:19 AM [facility] CBC BLOOD Specimen Type: BLOOD No comment entered. Ordering Provider: CECIL GELLER Report Released Date/Time: Dec 24, 2024 08:45 AM Reporting Lab: [facility] [address] [id number] Performing Lab: [facility] [address] [id number] WBC 5.11 10*3/uL 4.50-11.00 RBC 4.56 10*6/uL 4.23-5.66 HGB 13.9 g/dL 12.8-17 HCT 39.4 39.2-50.4 MCV 86.4 fL 82-99 MCHC 35.3 g/dL H 30.8-35.1 PLT 155 10*3/uL 140-360 MPV 9.2 fL 9.2-12.4 RDW-CV 12.6 12.0-16.0 MCH 30.5 pg 26.2-32.6 Dec 24, 2024 09:19 AM [facility] HEMOGLOBIN A1C PANEL BLOOD Specimen Type: [...] Dec 24, 2024 08:45 AM Reporting Lab: [facility] [address] [phone] Performing Lab: [facility] [address] [address] HEMOGLOBIN A1C 7.5 H 4.0-5.6 Dec 24, 2024 09:19 AM [facility] MICROALBUMIN CREATININE RATIO PANEL URINE Spe cimen Type: URINE No comment entered. Ordering Provider: CECIL GELLER Report Released Date/Time: Dec 24, 2024 08:45 AM Reporting Lab: [facility] [address] [id number] Performing Lab: [facility] [address] [address] MICROALBUMIN/CREATININE RATIO 59.0 mg/g H 0-29.9 MICROALBUMIN,QUANTITATIVE 8.0 mg/dL RR U NAVAIL CREATININE URINE 135.53 mg/dL 63-166 Dec 24, 2024 09:19 AM [facility] LIVER FUNCTION SERUM Specimen Type: SERUM No comment entered. Ordering Provider: CECIL GELLER Report Released Date/Time: Dec 24, 2024 08:45 AM Reporting Lab: [facility] [address] [id number] Performing Lab: [address] [address] PROTEIN,TOTAL 7.0 g/dL 6.4-8.3 ALBUMIN 4.4 g/dL 3.2-4.6 ALKALINE PHOSPHATASE 87 U/L 40-150 AST 23 U/L 5-34 ALT 22 U/L BILIRUBIN, TOTAL 0.7 mg/dL 0.2-1.2 Vital Signs: All taken on the encounter date This section contains inpatient and outpatient Vital Signs collected on the date of the Encounter. Date/Time Temperature Pulse Blood Pressure Respiratory Rate SP02 Pain Height Weight Body Mass Index Source Dec 27, 2024 03:03 PM 136/80 [facility] Dec 27, 2024 02:22 PM 98.1 69 140/69 20 97 7 65 163 27 [facility] Social History: Smoking Status (Most current) and Tobacco Use (All prior to encounter date) This section includes the most current, and the historical, smoking and tobacco- related health factors from the [place] facility where the Encounter took place. Current Smoking Status This section includes the most current smoking, or tobacco-related health factor, from the [place] facility where the Encounter took place. Date/Time Current Smoking Status Comment Facil ity 2024 02:30 PM VA-TOBACCO FORMER USER [facility] [place] [facility] Tobacco Use History This section includes a history of the smoking, or tobacco-related health factors, that were collected on or before the date of the Encounter. The data comes from the [place] facility where the Encounter took place. Date/Time Smoking Status/Tobacco Use Comment F kendall 2024 02:30 PM VA-TOBACCO QUIT 15 YRS OR MORE [place] [facility] [place] [facility] Dec 23, 2022 02:30 PM VA-TOBACCO FORMER USER [place] [facility] [place] [facility] Dec 23, 2022 02:30 PM VA-TOBACCO QUIT 15 YRS OR MORE [place] [facility] [place] [facility] Nov 19, 2021 02:00 PM VA-TOBACCO FORMER USER [place] [facility] [place] [facility] Nov 19, 2021 02:00 PM VA-TOBACCO QUIT 15 YRS OR MORE [place] [facility] [place] [facility] Dec 08, 2020 11:00 AM VA-TOBACCO FORMER USER [place] [facility] [place] [facility] Dec 08, 2020 11:00 AM VA-TOBACCO QUIT 15 YRS OR MORE [place] [facility] [place] [facility] Encounter Notes: All associated encounter [...] by CECIL GELLER /amrita/ Maximino Shah, Health [employer] Producer BUSINESS CONTINUITY PLANNER,PRIMARY CARE Signed: 12/27/2024 15:18 MAXIMINO SHAH [place] [facility] [place] [facility] Dec 27, 2024 02:50 PM PRIMARY CARE NURSE PRACTITIONER OUTPATIENT NOTE: LOCAL TITLE: NURSE PRACTITIONER OUTPATIENT NOTE STANDARD TITLE: PRIMARY CARE NURSE PRACTITIONER OUTPATIENT NOTE DATE OF NOTE: DEC 27, 2024@14:50 ENTRY DATE: DEC 27, 2024@14:50:38 AUTHOR: GELLER,CECIL J EXP COSIGNER: URGENCY: STATUS: COMPLETED Chief complaint: Patient is a 84 year old [place]. HPI: Pleasant male here with his . He reports worsening [...] 14:22)BMI: 27.2163 lb [73.94 kg] (12/27/2024 14:22) [place] is alert and oriented X3 Neck: supple [...] treatment planning, education and counseling of the patient/family/pharmacy care coordinator, placing orders, communicating with other health care [...] of active outpatient prescriptions dispensed from this [place] (local) and dispensed from another [place] or [facility] facility (remote) as well as inpatient orders [...] at this time. /amrita/ Cecil Geller DNP, THERAPEUTIC RADIOLOGIST-BC, CNL Primary Care Nurse Practitioner Signed: 12/27/2024 15:03 CECIL GELLER [place] [facility] [place] [facility] Dec 27, 2024 02:27 PM PREVENTIVE MEDICINE NURSING NOTE: LOCAL TITLE: CLINICAL REMINDERS/NURSING STANDARD TITLE: PREVENTIVE MEDICINE NURSING NOTE DATE OF NOTE: DEC 27, 2024@14:27 ENTRY DATE: DEC 27, 2024@14:27:52 AUTHOR: MAXIMINO SHAH COSIGNER: URGENCY: STATUS: COMPLETED Advance Directive [...] Not worried about housing near future The [place] reports the following: Within the past 12 [...] year. Incontinence Screen No incontinence. /amrita/ Maximino Shah [employer] Producer BUSINESS CONTINUITY PLANNER,PRIMARY CARE Signed: 12/27/2024 14:29 MAXIMINO SHAH [facility]
--- OUTSIDE RECORDS SUMMARY | 2025-01-20 15:25 | XMS_ITS ---
Author Name [facility] [place] Organization [place] Address [address] [place] [id number] Care Team Providers Care Prick Stitcher Name Role Phone AIYANA HANDY Primary Care [...] to Policy [facility] Y SUPP PL Mar 15, 2018 [id number] PATIENT MEDICARE (WNR) MEDICARE (M) PART B Nov 13, 2010 PART B [id number] DOMINIC BEDOLLA RT PATIENT MEDICARE (WNR) MEDICARE (M) PART A January 13, 2007 PART A [id number] DOMINIC BEDOLLA RT PATIENT Selected Encounter This section includes the information on record at [place] for the Encounter. Date/Time Encounter Type Encounter Description Reason Provider Source Oct 21, 2024 02:00 PM OFFICE O/P EST MOD 30 MIN DERMATOLOGY ICD-10-CM L82.0 Inflamed seborrheic keratosis ABRAHAM LOPEZ Encounter Template Text not used by [place] Assessments - Encounter Diagnoses This section includes the primary and secondary diagnoses documented for the Encounter. Date/Time Primary/Secondary Diagnosis Diagnosis Name Provider Source Oct 21, 2024 02:56 PM PRIMARY Inflamed seborrheic keratosis KORI LOPEZ [facility] [place] [facility] Oct 21, 2024 02:56 PM SECONDARY Nevus, non-ne[facility] [place] [facility] Oct 21, 2024 02:56 PM SECONDARY Other melanin [facility]pig[facility] [place] [facility] Oct 21, 2024 02:56 PM SECONDARY Other seborrheic keratosis [facility] [place] [facility] Oct 21, 2024 02:56 PM SECONDARY Other specified follicular disorders [facility] [place] [facility] Plan of Treatment: Future Appointments (+ 6 months) and Future Tests (+/- 45 days) The Plan of Treatment section includes future care activities for the patient from all [place] [facility]. This section includes future appointments and future orders which are active, pending or scheduled. Future Appointments This section includes appointments that were scheduled to occur 6 months from the date of the Encounter, up to a maximum of 20 appointments. The data comes from all [facility]. Appointment Date/Time Appointment Type Appointme nt Facility Name Dec 27, 2024 02:30 PM AMBULATORY - MEDICINE [facility] [place] [facility] January 18, 2025 01:00 PM AMBULATORY - MEDICINE [facility] [place] [facility] January 31, 2025 01:00 PM AMBULATORY - REHAB MEDICIN E [place] [facility] [place] [facility] Feb 15, 2025 03:30 PM AMBULATORY - MEDICINE [facility] [place] [facility] Active, Pending, and Scheduled Orders This section [...] 06:41 AM Consult Order COMMUNITY CARE-PODIATRY Cons Manager Economic's Choice [place] [facility] [place] [facility] Social History: Smoking Status (Most current) and [...] ity 2024 02:30 PM VA-TOBACCO FORMER USER [place] [facility] [place] [facility] Tobacco Use History This section includes a history of the smoking, or tobacco-related health factors, that were collected on or before the date of the Encounter. The data comes from the [place] facility where the Encounter took place. Date/Time Smoking Status/Tobacco Use Comment F acility 2024 02:30 PM VA-TOBACCO QUIT 15 YRS OR MORE [place] [facility] [place] [facility] Dec 23, 2022 02:30 PM VA-TOBACCO FORMER USER [place] [facility] [place] [facility] Dec 23, 2022 02:30 PM VA-TOBACCO QUIT 15 YRS OR MORE [place] [facility] [place] [facility] Nov 19, 2021 02:00 PM VA-TOBACCO FORMER USER [place] [facility] [place] [facility] Nov 19, 2021 02:00 PM VA-TOBACCO QUIT 15 YRS OR MORE [place] [facility] [place] [facility] Dec 08, 2020 11:00 AM VA-TOBACCO FORMER USER [place] [facility] [place] [facility] Dec 08, 2020 11:00 AM VA-TOBACCO QUIT 15 YRS OR MORE [place] [facility] [place] [facility] Encounter Notes: All associated encounter notes This section contains the clinical notes associated to the Encounter. Date/Time Encounter Note(s) Provider Source Oct 21, 2024 01:55 PM DERMATOLOGY OUTPATIENT NOTE: LOCAL TITLE: DERMATOLOGY CLINIC NOTE STANDARD TITLE: DERMATOLOGY OUTPATIENT NOTE DATE OF NOTE: OCT 21, 2024@13:55 ENTRY DATE: OCT 21, 2024@13:55:19 AUTHOR: BUDREWICZ,LUIS ANGEL EXP COSIGNER: URGENCY: STATUS: COMPLETED OCT 21, 2024 HANNA RAMIREZ January 84 PATIENT PHONE - Patient here for FOLLOW UP CHIEF COMPLAINT: Irritated Seborrheic Keratoses HPI: Reviewed records from last Dermatology visit: 11/11/23; ISKs s/p LN2. [place] is also s/p [facility]erm 05/2024. Reviewed images and report; L arm lesion. reports [facility] - L arm lesion treated with cryo, but states 'the doc said it was nothing.' He has a few areas on L side of face and back, occasionally itchy. Would like them looked at. [place] denies any other new/changing/bleeding/non- healing lesions. REVIEW [...] , <3mm Diagnosis/Plan: #Seborrheic Keratoses, Irritated -The [place] was educated regarding the benign nature, but given irritation/pain, destructive treatment requested. -Liquid nitrogen cryotherapy performed as a destructive method. -Liquid nitrogen (2 cycles x 5-8sec) x #3 lesions performed. -Side effects including but not limited to redness, crusting, swelling, blistering, scarring, and hypopigmentation discussed. -Wound care discussed in length. #Seborrheic Keratoses: -The [place] was educated regarding the benign nature, but [...] patient, who consented to treatment plan. * [place] consented to photography for documentation if indicated. [...] of active outpatient prescriptions dispensed from this [place] (local) and dispensed from another [place] or DoD facility (remote) as well as [...] list may not be complete. Please check [employer] Allergies/ADRs (Tool #5) FACILITY ALLERGY/ADR -------- No Remote Allergy/ADR Data available for this patient [place] [facility] No Known Allergies Med [facility] [employer] (Tool #1) INCLUDED IN THIS LIST: Alphabetical list of active outpatient prescriptions dispensed from this [place] (local) and dispensed from another [place] or [facility] facility (remote) as well as inpatient orders (local pending and active), local clinic medications, locally documented non-VA medications, and local prescriptions that have or been discontinued in the past 90 days. Non-VA Meds Last Documented On: Jun 14, 2022 NOTE The display of VA prescriptions dispensed from another VA or DoD facility (remote) is limited to active outpatient prescription entries matched to National Drug File at the originating site and may not include some items such as investigational drugs, compounds, etc. NOT INCLUDED IN THIS LIST: Medications self-entered by the patient into personal health records (i.e. TapTrak) are NOT included in this list. Non-VA medications documented outside this [place], remote inpatient orders (regardless of status) and remote clinic medications are NOT included in this list. The patient and provider must always discuss medications the patient is taking, regardless of where the medication was dispensed or obtained. OUTPT ACETAMINOPHEN 325MG TAB (Status = Active) TAKE TWO TABLETS BY MOUTH EVERY 4 HOURS NEEDED FOR PAIN Rx# [id number] Last Released: 06/11/24 Qty/Days Supply: 200/30 Rx Expiration Date: 02/16/25 Refills Remainin Indication: FOR PAIN Non-VA ASPIRIN 81MG EC TAB TAKE ONE TABLET BY MOUTH ONCE DAILY Medication prescribed by Non-VA provider. OUTPT DM 10/GUAIFENESN 100MG/5ML (AF & SF) LIQ (Status = On Hold) TAKE 5 MLS (1 TEASPOONFUL) BY MOUTH EVERY 6 HOURS NEEDED FOR COUGH Rx# [id number] Last Released: 12/01/23 Qty/Days Supply: 240/10 Rx [...] TEST BLOOD SUGARS DIRECTED BY PROVIDER Rx# [id number] Last Released: 10/20/24 Qty/Days Supply: 50/180 Rx Expiration Date: 05/04/25 Refills Remainin OUTPT INCONT LINER PREVAIL GUARDS #[id number] (Status = Active) USE 1 LINER TOPICALLY EVERY 6 HOURS NEEDED Rx# [id number] Last Released: 10/18/24 Qty/Days Supply: 126/30 Rx Expiration Date: 05/27/25 Refills Remainin /amrita/ LUIS ANGEL LOPEZ DNP, ENTERTAINMENT CENTRE MANAGER-C NURSE PRACTITIONER Signed: 10/21/2024 14:56 LUIS ANGEL LOPEZ [facility]
--- OUTSIDE RECORDS SUMMARY | 2025-01-20 15:25 | XMS_ITS | Encounter Summary ---
Author Name [facility] [place] Address [address] [place] [id number] Care Team Providers Care Modeling Manager Name Role Phone AIYANA GELLER Primary Care [...] [facility] [place] [facility] Mar 15, 2018 [id number] [address] RT PATIENT MEDICARE (WNR) MEDICARE (M) PART B Nov 13, 2010 PART B [id number] DOMINIC BEDOLLA RT PATIENT MEDICARE (WNR) MEDICARE (M) PART A January 13, 2007 PART A [id number] DOMINIC BEDOLLA RT PATIENT Selected Encounter This section includes the information on record at [place] for the Encounter. Date/Time Encounter Type Encounter Description Reason Provider Source May 21, 2024 01:30 PM UNLISTED SPEC DERM SVC/PX DERMATOLOGY ICD-10-CM Z13.89 Encounter for screening for other disorder WARD PEREZ Encounter Template Text not used by [place] Assessments - Encounter Diagnoses This section includes the primary and secondary diagnoses documented for the Encounter. Date/Time Primary/Secondary Diagnosis Diagnosis Name Provider Source May 21, 2024 01:12 PM PRIMARY Encounter for screening for other disorder WARD PEREZ [place] [facility] Plan of Treatment: Future Appointments (+ 6 months) and Future Tests (+/- 45 days) The Plan of Treatment section includes future care activities for the patient from all [place] [facility]. This section includes future appointments and future orders which are active, pending or scheduled. Future Appointments This section includes appointments that were scheduled to occur 6 months from the date of the Encounter, up to a maximum of 20 appointments. The data comes from all [place] treatment facilities. Appointment Date/Time Appointment Type Appointme nt Facility Name May 25, 2024 01:45 PM AMBULATORY - MEDICINE [place] C [facility] [place] [facility] Jun 15, 2024 02:00 PM AMBULATORY - MEDICINE [place] [facility] [place] [facility] Jul 14, 2024 01:00 PM AMBULATORY - MEDICINE [place] C [facility] [place] [facility] Jul 23, 2024 01:20 PM AMBULATORY - MEDICINE [place] [facility] [place] [facility] Jul 29, 2024 02:00 PM AMBULATORY - MEDICINE [place] C [facility] [facility] Aug 03, 2024 10:00 AM AMBULATORY - MEDICINE [place] C [facility] [place] [facility] Aug 11, 2024 01:00 PM AMBULATORY - NONE [place] [facility] [facility] Aug 18, 2024 01:30 PM AMBULATORY - REHAB MEDICIN E [place] [facility] [place] [facility] Aug 19, 2024 01:00 PM AMBULATORY - MEDICINE [place] [facility] [facility] Sep 28, 2024 01:00 PM AMBULATORY - NONE [place] [facility] [place] [facility] Oct 21, 2024 02:00 PM AMBULATORY - MEDICINE [facility] [place] [facility] Social History: Smoking Status (Most current) and Tobacco Use (All prior to encounter date) This section includes the most current, and the historical, smoking and tobacco- related health factors from the [place] facility where the Encounter took place. Current Smoking Status This section includes the most current smoking, or tobacco-related health factor, from the [place] facility where the Encounter took place. Date/Time Current Smoking Status Comment Facil ity 2024 02:30 PM VA-TOBACCO FORMER USER [place] [facility] [place] [facility] Tobacco Use History This section includes a history of the smoking, or tobacco-related health factors, that were collected on or before the date of the Encounter. The data comes from the [place] facility where the Encounter took place. Date/Time Smoking Status/Tobacco Use Comment F acility 2024 02:30 PM VA-TOBACCO QUIT 15 YRS OR MORE [place] [facility] [place] [facility] Dec 23, 2022 02:30 PM VA-TOBACCO FORMER USER [place] [facility] [place] [facility] Dec 23, 2022 02:30 PM VA-TOBACCO QUIT 15 YRS OR MORE [place] [facility] [place] [facility] Nov 19, 2021 02:00 PM VA-TOBACCO FORMER USER [place] [facility] [facility] Nov 19, 2021 02:00 PM VA-TOBACCO QUIT 15 YRS OR MORE [place] [facility] [place] [facility] Dec 08, 2020 11:00 AM VA-TOBACCO FORMER USER [place] [facility] [place] [facility] Dec 08, 2020 11:00 AM VA-TOBACCO QUIT 15 YRS OR MORE [place] [facility] [place] [facility] Encounter Notes: All associated encounter notes This section contains the clinical notes associated to the Encounter. 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 /amrita/ LUIS ANGEL LOPEZ DNP, INTERIOR DECORATOR PAINTING-C NURSE PRACTITIONER Signed: 06/15/2024 08:03 Receipt Acknowledged By: 06/30/2024 15:34 /amrita/ LUKASZ MAN,WEAVING INSPECTOR WEAVING INSPECTOR --- Original Document --- 05/25/24 PATIENT NOTIFICATION TELEHEALTH RESULTS: Provided below are the results from pts telederm imaging reading. Ordering Provider is responsible to give pt the results and prescribe any treatments, recommendations or consult to dermatology for a face to face etc. REMOTE RESULTS SAGE Document from: [facility] Associated on: May 24, 2024@12:46:50 LOCAL [...] RESULTS * /amrita/ WARD PEREZ TELEHEALTH CLINICAL BINDER STRIPPER MACHINE Signed: 05/25/2024 09:20 Receipt Acknowledged By: 06/15/2024 08:02 /es/ LUIS ANGEL LOPEZ DNP, ABDON-C NURSE PRACTITIONER 05/27/2024 07:52 /es/ Aiyana Geller DNP, INTERIOR DECORATOR PAINTING-BC, CNL Primary Care Nurse Practitioner LUIS ANGEL LOPEZ [place] [facility] [place] [facility] May 25, 2024 09:19 AM TELEHEALTH NOTE: [...] face etc. 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 /amrita/ LUIS ANGEL LOPEZ DNP, INTERIOR DECORATOR PAINTING-C NURSE PRACTITIONER Signed: 06/15/2024 08:03 Receipt Acknowledged By: 06/30/2024 15:34 /amrita/ LUKASZ MAN LPN LPN 06/30/2024 ADDENDUM STATUS: COMPLETED [place] notified of message from provider. He agrees and will contact if area worsens. /amrita/ LUKASZ MAN LPN LPN Signed: 06/30/2024 15:36 WARD PEREZ [place] [facility] [place] [facility] May 21, 2024 12:56 PM TELEHEALTH CONSULT: [...] Redness CHANGES: Size TREATMENT: No BIOPSY: No Button Facing Machine Operator's comments: Imaged per providers direction and facility protocol /amrita/ WARD PEREZ TELEHEALTH CLINICAL BINDER STRIPPER MACHINE Signed: 05/21/2024 13:12 WARD PEREZ [facility]
--- OUTSIDE RECORDS SUMMARY | 2025-01-20 15:25 | XMS_ITS ---
Author Organization [facility] Ehsan lexus [place] Address [address] [facility] [place] [address] Care Team Providers Care Die Casting Supervisor Name Role Phone Cecil Geller N.P Primary Care Provider Unav Leslie Duran Unavailable [phone] Allergies No Known Allergies REASON FOR VISIT At Risk Footcare Medications Medication SIG (Take, Route, Frequency, Duration) Notes Start Date End Date Status metFORMIN HCl 500 MG 1 tablet with a jesús l Orally Once a day Active Metoprolol Succinate 25 MG 1 capsule Ora lly Once a day Active Aspirin 81 81 MG 1 tablet Orally Once a day Active Probiotic Active Pravastatin Sodium 40 MG 1 tablet Orally Once a day Active Social History Tobacco Use: Social History Observation Description Date Details (start date - stop date) Never Smoker NA - NA Tobacco use other than smoking: Question Answer Notes Are you an other tobacco user? No Tobacco Control (Standard) Question Answer Notes Tobacco use: Nonsmoker AUDIT-C (Standard) Question Answer Notes Did you have a drink contain ing alcohol in the past year? Yes How often did you have a dri nk containing alcohol in the past year? Monthly or less (1 point) How many drinks did you have on a typical day when you were drinking in the past year? 1 or 2 drinks (0 point) How often did you have six o r more drinks on one occasion in the past year? Less than monthly (1 point) Points 2 Interpretation Negative Problems Problem Type SNOMED Code ICD Code Onset Dates Problem Status W/U Status Risk Notes Problem 62346307 Type 2 diabetes mellitus without complication, without long-term current use of insulin (E11.9) Active confirmed Vital Signs Blood pressure systolic 124 mm Hg 01/19/20 25 Blood pressure diastolic 81 mm Hg 025 Height 5ft7in in 01/18/2025 Weight 155 lbs 01/18/2025 BMI 24.27 kg/m2 01/18/2025 Encounters Encounter Location Date Provider Diagnosis [facility] [address] [place] [address] 01/18/2025 Leslie Cho Type 2 diabetes mellitus without complication, without long-term current use of insulin E11.9 Assessments Encounter Date Diagnosis (ICD Code) Assessment Notes Treatment Notes Treatment Clinical Notes Section Notes 01/18/2025 Type 2 diabetes mellitus without complication, without long-term current use of insulin (ICD-10 - E11.9) Plan Of Treatment Next Appt Details Follow Up: 1 Year, Reason: Provider Name:Leslie brown, 01/17/2026 01:00:00 PM, [address] [place] [address], [id number], Progress Notes * Aldair RAMIREZ JDOB:0 1940 (84 yo M)Acc No.[id number]:01/18/2025 Progress Notes Patient:?Ana Lilia RAMIREZ J Provider:?Leslie Cho DPM :1940???Age:84 Y???Sex:Male Roldan e:01/18/2025 Address:[address] [place], [place] [id number] Pcp:Cecil Geller N.P Subjective: * Chief Complaints: * ???At Risk Footcare * HPI: ???At Risk footcare:?Pt States Last PCP Visit:?Date?12/29/2024 ? Pt denies any foot issues, presents for diabetic foot exam. * ROS:?General/Constitutional:?Nausea?denies.?Vomiting?denies.?Hunger Thirst?denies.?Loss appetite?denies.?Chills?denies.?Fatigue?denies.?Fever?denies.?Night Sweats?denies.?Unexplained weight loss?denies.?Unexplained weight gain?denies.?HEENTM:?Dentures?denies.?Dizziness?denies.?Glasses/contacts?admits.?Retinopathy?den ies.?Blurred/double vision?denies.?TMJ?denies.?Discharge/drainage?denies.?Implants?denies.?Sore throat?denies.?Dental implants?denies.?Hard of hearing ?denies.?Difficulty chewing/swallowing/speaking?denies.?Nose bleeds?denies.?Sore mouth?denies.?Respiratory:?On O xygen?denies.?Pneumonia/pleurisy?denies.?Bronchitis?denies.?Emphysema?denies.?Co ughing?denies.?Cough blood?denies.?Shortness of breath?denies.?Wheezing?denies.?Cardiovascular:?Pacemaker?denies.?MVP?denies.?WPW?denies.?CHF?denies.?Heart attack?denies.?Septal defect?denies.?Rapid beat?denies.?Chest pain ?denies.?Atrial Fib.?denies.?Murmur/Palpitations?denies.?Gastrointestinal:?Hemorrhoids?admits.?Stomach/Abdominal pain?denies.?Dark blood stool?denies.?Irritable bowel ?denies.?Constipation?admits.?Diarrhea?denies.?Hematology:?Swelling?denies.?Clots?denies.?Varicose Veins?denies.?Bruising?denies.?Bleeding problem?denies.?Genitourinary:?Blood urine?denies.?Frequent/Painfu/urination/bladder control?denies.?Kidney stones?denies.?Infection (UTI)?denies.?Nephropathy?denies.?sex trans dis (STD)?denies.?Prostate?admits.?Musculoskeletal:?Marises?denies.?Bunions?denies.?Back Pain?denies.?Muscle Cramps/ Resting?denies.?Muscle cramps / walking?denies.?Generalized aches and pains?denies.?Weakness?denies.?Integ.:?Smith?denies.?Scars?denies.?Corns/calluses?denies.?Ingrown nails?denies.?Painful nails?denies.?Open Sores?denies.?Rashes?denies.?Neurologic:?Difficulty sleeping?denies.?Brain disorder?denies.?Numbness?denies.?Balance t rouble?denies.?Confusion?denies.?Fainting/blackouts?denies.?Tingling?denies.?Michael mors?denies.? * Medical History:? 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 * Social History:?Tobacco Use:?Tobacco use other than smoking?Are you an other tobacco user??No ?Tobacco Control (Standard)?Tobacco use:?Nonsmoker ???Drugs/Alcohol:?Drugs?Have you used drugs other than those for medical reasons in the past 12 months??No ???Miscellaneous:?Caffeine: yes, frequency:, 1-2 cups per day. ?Children: yes. ?Exercise: yes, gardening/yard work, housework. ?Marital status: . ?Occupation: Retired. ???Drug/Alcohol:?AUDIT-C (Standard)?Did you have a drink containing alcohol in the past year??Yes ?How often did you have a drink containing alcohol in the past year??Monthly or less (1 point) ?How many drinks did you have on a typical day when you were drinking in the past year??1 or 2 drinks (0 point) ?How often did you have six or more drinks on one occasion in the past year??Less than monthly (1 point) ?Points?2 ?Interpretation?Negative * Medications:?TakingProbiotic Aspirin 81 81 MG Tablet Chewable 1 tablet Orally Once a day Metoprolol Succinate 25 MG Capsule ER 24 Hour Sprinkle 1 capsule Orally Once a day metFORMIN HCl 500 MG Tablet 1 tablet with a meal Orally Once a day Pravastatin Sodium 40 MG Tablet 1 tablet Orally Once a day Medication List reviewed and reconciled with the patientTaking Probiotic Taking Aspirin 81 81 MG Tablet Chewable 1 tablet Orally Once a day Taking Metoprolol Succinate 25 MG Capsule ER 24 Hour Sprinkle 1 capsule Orally Once a day Taking metFORMIN HCl 500 MG Tablet 1 tablet with a meal Orally Once a day Taking Pravastatin Sodium 40 MG Tablet 1 tablet Orally Once a day Medication List reviewed and reconciled with the patient * Allergies:?N.K.D.A.yes[Aller rosette Verified] Objective: * Vitals:?Ht: 5ft7in, Wt: 155, BMI: 24.27, Shoe size: 9, BP: 124/81 mm Hg, BS: 165, Ht-cm: 170.18 cm, Wt-k.31 kg. * ???Past Orders: ???Lab:HEMOGLOBIN A1C (GLYCO HEMOGLOBIN) (Order Date - 12/14/2024) (Collection Date & Time - 12/14/2024 01:03 PM) ? Value Reference Range ?HEMOGLOBIN A1C % (HH) 7.5 * Examination: ???Ophthalmology Referral: ?DIABETES EYE EXAM?Procedure Performed:?Yes ?Date of Exam Performed?06/15/2024 ?Findings of Diabetic Eye Exam:?no retinopathy?General Examination: ?GENERAL APPEARANCE:?Reveals a pleasant, alert, well-nourished, well- developed, well hydrated individual, who demonstrates proper attention to hygiene/body habitus, and is in no acute distress, Pt serves as own?historian for office visit today.?ORIENTED:?person, place, and time.?FOOT EXAM:?Lower Extremity Neurological Exam performed:?Yes ?Visual exam of foot performed:?Yes ?Date?01/18/2025 ?Footwear Evaluation?Footwear Evaluation performed:?Yes?Neurological: ?SENSORY:?Neurological exam reveals intact sensorium, pain sensation normal, vibration sensation intact, pinprick sensation is normal in the lower extremities, Pt denies, anesthesia, burning, paresthesia, tingling, B/L.?Vascular: ?DP PULSES (B):?3/4, B/L.?PT PULSES (B):?3/4, B/L.?CAPILLARY FILL TIME:?immediate, all digits, B/L.?TROPHIC CONDITION-TEXTURE/ELASTICITY/TURGOR/HAIR GROWTH (B):?normal, B/L.?TEMPERTURE GRADIENT (C):?warm to cool, proximal to distal, B/L.?PIGMENTATION:?normal, B/L.?EDEMA (C):?absent, B/L.?Dermatologic: ?SKIN FINDINGS:?Skin exam reveals normal texture, elasticity, and turgor. There are no masses. The interspaces are clear.?Orthopedic: ?MUSCLE STRENGTH:?5/5 all groups in a symmetrical fashion , B/L.? Assessment: * Assessment: 1.?Type 2 diabetes mellitus without complication, without long-term current use of insulin - E11.9 (Primary)??? Plan: * Treatment: * Procedure Codes:? * Preventive Medicine:? ??Counseling:?Discussion:?-02: Office or other outpatient visit for the evaluation and management of a new patient, which required a medically appropriate history and/or examination and STRAIGHTFORWARD level of MEDICAL DECISION MAKING, 1 SELF-LIMITED OR MINOR PROBLEM, MINIMAL- NO AMOUNT/COMPLEXITY OF DATA TO BE REVIEWED/ANALYZED, AND MINIMAL RISK OF COMPLICATION/MORBIDITY. The visit on the day of the encounter encompassed interpreting the data and educating the patient as to the nature of their condition, treatment options available according to their individual PMH, meds, allergies, and overall health/living conditions, as well as any potential risks or complications that may occur from a failure to adhere to, and participate in, the recommended course of therapy. The discussion included a complete verbal, and/or written explanation of the examination results, any x-rays taken, the proposed diagnosis, and outline of the treatment plan. A schedule for future care needs was also explained. The patient verbalized an understanding of the instructions at this time and agreed to be an active participant in their treatment. If the patient should think of any questions or concerns after the visit, I have encouraged the patient to call the office.?Diabetic Footcare:?The patient was advised against future self nail/callus care due to inherent risks for infection, loss of limb/life given diabetes, Diabetic footcare is reviewed with the patient..?Shoe Gear Counseling:?The patient was counseled in great detail on their muscoloskeletal foot and toe deformities which coincided with the dermatological presentations visualized on exam. We discussed how their deformities put the integrity of their feet at risk for potential pedal complications which makes the accomidative diabetic shoes and cutomizable inserts medically necessary. We discussed the different shoe and insert treatment types and options, as well as the important advantages for adhering to regularly wearing these accomidative devices daily. The patient was made aware of the fact that a failure to abide by these recommedations may be deleterious to their foot health as they are able to prevent many pedal complications such as skin irritation, skin ulceration, infection, and even loss of toe/foot/leg/or life. Time was also spent with the patient dispensing and discussing proper diabetic footcare techniques including daily skin moisturization, daily foot inspection for any interruption in skin integrity including open lesions, or sign of infection such as redness/malodor/drainage/swelling. Also discussed and recommended were procedures regarding daily shoe inspection for the presence of internal foreign bodies as well as any visualized irregular shoe or insert wear. Patient questions re: shoes, inserts, and self foot inspections were answered to their satisfaction as the patient verbally confirmed a full understanding of the above information..? ??Screening/Special Tests:?Fall Risk?Screening:?No falls in the past year ?FALLS: Screening for Future Fall Risk?Have you had two or more falls in the past year??No ?Have you had any falls with injury in the past year??No * Follow Up:?1 Year * Images: * Sign off status: Completed true * Provider:?Leslie Cho DPM Date:?02/2025 Generated for Zachariah will/Katie/Ting on:?01/20/2025 03:25 PM EDT History and Physical Notes * HPI (History of Present Illness) Category Sub-Category Detail Notes Category Not es At Risk footcare Pt States Last PCP Visit: Date: 5 Pt denies any foot issues, presents for diabetic foot exam Examination Category Sub-Category Detail Notes Category Not es Neurological SENSORY: Neurological exa m reveals intact sensorium, pain sensation normal, vibration sensation intact, pinprick sensation is normal in the lower extremities, Pt denies, anesthesia, burning, paresthesia, tingling, B/L Dermatologic SKIN FINDINGS: Skin exam reveal s normal texture, elasticity, and turgor. There are no masses. The interspaces are clear Orthopedic MUSCLE STRENGTH: 5/5 all groups in a symmetrical fashion , B/L General Examination GENERAL APPEARANCE: Reveals a pleasant, alert, well-nourished, well-developed, well hydrated individual, who demonstrates proper attention to hygiene/body habitus, and is in no acute distress, Pt serves as own historian for office visit today FOOT EXAM: Lower Extremity Neurological Exa m performed:: Yes Visual exam of foot performed:: Yes Date: 01/18/2025 ORIENTED: person, place, and t kaley Footwear Evaluation Footwear Evaluation performe d:: Yes Ophthalmology Referral DIABETES EYE EXAM Procedure Perform ed:: Yes ?Date of Exam Performed: 06/15/2024 Findings of Diabetic Eye Exam:: no retin opathy Vascular DP PULSES (B): 3/4, B/L PT PULSES (B): 3/4, B/L CAPILLARY FILL TIME: immediate, all digi ts, B/L TEMPERTURE GRADIENT (C): warm to cool, p roximal to distal, B/L TROPHIC CONDITION-TEXTURE/ELASTICITY/TURGOR/HAIR GROWTH (B): normal, B/L EDEMA (C): absent, B/L PIGMENTATION: normal, B/L
--- OUTSIDE RECORDS SUMMARY | 2025-01-20 15:25 | XMS_ITS ---
Author Name [facility] Organization [facility] Address [address] [place] [id number] Care Team Providers Care Mountain Bike Guide Name Role Phone CECIL GELLER Primary Care [...] AGENC Y SUPP PL Mar 15, 2018 [id number] [phone] [id number] [address]A RT PATIENT MEDICARE (WNR) MEDICARE (M) PART B Nov 13, 2010 PART B [id number] DOMINIC BEDOLLA RT PATIENT MEDICARE (WNR) MEDICARE (M) PART A January 13, 2007 PART A [id number] DOMINIC BEDOLLA RT PATIENT Selected Encounter This section includes the information on record at [place] for the Encounter. Date/Time Encounter Type Encounter Description Reason Pro vider Source May 26, 2024 12:44 PM Outpatient Encounter ADMIN PAT ACTIVTIES (MASNONCT) IHE Encounter Template Text not used by [place] Plan of Treatment: Future Appointments (+ 6 months) and Future Tests (+/- 45 days) The Plan of Treatment section includes future care activities for the patient [facility] [place] [facility] This section includes future appointments and future orders which are active, pending or scheduled. Future Appointments This section includes appointments that were scheduled to occur 6 months from the date of the Encounter, up to a maximum of 20 appointments. The data comes from all [place] treatment facilities. Appointment Date/Time Appointment Type Appointme nt Facility Name Jun 15, 2024 02:00 PM [facility] [place] [facility] [place] [facility] Jul 14, 2024 01:00 PM [facility] [place] [facility] [place] [facility] Jul 23, 2024 01:20 PM [facility]INE [place] [facility] [place] [facility] Jul 29, 2024 02:00 PM [facility]INE [place] [facility] [place] [facility] Aug 03, 2024 10:00 AM [facility]INE [place] [facility] [place] [facility] Aug 11, 2024 01:00 PM AMBULATORY - NONE [facility] [place] [facility] Aug 18, 2024 01:30 PM AMBULATORY - REHAB MEDICIN E [facility] [place] [facility] Aug 19, 2024 01:00 PM [facility]INE [place] [facility] [place] [facility] Sep 28, 2024 01:00 PM AMBULATORY - NONE [facility] [place] [facility] Oct 21, 2024 02:00 PM AM[facility]ULATORY - MEDICINE [facility] [place] [facility] Social History: Smoking Status (Most current) and Tobacco Use (All prior to encounter date) This section includes the most current, and the historical, smoking and tobacco- related health factors from the [place] facility where the Encounter took place. Current Smoking Status This section includes the most current smoking, or tobacco-related health factor, from the [place] facility where the Encounter took place. Date/Time Current Smoking Status Comment Facil ity 2024 02:30 PM VA-TOBACCO QUIT 15 YRS OR [facility] Tobacco Use History This section includes a history of the smoking, or tobacco-related health factors, that were collected on or before the date of the Encounter. The data comes from the [place] facility where the Encounter took place. Date/Time Smoking Status/Tobacco Use Comment F acility 2024 02:30 PM VA-TOBACCO QUIT 15 YRS OR MORE [facility] [place] [facility] Dec 23, 2022 02:30 PM VA-TOBACCO FORMER USER [facility] [place] [facility] Dec 23, 2022 02:30 PM VA-TOBACCO QUIT 15 YRS OR MORE [facility] [place] [facility] Nov 19, 2021 02:00 PM VA-TOBACCO FORMER USER [facility] [place] [facility] Nov 19, 2021 02:00 PM VA-TOBACCO QUIT 15 YRS OR MORE [facility] [place] [facility] Dec 08, 2020 11:00 AM VA-TOBACCO FORMER USER [facility] [place] [facility] Dec 08, 2020 11:00 AM VA-TOBACCO QUIT 15 YRS OR MORE [facility] [place] [facility] Encounter Notes: All associated encounter notes [...] MEDICATION RENEWAL Has ADDENDA Date: May Division: [facility] referred by Pharmacy Call Center for medication renewal: Non-controlled/maintenanc e medication Medications requested: [id number] INCONT LINER PREVAIL GUARDS #[id number] Defer to primary care provider To be mailed . Please review and renew if appropriate. *This note was generated by [facility] Customer Care. If you have any questions or need assistance, do not contact this author. Please refer all questions to your local, on-site pharmacy departments. /amrita/ JOSE DANIEL PULIDO [place] [place]/Pharmacy Customer Care Signed: 05/26/2024 12:45 Receipt Acknowledged By: 05/27/2024 07:51 /amrita/ Cecil Geller DNP, BUTTERMAKER-BC, CNL Primary Care Nurse Practitioner 05/26/2024 13:46 /amrita/ Mirtha Ludwig MSN RN CNL Primary Care RN 05/26/2024 ADDENDUM STATUS: COMPLETED Renewed as requested /amrita/ Mirtha Ludwig MSN RN CNL Primary Care RN Signed: 05/26/2024 13:47 [facility]
--- OUTSIDE RECORDS SUMMARY | 2025-01-20 15:25 | XMS_ITS | Patient Health Record ---
Author Organization 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) Active confirmed Problem 565294363 Abnormal CT scan , colon (R93.3) Active confirmed Problem 74898133 Hypertension, unspecified type (I10) Active confirmed Problem 981248892 RLQ abdominal pain (R10.31) Active confirmed Plan Of Treatment Future Test Test Name Order Date COLONOSCOPY 03/17/2019 COLONOSCOPY 01/31/2023 Insurance Providers Payer Name Payer Address Payer Phone Subscriber Number Group Number Insured Name Patient Relationship to Insured Coverage Start Date Coverage End Date MEDICARE OF [place] [address] [place] [address] [id number] HANNA JEAN-BAPTISTE Self - patient is the insured [facility] [address] [place] [address] [phone] [id number] HANNA JEAN-BAPTISTE Self - patient is the insured Medical (General) History Medical History History ICD Code prostate cancer AAKASH/CPAP pre diabetes Elevated cholesterol Colon polyps, colonoscopy 07/03, five-ye ar followup Surgical History Surgery Date(Month/Year) prostatectomy Urethral sling 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
--- OUTSIDE RECORDS SUMMARY | 2025-01-20 15:25 | XMS_ITS ---
Author Name [facility] [place] Organization [place] Address [address] [place] [address] Care Team Providers Care Tai Chi Instructor Name Role Phone AIYANA GELLER [facility] Insurance Providers: All historical and current [...] to Policy [facility]PP [address] Mar 15, 2018 [id number] DOMINIC BEDOLLA RT PATIENT MEDICARE (WNR) MEDICARE (M) PART B Nov 13, 2010 PART B [id number] DOMINIC BEDOLLA RT PATIENT MEDICARE (WNR) MEDICARE (M) PART A January 13, 2007 PART A [id number] DOMINIC BEDOLLA RT PATIENT Selected Encounter This section includes the information on record at [place] for the Encounter. Date/Time Encounter Type Encounter Description Reason Provider Source Aug 18, 2024 01:30 PM MANUAL THERAPY 1/> [facility] ICD-10-CM M79.643 Pain in unspecified hand MACHON,SHAVONNE E IHE Encounter Template Text not used by [place] Assessments - Encounter Diagnoses This section includes the primary and secondary diagnoses documented for the Encounter. Date/Time Primary/Secondary Diagnosis Diagnosis Name Provider Source Aug 18, 2024 03:49 PM PRIMARY Pain in unspecified hand SANDRASHAVONNE Norma [facility] Plan of Treatment: Future Appointments (+ 6 months) and Future Tests (+/- 45 days) The Plan of Treatment section includes future care activities for the patient from all [place] [facility] This section includes future appointments and future orders which are active, pending or scheduled. Future Appointments This section includes appointments that were scheduled to occur 6 months from the date of the Encounter, up to a maximum of 20 appointments. The data comes from all [place] treatment [facility]. Appointment Date/Time Appointment Type Appointme nt Facility Name Aug 19, 2024 01:00 PM AMBUL[facility]ORY - [facility] Sep 28, 2024 01:00 PM [facility] Oct 21, 2024 02:00 PM AM[facility]ULATORY - MEDICINE [facility] [place] [facility] Dec 27, 2024 02:30 PM AMBULATORY - MEDICINE [facility] [place] [facility] January 18, 2025 01:00 PM AMBULATORY - MEDICINE [facility] [place] [facility] January 31, 2025 01:00 PM [facility] [place] [facility] Feb 15, 2025 03:30 PM AM[facility]UL[facility] - [facility] Active, Pending, and Scheduled Orders This section includes a listing of several types of active, pending, and scheduled orders, including clinic medications orders, diagnostic test orders, procedure orders and consult orders; where the start date of the order is 45 days before the date of the Encounter or 45 days after the date of theEncounter. The data comes from all [facility]. Test Date/Time Test Type Test Details Facility Name Sep 24, 2024 06:41 AM Consult Order COMMUNITY CARE-PODIATRY Cons Insurance Agency Sales Manager's Choice [facility] Lab Results: +/- 30 days of [...] Type Comment Aug 11, 2024 12:49 PM [facility] LIPID PANEL, NON FASTING SERUM Specimen Type: SERUM No comment entered. Ordering Provider: AIYANA GELLER Report Released Date/Time: Jul 07, 2024 09:55 AM Reporting Lab: [address] [address] Performing Lab: [address] [address] CHOLESTEROL 144 mg/dL TRIGLYCERIDE 204 mg/dL H 0-150 LDL calculated 52 mg/dL 0-129 CHOL/HDL 2.8 HDL CHOLESTEROL 51 mg/dL 40-60 Aug 11, 2024 12:49 PM [facility] CBC BLOOD Specimen Type: BLOOD No comment entered. Ordering Provider: AIYANA GELLER Report Released Date/Time: Jul 07, 2024 09:55 AM Reporting Lab: [address] [address] Performing Lab: [address] [address] WBC 6.26 10*3/uL 4.50-11.00 RBC 4.21 10*6/uL L 4.23-5.66 HGB 12.8 g/dL 12.8-17 HCT 36.2 L 39.2-50.4 MCV 86.0 fL 82-99 MCHC 35.4 g/dL H 30.8-35.1 PLT 149 10*3/uL 140-360 RDW-CV 13.2 12.0-16.0 MCH 30.4 pg 26.2-32.6 Aug 11, 2024 12:49 PM [facility] BASIC METABOLIC PANEL (non-fasting) SERUM Spe cimen Type: SERUM No comment entered. Ordering Provider: AIYANA GELLER Report Released Date/Time: Jul 07, 2024 09:55 AM Reporting Lab: [facility] [address] [facility] [address] Performing Lab: [facility] [address] [facility] [address] UREA NITROGEN 23 mg/dL 7-25 GLUCOSE 123 mg/dL H 65-100 SODIUM 141 mmol/L 135-145 POTASSIUM 4.9 mmol/L 3.5-5.0 CHLORIDE 108 mmol/L 100-110 CO2 23 meq/L 20-30 CREATININE, Serum 1.08 mg/dL 0.50-1.40 eGFR(CKD-EPI 2020) 69 mL/min >60 Aug 11, 2024 12:49 PM [facility] HEMOGLOBIN A1C PANEL BLOOD Specimen Type: [...] Jul 07, 2024 09:55 AM Reporting Lab: [address] [address] Performing Lab: [address] [address] HEMOGLOBIN A1C 6.8 H 4.0-5.6 Aug 11, 2024 12:49 PM [facility] LIVER FUNCTION SERUM Specimen Type: SERUM No comment entered. Ordering Provider: AIYANA GELLER Report Released Date/Time: Jul 07, 2024 09:55 AM Reporting Lab: [facility] [address] [facility] [address] Performing Lab: [address] [address] PROTEIN,TOTAL 6.8 g/dL 6.0-8.3 ALBUMIN 3.9 g/dL 3.5-5.0 ALKALINE PHOSPHATASE 56 U/L 40-150 AST 16 U/L 5-34 ALT 16 U/L BILIRUBIN, TOTAL 0.4 mg/dL 0.2-1.2 Aug 11, 2024 12:49 PM [facility] [place] [facility] MICROALBUMIN CREATININE RATIO PANEL URINE Spe cimen Type: URINE No comment entered. Ordering Provider: AIYAAN GELLER Report Released Date/Time: Jul 07, 2024 09:55 AM Reporting Lab: [facility] [address] [facility] [address] Performing Lab: [facility] [address] [facility] [address] MICROALBUMIN/CREATININE RATIO 63.6 mg/g H 0-29.9 MICROALBUMIN,QUANTITATIVE 4.8 mg/dL RR U NAVAIL CREATININE URINE 75.42 mg/dL Social History: Smoking Status (Most current) and [...] PM VA-TOBACCO QUIT 15 YRS OR MORE [facility] Tobacco Use History This section includes a history of the smoking, or tobacco-related health factors, that were collected on or before the date of the Encounter. The data comes from the [place] facility where the Encounter took place. Date/Time Smoking Status/Tobacco Use Comment F acility 2024 02:30 PM VA-TOBACCO QUIT 15 YRS OR MORE [place] [facility] [place] [facility] Dec 23, 2022 02:30 PM VA-TOBACCO FORMER USER [place] [facility] [place] [facility] Dec 23, 2022 02:30 PM VA-TOBACCO QUIT 15 YRS OR MORE [facility] [place] [facility] Nov 19, 2021 02:00 PM VA-TOBACCO FORMER USER [facility] [place] [facility] Nov 19, 2021 02:00 PM VA-TOBACCO QUIT 15 YRS OR MORE [place] [facility] [place] [facility] Dec 08, 2020 11:00 AM VA-TOBACCO FORMER USER [place] [facility] [place] [facility] Dec 08, 2020 11:00 AM VA-TOBACCO QUIT 15 YRS OR MORE [facility] Radiology Reports: +/- 30 days of [...] Aug 11, 2024 12:58 PM ULTRASOUND SCROTUM: AHNNA RAMIREZ [id number] -1940 M Ex Date: AUG 11, 2024@12:58 Req Phys: AIYANA GELLER Loc: CWM/NO/PACT 7 (Req'g Loc) Img Loc: ULTRASOUND Service: Unknown [facility] [place] [address] (Case [id number] COMPLETE) ULTRASOUND SCROTUM (US Detailed) CPT:33833 Reason for Study: mass Clinical History: small mobile non painful lump left side of scrotum Report Status: Verified Date Reported: AUG 11, 2024 Date Verified: AUG 11, 2024 Lathe Tender E-Sig: Report: SCROTAL SONOGRAM Technique: Multiple transverse [...] significant abnormality. READING PHYSICIAN: Cy Candelario M.D. -[id number] 08/11/2024 11:56 PST [facility] National Teleradiology Program [phone] (For Medical Practitioner Use Only) Attention Patients / Veterans: If you have questions or concerns about these test results, please contact your ordering provider or primary care team. Primary Diagnostic Code: NO ALERT REQUIRED Primary Interpreting Staff: RADIOLOGY,OUTSIDE SERVICE, Staff Physician / RADIOLOGY,OUTSIDE SERVICE [place] [facility] Encounter Notes: All associated encounter [...] S: Mr. Ramirez is an 84 y/o [facility] male who was referred to OT for b/l hand pain. He was seen in the OT clinic on 08/18/2024. He is known to this designer/writer from previous sessions. PMH: Active problems - Computerized Problem List is the source for the followin. Low back pain 2. Cervicalgia 3. Sleep apnea 4. Primary malignant neoplasm of lacrimal gland duct 5. Diabetes Mellitus Type 2 ([facility] [id number]) 6. Hypertension 7. Erectile Dysfunction ([facility] [id number]) 8. Hyperlipidemia ([facility] [id number]) 9. Skin Lesion ([facility] [id number]) 10. Prostate Cancer ([facility] [id number]) 11. Under care of multiple providers 12. [...] his arm. since he last saw this designer/writer he had CTR and trigger finger releases [...] Arthritis O: Pt is R hand dominant. is retired. 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 He enjoys doing crossword puzzles on his computer during. 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 Special Tests: Grind: (+) L [place]: (-) b/l Adoption Agent Strength Per Dynamometer: measured in pounds per [...] clinical presentation and positive provocative testing. His russet repairer and pinch are decreased as compared to [...] Signed: 08/18/2024 15:49 /amrita/ Aiyana Geller DNP, MEDICAL ADMINISTRATIVE-BC, CNL Primary Care Nurse Practitioner Cosigned: 08/19/2024 06:44 [facility] FLORES [facility] [place] [facility]
--- OUTSIDE RECORDS SUMMARY | 2025-01-20 15:25 | XMS_ITS ---
Author Name Department [place] Organization [place] Address [address] [place] [address] Care Team Providers Care Learning Designer Name Role Phone AIYANA HANDY Primary Care [...] AGENC Y SUPP PL Mar 15, 2018 [id number] DOMINIC BEDOLLA RT PATIENT MEDICARE (WNR) MEDICARE (M) PART B Nov 13, 2010 PART B [id number] DOMINIC BEDOLLA RT PATIENT MEDICARE (WNR) MEDICARE (M) PART A January 13, 2007 PART A [id number] DOMINIC BEDOLLA PATIENT Selected Encounter This section includes the information on record at [place] for the Encounter. Date/Time Encounter Type Encounter Description Reason Provider Source Jul 14, 2024 01:00 PM COMPRE OPH EXAM EST PT 1/> OPTOMETRY ICD-10-CM H25.813 Combined forms of age-related cataract, bilateral MIKAYLA GIFFORD E Encounter Template Text not used by [place] Assessments - Encounter Diagnoses This section includes the primary and secondary diagnoses documented for the Encounter. Date/Time Primary/Secondary Diagnosis Diagnosis Name Provider Source Jul 14, 2024 02:13 PM PRIMARY Combined forms of age-related cataract, bilateral MIKAYLA GIFFORD [place] [facility] [place] [facility] Jul 14, 2024 02:13 PM SECONDARY Tesha's syndrome MIKAYLA GIFFORD [place] [facility] [place] [facility] Jul 14, 2024 02:13 PM SECONDARY Unspecified disorder of refraction [facility]LA [facility]FFORD [facility] [place] [facility] Plan of Treatment: Future Appointments (+ 6 months) and Future Tests (+/- 45 days) The Plan of Treatment section includes future care activities for the patient from all [place] treatmentfacilities. This section includes future appointments and future orders which are active, pending or scheduled. Future Appointments This section includes appointments that were scheduled to occur 6 months from the date of the Encounter, up to a maximum of 20 appointments. The data comes from all [place] treatment facilities. Appointment Date/Time Appointment Type Appointme nt Facility Name Jul 23, 2024 01:20 PM AMBULATORY - MEDICINE [facility] [place] [facility] Jul 29, 2024 02:00 PM AMBULATORY - MEDICINE [facility] [place] [facility] Aug 03, 2024 10:00 AM AMBULATORY - MEDICINE [facility] [place] [facility] Aug 11, 2024 01:00 PM AMBULATORY - NONE [place] [facility] [place] [facility] Aug 18, 2024 01:30 PM AMBULATORY - REHAB MEDICIN E [facility] [place] [facility] Aug 19, 2024 01:00 PM AMBULATORY - MEDICINE HI [facility] [place] [facility] Sep 28, 2024 01:00 PM AMBULATORY - NONE [facility] [place] [facility] Oct 21, 2024 02:00 PM AMBULATORY - MEDICINE HI C [facility] [place] [facility] Dec 27, 2024 02:30 PM AMBULATORY - MEDICINE [facility] [place] [facility] Lab Results: +/- 30 days of the [...] Type Comment Aug 11, 2024 12:49 PM [facility] LIPID PANEL, NON FASTING SERUM Specimen Type: SERUM No comment entered. Ordering Provider: AIYANA HANDY Report Released Date/Time: Jul 07, 2024 09:55 AM Reporting Lab: [facility] [address] [facility] [address] Performing Lab: [address] [address] CHOLESTEROL 144 mg/dL TRIGLYCERIDE 204 mg/dL H 0-150 LDL calculated 52 mg/dL 0-129 CHOL/HDL 2.8 HDL CHOLESTEROL 51 mg/dL 40-60 Aug 11, 2024 12:49 PM [facility] BASIC METABOLIC PANEL (non-fasting) SERUM Spe cimen Type: SERUM No comment entered. Ordering Provider: AIYANA HANDY Report Released Date/Time: Jul 07, 2024 09:55 AM Reporting Lab: [address] [address] Performing Lab: [address] [address] UREA NITROGEN 23 mg/dL 7-25 GLUCOSE 123 mg/dL H 65-100 SODIUM 141 mmol/L 135-145 POTASSIUM 4.9 mmol/L 3.5-5.0 CHLORIDE 108 mmol/L 100-110 CO2 23 meq/L 20-30 CREATININE, Serum 1.08 mg/dL 0.50-1.40 eGFR(CKD-EPI 2020) 69 mL/min >60 Aug 11, 2024 12:49 PM [facility] CBC BLOOD Specimen Type: BLOOD No comment entered. Ordering Provider: AIYANA HANDY Report Released Date/Time: Jul 07, 2024 09:55 AM Reporting Lab: [address] [address] Performing Lab: [facility] [address] [facility] [address] WBC 6.26 10*3/uL 4.50-11.00 RBC 4.21 10*6/uL L 4.23-5.66 HGB 12.8 g/dL 12.8-17 HCT 36.2 L 39.2-50.4 MCV 86.0 fL 82-99 MCHC 35.4 g/dL H 30.8-35.1 PLT 149 10*3/uL 140-360 RDW-CV 13.2 12.0-16.0 MCH 30.4 pg 26.2-32.6 Aug 11, 2024 12:49 PM [facility] HEMOGLOBIN A1C PANEL BLOOD Specimen Type: BLO OD Comment: Values obtained from A1C measurements can vary. For atypical A1C assays, a reported value of 7.0 could actually be between 6.72 and 7.28 if measured by a reference method. A reported value of 9.0 could actually be between 8.73 and 9.27. Ref: http://www.ngsp.org/CAPdata.asp Ordering Provider: AIYANA HANDY Report Released Date/Time: Jul 07, 2024 09:55 AM Reporting Lab: [address] [address] Performing Lab: [address] [address] HEMOGLOBIN A1C 6.8 H 4.0-5.6 Aug 11, 2024 12:49 PM [facility] LIVER FUNCTION SERUM Specimen Type: SERUM No comment entered. Ordering Provider: AIYANA HANDY Report Released Date/Time: Jul 07, 2024 09:55 AM Reporting Lab: [address] [address] Performing Lab: [address] [address] PROTEIN,TOTAL 6.8 g/dL 6.0-8.3 ALBUMIN 3.9 g/dL 3.5-5.0 ALKALINE PHOSPHATASE 56 U/L 40-150 AST 16 U/L 5-34 ALT 16 U/L BILIRUBIN, TOTAL 0.4 mg/dL 0.2-1.2 Aug 11, 2024 12:49 PM [place] [facility] [place] [facility] MICROALBUMIN CREATININE RATIO PANEL URINE Spe cimen Type: URINE No comment entered. Ordering Provider: AIYANA HANDY Report Released Date/Time: Jul 07, 2024 09:55 AM Reporting Lab: [facility] [address] [facility] [address] Performing Lab: [facility] [place] [facility] [address] [facility] [address] MICROALBUMIN/CREATININE RATIO 63.6 mg/g H 0-29.9 MICROALBUMIN,QUANTITATIVE 4.8 mg/dL RR U NAVAIL CREATININE URINE 75.42 mg/dL Social History: Smoking Status (Most current) and Tobacco Use (All prior to encounter date) This section includes the most current, and the historical, smoking and tobacco- related health factors from the [place] facility where the Encounter took place. Current Smoking Status This section includes the most current smoking, or tobacco-related health factor, from the [place] facility where the Encounter took place. Date/Time Current Smoking Status Comment Facil ity 2024 02:30 PM VA-TOBACCO FORMER USER [place] [facility] [place] [facility] Tobacco Use History This section includes a history of the smoking, or tobacco-related health factors, that were collected on or before the date of the Encounter. The data comes from the [place] facility where the Encounter took place. Date/Time Smoking Status/Tobacco Use Comment F acility 2024 02:30 PM VA-TOBACCO QUIT 15 YRS OR MORE [facility] [place] [facility] Dec 23, 2022 02:30 PM VA-TOBACCO FORMER USER [facility] [place] [facility] Dec 23, 2022 02:30 PM VA-TOBACCO QUIT 15 YRS OR MORE [facility] [place] [facility] Nov 19, 2021 02:00 PM VA-TOBACCO FORMER USER [facility] [place] [facility] Nov 19, 2021 02:00 PM VA-TOBACCO QUIT 15 YRS OR MORE HI [facility] [place] [facility] Dec 08, 2020 11:00 AM VA-TOBACCO FORMER USER [facility] [place] [facility] Dec 08, 2020 11:00 AM HI-TOBACCO QUIT 15 YRS OR MORE [facility] Radiology Reports: +/- 30 days of the [...] the Encounter. The data comes from all [place] treatment facilities. Date/Time Radiology Report Provider Source Aug 11, 2024 12:58 PM ULTRASOUND SCROTUM: HANNA RAMIREZ [id number] -1940 M Exm Date: AUG 11, 2024@12:58 Req Phys: AIYANA HANDY Loc: CWM/NO/PACT 7 (Req'g Loc) Img Loc: ULTRASOUND Service: Unknown [place] [address] (Case 168 COMPLETE) ULTRASOUND SCROTUM (US Detailed) CPT:86043 Reason for Study: mass Clinical History: small mobile non painful lump left side of scrotum Report Status: Verified Date Reported: AUG 11, 2024 Date Verified: AUG 11, 2024 Credit Investigator E-Sig: Report: SCROTAL SONOGRAM Technique: Multiple transverse [...] significant abnormality. READING PHYSICIAN: Cy Candelario M.D. -[id number] 08/11/2024 11:56 PST [facility] National Teleradiology Program [phone] (For Medical Practitioner Use Only) Attention Patients / Veterans: If you have questions or concerns about these test results, please contact your ordering provider or primary care team. Primary Diagnostic Code: NO ALERT REQUIRED Primary Interpreting Staff: RADIOLOGY,OUTSIDE SERVICE, Staff Physician / RADIOLOGY,OUTSIDE SERVICE [facility] Encounter Notes: All associated encounter notes This section contains the clinical notes associated to the Encounter. Date/Time Encounter Note(s) Provider Source Jul 14, 2024 11:03 AM OPTOMETRY TECHNICI AN NOTE: LOCAL TITLE: OPTOMETRY ELECTRIC METER READER NOTE STANDARD TITLE: OPTOMETRY ELECTRIC METER READER NOTE DATE OF NOTE: JUL 14, 2024@11:03 ENTRY DATE: JUL 14, 2024@11:03:44 AUTHOR: JOE SUAREZ COSIGNER: URGENCY: STATUS: COMPLETED OPTOMETRY ELECTRIC METER READER NOTE Has ADDENDA Active problems - Computerized Problem List is the source for the followin. Low back pain 2. Cervicalgia 3. Sleep apnea 4. Primary malignant neoplasm of lacrimal gland duct 5. Diabetes Mellitus Type 2 ([facility] [id number]) 6. Hypertension 7. Erectile Dysfunction ([facility] [id number]) 8. Hyperlipidemia ([facility] [id number]) 9. Skin Lesion ([facility] [id number]) 10. Prostate Cancer ([facility] [id number]) 11. Under care of multiple providers 12. [...] 6 HOURS NEEDED FOR COUGH 4) GOV-PAXLOVID [id number] RENAL PKT 2 TAKE 1 ACTIVE TABLET [...] is not contributory to today's visit. Optometry Store Promoter Attending Provider Note: Date of Last Exam:07/07/2023 Location: [facility] Last Dr Dewey appt: 3-4 months ago, [...] seen [facility]. Campbell [facility] over the years. He also saw for [...] both with excision x2. 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 History of diabetes without ocular manifestations. Refraction disorder P: Ordered PAL. The patient will return in 12 months or sooner if any problems arise. Education: After discussion and answering all 's questions, [place] demonstrated and verbalized understanding of diagnosis and [...] this [facility] (local) and dispensed from another [place] or DoD facility (remote) as well as [...] non-VA provider. /amrita/ MIKAYLA GIFFORD OD STAFF BLOOD DONOR UNIT ASSISTANT Signed: 07/14/2024 14:14 JOE SUAREZ [facility]
--- OUTSIDE RECORDS SUMMARY | 2025-01-20 15:25 | XMS_ITS ---
Author Organization [facility] Address [address] [place] [address] Care Team Providers Care Coin Dealer Name Role Phone Cecil Geller N.P Primary Care Provider Unav ailable Leslie Cho Unavailable [phone] REASON FOR VISIT Appointment 01/18/25 Encounters Encounter Location Date Provider Diagnosis [facility] [address] [place] [address] 01/18/2025 Leslie Cho Plan Of Treatment Next Appt Details Provider Name:Leslie brown, 01/17/2026 01:00:00 PM, [address] [place], [address], Progress Notes * Aldair RAMIREZDOB:0 1940 (84 yo M)Acc No.[id number]:01/18/2025 Patient:?Ana Lilia RAMIREZ :1940???Age:84 Y???Sex:Male [address] [facility] [place] [address] * * Date:?
--- OUTSIDE RECORDS SUMMARY | 2025-01-20 15:25 | XMS_ITS | Patient Health Record ---
[facility] Ehsan alberts [place] Address [address] [place] [address] Care Team Providers Care High School Band Director Name Role Phone Cecil Geller N.P Primary Care Provider Rachelv ailable Leslie Cho Unavailable [phone] Allergies No Known Allergies Results Component Value Reference Range Notes HEMOGLOBIN A1C (GLYCOHEMOGLO BIN) Reviewed date:01/18/2025 01:04:24 PM Interpretation: Performing Lab: Notes/Report: HEMOGLOBIN A1C % (HH) 7.5 Reason For Referral Diagnosis 1 Pain in unspecified foot (M79.673) Referring Provider First Name Cecil Referring Provider Last Name Yimi Referred [facility] [place] Referred Provider Leslie Cho Referred Address [address] [facility],[place], [place],[address], Referred Provider Specialty Podiatry Referral Priority Routine Medications Medication SIG (Take, Route, Frequency, Duration) [...] Problem Status W/U Status Risk Notes Problem [id number] Type 2 diabetes mellitus without complication, without long-term current use of insulin (E11.9) Active confirmed Vital Signs Blood pressure diastolic 81 mm Hg 01/18/2025 Height 5ft7in in 01/18/2025 Blood pressure systolic 124 mm Hg 01/18/2025 Weight 155 lbs 01/18/2025 BMI 24.27 kg/m2 01/18/2025 Encounters Encounter Location Date Provider Diagnosis [facility] [address] [address] 01/18/2025 Leslie Cho Type 2 diabetes mellitus without complication, without long-term current use of insulin E11.9 [facility] [address] [address] 01/18/2025 Leslie Cho Assessments Encounter Date Diagnosis (ICD Code) Assessment Notes Treatment Notes Treatment Clinical Notes Section Notes 01/18/2025 Type 2 diabetes mellitus without complication, without long-term current use of insulin (ICD-10 - E11.9) Plan Of Treatment Next Appt Details Provider Name:Leslievania brown, 01/17/2026 01:00:00 PM, [address] [place] [address], [phone], Insurance Providers Payer Name Payer Address Payer Phone Subscriber Number Group Number Insured Name Patient Relationship to Insured Coverage Start Date Coverage End Date VACCN [address] [place] [address] [id number] Aldair Doran Self - patient is the insured Medical (General) History Medical History History ICD Code Arthritis Cancer covid-19 type II diabetes Diverticulosis raynauds disease Joint implants/screws Lactose intolerance Onychomycosis Surgical History Surgery Date(Month/Year) spinal fusion 04/12/2024 prostate cancer 12/2006
--- OUTSIDE RECORDS SUMMARY | 2025-01-20 15:26 | XMS_ITS ---
Author Name [facility] [place] Organization [facility] [place] [facility] [place] Address [address] [place] [id number] Care Team Providers Care Electro Mechanical Solar Technician Name Role Phone AIYANA HANDY Primary Care [...] AGENC Y SUPP PL Mar 15, 2018 [id number] [address] RT PATIENT MEDICARE (WNR) MEDICARE (M) PART B Nov 13, 2010 PART B [id number] DOMINIC BEDOLLA RT PATIENT MEDICARE (WNR) MEDICARE (M) PART A January 13, 2007 PART A [id number] DOMINIC BEDOLLA PATIENT Selected Encounter This section includes the information on record at [place] for the Encounter. Date/Time Encounter Type Encounter Description Reason Provider Source Jul 23, 2024 01:20 PM RPR&REFITG SPECT XCP APHAKIA OPTOMETRY ICD-10-CM Z46.0 Encounter for fit/adjst of spectacles and contact lenses SAV GOLDSTEIN [facility] Encounter Template Text not used by [place] Assessments - Encounter Diagnoses This section includes the primary and secondary diagnoses documented for the Encounter. Date/Time Primary/Secondary Diagnosis Diagnosis Name Provider Source Jul 23, 2024 01:40 PM PRIMARY Encounter for fit/adjst of spectacles and contact lenses SAV [place]OLDSTEIN [place] [facility] [place] [facility] Plan of Treatment: Future Appointments (+ 6 months) and Future Tests (+/- 45 days) The Plan of Treatment section includes future care activities for the patient from all [place] treatmentfacilities. This section includes future appointments and future orders which are active, pending or scheduled. Future Appointments This section includes appointments that were scheduled to occur 6 months from the date of the Encounter, up to a maximum of 20 appointments. The data comes from all [place] treatment facilities. Appointment Date/Time Appointment Type Appointme nt Facility Name Jul 29, 2024 02:00 PM AMBULATORY - [place]ICINE [place] [facility] [place] [facility] Aug 03, 2024 10:00 AM AMBULATORY - MEDICINE [place] [facility] [place] [facility] Aug 11, 2024 01:00 PM AMBULATORY - NONE [place] [facility] [place] [facility] Aug 18, 2024 01:30 PM AM[facility]UL[facility] [place]IN [place] [facility] [place] [facility] Aug 19, 2024 01:00 PM AMBUL[place]ORY - MEDICINE [place] [facility] [place] [facility] Sep 28, 2024 01:00 PM AMBULATORY - NONE [place] [facility] [place] [facility] Oct 21, 2024 02:00 PM AMBULATORY [place] MEDICINE [place] [facility] [place] [facility] Dec 27, 2024 02:30 PM AMBULATORY [place]ICINE [place] [facility] [place] [facility] January 18, 2025 01:00 PM AMBULATORY - [place]ICINE [place] [facility] [place] [facility] Lab Results: +/- 30 days of the encounter This section includes the Chemistry and Hematology Lab Results on record with [place] for the patient. Radiology Reports and Pathology Reports are provided separately, in subsequent sections. Lab Results This section contains the Chemistry/Hematology Results that were resulted 30 days before or 30 daysafter the date of the Encounter. Date/Time Source Result Type Result - Unit Interpretation Reference Range Specimen Type Comment Aug 11, 2024 12:49 PM [facility] LIPID PANEL, NON FASTING SERUM Specimen Type: SERUM No comment entered. Ordering Provider: AIYANA HANDY Report Released Date/Time: Jul 07, 2024 09:55 AM Reporting Lab: [facility] [address] [facility] [address] Performing Lab: [address] [address] CHOLESTEROL 144 mg/dL TRIGLYCERIDE 204 mg/dL H 0-150 LDL calculated 52 mg/dL 0-129 CHOL/HDL 2.8 HDL CHOLESTEROL 51 mg/dL 40-60 Aug 11, 2024 12:49 PM [facility] BASIC METABOLIC PANEL (non-fasting) SERUM Spe cimen Type: SERUM No comment entered. Ordering Provider: AIYANA HANDY Report Released Date/Time: Jul 07, 2024 09:55 AM Reporting Lab: [address] [address] Performing Lab: [address] [address] UREA NITROGEN 23 mg/dL 7-25 GLUCOSE 123 mg/dL H 65-100 SODIUM 141 mmol/L 135-145 POTASSIUM 4.9 mmol/L 3.5-5.0 CHLORIDE 108 mmol/L 100-110 CO2 23 meq/L 20-30 CREATININE, Serum 1.08 mg/dL 0.50-1.40 eGFR(CKD-EPI 2020) 69 mL/min >60 Aug 11, 2024 12:49 PM [facility] CBC BLOOD Specimen Type: BLOOD No comment entered. Ordering Provider: AIYANA HANDY Report Released Date/Time: Jul 07, 2024 09:55 AM Reporting Lab: [address] [address] Performing Lab: [address] [address] WBC 6.26 10*3/uL 4.50-11.00 RBC 4.21 10*6/uL L 4.23-5.66 HGB 12.8 g/dL 12.8-17 HCT 36.2 L 39.2-50.4 MCV 86.0 fL 82-99 MCHC 35.4 g/dL H 30.8-35.1 PLT 149 10*3/uL 140-360 RDW-CV 13.2 12.0-16.0 MCH 30.4 pg 26.2-32.6 Aug 11, 2024 12:49 PM [facility] HEMOGLOBIN A1C PANEL BLOOD Specimen Type: BLO [...] Jul 07, 2024 09:55 AM Reporting Lab: [address] [address] Performing Lab: [address] [address] HEMOGLOBIN A1C 6.8 H 4.0-5.6 Aug 11, 2024 12:49 PM [facility] LIVER FUNCTION SERUM Specimen Type: SERUM No comment entered. Ordering Provider: AIYANA HANDY Report Released Date/Time: Jul 07, 2024 09:55 AM Reporting Lab: [address] [address] Performing Lab: [address] [address] PROTEIN,TOTAL 6.8 g/dL 6.0-8.3 ALBUMIN 3.9 g/dL 3.5-5.0 ALKALINE PHOSPHATASE 56 U/L 40-150 AST 16 U/L 5-34 ALT 16 U/L BILIRUBIN, TOTAL 0.4 mg/dL 0.2-1.2 Aug 11, 2024 12:49 PM [facility] MICROALBUMIN CREATININE RATIO PANEL URINE Spe cimen Type: URINE No comment entered. Ordering Provider: AIYANA HANDY Report Released Date/Time: Jul 07, 2024 09:55 AM Reporting Lab: [place] [facility] [place] [facility] [address] [facility] [address] Performing Lab: [place] [facility] [place] [facility] [address] [facility] [address] MICROALBUMIN/CREATININE RATIO 63.6 mg/g H 0-29.9 MICROALBUMIN,QUANTITATIVE 4.8 mg/dL RR U NAVAIL CREATININE URINE 75.42 mg/dL Social History: Smoking Status (Most current) and Tobacco Use (All prior to encounter date) This section includes the most current, and the historical, smoking and tobacco- related health factors from the [place] facility where the Encounter took place. Current Smoking Status This section includes the most current smoking, or tobacco-related health factor, from the [place] facility where the Encounter took place. Date/Time Current Smoking Status Comment Facil ity 2024 02:30 PM VA-TOBACCO QUIT 15 YRS OR MORE [facility] Tobacco Use History This section includes a history of the smoking, or tobacco-related health factors, that were collected on or before the date of the Encounter. The data comes from the [place] facility where the Encounter took place. Date/Time Smoking Status/Tobacco Use Comment F acility 2024 02:30 PM VA-TOBACCO QUIT 15 YRS OR MORE [place] [facility] [place] [facility] Dec 23, 2022 02:30 PM VA-TOBACCO FORMER USER [facility] [place] [facility] Dec 23, 2022 02:30 PM VA-TOBACCO QUIT 15 YRS OR MORE [facility] [place] [facility] Nov 19, 2021 02:00 PM VA-TOBACCO FORMER USER [facility] [place] [facility] Nov 19, 2021 02:00 PM VA-TOBACCO QUIT 15 YRS OR MORE [facility] [place] [facility] Dec 08, 2020 11:00 AM VA-TOBACCO FORMER USER [facility] [place] [facility] Dec 08, 2020 11:00 AM VA-TOBACCO QUIT 15 YRS OR MORE [place] [facility] [place] [facility] Radiology Reports: +/- 30 days [...] the Encounter. The data comes from all [place] treatment facilities. Date/Time Radiology Report Provider Source Aug 11, 2024 12:58 PM ULTRASOUND SCROTUM: HANNA RAMIREZ [id number] -[id number] M Exm Date: AUG 11, 2024@12:58 Req Phys: AIYANA HANDY Loc: CWM/NO/PACT 7 (Req'g Loc) Img Loc: ULTRASOUND Service: [facility] [place] [address] (Case [id number] COMPLETE) ULTRASOUND SCROTUM (US Detailed) CPT:25312 Reason for Study: mass Clinical History: small mobile non painful lump left side of scrotum Report Status: Verified Date Reported: AUG 11, 2024 Date Verified: AUG 11, 2024 Flame Cutting Supervisor E-Sig: Report: SCROTAL SONOGRAM Technique: Multiple transverse [...] significant abnormality. READING PHYSICIAN: Cy Candelario M.D. -[phone] 08/11/2024 11:56 [facility] National Teleradiology Program [phone] (For Medical Practitioner Use Only) Attention Patients / Veterans: If you have questions or concerns about these test results, please contact your ordering provider or primary care team. Primary Diagnostic Code: NO ALERT REQUIRED Primary Interpreting Staff: RADIOLOGY,OUTSIDE SERVICE, Staff Physician / RADIOLOGY,OUTSIDE SERVICE [place] [facility] Encounter Notes: All associated encounter notes This section contains the clinical notes associated to the Encounter. Date/Time Encounter Note(s) Provider Source Jul 28, 2024 09:47 AM ADDENDUM: LOCAL TITLE: Addendum STANDARD TITLE: ADDENDUM DATE OF NOTE: JUL 28, 2024@09:47:06 ENTRY DATE: JUL 28, 2024@09:47:06 AUTHOR: MIKAYLA GIFFORD EXP COSIGNER: URGENCY: STATUS: COMPLETED Please order OD with +2.75 -1.25 X067. /es/ MIKAYLA GIFFORD OD STAFF CLINICAL AUDITOR Signed: 07/28/2024 09:48 Receipt Acknowledged By: 07/28/2024 10:12 /es/ Sav Goldstein [facility] Health Body Bumper ========= --- Original Document --- 07/23/24 OPTOMETRY NOTE: Patient seen for fitting appt today, c/o of OD blurry. Checked RX, OD was ordered as +1.25 -1.25 x067. Occupational Health Nurse pulled orig eyeglass ticket today and verified [...] finalizes OD RX. FITTING INFORMATION FPD: NPD: [place]:R:34 L:32 SEG HT:R:14 L:14 Tint:None Shade:None VA Billable Items FRAME: MODERN MODZFLEX [id number] BROWN 50-19 Right Lens: POLY VA PROGRESSIVE PHOTOCHROMIC HENRY 1.586 POLY Left Lens: POLY VA PROGRESSIVE PHOTOCHROMIC HENRY 1.586 POLY KLEAR ANTI-REFLECTIVE COATING CLIN items [employer] - [place] Coating 0004 - Progressive - Glass Plastic Poly 0005 - Transition /es/ Sav Goldstein [facility] Health Body Bumper Signed: 07/23/2024 13:40 Receipt Acknowledged By: 07/28/2024 09:46 /amrita/ MIKAYLA GIFFORD OD STAFF CLINICAL AUDITOR MIKAYLA GIFFORD [facility] [place] [facility] Jul 23, 2024 01:33 PM OPTOMETRY NOTE: LOCAL TITLE: OPTOMETRY NOTE STANDARD TITLE: OPTOMETRY NOTE DATE OF NOTE: JUL 23, 2024@13:33 ENTRY DATE: JUL 23, 2024@13:34:01 AUTHOR: SAV GOLDSTEIN CHR EXP COSIGNER: URGENCY: STATUS: COMPLETED OPTOMETRY NOTE Has ADDENDA Patient seen for fitting appt today, c/o of OD blurry. Checked RX, OD was ordered as +1.25 -1.25 x067. Occupational Health Nurse pulled orig eyeglass ticket today and verified [...] finalizes OD RX. FITTING INFORMATION FPD: NPD: [place]:R:34 L:32 SEG HT:R:14 L:14 Tint:None Shade:None VA Billable Items FRAME: MODERN MODZFLEX [id number] BROWN 50-19 Right Lens: POLY VA PROGRESSIVE PHOTOCHROMIC HENRY 1.586 POLY Left Lens: POLY VA PROGRESSIVE PHOTOCHROMIC HENRY 1.586 POLY KLEAR ANTI-REFLECTIVE COATING CLIN items [employer] - [place] Coating 0004 - Progressive - Glass Plastic Poly 0005 - Transition /es/ Sav Goldstein [facility] Health Body Bumper Signed: 07/23/2024 13:40 Receipt Acknowledged By: 07/28/2024 09:46 /amrita/ MIKAYLA GIFFORD OD STAFF CLINICAL AUDITOR 07/28/2024 ADDENDUM STATUS: COMPLETED Please order OD with +2.75 -1.25 X067. /amrita/ MIKAYLA GIFFORD OD STAFF CLINICAL AUDITOR Signed: 07/28/2024 09:48 Receipt Acknowledged By: * AWAITING SIGNATURE * SAV GOLDSTEIN,SAV [facility]CR[facility]
--- OUTSIDE RECORDS SUMMARY | 2025-01-20 15:26 | XMS_ITS | Continuity of Care Document ---
Author Name [facility] Organization [facility] Care Team Providers Care Rack Puller Name Role Phone [facility] Unavailable Unavailable Problems Combined list of problems from Department of Defense and Veterans Affairs facilities. It does not include entries that were removed or entered in error. Problem Status Onset Date Problem Type Date of Resolution Comments Source Cervicalgia Active Condition [facility] Diabetes Mellitus Type 2 (SCT 27193203) Active Condition [facility] Diverticulosis of colon without diverticulitis Active Condition [facility] Erectile Dysfunction (SCT 345004863) Active Condition [facility] Hand pain Active Condition [facility] Hyperlipidemia (SCT 87512517) Active Condition [facility] Hypertension Active Condition [facility] Low back pain Active Condition [facility] 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 Alva [facility] Skin Lesion (SCT 95549461) Active Condition Dec 08, 2020 Entered By: JARRETT HANDY AM Comment: maintains [facility] Sleep apnea Active Condition Dec 24, 2022 Entered By: JARRETT HANDY AM Comment: [facility] Tinnitus Active Condition [facility] Under care of multiple providers Active Condition Dec 08, 2020 Entered By: JARRETT HANDY AM Comment: [facility] Diagnosis: ICD-10-CM Z13.6 Encounter for screening for cardiovascular disorders Active [facility] Diagnosis: ICD-10-CM E11.9 Type 2 diabetes mellitus without complications Active Diagnosis [facility] Diagnosis: ICD-10-CM G47.33 Obstructive sleep [...] spectacles and contact lenses Active Diagnosis [facility] [place] Diagnosis: ICD-10-CM H25.813 Combined forms of age-related cataract, bilateral Active Diagnosis [facility] Diagnosis: ICD-10-CM U07.1 COVID-19 Active Diagnosis [facility] ([id number]) Diagnosis: ICD-10-CM L57.0 Actinic keratosis Active Diagnosis [facility] Diagnosis: ICD-10-CM Z13.89 Encounter for screening for [...] HOURS NEEDED FOR PAIN ORAL ACTIVE 02/16/2025 [id number] AIYANA HANDY 2023 [facility] ALBUTEROL 90MCG/ACTUA T (CFC-F) INHL,ORAL,8 .5GM DOSE COUNTER INHALE 2 PUFFS BY MOUTH EVERY 4 HOURS NEEDED FOR BRONCHOS PASM RESPIR ATORY (INHAL ATION) 12/31/2023 [id number] 4 ANA MARADIAGA 2023 1 [facility] ASPIRIN 81MG TAB,EC TAKE ONE TABLET BY MOUTH ONCE DAILY ORAL ACTIVE [facility] AZITHROMYCI N 250MG TAB TAKE TWO TABLETS BY MOUTH NOW FOR 1 DAY, THEN TAKE ONE TABLET ONCE DAILY FOR 4 DAYS ORAL 11/30/2023 [id number] 4 AIYANA HANDY 2023 6 [facility] DEXTROMETHO RPHAN HBR 10MG/GUAIFE NESIN 100MG/5ML (AF & SF) LIQUID TAKE 5 MLS BY MOUTH EVERY 6 HOURS NEEDED FOR COUGH ORAL DISCONT INUED (EDIT) 12/01/2024 [id number] 4 ANA MARADIAGA 2023 240 [facility] DEXTROMETHO RPHAN HBR 10MG/GUAIFE NESIN 100MG/5ML (AF & SF) LIQUID TAKE 5 MLS (1 TEASPOON FUL) BY MOUTH EVERY 6 HOURS NEEDED FOR COUGH ORAL 12/01/2024 [id number] 4 ANA MARADIAGA 2023 240 [facility] DICLOFENAC NA 1% GEL,TOP APPLY 2 GRAMS TOPICALL Y FOUR TIMES A DAY FOR OSTEOART HRITIS - USE DOSING CARD PROVIDED IN BOX TOPICA L ACTIVE 12/28/2025 [id number] 5 AIYANA HANDY 2024 100 [facility] DICLOFENAC NA 50MG TAB,EC TAKE ONE TABLET BY MOUTH EVERY 8 HOURS NEEDED FOR PAIN AND INFLAMMA TION ORAL DISCONT INUED BY PROVIDE R 12/23/2024 [id number] 4 AIYANA HANDY 2023 90 [facility] DICLOFENAC NA 50MG TAB,EC TAKE ONE TABLET BY MOUTH EVERY 8 HOURS NEEDED FOR PAIN AND INFLAMMA TION ORAL DISCONT INUED 05/26/2024 [id number] 4 AIYANA HANDY 2022 90 [facility] GOV-NIRMATR CAREY 150MG X 1/RITONAVIR 100MG X 1 TAB RENAL PACK,2 TAKE 1 TABLET NILMATRE LVIR AND 1 TABLET RITONAVI R BY MOUTH TWICE DAILY FOR COVID-19 - PLEASE OVERANALY T MAIL ORAL 07/15/2024 [id number] 4 HOLLIE DAVIS 2023 5 [facility] GUAIFENESIN 100MG/5ML (SF & AF) LIQUID TAKE 1 TEASPOON FUL BY MOUTH EVERY 6 HOURS NEEDED FOR COUGH -- PLEASE MAIL OVERANALY T WITH PAXLOVID . ORAL 07/15/2024 [id number] 4 HOLLIE DAVIS 2023 240 [facility] METFORMIN HCL 500MG TAB TAKE ONE-HALF TABLET BY MOUTH TWICE DAILY ORAL ACTIVE AIYANA HANDY 2021 [facility] METOPROLOL TARTRATE 50MG TAB TAKE ONE-HALF TABLET BY MOUTH TWICE DAILY ORAL ACTIVE AIYANA HANDY 2021 [facility] PRAVASTATIN NA 40MG TAB TAKE ONE TABLET BY MOUTH ONCE DAILY ORAL ACTIVE AIYANA HANDY 2021 [facility] PREDNISONE 20MG TAB TAKE TWO TABLETS BY MOUTH ONCE DAILY DIRECTED BY PROVIDER ORAL 12/31/2023 [id number] 4 ANA MARADIAGA 2023 10 [facility] Immunizations Combined list of available immunizations from the Department of Defense and Veterans Affairs facilities. Immunization Series Date Given Administered By Site Reaction Lot Number CVX Code Drug Belt Notcher Status Comments Source INFLUENZA, UNSPECIFIED FORMULATION 2023 88 complet ed HISTORICA L INFORMATI ON - FROM PATIENT'S RECALL, per statement from vet [facility] INFLUENZA, HIGH-DOSE, QUADRIVALENT 2022 SREE ROSENTHAL LEFT DELTO ID [id number] 197 complet ed Completed Series, ADMINISTE [place] [facility] COVID-19 (PFIZER), [...] Reference Range Date Interpretation Specimen Comments Source LIPID PANEL, NON FASTING CHOLESTEROL [MASS/VOLUM E] IN SERUM OR PLASMA 136 mg/dL 12/24 Specimen Type: SERUM No comment entered. Ordering Provider: KATE HANDY Report Released Date/Time: Dec 24, 2024 08:45 AM Reporting Lab: [facility] [address] [address] Performing Lab: [facility] [address] [facility]N [facility] LIPID PANEL, NON FASTING TRIGLYCERID E [MASS/VOLUM E] IN SERUM OR PLASMA 109 mg/dL 0 - 150 12/24 Specimen Type: SERUM No comment entered. Ordering Provider: KATE HANDY Report Released Date/Time: Dec 24, 2024 08:45 AM Reporting Lab: [facility] [address] Performing Lab: [facility] [address] [facility] LIPID PANEL, NON FASTING CHOLESTEROL IN LDL [MASS/VOLUM E] IN SERUM OR PLASMA BY CALCULATION 60 mg/dL 0 - 129 12/24 Specimen Type: SERUM No comment entered. Ordering Provider: KATE HANDY Report Released Date/Time: Dec 24, 2024 08:45 AM Reporting Lab: [facility] [address] Performing Lab: [facility] [address] [facility] LIPID PANEL, NON FASTING CHOLESTEROL .TOTAL/CHOL ESTEROL IN HDL [MASS RATIO] IN SERUM OR PLASMA 2.5 12/24 Specimen Type: SERUM No comment entered. Ordering Provider: KATE HANDY Report Released Date/Time: Dec 24, 2024 08:45 AM Reporting Lab: [facility] [address] Performing Lab: [facility] [address] [place] [facility] [facility] [facility] LIPID PANEL, NON FASTING CHOLESTEROL IN HDL [MASS/VOLUM E] IN SERUM OR PLASMA 54 mg/dL 40 12/24 Specimen Type: SERUM No comment entered. Ordering Provider: KATE HANDY Report Released Date/Time: Dec 24, 2024 08:45 AM Reporting Lab: [facility] [place] [facility] [address] [facility] [facility] [address] Performing Lab: [facility] [place] [facility] [address] [facility] [address] [place] [facility] [facility] [facility] CBC LEUKOCYTES [#/VOLUME] IN BLOOD BY AUTOMATED COUNT 5.11 10*3/u L 4.50 - 11.00 12/24 Specimen Type: BLOOD No comment entered. Ordering Provider: KATE HANDY Report Released Date/Time: Dec 24, 2024 08:45 AM Reporting Lab: [facility] [place] [facility] [address] [address] Performing Lab: [facility] [place] [address] [address] [place] [facility] [facility] CBC ERYTHROCYTE S [#/VOLUME] IN BLOOD BY AUTOMATED COUNT 4.56 10*6/u L 4.23 - 5.66 12/24 Specimen Type: BLOOD No comment entered. Ordering Provider: KATE HANDY Report Released Date/Time: Dec 24, 2024 08:45 AM Reporting Lab: [facility] [place] [address] [address] Performing Lab: [facility] [place] [facility] [address] [facility] [address] [place] [facility] [place] [facility] CBC HEMOGLOBIN [MASS/VOLUM E] IN BLOOD 13.9 g/dL 12.8 - 17 12/24 Specimen Type: BLOOD No comment entered. Ordering Provider: KATE HANDY Report Released Date/Time: Dec 24, 2024 08:45 AM Reporting Lab: [facility] [place] [address] [address] Performing Lab: [facility] [place] [facility] [address] [facility] [address] [facility] [place] [facility] CBC HEMATOCRIT [VOLUME FRACTION] OF BLOOD BY AUTOMATED COUNT 39.4 39.2 - 50.4 12/24 Specimen Type: BLOOD No comment entered. Ordering Provider: KATE HANDY Report Released Date/Time: Dec 24, 2024 08:45 AM Reporting Lab: [facility] [place] [facility] [address] [facility] [address] Performing Lab: [facility] [place] [facility] [address] [facility] [address] [facility] [place] [facility] CBC MCV [ENTITIC VOLUME] BY AUTOMATED COUNT 86.4 fL 82 - 99 12/24 Specimen Type: BLOOD No comment entered. Ordering Provider: KATE HANDY Report Released Date/Time: Dec 24, 2024 08:45 AM Reporting Lab: [facility] [place] [facility] [address] [facility] [address] Performing Lab: [facility] [place] [address] [address] [facility] [place] [facility] CBC MCHC [MASS/VOLUM E] BY AUTOMATED COUNT 35.3 g/dL 30.8 - 35.1 12/24 H Specimen Type: BLOOD No comment entered. Ordering Provider: KATE HANDY Report Released Date/Time: Dec 24, 2024 08:45 AM Reporting Lab: [facility] [place] [facility] [address] [address] Performing Lab: [facility] [place] [address] [address] [place] [facility] [facility] [facility] CBC PLATELETS [#/VOLUME] IN BLOOD BY AUTOMATED COUNT 155 10*3/u L 140 - 360 12/24 Specimen Type: BLOOD No comment entered. Ordering Provider: KATE HANDY Report Released Date/Time: Dec 24, 2024 08:45 AM Reporting Lab: [facility] [address] [facility] [address] Performing Lab: [facility] [address] [facility] [address] [facility] [place] [facility] CBC PLATELET MEAN VOLUME [ENTITIC VOLUME] IN BLOOD BY AUTOMATED COUNT 9.2 fL 9.2 - 12.4 12/24 Specimen Type: BLOOD No comment entered. Ordering Provider: KATE HANDY Report Released Date/Time: Dec 24, 2024 08:45 AM Reporting Lab: [facility] [place] [facility] [address] [facility] [address] Performing Lab: [facility] [place] [facility] [address] [facility] [address] [place] [facility] [place] [facility] CBC ERYTHROCYTE DISTRIBUTIO N WIDTH [RATIO] BY AUTOMATED COUNT 12.6 12.0 - 16.0 12/24 Specimen Type: BLOOD No comment entered. Ordering Provider: KATE HANDY Report Released Date/Time: Dec 24, 2024 08:45 AM Reporting Lab: [facility] [place] [facility] [address] [facility] [address] Performing Lab: [facility] [place] [facility] [address] [address] [place] [facility] [place] [facility] CBC MCH [ENTITIC MASS] BY AUTOMATED COUNT 30.5 pg 26.2 - 32.6 12/24 Specimen Type: BLOOD No comment entered. Ordering Provider: KATE HANYD Report Released Date/Time: Dec 24, 2024 08:45 AM Reporting Lab: [facility] [place] [facility] [address] [facility] [address] Performing Lab: [facility] [place] [facility] [address] [facility] [address] [facility] [place] [facility] BASIC METABOLIC PANEL (non-fast ing) UREA NITROGEN [MASS/VOLUM E] IN SERUM OR PLASMA 18 mg/dL 8 - 26 12/24 Specimen Type: SERUM No comment entered. Ordering Provider: KATE HANDY Report Released Date/Time: Dec 24, 2024 08:45 AM Reporting Lab: [place] [facility] [place] [facility] [address] [address] Performing Lab: [place] [facility] [facility] [address] [facility] [address] [facility] [place] [facility] BASIC METABOLIC PANEL (non-fast ing) GLUCOSE [MASS/VOLUM E] IN SERUM OR PLASMA 156 mg/dL 65 - 100 12/24 H Specimen Type: SERUM No comment entered. Ordering Provider: KATE HANDY Report Released Date/Time: Dec 24, 2024 08:45 AM Reporting Lab: [place] [facility] [facility] [address] [facility] [address] Performing Lab: [place] [facility] [facility] [address] [address] [facility] BASIC METABOLIC PANEL (non-fast ing) SODIUM [MOLES/VOLU ME] IN SERUM OR PLASMA 140 mmol/L 136 - 145 12/24 Specimen Type: SERUM No comment entered. Ordering Provider: KATE HANDY Report Released Date/Time: Dec 24, 2024 08:45 AM Reporting Lab: [facility] [place] [address] [address] Performing Lab: [place] [facility] [facility] [address] [address] [facility] BASIC METABOLIC PANEL (non-fast ing) POTASSIUM [MOLES/VOLU ME] IN SERUM OR PLASMA 4.8 mmol/L 3.5 - 5.1 12/24 Specimen Type: SERUM No comment entered. Ordering Provider: KATE HANDY Report Released Date/Time: Dec 24, 2024 08:45 AM Reporting Lab: [place] [facility] [facility] [address] [facility] [address] Performing Lab: [place] [facility] [place] [address] [address] [place] [facility] [facility] BASIC METABOLIC PANEL (non-fast ing) CHLORIDE [MOLES/VOLU ME] IN SERUM OR PLASMA 104 mmol/L 98 - 107 12/24 Specimen Type: SERUM No comment entered. Ordering Provider: KATE HANDY Report Released Date/Time: Dec 24, 2024 08:45 AM Reporting Lab: [facility] [address] [address] Performing Lab: [facility] [address] [facility] BASIC METABOLIC PANEL (non-fast ing) CARBON DIOXIDE, TOTAL [MOLES/VOLU ME] IN SERUM OR PLASMA 27 meq/L 23 - 31 12/24 Specimen Type: SERUM No comment entered. Ordering Provider: KATE HANDY Report Released Date/Time: Dec 24, 2024 08:45 AM Reporting Lab: [address] [address] Performing Lab: [facility] [address] [facility] BASIC METABOLIC PANEL (non-fast ing) CALCIUM [MASS/VOLUM E] IN SERUM OR PLASMA 9.9 mg/dL 8.8 - 10 12/24 Specimen Type: SERUM No comment entered. Ordering Provider: KATE HANDY Report Released Date/Time: Dec 24, 2024 08:45 AM Reporting Lab: [facility] [address] Performing Lab: [facility] [address] [facility] BASIC METABOLIC PANEL (non-fast ing) CREATININE [MASS/VOLUM E] IN SERUM OR PLASMA 1.10 mg/dL 0.72 - 1.25 12/24 Specimen Type: SERUM No comment entered. Ordering Provider: KATE HANDY Report Released Date/Time: Dec 24, 2024 08:45 AM Reporting Lab: [facility] [address] [facility] [address] Performing Lab: [facility] [address] [address] [facility] BASIC METABOLIC PANEL (non-fast ing) GLOMERULAR FILTRATION RATE/1.73 SQ M.PREDICTED [VOLUME RATE/AREA] IN SERUM, PLASMA OR BLOOD BY CREATININE- BASED FORMULA (CKD-EPI 2020) 67 mL/min 60 12/24 Specimen Type: SERUM No comment entered. Ordering Provider: KATE HANDY Report Released Date/Time: Dec 24, 2024 08:45 AM Reporting Lab: [address] [address] Performing Lab: [address] [address] [facility] HEMOGLOBI N A1C PANEL HEMOGLOBIN A1C/HEMOGLO BIN.TOTAL IN BLOOD BY IFCC PROTOCOL 7.5 4.0 - 5.6 12/24 H Specimen Type: BLOOD Comment: Values obtained from A1C measurement s can vary. For atypical A1C assays, a reported value of 7.0 could actually be between 6.72 and 7.28 if measured by a reference method. A reported value of 9.0 could actually be between 8.73 and 9.27. Ref: http://www. ngsp.org/[place] Pdata.asp Ordering Provider: KATE HANDY Report Released Date/Time: Dec 24, 2024 08:45 AM Reporting Lab: [facility] [address] [address] Performing Lab: [address] [address] [facility] LIVER FUNCTION PROTEIN [MASS/VOLUM E] IN SERUM OR PLASMA 7.0 g/dL 6.4 - 8.3 12/24 Specimen Type: SERUM No comment entered. Ordering Provider: KATE HANDY Report Released Date/Time: Dec 24, 2024 08:45 AM Reporting Lab: [facility] [address] [facility] [address] Performing Lab: [facility] [place] [facility] [address] [address] [facility] [place] [facility] LIVER FUNCTION ALBUMIN [MASS/VOLUM E] IN SERUM OR PLASMA BY BROMOCRESOL PURPLE (BCP) DYE BINDING METHOD 4.4 g/dL 3.2 - 4.6 12/24 Specimen Type: SERUM No comment entered. Ordering Provider: KATE HANDY Report Released Date/Time: Dec 24, 2024 08:45 AM Reporting Lab: [facility] [place] [facility] [address] [facility] [address] Performing Lab: [facility] [address] [address] [facility] LIVER FUNCTION ALKALINE PHOSPHATASE [ENZYMATIC ACTIVITY/VO LUME] IN SERUM OR PLASMA 87 U/L 40 - 150 12/24 Specimen Type: SERUM No comment entered. Ordering Provider: KATE HANDY Report Released Date/Time: Dec 24, 2024 08:45 AM Reporting Lab: [facility] TRN [facility] [address] [facility] [address] Performing Lab: [place] [facility] [facility] [address] [address] [facility] TRN [facility] LIVER FUNCTION ASPARTATE AMINOTRANSF ERASE [ENZYMATIC ACTIVITY/VO LUME] IN SERUM OR PLASMA BY WITH P-5'-P 23 U/L 5 - 34 12/24 Specimen Type: SERUM No comment entered. Ordering Provider: KATE HANDY Report Released Date/Time: Dec 24, 2024 08:45 AM Reporting Lab: [place] [facility] [place] [facility] [address] [facility] [address] Performing Lab: [place] [facility] [place] [facility] [address] [address] [facility] [facility] LIVER FUNCTION ALANINE AMINOTRANSF ERASE [ENZYMATIC ACTIVITY/VO LUME] IN SERUM OR PLASMA BY WITH P-5'-P 22 U/L 12/24 Specimen Type: SERUM No comment entered. Ordering Provider: KATE HANDY Report Released Date/Time: Dec 24, 2024 08:45 AM Reporting Lab: [facility] [place] [address] [address] Performing Lab: [facility] [place] [address] [address] [facility] [place] [facility] LIVER FUNCTION BILIRUBIN.T OTAL [MASS/VOLUM E] IN SERUM OR PLASMA 0.7 mg/dL 0.2 - 1.2 12/24 Specimen Type: SERUM No comment entered. Ordering Provider: KATE HANDY Report Released Date/Time: Dec 24, 2024 08:45 AM Reporting Lab: [facility] [place] [address] [address] Performing Lab: [facility] [place] [address] [address] [place] [facility] [facility] [facility] MICROALBU MIN CREATININ E RATIO PANEL MICROALBUMI N/CREATININ E [MASS RATIO] IN URINE 59.0 mg/g 0 - 29.9 12/24 H Specimen Type: URINE No comment entered. Ordering Provider: KATE HANDY Report Released Date/Time: Dec 24, 2024 08:45 AM Reporting Lab: [facility] [place] [address] [address] Performing Lab: [facility] [place] [address] [address] [facility] [place] [facility] MICROALBU MIN CREATININ E RATIO PANEL MICROALBUMI N [MASS/VOLUM E] IN URINE BY DETECTION LIMIT <= 1.0 MG/L 8.0 mg/dL 12/24 Specimen Type: URINE No comment entered. Ordering Provider: KATE HANDY Report Released Date/Time: Dec 24, 2024 08:45 AM Reporting Lab: [facility] [place] [address] [address] Performing Lab: [facility] [place] [facility] [address] [facility] [address] [facility] [place] [facility] MICROALBU MIN CREATININ E RATIO PANEL CREATININE [MASS/VOLUM E] IN URINE 135.53 mg/dL 63 - 166 12/24 Specimen Type: URINE No comment entered. Ordering Provider: KATE HANDY Report Released Date/Time: Dec 24, 2024 08:45 AM Reporting Lab: [facility] [place] [facility] [address] [facility] [address] Per[facility]: [facility] [address] [facility] LIPID PANEL, NON FASTING CHOLESTEROL [MASS/VOLUM E] IN SERUM OR PLASMA 144 mg/dL 08/11 Specimen Type: SERUM No comment entered. Ordering Provider: KATE HANDY Report Released Date/Time: Jul 07, 2024 09:55 AM Reporting Lab: [facility] [place] [facility] [address] [facility] [address] Performing Lab: [facility] [address] [address] [facility] LIPID PANEL, NON FASTING TRIGLYCERID E [MASS/VOLUM E] IN SERUM OR PLASMA 204 mg/dL 0 - 150 08/11 H Specimen Type: SERUM No comment entered. Ordering Provider: KATE HANDY Report Released Date/Time: Jul 07, 2024 09:55 AM Reporting Lab: [facility] [place] [facility] [address] [facility] [address] [facility]forming [facility]: [facility] [address] [address] [facility] LIPID PANEL, NON FASTING CHOLESTEROL IN LDL [MASS/VOLUM E] IN SERUM OR PLASMA BY CALCULATION 52 mg/dL 0 - 129 08/11 Specimen Type: SERUM No comment entered. Ordering Provider: KATE HANDY Report Released Date/Time: Jul 07, 2024 09:55 AM Reporting Lab: [facility] [place] [facility] [address] [facility] [address] Performing Lab: [facility] [facility] [address] [facility] [address] [facility] LIPID PANEL, NON FASTING CHOLESTEROL .TOTAL/CHOL ESTEROL IN HDL [MASS RATIO] IN SERUM OR PLASMA 2.8 08/11 Specimen Type: SERUM No comment entered. Ordering Provider: KATE HANDY Report Released Date/Time: Jul 07, 2024 09:55 AM Reporting Lab: [facility] [address] [facility] [address] Performing Lab: [facility] [address] [address] [facility] LIPID PANEL, NON FASTING CHOLESTEROL IN HDL [MASS/VOLUM E] IN SERUM OR PLASMA 51 mg/dL 40 - 60 08/11 Specimen Type: SERUM No comment entered. Ordering Provider: KATE HANDY Report Released Date/Time: Jul 07, 2024 09:55 AM Reporting Lab: [facility] [address] [facility] [address] Performing Lab: [facility] [address] [address] [facility] BASIC METABOLIC PANEL (non-fast ing) UREA NITROGEN [MASS/VOLUM E] IN SERUM OR PLASMA 23 mg/dL 7 - 25 08/11 Specimen Type: SERUM No comment entered. Ordering Provider: KATE HANDY Report Released Date/Time: Jul 07, 2024 09:55 AM Reporting Lab: [facility] [place] [facility] [address] [facility] [address] Performing Lab: [facility] [address] [facility] [address] [facility] BASIC METABOLIC PANEL (non-fast ing) GLUCOSE [MASS/VOLUM E] IN SERUM OR PLASMA 123 mg/dL 65 - 100 08/11 H Specimen Type: SERUM No comment entered. Ordering Provider: KATE HANDY Report Released Date/Time: Jul 07, 2024 09:55 AM Reporting Lab: [facility] [place] [facility] [address] [facility] [address] Performing Lab: [facility] [place] [facility] [address] [facility] [address] [facility] [place] [facility] BASIC METABOLIC PANEL (non-fast ing) SODIUM [MOLES/VOLU ME] IN SERUM OR PLASMA 141 mmol/L 135 - 145 08/11 Specimen Type: SERUM No comment entered. Ordering Provider: KATE HANDY Report Released Date/Time: Jul 07, 2024 09:55 AM Reporting Lab: [facility] [place] [facility] [address] [facility] [address] Performing Lab: [facility] [place] [address] [address] [facility] [place] [facility] BASIC METABOLIC PANEL (non-fast ing) POTASSIUM [MOLES/VOLU ME] IN SERUM OR PLASMA 4.9 mmol/L 3.5 - 5.0 08/11 Specimen Type: SERUM No comment entered. Ordering Provider: KATE HANDY Report Released Date/Time: Jul 07, 2024 09:55 AM Reporting Lab: [facility] [place] [address] [address] Performing Lab: [facility] [place] [facility] [address] [facility] [address] [facility] [place] [facility] BASIC METABOLIC PANEL (non-fast ing) CHLORIDE [MOLES/VOLU ME] IN SERUM OR PLASMA 108 mmol/L 100 - 110 08/11 Specimen Type: SERUM No comment entered. Ordering Provider: KATE HANDY Report Released Date/Time: Jul 07, 2024 09:55 AM Reporting Lab: [facility] [place] [address] [address] Performing Lab: [facility] [place] [address] [address] [facility] BASIC METABOLIC PANEL (non-fast ing) CARBON DIOXIDE, TOTAL [MOLES/VOLU ME] IN SERUM OR PLASMA 23 meq/L 20 - 30 08/11 Specimen Type: SERUM No comment entered. Ordering Provider: KATE HANDY Report Released Date/Time: Jul 07, 2024 09:55 AM Reporting Lab: [address] [address] Performing Lab: [facility] [address] [facility] [address] [facility] BASIC METABOLIC PANEL (non-fast ing) CREATININE [MASS/VOLUM E] IN SERUM OR PLASMA 1.08 mg/dL 0.50 - 1.40 08/11 Specimen Type: SERUM No comment entered. Ordering Provider: KATE HANDY Report Released Date/Time: Jul 07, 2024 09:55 AM Reporting Lab: [address] [address] Performing Lab: [address] [address] [facility] BASIC METABOLIC PANEL (non-fast ing) GLOMERULAR FILTRATION RATE/1.73 SQ M.PREDICTED [VOLUME RATE/AREA] IN SERUM, PLASMA OR BLOOD BY CREATININE- BASED FORMULA (CKD-EPI 2020) 69 mL/min 60 08/11 Specimen Type: SERUM No comment entered. Ordering Provider: KATE HANDY Report Released Date/Time: Jul 07, 2024 09:55 AM Reporting Lab: [address] [address] Performing Lab: [address] [address] [facility] CBC LEUKOCYTES [#/VOLUME] IN BLOOD BY AUTOMATED COUNT 6.26 10*3/u L 4.50 - 11.00 08/11 Specimen Type: BLOOD No comment entered. Ordering Provider: KATE HANDY Report Released Date/Time: Jul 07, 2024 09:55 AM Reporting Lab: [facility] [place] [facility] [address] [facility] [address] Performing Lab: [facility] [place] [facility] [address] [facility] [address] [facility] [place] [facility] CBC ERYTHROCYTE S [#/VOLUME] IN BLOOD BY AUTOMATED COUNT 4.21 10*6/u L 4.23 - 5.66 08/11 L Specimen Type: BLOOD No comment entered. Ordering Provider: KATE HANDY Report Released Date/Time: Jul 07, 2024 09:55 AM Reporting Lab: [facility] [place] [facility] [address] [facility] [address] Performing Lab: [facility] [place] [facility] [address] [facility] [address] [facility] [place] [facility] CBC HEMOGLOBIN [MASS/VOLUM E] IN BLOOD 12.8 g/dL 12.8 - 17 08/11 Specimen Type: BLOOD No comment entered. Ordering Provider: KATE HANDY Report Released Date/Time: Jul 07, 2024 09:55 AM Reporting Lab: [facility] [place] [facility] [address] [facility] [address] Performing Lab: [facility] [place] [facility] [address] [facility] [address] [facility] [place] [facility] CBC HEMATOCRIT [VOLUME FRACTION] OF BLOOD BY AUTOMATED COUNT 36.2 39.2 - 50.4 08/11 L Specimen Type: BLOOD No comment entered. Ordering Provider: KATE HANDY Report Released Date/Time: Jul 07, 2024 09:55 AM Reporting Lab: [facility] [place] [facility] [address] [facility] [address] Performing Lab: [facility] [place] [facility] [address] [facility] [address] [facility] [place] [facility] CBC MCV [ENTITIC VOLUME] BY AUTOMATED COUNT 86.0 fL 82 - 99 08/11 Specimen Type: BLOOD No comment entered. Ordering Provider: KATE HANDY Report Released Date/Time: Jul 07, 2024 09:55 AM Reporting Lab: [facility] [place] [facility] [address] [facility] [address] Performing Lab: [facility] [place] [facility] [address] [facility] [address] [facility] [place] [facility] CBC MCHC [MASS/VOLUM E] BY AUTOMATED COUNT 35.4 g/dL 30.8 - 35.1 08/11 H Specimen Type: BLOOD No comment entered. Ordering Provider: KATE HANDY Report Released Date/Time: Jul 07, 2024 09:55 AM Reporting Lab: [facility] [place] [facility] [address] [facility] [address] Performing Lab: [facility] [place] [facility] [address] [facility] [address] [facility] [place] [facility] CBC PLATELETS [#/VOLUME] IN BLOOD BY AUTOMATED COUNT 149 10*3/u L 140 - 360 08/11 Specimen Type: BLOOD No comment entered. Ordering Provider: KATE HANDY Report Released Date/Time: Jul 07, 2024 09:55 AM Reporting Lab: [facility] [place] [facility] [address] [facility] [address] Performing Lab: [facility] [facility] [address] [facility] [address] [facility] [place] [facility] CBC ERYTHROCYTE DISTRIBUTIO N WIDTH [RATIO] BY AUTOMATED COUNT 13.2 12.0 - 16.0 08/11 Specimen Type: BLOOD No comment entered. Ordering Provider: KATE HANDY Report Released Date/Time: Jul 07, 2024 09:55 AM Reporting Lab: [facility] [place] [facility] [address] [facility] [address] Performing Lab: [facility] [place] [facility] [address] [facility] [address] [facility] [place] [facility] CBC MCH [ENTITIC MASS] BY AUTOMATED COUNT 30.4 pg 26.2 - 32.6 08/11 Specimen Type: BLOOD No comment entered. Ordering Provider: KATE HANDY Report Released Date/Time: Jul 07, 2024 09:55 AM Reporting Lab: [facility] [place] [facility] [address] [address] Performing Lab: [facility] [address] [address] [facility] HEMOGLOBI N A1C PANEL HEMOGLOBIN A1C/HEMOGLO BIN.TOTAL [...] Jul 07, 2024 09:55 AM Reporting Lab: [facility] [address] [facility] [address] Performing Lab: [facility] [address] [address] [facility] Vital Signs Combined list of inpatient and outpatient Vital Signs from Department of Defense and Veterans Affairs, ranging from 12 months to all on record, depending upon the facility. Vital Sign Value Date Comments Source SYSTOLIC BLOOD PRESSURE 140 12/28/19 25 14:22:26 [facility] DIASTOLIC BLOOD PRESSURE 69 025 14:22:26 [facility] PULSE OXIMETRY 97 12/27/2024 14:22:26 [facility] [facility] WEIGHT 163 12/27/2024 14:22:26 [facility] BMI 27 kg/m2 12/27/2024 14:22:26 [facility] [place] [facility] PAIN 7 12/27/2024 14:22:26 [facility] [place] [facility] HEIGHT 65 12/27/2024 14:22:26 [facility] [place] [facility] TEMPERATURE 98.1 12/27/2024 14:22:26 [facility] [place] [facility] PULSE 69 12/27/2024 14:22:26 [facility] [place] [facility] RESPIRATION 20 12/27/2024 14:22:26 [facility] [place] [facility] SYSTOLIC BLOOD PRESSURE 155 07/29/20 24 13:49:44 [facility] [place] [facility] DIASTOLIC BLOOD PRESSURE 71 13:49:44 [facility] [place] [facility] PULSE OXIMETRY 98 07/29/2024 13:49:44 [facility] [place] [facility] WEIGHT 161 07/29/2024 13:49:44 [facility] [...] 2024 14:10:21 [facility] [place] [facility] Encounters Combined list of: 1) Encounters from Department of Veterans Affairs facilities going backup to the last 18 months, not all VA inpatient encounters are included; 2) Encounters from the Department of Defense facilities going backup to 280 months. Location Location Details Encounter Type Encounter Number Reason For Visit Attending Provider ADM Date DC Date Status Disposition Source [facility] [place] [facility] THERAPEUTI C EXERCISES [id number] Diagnos is: ICD-10- CM M77.9 Entheso lizzy, unspeci fiROOSEVELT Rae 07/31 [facility] [place] [facility] [facility] [place] [facility] THERAPEUTI C EXERCISES [id number] Diagnos is: ICD-10- CM M77.9 Entheso lizzy, unspeci CHANCE Fritz 08/14 [facility] [place] [facility] [facility] [place] [facility] THERAPEUTI C EXERCISES [id number] Diagnos is: ICD-10- CM M77.9 Entheso lizzy, unspeci CHANCE Fritz 09/10 [facility] [place] [facility] [facility] [place] [facility] THERAPEUTI C EXERCISES [id number] Diagnos is: ICD-10- CM M77.9 Entheso lizzy, unspeci CHANCE Fritz 09/25 [facility] [place] [facility] [place] [facility] Outpatient Encounter [id number] 09/26 [facility] [place] [facility] COLLJ & INTERPJ DATA EA 30 D [id number] Diagnos is: ICD-10- CM G47.33 Obstruc tive sleep apnea (adult) (pediat jimena) MELODIE ESCALONA 09/30 [place] [facility] [place] [facility] Outpatient Encounter [id number] Nellie HANDY 10/06 [facility] [place] [facility] [facility] [place] En[facility] [id number] 10/08 [facility] [place] [facility] [facility] En[facility] [id number] [place] CAMERON 10/29 [facility] [place] En[facility] [id number] 10/29 [facility] [place] [facility] [facility] [place] En[facility] [id number] Timothy PERALES 10/29 [facility] [place] [facility] [facility] [place] [facility] OFFICE O/P EST MOD 30 MIN [id number] Diagnos is: ICD-10- CM M54.50 Low back pain, unspeci fied Nellie HANDY 10/31 [facility] [place] [facility] [facility] En[facility] [id number] 11/06 [facility] [place] [facility] [facility] [place] En[facility] [id number] 11/10 [facility] [place] [facility] [facility] [place] OFFICE O/P NEW LOW 30 MIN [id number] Diagnos is: ICD-10- CM L82.0 Inflame d seborrh eic keratos is LUIS ANGEL LOPEZ 11/11 [facility] [place] En[facility] [id number] 11/25 [facility] [place] [facility] [facility] [place] En[facility] [id number] 11/26 [facility] [place] [facility] [facility] OFF/OP EST MAY X REQ PHY/QHP [id number] Diagnos is: ICD-10- CM Z71.89 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 Manny Stockton 11/30 [facility] [place] OFFICE O/P EST LOW 20 MIN [id number] Diagnos is: ICD-10- CM J20.9 Acute bronchi tis, unspeci JACQUELINE De La Torre 11/30 [facility] [place] En[facility] [id number] 11/30 [facility] [place] En[facility] [id number] 12/23 [facility] [place] En[facility] [id number] 01/20 [facility] [place] En[facility] [id number] 01/26 [facility] [place] [facility] [facility] OFFICE O/P EST LOW 20 MIN [id number] Diagnos is: ICD-10- CM M54.50 Low back pain, unspeci fied Nellie HANDY 01/28 [facility] [place] En[facility] [id number] 02/01 [facility] [place] [facility] [facility] En[facility] [id number] 02/15 [facility] [place] [facility] [facility] En[facility] [id number] [facility] [place] POS AIRWAY PRESSURE CPAP [id number] Diagnos is: ICD-10- CM G47.33 Obstruc tive sleep apnea (adult) (pediat jimena) MELODIE ESCALONA 03/09 [facility] [place] En[facility] [id number] 03/29 [facility] [place] En[facility] [id number] [facility] [place] En[facility] [id number] [facility] [place] En[facility] [id number] 04/28 [facility] [place] En[facility] [id number] 04/30 [facility] [place] Encounter [id number] 05/03 [facility] [place] En[facility] [id number] 1.05/06 [facility] [place] En[facility] [id number] 1.05/13 [facility] [place] En[facility] [id number] 1.05/14 [facility] [place] En[facility] [id number] 1.05/18 [facility] [place] [id number] [facility] [place] Encounter [id number] [facility] [place] UNLISTED SPEC DERM SVC/PX [id number] Diagnos is: ICD-10- CM Z13.89 Encount er for screeni ng for other disorde r PER PEREZ ICA A 05/21 [facility] [place] [facility] Outpatient Encounter [id number] Diagnos is: ICD-10- CM L57.0 Actinic keratos is DANIELLE PANTOJA PH J 05/24 [facility] [place] En[facility] [id number] 05/24 [facility] [place] En[facility] [id number] [facility] [place] En[facility] [id number] [facility] [place] En[facility] [id number] 06/11 [facility] [place] En[facility] [id number] 1.06/15 [facility] [place] En[facility] [id number] 1. Diagnos is: ICD-10- CM U07.1 COVID-1 9 EMANUEL PHELPS 06/15 [facility] [place] [facility] (631GE) QNHP OL DIG ASSMT&MGMT 5-10 [id number] 1GE. 94 Diagnos is: ICD-10- CM U07.1 COVID-1 9 NGHIA PRADO 06/15 [facility] (631GE) [facility] [place] En[facility] [id number] 06/24 [facility] [place] En[facility] [id number] 07/06 [facility] [place] [facility] INTERPJ DATA EA 30 D [id number] Diagnos is: ICD-10- CM G47.33 Obstruc tive sleep apnea (adult) (pediat jimena) POLAMELODIE A 07/07 [place] [facility] Outpatient Encounter [id number] Nellie HANDY 07/13 [facility] [place] [place] COMPRE [place] 1/ [id number] Diagnos is: ICD-10- CM 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 t, bilater al DAVON GIFFORD 07/14 [facility] [place] [place] [facility] FIT SPECTACLES MULTIFOCAL [id number] Diagnos is: ICD-10- CM Z46.0 Encount er for fit/adj st of spectac les and contact lenses DAVON GIFFORD 07/14 [facility] [place] [facility] Outpatient Encounter [id number] 07/23 [facility] [place] [place] [facility] RPR&REFITG SPECT XCP APHAKIA [id number] Diagnos is: ICD-10- CM Z46.0 Encount er for fit/adj st of spectac les and contact lenses ALEXIS GOLDSTEIN 07/23 [facility] [place] OFFICE O/P EST MOD 30 MIN [id number] Diagnos is: ICD-10- CM M54.2 Cervica lgia Nellie HANDY 07/29 [facility] Out[facility] En[facility] [id number] 08/03 [facility] [place] Encounter [id number] 08/04 [facility] MANUAL THERAPY 1/ REGIONS [id number] 1. Diagnos is: ICD-10- CM M79.643 Pain in unspeci fied hand MACHON,PAUL LIE E 08/18 [facility] En[facility] [id number] 08/19 [facility] En[facility] [id number] 08/27 [facility] [id number] 08/29 [facility] En[facility] [id number] [facility] En[facility] [id number] 09/21 [facility] PT EDUCATION NOC INDIVID [id number] Diagnos is: ICD-10- CM G47.33 Obstruc tive sleep apnea (adult) (pediat jimena) ST AMANT,STEPHANIA E P 09/28 [facility] OFF[facility] O/P EST MOD 30 MIN [id number] Diagnos is: ICD-10- CM L82.0 Inflame d seborrh eic keratos is LUIS ANGEL LOPEZ 10/21 [facility] COLLJ & INTERPJ DATA EA 30 D [id number] Diagnos is: ICD-10- CM G47.33 Obstruc tive sleep apnea (adult) (pediat jimena) STEPHANIA MCDANIEL Gilmar P 11/04 [facility] [place] [facility] Outpatient Encounter [id number] 12/24 [facility] [place] [facility] OFFICE O/P EST HI 40 MIN [id number] Diagnos is: ICD-10- CM E11.9 Type 2 diabete s mellitu s without complic ations Nellie HANDY 12/27 [facility] [place] [facility] ELECTROCAR DIOGRAM REPORT [id number] Diagnos is: ICD-10- CM Z13.6 Encount er for screeni ng for cardiov ascular disorde rs SEYMOURU,ZAIN N E 12/27 [facility] Outpatient Encounter [id number] 01/03 [facility] [place] [facility] Social History Combined list of available smoking, tobacco, and other social history from Department of Defense and Veterans Affairs facilities. Social History Type Response Date Comment Sourc e Tobacco smoking status MIIS VA-[facility]ACCO FORMER USER 2024 [facility] [place] [facility] History of tobacco use AK-TOBACCO QUIT 15 YRS OR MORE 2024 [facility] [place] [facility] History of tobacco use VA-TOBACCO FORMER USER 12/23/2022 [facility] [place] [facility] History of tobacco use VA-TOBACCO FORMER USER 11/19/2021 [facility] [place] [facility] History of tobacco use VA-TOBACCO FORMER USER 12/08/2020 [facility] [place] [facility] Plan of Care List of future care activities from Department of Veterans Affairs facilities. Additional future care activities may be listed in the Assessment and Plan section. Date/Time Care Activity Care Activity Detail Facili ty 01/31/2025 AMBULATORY - REHAB MEDICINE [facility]
--- OUTSIDE RECORDS SUMMARY | 2025-01-20 15:26 | XMS_ITS | Encounter Summary ---
Author Name [facility] [place] [facility] [place] Organization [facility] [place] [facility] [place] Address [address] [place] [address] Care Team Providers Care Retail Shift Leader Name Role Phone AIYANA HANDY Primary [facility] Insurance Providers: All historical and current Section [...] AGENC Y SUPP PL Mar 15, 2018 [id number] [id number] DOMINIC BEDOLLA RT PATIENT MEDICARE (WNR) MEDICARE (M) PART B Nov 13, 2010 PART B [id number] DOMINIC BEDOLLA RT PATIENT MEDICARE (WNR) MEDICARE (M) PART A January 13, 2007 PART A [id number] DOMINIC BEDOLLA RT PATIENT Selected Encounter This section includes the information on record at [place] for the Encounter. Date/Time Encounter Type Encounter Description Reason Provider Source Jul 13, 2024 11:36 AM Outpatient Encounter PROSTHETICS/ORTHOTI AIYANA HANDY [facility] Encounter Template Text not used by [place] Plan of Treatment: Future Appointments (+ 6 months) and Future Tests (+/- 45 days) The Plan of Treatment section includes future care activities for the patient from all [place] [facility]. This section includes future appointments and future orders which are active, pending or scheduled. Future Appointments This section includes appointments that were scheduled to occur 6 months from the date of the Encounter, up to a maximum of 20 appointments. The data comes from all [place] treatment facilities. Appointment Date/Time Appointment Type Appointme nt Facility Name Jul 14, 2024 01:00 PM AMBULATORY - MEDICINE [place] [facility] [place] [facility] Jul 23, 2024 01:20 PM AMBULATORY - MEDICINE [place] [facility] [place] [facility] Jul 29, 2024 02:00 PM AMBULATORY - MEDICINE [place] [facility] [place] [facility] Aug 03, 2024 10:00 AM AMBULATORY - MEDICINE ND [facility] [place] [facility] Aug 11, 2024 01:00 PM AMBULATORY - NONE [place] [facility] [place] [facility] Aug 18, 2024 01:30 PM AMBULATORY - REHAB MEDICIN E [place] [facility] [place] [facility] Aug 19, 2024 01:00 PM AMBULATORY - MEDICINE ND [facility] [place] [facility] Sep 28, 2024 01:00 PM AMBULATORY - NONE [place] [facility] [place] [facility] Oct 21, 2024 02:00 PM AMBULATORY - MEDICINE ND [facility] [place] [facility] Dec 27, 2024 02:30 PM AMBULATORY - MEDICINE [place] [facility] [place] [facility] Lab Results: +/- 30 days of the encounter This section includes the Chemistry and Hematology Lab Results on record with [place] for the patient. Radiology Reports and Pathology Reports are provided separately, in subsequent sections. Lab Results This section contains the Chemistry/Hematology Results that were resulted 30 days before or 30 daysafter the date of the Encounter. Date/Time Source Result Type Result - Unit Interpretation Reference Range Specimen Type Comment Aug 11, 2024 12:49 PM [place] [facility] [place] [facility] LIPID PANEL, NON FASTING SERUM Specimen Type: SERUM No comment entered. Ordering Provider: AIYANA HANDY Report Released Date/Time: Jul 07, 2024 09:55 AM Reporting Lab: [place] [facility] [place] [address] [address] Performing Lab: [facility] [address] [facility] [address] CHOLESTEROL 144 mg/dL TRIGLYCERIDE 204 mg/dL H 0-150 LDL calculated 52 mg/dL 0-129 CHOL/HDL 2.8 HDL CHOLESTEROL 51 mg/dL 40-60 Aug 11, 2024 12:49 PM [facility] BASIC METABOLIC PANEL (non-fasting) SERUM Spe cimen Type: SERUM No comment entered. Ordering Provider: AIYANA HANDY Report Released Date/Time: Jul 07, 2024 09:55 AM Reporting Lab: [facility] [address] [facility] [address] Performing Lab: [address] [address] UREA NITROGEN 23 mg/dL 7-25 GLUCOSE 123 mg/dL H 65-100 SODIUM 141 mmol/L 135-145 POTASSIUM 4.9 mmol/L 3.5-5.0 CHLORIDE 108 mmol/L 100-110 CO2 23 meq/L 20-30 CREATININE, Serum 1.08 mg/dL 0.50-1.40 eGFR(CKD-EPI 2020) 69 mL/min >60 Aug 11, 2024 12:49 PM [facility] CBC BLOOD Specimen Type: BLOOD No comment entered. Ordering Provider: AIYANA HANYD Report Released Date/Time: Jul 07, 2024 09:55 AM Reporting Lab: [address] [address] Performing Lab: [address] [address] WBC 6.26 10*3/uL 4.50-11.00 RBC 4.21 10*6/uL L 4.23-5.66 HGB 12.8 g/dL 12.8-17 HCT 36.2 L 39.2-50.4 MCV 86.0 fL 82-99 MCHC 35.4 g/dL H 30.8-35.1 PLT 149 10*3/uL 140-360 RDW-CV 13.2 12.0-16.0 MCH 30.4 pg 26.2-32.6 Aug 11, 2024 12:49 PM [facility] HEMOGLOBIN A1C PANEL BLOOD Specimen Type: [...] Jul 07, 2024 09:55 AM Reporting Lab: [address] [address] Performing Lab: [address] [address] HEMOGLOBIN A1C 6.8 H 4.0-5.6 Aug 11, 2024 12:49 PM [facility] LIVER FUNCTION SERUM Specimen Type: SERUM No comment entered. Ordering Provider: AIYANA HANDY Report Released Date/Time: Jul 07, 2024 09:55 AM Reporting Lab: [address] [address] Performing Lab: [address] [address] PROTEIN,TOTAL 6.8 g/dL 6.0-8.3 ALBUMIN 3.9 g/dL 3.5-5.0 ALKALINE PHOSPHATASE 56 U/L 40-150 AST 16 U/L 5-34 ALT 16 U/L BILIRUBIN, TOTAL 0.4 mg/dL 0.2-1.2 Aug 11, 2024 12:49 PM [facility] MICROALBUMIN CREATININE RATIO PANEL URINE Spe cimen Type: URINE No comment entered. Ordering Provider: AIYANA HANDY Report Released Date/Time: Jul 07, 2024 09:55 AM Reporting Lab: [address] [address] Performing Lab: [address] [address] MICROALBUMIN/CREATININE RATIO 63.6 mg/g H 0-29.9 MICROALBUMIN,QUANTITATIVE 4.8 mg/dL RR U NAVAIL CREATININE URINE 75.42 mg/dL Social History: Smoking Status (Most current) and Tobacco Use (All prior to encounter date) This section includes the most current, and the historical, smoking and tobacco- related health factors from the [place] facility where the Encounter took place. Current Smoking Status This section includes the most current smoking, or tobacco-related health factor, from the [place] facility where the Encounter took place. Date/Time Current Smoking Status Comment Facil ity 2024 02:30 PM VA-TOBACCO FORMER USER [place] [facility] [place] [facility] Tobacco Use History This section includes a history of the smoking, or tobacco-related health factors, that were collected on or before the date of the Encounter. The data comes from the [place] facility where the Encounter took place. Date/Time Smoking Status/Tobacco Use Comment F acility 2024 02:30 PM VA-TOBACCO QUIT 15 YRS OR MORE ND [facility] [place] [facility] Dec 23, 2022 02:30 PM VA-TOBACCO FORMER USER ND [facility] [place] [facility] Dec 23, 2022 02:30 PM VA-TOBACCO QUIT 15 YRS OR MORE [place] [facility] [place] [facility] Nov 19, 2021 02:00 PM VA-TOBACCO FORMER USER ND [facility] [place] [facility] Nov 19, 2021 02:00 PM VA-TOBACCO QUIT 15 YRS OR MORE ND [facility] [place] [facility] Dec 08, 2020 11:00 AM VA-TOBACCO FORMER USER ND [facility] [place] [facility] Dec 08, 2020 11:00 AM VA-TOBACCO QUIT 15 YRS OR MORE ND [facility] [place] [facility] Radiology Reports: +/- 30 days of [...] the Encounter. The data comes from all [place] treatment facilities. Date/Time Radiology Report Provider Source Aug 11, 2024 12:58 PM ULTRASOUND SCROTUM: HANNA RAMIREZ [id number] -[id number] M Exm Date: AUG 11, 2024@12:58 Req Phys: AIYANA HANDY Loc: CWM/NO/PACT 7 (Req'g Loc) Img Loc: ULTRASOUND Service: [place] [address] (Case [id number] COMPLETE) ULTRASOUND SCROTUM (US Detailed) CPT:33318 Reason for Study: mass Clinical History: small mobile non painful lump left side of scrotum Report Status: Verified Date Reported: AUG 11, 2024 Date Verified: AUG 11, 2024 Sheet Cutter E-Sig: Report: SCROTAL SONOGRAM Technique: Multiple transverse [...] significant abnormality. READING PHYSICIAN: Cy Candelario M.D. -[id number] 08/11/2024 11:56 [facility] National Open Labsradiology Program [phone] (For Medical Practitioner Use Only) Attention Patients / Veterans: If you have questions or concerns about these test results, please contact your ordering provider or primary care team. Primary Diagnostic Code: NO ALERT REQUIRED Primary Interpreting Staff: RADIOLOGY,OUTSIDE SERVICE, Staff Physician / RADIOLOGY,OUTSIDE SERVICE [facility]
== END 2025-01-20 16:02 | disposition home or self-care (01) ==
LOC: HO.HMCHD 14:46
PROVIDERS: PCP Internal Medicine; Visit Provider Internal Medicine
DX: E11.65 Type 2 diabetes mellitus with hyperglycemia (principal)

== ENCOUNTER → 2025-01-20 14:46 | Outpatient (BNVA) | payer MEDICARE, OTHER, SELFPAY | PROVIDERS: PCP Internal Medicine; Visit Provider Internal Medicine | DX: E78.5 Hyperlipidemia, unspecified (principal); I10 Essential (primary) hypertension; G47.30 Sleep apnea, unspecified; Z79.84 Long term (current) use of oral hypoglycemic drugs; E11.65 Type 2 diabetes mellitus with hyperglycemia | CPT/HCPCS: 96127; 99212 ==

== ENCOUNTER 2025-04-13 07:15 | Outpatient (REF) | payer MEDICARE, OTHER, SELFPAY ==
--- OUTSIDE RECORDS SUMMARY | 2025-04-13 07:18 | XMS_ITS | Patient Health Record ---
Author Organization [facility] Address [address] [place] [address] Care Team Providers Care Office Services Representative Name Role Phone Cecil Geller N.P Primary Care Provider Rachelv ailLeslie Andrade Unavailable [phone] Allergies No Known Allergies Results Component Value Reference Range Notes HEMOGLOBIN A1C (GLYCOHEMOGLO BIN) Reviewed date:01/18/2025 01:04:24 PM Interpretation: Performing Lab: Notes/Report: HEMOGLOBIN A1C % (HH) 7.5 Reason For Referral Diagnosis 1 Pain in unspecified foot (M79.673) Referring Provider First Name Cecil Referring Provider Last Name Yimi Referred [facility] Referred Provider Leslie Cho Referred Address [address] [facility],[place], [place],[address], Referred Provider Specialty Podiatry Referral Priority Routine [...] Problem Status W/U Status Risk Notes Problem Type 2 diabetes mellitus without complication, without long-term current use of insulin (E11.9) Active confirmed Vital Signs Blood pressure diastolic 81 mm Hg 01/18/2025 Height 5ft7in in 01/18/2025 Blood pressure systolic 124 mm Hg 01/18/2025 Weight 155 lbs 01/18/2025 BMI 24.27 kg/m2 01/18/2025 Encounters Encounter Location Date Provider [facility] [address] 01/18/2025 Leslie Cho Type 2 diabetes mellitus without complication, without long-term current use of insulin E11.[address] [facility] [address] 01/18/2025 Leslie Cho [address] [address] 03/30/2025 Leslie Cho Assessments Encounter Date Diagnosis (ICD Code) Assessment Notes Treatment Notes Treatment Clinical Notes Section Notes 01/18/2025 Type 2 diabetes mellitus without complication, without long-term current use of insulin (ICD-10 - E11.9) Plan Of Treatment Next Appt Details Provider Name:Leslie brown, 01/17/2026 01:00:00 PM, [address] [place] [address], [phone], Insurance Providers Payer Name Payer Address Payer Phone Subscriber Number Group Number Insured Name Patient Relationship to Insured Coverage Start Date Coverage End Date VACCN [address] [place] [id number] [phone] [id number] Aldair Doran Self - patient is the insured Medical (General) History Medical History History ICD Code Arthritis Cancer covid-19 type II diabetes Diverticulosis raynauds disease Joint implants/screws Lactose intolerance Onychomycosis Surgical History Surgery Date(Month/Year) spinal fusion 04/12/2024 prostate cancer 12/2006
--- OUTSIDE RECORDS SUMMARY | 2025-04-13 07:18 | XMS_ITS | Patient Health Record ---
Author Organization [facility] Address [address] [place] [address] Care Team Providers Care Principal Gifts Officer Name Role Phone Eliza (RETIRED) Royce CARTER Primary Care Provide David Fitch Jr Unavailable [phone] Allergies Allergen (clinical drug ingredient) Drug/Non Drug [...] Problem Status W/U Status Risk Notes Problem 153183745 Colon cancer screening (Z12.11) Active confirmed Problem 66901048 Slow transit constipation (K59.01) Active confirmed Problem 462007281 Abnormal CT scan , colon (R93.3) Active confirmed Problem 83803230 Hypertension, unspecified type (I10) Active confirmed Problem 182631060 RLQ abdominal pain (R10.31) Active confirmed Plan Of Treatment Future Test Test Name Order Date COLONOSCOPY 03/17/2019 COLONOSCOPY 01/31/2023 Insurance Providers Payer Name Payer Address Payer Phone Subscriber Number Group Number Insured Name Patient Relationship to Insured Coverage Start Date Coverage End Date MEDICARE OF [place] [address] [place] [address] [id number] HANNA JEAN-BAPTISTE Self - patient is the insured [facility] [address] [place] [phone] [id number] HANNA JEAN-BAPTISTE Self - patient is the insured Medical (General) History Medical History History ICD Code prostate cancer AAKASH/CPAP pre diabetes Elevated cholesterol Colon polyps, colonoscopy 07/03, five-ye ar followup Surgical History Surgery Date(Month/Year) prostatectomy Urethral sling 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
--- OUTSIDE RECORDS SUMMARY | 2025-04-13 07:18 | XMS_ITS | Clinical Summary ---
Author Organization 175 [facility] Address [address] [place] [address] Phone Care Team Providers Care Scientific Software Developer Name Role Phone Flaquita Gómez MD Primary Care Provider [phone] Allergies Active Allergy Reactions Criticality Noted Date Comments Lactose Diarrhea High 08/19/2024 Medications aspirin 81 mg EC tablet Take 1 tablet (81 mg total) by mouth 1 (one) time each day. 05/08/20 24 Active blood sugar diagnostic (FreeStyle Lite Strips) test strip USE 1 STRIP VIA METER ONCE DAILY 06/23/20 24 Active metFORMIN (GLUCOPHAGE) 500 mg tablet Take 1 tablet (500 mg total) by mouth 1 (one) time each day. 05/28/20 24 Active metoprolol tartrate (LOPRESSOR) 25 mg tablet Take 1 tablet (25 mg total) by mouth 2 (two) times a day. 12/07/19 23 Active pravastatin (PRAVACHOL) 40 mg tablet Take 1 tablet (40 mg total) by mouth 1 (one) time each day. Active oxyCODONE (ROXICODONE) 5 mg immediate release tabletIndications:A rthritis of carpometacarpal (CMC) joint of both thumbs Take 1 tablet (5 mg total) by mouth every 6 (six) hours if needed for severe pain. Max Daily Amount: 20 mg 10 tablet 03/10/20 25 Active Additional Information Patient not taking.Reported on 03/21/2025 ibuprofen (ADVIL,MOTRIN) 600 mg tablet Take 1 tablet (600 mg total) by mouth 3 (three) times a day with meals. 30 each 03/10/20 25 Active acetaminophen (TYLENOL) 500 mg tablet Take 1 tablet (500 mg total) by mouth every 6 (six) hours if needed for moderate pain. Do not exceed 3 grams of Tylenol per day. 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 Had extensive workup in the past. Arthritis of carpometacarpal (CMC) joint of both thumbs 02/15/2025 Pain of both elbows 08/30/2024 Encounters Date Type Department Care Team Description 04/01/2025 11:15 AM EDT Office Visit Orthopedic Surgery - [address] [phone] Gavi Ibarra MD Arthritis of carpometacarpal (CMC) joint of both thumbs (Primary Dx) 03/21/2025 2:45 PM EDT Office Visit Orthopedic Surgery [address] [phone] Carolee Hanson PA Surgery follow-up (Primary Dx) 03/10/2025 8:54 AM EDT Anesthesia Event [facility] OR [address] [place] [phone] Veena Martinez MD Elliott, Barbara J, CRNA 03/10/2025 8:45 AM EDT - 03/10/2025 11:15 AM EDT Surgery [facility] OR [address] [place] [phone] Gavi Ibarra MD Trapeziectomy w/ interpositional arthroplasty using flexor tendon-right [66047 (CPT ) +1 more] 03/10/2025 6:54 AM EDT - 03/10/2025 12:43 PM EDT Hospital Encounter [facility] Main OR [address] [place] [phone] Gavi Ibarra MD Arthritis of carpometacarpal (CMC) joint of both thumbs Discharge Disposition: Home or Self Care 02/28/2025 10:15 AM EDT Consult Orthopedic Surgery [facility] [address] [phone] Gavi Ibarra MD Arthritis of carpometacarpal (CMC) joint of both thumbs (Primary Dx) 02/15/2025 3:30 PM EDT Consult Orthopedic Surgery [facility] [address] [phone] Gavi Ibarra MD Arthritis of carpometacarpal (CMC) joint of both thumbs (Primary Dx) from Last 3 Months Immunizations [...] recombinant (Shingrix ) 19yo and older 11/25/2019 Surgical History Surgery Date Site/Laterality Comments TRIGGER FINGER RELEASE Bilateral middle and ring finger LUMBAR FUSION 09/15/2023 - 09/14/2024 PROSTATE SURGERY 09/15/2006 - 09/14/2007 PROSTATECTOMY Medical History Medical History Date Comments Sleep apnea Hypertension Hyperlipidemia Diabetes mellitus ([facility] V24, [facility] V28) Diverticulosis Cancer ([facility] V24, [facility] V28) PROSTATE Hand pain Social History Tobacco Use Types Packs/Day Years Used Date Smoking Tobacco: Former Cigarettes Q uit: 1998 Tobacco Cessation:Counseling Given: Not Answered Alcohol Use Standard Drinks/Week Comments Yes 2 (1 standard drink = 0.6 oz pur e alcohol) Sex and Gender Information Value Date Recorded Sex Assigned at Male 04/08/2025 8:47 AM EDT Legal Sex Male 4:02 PM EST Gender Identity Male 04/08/2025 8:47 AM EDT Sexual Orientation Straight 04/08/2025 8: 47 AM EDT Obstetrics History Last Filed Vital Signs Vital Sign Reading Time Taken Comments Blood Pressure 115/62 03/10/2025 11:52 AM EDT Pulse 56 03/10/2025 11:52 AM EDT Temperature 36.8 C (98.2 F) 03/10/2025 11:52 AM EDT Respiratory Rate 20 03/10/2025 11:52 AM EDT Oxygen Saturation 95% 03/10/2025 11:52 AM EDT Inhaled Oxygen Concentration - - Weight 68.9 kg (152 lb) 03/21/2025 2:26 PM EDT Height 170.2 cm (5' 7.01 ) 03/21/2025 2:26 PM ED T Body Mass Index 23.8 03/21/2025 2:26 PM EDT Plan of Treatment Upcoming Encounters Date Type Department Care Team (Late st Contact Info) Description 04/14/2025 4:30 PM EDT Evaluation [facility] [address] [facility] [address] [place] [phone] Kassandra Sylvester OT 05/20/2025 11:30 AM EDT Office Visit Orthopedic Surgery - [place] 175 [facility] [address] [place] [phone] Gavi Ibarra MD 175 [facility] [address] [place] [phone] Health Maintenance Due Date Last Done Comments Diabetes: Annual GFR (Glomerular Filtration Rate) 1942 Diabetes: Annual Foot Exam 01/30/1952 Diabetes: Annual Retina Eye Exam 01/30/1952 Pneumococcal Vaccine: 50+ Years (3 of 3 - PCV20 or PCV21) 06/19/2021 06/19/2016, 07/25/2015, 07/25/2015, Additional history exists Cholesterol Screening (Lipid Panel) 08/10/2024 Medicare Annual Wellness Visit 08/10/2024 Social Influencers of Health Screening 08/10/2024 Diabetes: Annual Urine Albumin-Creatinine Ratio (uACR) 08/30/2024 Diabetes: Blood Sugar Control Test (HGBA1C) 08/30/2024 Hypertension/CHF/CAD Annual BMP Blood Test 08/30/2024 Depression Screening 09/15/2024 COVID-19 Vaccine (11 - Pfizer risk season) 2024 05/28/2024, 06/16/2023, 01/10/2023, Additional history exists Influenza Vaccine (#1) 2025 , 05/26/2023, 06/25/2022, Additional history exists Falls Risk Assessment 03/10/2026 03/10/2025 DTaP,Tdap,and Td Vaccines (2 - Td or Tdap) 06/04/2030 06/04/2020 Zoster Vaccines Completed 04/01/2020, 11/13, 08/16/2009 RSV Immunization Adult Patients Completed 06/16/2023 HIB Vaccines Aged Out No longer eligi [...] signif pain 09/14/24 MET 5. Non-dom L angle shearer at least 70% of R 09/14/24 MET and EXCEEDED Procedures Procedure Name Priority Date/Time Associated Diagnosis Comments CAST APPLICATION Routine 03/21/2025 3:23 PM EDT Surgery follow-up OXYGEN THERAPY, ADULT Routine 03/10/2025 11:14 AM EDT OXYGEN THERAPY, ADULT Routine 03/10/2025 11:14 AM EDT TISSUE EXAM Routine 03/10/2025 9:51 AM EDT Arthritis of carpometacarpal (CMC) joint of both thumbs TH AN LMA(NO CHARGE) Routine 03/10/2025 9:11 AM EDT LA XFER/TRNSPL TNDN CARPOMETACARPAL AREA/DORSUM HAND WO FREE GRAFT EA TNDN 03/10/2025 8:54 AM EDT Arthritis of carpometacarpal (CMC) joint of both thumbs Case Notes MINI C-ARM, WIRE WELDING SYSTEMS AND EQUIPMENT REPAIRER,BONE INSTRUMENTS, HUESTON SUTURE PASSER,MICRO MYTEC ANCHOR,SUPRACLAVICULAR BLOCK LA ARTHROPLASTY INTERCARPAL/CARPOMETA CARPAL JOINTS INTERPOSTION 03/10/2025 8:54 AM EDT Arthritis of carpometacarpal (CMC) joint of both thumbs Case Notes MINI C-ARM, WIRE WELDING SYSTEMS AND EQUIPMENT REPAIRER,BONE INSTRUMENTS, HUESTON SUTURE PASSER,MICRO MYTEC ANCHOR,SUPRACLAVICULAR BLOCK TH AN NERVE BLOCK SUPRACLAVICULAR (NO CHARGE) Routine 03/10/2025 8:20 AM EDT TH AN NERVE BLOCK SUPRACLAVICULAR (CHARGE) Routine 03/10/2025 8:20 AM EDT POCT GLUCOSE BLOOD Routine 03/10/2025 7: 12 AM EDT from Last 3 Months Results * Casting (03/21/2025 3:23 PM EDT) Carolee Johnson PA - 03/21/2025 3:23 PM EDT RICH Busch 03/21/2025 3:24 PM Casting Date/Time: 03/21/2025 3:23 PM Performed by: RICH Busch Authorized by: RICH Busch Injury Location details: right wrist Pre-procedure assessment Distal perfusion: normal Distal sensation: normal Procedure Immobilization: cast Cast type: thumb spica Supplies used: cotton padding (2 two inch fiberglass) us Carolee VILLANUEVA IN CLINIC/BEDSIDE ORDERABLES Final Result * Tissue exam (03/10/2025 9:51 AM EDT) Final Diagnosis Bone, Right, thumb trapezium-arthr oplasty: -BONE, CARTILAGE WITH DEGENERATIVE CHANGES 03/14/2025 11:29 AM EDT [facility] Gross Description A. Hand, Digit Right, thumb trapezium: Labeled finger R, right immanuel . Received in formalin is a 4.2 x 3.8 x 0.6 cm aggregate of irregular pink-yellow trabecular bone. The cartilage covered articular surfaces are markedly disrupted. Clamshell Engineer sections are submitted in one cassette following decalcification , multiple pieces. JOCELINE 03/14/2025 11:29 AM EDT [facility] Disclaimer Unless otherwise specified, all tissue is 10% NB formalin fixed and paraffin embedded. 03/14/2025 11:29 AM EDT [facility] Bone Structure of digit of right hand / Unknown 03/10/2025 9:51 AM EDT 03/10/2025 12:59 PM EDT Gavi Ibarra MD LAB PATHOLOGY ORDERABLES Briseyda l Result [facility] [address] [place] [address], * TH AN LMA(NO CHARGE) (03/10/2025 9:11 AM EDT) Narrative Jennifer Morales CRNA - 03/10/2025 9:11 AM EDT Jennifer Morales CRNA 03/10/2025 9:14 AM General Information and Staff Patient location during procedure: OR Resident/OFFAL ICER POULTRY: Jennifer Morales CRNA Performed: resident/WALKER/CAA Performed by: Jennifer Morales CRNA Authorized by: Veena Martinez MD Intubation Additional Comments Inserted by Quality Tester Student Scott. Atraumatic, with +ETCO2, +BBS. Urgency: elective Final Airway Details Number of attempts at approach: 1 Ventilation between attempts: none Number of other approaches attempted: 0 LMA Size: 4 LMA Type: Unique LMA Seal Pressure: Final airway type: LMA Indications and Patient Condition Indications for airway management: anesthesia and airway protection Spontaneous ventilation: present Sedation level: Yes Preoxygenated: yes Soft Tissue Damage: No Dentition Unchanged: Yes Patient position: neutral MILS maintained throughout Mask difficulty assessment: 0 - not attempted Veena Martinez MD ANESTHESIA ORDERABLES Final Resu lt * TH AN NERVE BLOCK SUPRACLAVICULAR (CHARGE), TH AN NERVE BLOCK SUPRACLAVICULAR (NO CHARGE) (03/10/2025 8:20 AM EDT) Narrative Socrates Pham DO - 03/10/2025 8:20 AM EDT Socrates Pham DO 03/21/2025 9:11 AM Peripheral Block Patient location during procedure: holding area Start time: 03/10/2025 8:20 AM End time: 03/10/2025 8:25 AM Reason for block: at surgeon's request Staffing Performed: anesthesiologist Anesthesiologist: Socrates Pham DO Preanesthetic Checklist Completed: patient identified, IV checked, site marked, risks and benefits discussed, surgical consent, monitors and equipment checked, pre-op evaluation and timeout performed Peripheral Block Patient position: sitting Prep: ChloraPrep Patient monitoring: heart rate, campus monitor and continuous pulse ox Block type: supraclavicular Laterality: right Injection technique: single-shot Guidance: ultrasound guided Needle Needle gauge: 20 G Needle localization: ultrasound guidance Medications Administered ropivacaine (NAROPIN) injection 0.5 % - infiltration 30 mL - 03/10/2025 8:20:00 AM fentaNYL (SUBLIMAZE) injection 50 mcg/mL - intravenous 100 mcg - 03/10/2025 8:20:00 AM Assessment Injection assessment: negative aspiration for heme, no paresthesia on injection, incremental injection with negative aspiration q 5ml and local visualized surrounding nerve on ultrasound Additional Notes Procedure for post operative pain Socrates Pham DO ANESTHESIA ORDERABLES Edited Result - Final * (ABNORMAL) POCT Glucose, blood (03/10/2025 7:12 AM EDT) Glucose POCT 149(H) 70 - 100 mg/dL 03/10/2025 7:13 AM EDT [facility] Blood Capillary blood specimen / Unknown 03/10/2025 7:12 AM EDT 03/10/2025 7:14 AM EDT Gavi Ibarra MD LAB POINT OF CARE TE ST DOCKED DEVICE UNSOLICITED RESULTS Final Result [facility] [address] [place] [address], [place] [phone] from Last 3 Months Insurance MEDICARE [facility] Care Teams Scientific Software Developer Relationship Specialty Start Date End Date Flaquita Gómez MD [address] [place] [phone] PCP - General Internal Medicine 02/15/25
--- OUTSIDE RECORDS SUMMARY | 2025-04-13 07:18 | XMS_ITS | Encounter Summary ---
Author Organization [facility] Address [address] [place] [phone] Phone Care Team Providers Care Roof Bolter Operator Name Role Phone Tom Capellan MD Primary Care Provider Reason for Referral * MRI/CAT Scan - Closed Specialty Diagnoses / Procedures Referred By Contac t Referred To Contact Radiology Diagnoses Low back pain, unspecified back pain laterality, unspecified chronicity, unspecified whether sciatica present Procedures MRI Lumbar Spine CHG MRI, LUMBAR SPINE CHG MRI, LUMBAR SPINE COMBO CHG MRI, LUMBAR SPINE CONTRAST Cecil eGller NP [address] [place] [address] Phone: tel: fax: Referral ID Status Reason Start Date Expiration Date Visits Re quested Visits Authorized [id number] Closed 10/31/2023 12/30/2023 1 1 Encounter Details Date Type Department Care Team (Latest Contact Info) Description 10/31/2023 Transcribe Orders Virtual Department [address] [place] [address] Cecil Geller NP [address] [place] [address] Low back pain, unspecified back pain laterality, unspecified chronicity, unspecified whether sciatica present (Primary Dx) Social History Tobacco Use Types Packs/Day Years Used Date Smoking Tobacco: Never Assessed Education Answer Date Recorded Are you interested in more education? Not on levon e 01/11/2023 Are you concerned about learning? Not on file 01/11/2023 No 01/11/2023 No 01/11/2023 Digital Access Answer Date Recorded No 02/11/2023 No 02/11/2023 Reliable internet access at home? Not on file 02/11/2023 Device with a working camera? 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 Moderate to severe left L5-S1 neuroforaminal stenosis with a 7 mm left facet cyst projecting into the neural foramen. Additional spinal canal stenoses, moderate at L3-4 and mild at L5-S1. Additional neuroforaminal stenoses, moderate at L3-4, mild at L1-2 and L2-3 and mild right at L5-S1. Narrative 11/30/2023 2:11 AM EDT MRI LUMBAR SPINE (NEURO) WITHOUT CONTRAST REQUESTED INDICATION: Outside Radiology Order; low back pain TECHNIQUE: MRI LUMBAR SPINE (NEURO) WITHOUT CONTRAST COMPARISON: None FINDINGS: ALIGNMENT: 7 mm L4-5 anterolisthesis. MARROW: No compression fracture or marrow replacing lesion. DISCS: Disc desiccation L2-L5. CONUS: Normal appearance and terminates at L1. PARASPINAL SOFT TISSUES: Partially visualized colonic diverticulosis in the pelvis. FINDINGS BY LEVEL: T12-L1:Facet arthropathy. No spinal canal or neuroforaminal stenosis. L1-2: Facet arthropathy and thickening of ligamentum flavum. No spinal canal stenosis. Mild neuroforaminal stenosis. L2-3: Diffuse disc bulge eccentric to the right and contacting the transiting L3 nerve roots bilaterally (5:23), facet arthropathy, and thickening of ligamentum flavum. No spinal canal stenosis. Mild neuroforaminal stenosis. L3-4: Diffuse disc bulge, facet arthropathy, and thickening of ligamentum flavum. Moderate spinal canal stenosis. Moderate neuroforaminal stenosis. L4-5: Diffuse disc bulge, facet arthropathy, and thickening of ligamentum flavum. Severe spinal canal stenosis. Severe neuroforaminal stenosis. L5-S1: Diffuse disc bulge, facet arthropathy, thickening of ligamentum flavum, and epidural lipomatosis. Mild spinal canal stenosis. Moderate to severe left neuroforaminal stenosis with a facet cyst projecting into the neural foramen (2:6). Mild right neuroforaminal stenosis. Procedure Note Adria Robledo MD - 11/30/2023 MRI LUMBAR SPINE (NEURO) WITHOUT CONTRAST REQUESTED INDICATION: Outside Radiology Order; low back pain TECHNIQUE: MRI LUMBAR SPINE (NEURO) WITHOUT CONTRAST COMPARISON: None FINDINGS: ALIGNMENT: 7 mm L4-5 anterolisthesis. MARROW: No compression fracture or marrow replacing lesion. DISCS: Disc desiccation L2-L5. CONUS: Normal appearance and terminates at L1. PARASPINAL SOFT TISSUES: Partially visualized colonic diverticulosis inthe pelvis. FINDINGS BY LEVEL: T12-L1:Facet arthropathy. No spinal canal or neuroforaminal stenosis. L1-2: Facet arthropathy and thickening of ligamentum flavum. No spinalcanal stenosis. Mild neuroforaminal stenosis. L2-3: Diffuse disc bulge eccentric to the right and contacting thetransiting L3 nerve roots bilaterally (5:23), facet arthropathy, andthickening of ligamentum flavum. No spinal canal stenosis. Mildneuroforaminal stenosis. L3-4: Diffuse disc bulge, facet arthropathy, and thickening of ligamentumflavum. Moderate spinal canal stenosis. Moderate neuroforaminalstenosis. L4-5: Diffuse disc bulge, facet arthropathy, and thickening of ligamentumflavum. Severe spinal canal stenosis. Severe neuroforaminal stenosis. L5-S1: Diffuse disc bulge, facet arthropathy, thickening of ligamentumflavum, and epidural lipomatosis. Mild spinal canal stenosis. Moderate tosevere left neuroforaminal stenosis with a facet cyst projecting into theneural foramen (2:6). Mild right neuroforaminal stenosis. 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 Moderate to severe left L5-S1 neuroforaminal stenosis with a 7 mm leftfacet cyst projecting into the neural foramen. Additional spinal canal stenoses, moderate at L3-4 and mild at L5-S1. Additional neuroforaminal stenoses, moderate at L3-4, mild at L1-2 andL2-3 and mild right at L5-S1. Cecil Geller HORSE TRAINER IM MR XSPECIALTY [facility] al Result documented in this encounter Visit Diagnoses Diagnosis Low back pain, unspecified back pain laterality, unspecified chronicity, unspecified whether sciatica present- Primary Low back pain, unspecified back pain laterality, unspecified chronicity, unspecified whether sciatica present documented in this encounter Care Teams Roof Bolter Operator Relationship Specialty Start Date End Date Tom Capellan MD [address] [place] [address] [address] [place] [address] PCP - General Pulmonary Disease 12/19/22 documented as of this encounter Additional Source Comments The information contained in this document represents components of the legal health record. It is not the complete legal health record.[facility]
[2025-04-13 07:56] LABS: Hemoglobin A1C 184.0006 umol/L; Total Hemoglobin (HGBA1C) 3393.4294 umol/L
[2025-04-13 08:15] LABS: Alanine Aminotransferase 12 U/L (0-40); Albumin Level 4.6 g/dL (3.5-5.0); Alkaline Phosphatase 70 U/L (39-117); Anion Gap 12 (12-20); Aspartate Amino Transferase 17 U/L (5-37); Blood Urea Nitrogen 22 mg/dL (9-16); Calcium 9.7 mg/dL (8.4-10.2); Carbon Dioxide 25 mmol/L (22-29); Chloride 109 mmol/L (96-108); Estimated Glomerular Filt Rate > 60; Potassium 4.2 mmol/L (3.3-5.1); Sodium 142 mmol/L (135-145); Total Protein 7.1 g/dL (6.5-8.0)
== END 2025-04-13 07:16 | disposition home or self-care (01) ==
LOC: HO.LAB 07:15
PROVIDERS: PCP Internal Medicine; Visit Provider Internal Medicine
DX: E11.9 Type 2 diabetes mellitus without complications (principal)
CPT/HCPCS: 36415; 80053; 83036

== ENCOUNTER 2025-05-10 13:23 | Outpatient (AMB) | payer MEDICARE, OTHER, SELFPAY ==
--- OUTSIDE RECORDS SUMMARY | 2024-12-27 10:30 | XMS_ITS | Encounter Summary ---
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 Dry Chain Puller Name Role Phone CECIL GELLER Primary Care Provider Unavaila [facility] Insurance Providers: All historical and current Section [...] [place] MED[place] [employer] [facility] Mar 15, 2018 [id number] [phone] DOMINIC BEDOLLA RT PATIENT [facility] MEDICARE [employer] [facility] [address] Mar 15, 2018 [id number] [phone] DOMINIC BEDOLLA RT PATIENT MEDICARE (WNR) MEDICARE (M) PART B Nov 13, 2010 PART B [id number] DOMINIC BEDOLLA RT PATIENT MEDICARE (WNR) MEDICARE (M) PART B Nov 13, 2010 PART B [id number] DOMINIC BDEOLLA RT PATIENT MEDICARE (WNR) MEDICARE (M) PART A January 13, 2007 PART A [id number] DOMINIC BEDOLLA RT PATIENT MEDICARE (WNR) MEDICARE (M) PART A January 13, 2007 PART A [id number] DOMINIC BEDOLLA RT PATIENT Selected Encounter This section includes the information on record at MD for the Encounter. Date/Time Encounter Type Encounter Description Reason Provider Source Dec 27, 2024 02:30 PM OFFICE O/P EST HI 40 MIN PRIMARY CARE/MEDICINE ICD-10-CM E11.9 Type 2 diabetes mellitus without complications GELLER,WILL JENISE J [facility] Encounter Template Text not used by MD Assessments - Encounter Diagnoses This section includes the primary and secondary diagnoses documented for the Encounter. Date/Time Primary/Secondary Diagnosis Diagnosis Name Provider Source Dec 27, 2024 03:04 PM PRIMARY Type 2 diabetes mellitus without complications [facility] Dec 27, 2024 03:04 PM SECONDARY Chest pain on breathing [facility],WILL [facility] [place] [facility] Dec 27, 2024 03:04 PM SECONDARY Hyperlipidemia, unspecified [facility]LLER,WILL [facility] [place] [facility] Dec 27, 2024 03:04 PM SECONDARY Hypertensive heart disease without heart failure GELLER,WILL [facility] [place] [facility] Dec 27, 2024 03:04 PM SECONDARY Pain in left shoulder GELLER,WILL [facility] [place] [facility] Dec 27, 2024 03:04 PM SECONDARY Pain in unspecified hand [facility]LL[facility],WILL [facility] Plan of Treatment: Future Appointments (+ 6 months) and Future Tests (+/- 45 days) The Plan of Treatment section includes future care activities for the patient from all MD treatmentfacilities. This section includes future appointments and future orders which are active, pending or scheduled. Future Appointments This section includes appointments that were scheduled to occur 6 months from the date of the Encounter, up to a maximum of 20 appointments. The data comes from all MD treatment facilities. Appointment Date/Time Appointment Type Appointme nt Facility Name January 18, 2025 01:00 PM AMBULATORY - MEDICINE [facility] [place] [facility] January 31, 2025 01:00 PM AMBULATORY - REHAB MEDICIN E [facility] [place] [facility] Feb 15, 2025 03:30 PM AMBULATORY - MEDICINE [facility] [place] [facility] Feb 23, 2025 01:00 PM AMBULATORY - REHAB MEDICIN E [facility] [place] [facility] Mar 01, 2025 01:30 PM AMBULATORY - REHAB MEDICIN E [facility] [place] [facility] Mar 09, 2025 01:00 PM [facility] [place] [facility] Active, Pending, and Scheduled Orders This section includes a listing of several types of active, pending, and scheduled orders, including clinic medications orders, diagnostic test orders, procedure orders and consult orders; where the start date of the order is 45 days before the date of the Encounter or 45 days after the date of theEncounter. The data comes from all MD treatment facilities. Test Date/Time Test Type Test Details Facility Name Dec 27, 2024 02:48 PM Consult Order [facility] Lab Results: +/- 30 days of the encounter This section includes the Chemistry and Hematology Lab Results on record with MD for the patient. Radiology Reports and Pathology Reports are provided separately, in subsequent sections. Lab Results This section contains the Chemistry/Hematology Results that were resulted 30 days before or 30 daysafter the date of the Encounter. Date/Time Source Result Type Result - Unit Interpretation Reference Range Specimen Type Comment Dec 24, 2024 09:19 AM [facility] LIPID PANEL, NON FASTING SERUM Specimen Type: SERUM No comment entered. Ordering Provider: CECIL GELLER Report Released Date/Time: Dec 24, 2024 08:45 AM Reporting Lab: [address] [address] Performing Lab: [address] [address] CHOLESTEROL 136 mg/dL TRIGLYCERIDE 109 mg/dL 0-150 LDL calculated 60 mg/dL 0-129 CHOL/HDL 2.5 HDL CHOLESTEROL 54 mg/dL >40 Dec 24, 2024 09:19 AM [facility] CBC BLOOD Specimen Type: BLOOD No comment entered. Ordering Provider: CECIL GELLER Report Released Date/Time: Dec 24, 2024 08:45 AM Reporting Lab: [facility] [address] [facility] [address] Performing Lab: [facility] [address] [facility] [address] WBC 5.11 10*3/uL 4.50-11.00 RBC 4.56 10*6/uL 4.23-5.66 HGB 13.9 g/dL 12.8-17 HCT 39.4 39.2-50.4 MCV 86.4 fL 82-99 MCHC 35.3 g/dL H 30.8-35.1 PLT 155 10*3/uL 140-360 MPV 9.2 fL 9.2-12.4 RDW-CV 12.6 12.0-16.0 MCH 30.5 pg 26.2-32.6 Dec 24, 2024 09:19 AM [facility] BASIC METABOLIC PANEL (non-fasting) SERUM Spe cimen Type: SERUM No comment entered. Ordering Provider: CECIL GELLER Report Released Date/Time: Dec 24, 2024 08:45 AM Reporting Lab: [facility] [address] [facility] [address] Performing Lab: [address] [address] UREA NITROGEN 18 mg/dL 8-26 GLUCOSE 156 mg/dL H 65-100 SODIUM 140 mmol/L 136-145 POTASSIUM 4.8 mmol/L 3.5-5.1 CHLORIDE 104 mmol/L 98-107 CO2 27 meq/L 23-31 CALCIUM 9.9 mg/dL 8.8-10 CREATININE, Serum 1.10 mg/dL 0.72-1.25 eGFR(CKD-EPI 2020) 67 mL/min >60 Dec 24, 2024 09:19 AM [facility] LIVER FUNCTION SERUM Specimen Type: SERUM No comment entered. Ordering Provider: CECIL GELLER Report Released Date/Time: Dec 24, 2024 08:45 AM Reporting Lab: [facility] [address] [facility] [address] Performing Lab: [facility] [address] [facility] [address] PROTEIN,TOTAL 7.0 g/dL 6.4-8.3 ALBUMIN 4.4 g/dL 3.2-4.6 ALKALINE PHOSPHATASE 87 U/L 40-150 AST 23 U/L 5-34 ALT 22 U/L BILIRUBIN, TOTAL 0.7 mg/dL 0.2-1.2 Dec 24, 2024 09:19 AM [facility] HEMOGLOBIN A1C PANEL BLOOD Specimen Type: BLO OD Comment: Values obtained from A1C measurements can vary. For atypical A1C assays, a reported value of 7.0 could actually be between 6.72 and 7.28 if measured by a reference method. A reported value of 9.0 could actually be between 8.73 and 9.27. Ref: http://www.ngsp.org/CAPdata.asp Ordering Provider: CECIL GELLER Report Released Date/Time: Dec 24, 2024 08:45 AM Reporting Lab: [facility] [address] [facility] [address] Performing Lab: [facility] [address] [facility] [address] HEMOGLOBIN A1C 7.5 H 4.0-5.6 Dec 24, 2024 09:19 AM [facility] MICROALBUMIN CREATININE RATIO PANEL URINE Spe cimen Type: URINE No comment entered. Ordering Provider: CECIL GELLER Report Released Date/Time: Dec 24, 2024 08:45 AM Reporting Lab: [facility] [address] [facility] [address] Performing Lab: [address] [address] MICROALBUMIN/CREATININE RATIO 59.0 mg/g H 0-29.9 MICROALBUMIN,QUANTITATIVE 8.0 mg/dL RR U NAVAIL CREATININE URINE 135.53 mg/dL 63-166 Vital Signs: All taken on the encounter date This section contains inpatient and outpatient Vital Signs collected on the date of the Encounter. Date/Time Temperature Pulse Blood Pressure Respiratory Rate SP02 Pain Height Weight Body Mass Index Source Dec 27, 2024 03:03 PM 136/80 [facility] [place] [facility] Dec 27, 2024 02:22 PM 98.1 69 140/69 20 97 7 65 163 27 [facility] [place] [facility] Social History: Smoking Status (Most current) and Tobacco Use (All prior to encounter date) This section includes the most current, and the historical, smoking and tobacco- related health factors from the MD facility where the Encounter took place. Current Smoking Status This section includes the most current smoking, or tobacco-related health factor, from the MD facility where the Encounter took place. Date/Time Current Smoking Status Comment Facil ity 2024 02:30 PM VA-TOBACCO QUIT 15 YRS OR MORE [facility] [place] [facility] Tobacco Use History This section includes a history of the smoking, or tobacco-related health factors, that were collected on or before the date of the Encounter. The data comes from the MD facility where the Encounter took place. Date/Time Smoking Status/Tobacco Use Comment F acility 2024 02:30 PM VA-TOBACCO QUIT 15 YRS OR MORE [facility] [place] [facility] Dec 23, 2022 02:30 PM VA-TOBACCO FORMER USER [facility] [place] [facility] Dec 23, 2022 02:30 PM VA-TOBACCO QUIT 15 YRS OR MORE [facility] [place] [facility] Nov 19, 2021 02:00 PM VA-TOBACCO FORMER USER [facility] [place] [facility] Nov 19, 2021 02:00 PM VA-TOBACCO QUIT 15 YRS OR MORE [facility] [place] [facility] Dec 08, 2020 11:00 AM VA-TOBACCO FORMER USER [facility] [place] [facility] Dec 08, 2020 11:00 AM VA-TOBACCO QUIT 15 YRS OR MORE [facility] [place] [facility] Encounter Notes: All associated encounter notes This section contains the clinical notes associated to the Encounter. Date/Time Encounter Note(s) Provider Source Dec 27, 2024 03:17 PM CARDIOLOGY DIAGNOSTIC STUDY CONSULT: LOCAL TITLE: CONSULT REPORT/EKG STANDARD TITLE: CARDIOLOGY DIAGNOSTIC STUDY CONSULT DATE OF NOTE: DEC 27, 2024@15:17 ENTRY DATE: DEC 27, 2024@15:17:22 AUTHOR: MAXIMINO SHAH EXP COSIGNER: URGENCY: STATUS: COMPLETED EKG tracing was performed for diagnosis of Chest Pain, unspecified ordered by CECIL GELLER /amrita/ Maximino Shah, Health Stripper Cutter Machine BATCH MIXER,PRIMARY CARE Signed: 12/27/2024 15:18 PABLOMAIXMINO [facility] [place] [facility] Dec 27, 2024 02:50 PM PRIMARY CARE NURSE PRACTITIONER OUTPATIENT NOTE: LOCAL TITLE: NURSE PRACTITIONER OUTPATIENT NOTE STANDARD TITLE: PRIMARY CARE NURSE PRACTITIONER OUTPATIENT NOTE DATE OF NOTE: DEC 27, 2024@14:50 ENTRY DATE: DEC 27, 2024@14:50:38 AUTHOR: CECIL GELLER EXP COSIGNER: URGENCY: STATUS: COMPLETED Chief complaint: Patient is a 84 year old [place]. HPI: Pleasant male [place] here with his . He reports worsening pain in the base of both thumbs, he had non va imaging and was told bone spurs. Past ot and csi's not helpful. I ordered diclofenac gel, educated him on use, I will refer to ortho surg. Also having pain in left shoulder into left arm, consult to PT. He also notes episodic discomfort center ant chest. Last for about a minute. No sob. Resolves swiftly. EKG SR. He was following with Dr. Kay, he retired, now sees Dr. Flaquita Gómez. Allergies: Patient has answered NKA The following VA and Non-VA meds were reconciled with patient. The patient was educated on the use of the medications including indication and side effects. Active and Recently Outpatient Medications (excluding Supplies): Active Outpatient Medications Status 1) ACCU-CHEK GUIDE (GLUCOSE) TEST STRIP USE 1 STRIP TO TEST ACTIVE (S) BLOOD SUGARS DIRECTED BY PROVIDER 2) ACETAMINOPHEN 325MG TAB TAKE TWO TABLETS BY MOUTH EVERY 4 ACTIVE HOURS NEEDED Indication: FOR PAIN Pending Outpatient Medications Status 1) DICLOFENAC NA 1% TOP GEL APPLY 2 GRAMS TOPICALLY FOUR TIMES PENDING A DAY FOR OSTEOARTHRITIS - USE DOSING CARD PROVIDED IN BOX Indication: FOR JOINT PAIN Inactive Outpatient Medications Status 1) DM 10/GUAIFENESN 100MG/5ML (AF & SF) LIQ TAKE 5 MLS (1 TEASPOONFUL) BY MOUTH EVERY 6 HOURS NEEDED Indication: FOR COUGH Active Non-VA Medications Status 1) Non-VA ASPIRIN 81MG EC TAB 81MG BY MOUTH ONCE DAILY ACTIVE 2) Non-VA METFORMIN HCL 500MG TAB 250MG BY MOUTH TWICE DAILY ACTIVE 3) Non-VA METOPROLOL TARTRATE 50MG TAB 25MG BY MOUTH TWICE ACTIVE DAILY 4) Non-VA PRAVASTATIN NA 40MG TAB 40MG BY MOUTH ONCE DAILY ACTIVE 8 Total Medications Review of Systems: Constitutional: (-)for Fevers, chills, weakness, nights sweats On examination: 98.1 F [36.7 C] (12/27/2024 14:22)140/69 (12/27/2024 14:22)69 (12/27/2024 14:22)20 (12/27/2024 14:22)7 (12/27/2024 14:22)BMI: 27.2163 lb [73.94 kg] (12/27/2024 14:22) is alert and oriented X3 Neck: supple without masses, trachea midline, ln not palpable, no thyromegaly Cardiovasc: 2plus carotids without bruits, no JVD Heart Reguler rate and rhythm NL S1S2 no S3 or murmur Respiration: Normal respiratory effort, lungs clear ABD: Benign normal active bowel sounds no HSM no rebound or referred pain EXT: no clubbing, edema, or cyanosis All diagnostics from past month were reviewed with patient. Assessment/plan: Active problems - Computerized Problem List is the source for the followin. Low back pain - stable 2. thumb pain - see above 3. Diabetes Mellitus Type 2 - discussed labs, increasing metformin to 250mg bid. 4. Hypertension - repeat 136/80 5. Hyperlipidemia - controlled. Today I spent 40 minutes on some or all of the following: chart review, history, physical examination, treatment planning, education and counseling of the patient/family/patient care associate, placing orders, communicating with other health care providers, completing health and wellness screenings (see below) and documentation in the electronic health record. Follow up visit in 6 mos. Medication Reconciliation: Outpatient: Has the patient been taking medications as documented in the EMLR? YES: The patient has been taking medications as documented in the EMLR. Essential Medication List for Review used to complete this medication reconciliation. INCLUDED IN THIS LIST: Alphabetical list of active outpatient prescriptions dispensed from this MD (local) and dispensed from another MD or DoD facility (remote) as well as [...] whether with a VA or non-VA provider. HTN Assess for Elevated BP>=140/90: Repeat blood pressure: 136/80 The patient's blood pressure is usually adequately controlled. No medication changes are indicated at this time. /amrita/ Cecil Geller DNP, BUCKLE ASSEMBLER-BC, CNL Primary Care Nurse Practitioner Signed: 12/27/2024 15:03 CECIL GELLER [facility] Dec 27, 2024 02:27 PM PREVENTIVE MEDICINE NURSING NOTE: LOCAL TITLE: CLINICAL REMINDERS/NURSING STANDARD TITLE: PREVENTIVE MEDICINE NURSING NOTE DATE OF NOTE: DEC 27, 2024@14:27 ENTRY DATE: DEC 27, 2024@14:27:52 AUTHOR: AMXIMINO SHAH COSIGNER: URGENCY: STATUS: COMPLETED Advance Directive Screen MH AD: Patient does not have an Advance Directive completed and is requesting more information. A consult was sent to Social Work Services at this visit so that an appointment can be made with the patient to review the advance directive. The patient received education about Advance Directives and written notification of his/her rights. Homelessness/Food Insecurity Screen: In the past 2 months, have you been living in stable housing that you own, rent, or stay in as part of a household? Yes - Living in stable housing. Are you worried or concerned that in the next 2 months you may NOT have stable housing that you own, rent, or stay in as part of a household? No - Not worried about housing near future The [place] reports the following: Within the past 12 months, you worried whether your food would run out before you got money to buy more. Never true Within the past 12 months, the food you bought just didn't last and you didn't have money to get more. Never true Falls & Incontinence Screen: Falls Screen: During the past 12 months, did the patient report any falls? 4. No falls within the past year. Incontinence Screen: During the past 12 months, has the patient has any characteristics of incontinence (ability, voiding, leakage, etc.)? No incontinence. Falls & Incontinence Screen: Falls Screen: 4. No falls within the past year. Incontinence Screen No incontinence. /amrita/ Maximino Shah, Health Stripper Cutter Machine BATCH MIXER,PRIMARY CARE Signed: 12/27/2024 14:29 MAXIMINO SHAH [facility]
--- OUTSIDE RECORDS SUMMARY | 2025-01-31 09:00 | XMS_ITS ---
Author Name [facility] [place] Organization [facility] [place] Address [address] [place] [address] Care Team Providers Care Hydro Operator Name Role Phone AIYANA GELLER Primary Care [...] AGENC Y SUPPL E Mar 15, 2018 [id number] [phone] DOMINIC BEDOLLA RT PATIENT [facility] MEDICARE [employer] [facility] Y SUPP [address] Mar 15, 2018 [id number] [phone] DOMINIC BEDOLLA RT PATIENT MEDICARE (WNR) MEDICARE (M) PART B Nov 13, 2010 PART B [id number] DOMINIC BEDOLLA RT PATIENT MEDICARE (WNR) MEDICARE (M) PART B Nov 13, 2010 PART B [id number] DOMINIC BEDOLLA RT PATIENT MEDICARE (WNR) MEDICARE (M) PART A January 13, 2007 PART A [id number] [phone] DOMINIC BEDOLLA RT PATIENT MEDICARE (WNR) MEDICARE (M) PART A January 13, 2007 PART A [id number] [phone] DOMINIC BEDOLLA RT PATIENT Selected Encounter This section includes the information on record at [place] for the Encounter. Date/Time Encounter Type Encounter Description Reason Provider Source January 31, 2025 01:00 PM THERAPEUTIC EXERCISES OCCUPATIONAL THERAPY ICD-10-CM M25.512 Pain in left shoulder SHAVONNE FLORES IHE Encounter Template Text not used by [place] Assessments - Encounter Diagnoses This section includes the primary and secondary diagnoses documented for the Encounter. Date/Time Primary/Secondary Diagnosis Diagnosis Name Provider Source January 31, 2025 02:24 PM PRIMARY Pain in left shoulder SHAVONNE FLORES [place] [facility] [place] [facility] Plan of Treatment: Future Appointments (+ 6 months) and Future Tests (+/- 45 days) The Plan of Treatment section includes future care activities for the patient from all [place] [facility]. This section includes future appointments and future orders which are active, pending or scheduled. Future Appointments This section includes appointments that were scheduled to occur 6 months from the date of the Encounter, up to a maximum of 20 appointments. The data comes from all [place] treatment facilities. Appointment Date/Time Appointment Type Appointme nt Facility Name Feb 15, 2025 03:30 PM AMBULATORY - MEDICINE [place] [facility] [place] [facility] Feb 23, 2025 01:00 PM AMBULATORY - REHAB MEDICIN E MS [facility] [place] [facility] Mar 01, 2025 01:30 PM AMBULATORY - REHAB MEDICIN E [place] [facility] [place] [facility] Mar 09, 2025 01:00 PM AMBULATORY - REHAB MEDICIN E MS [facility] [place] [facility] Jul 01, 2025 01:30 PM AMBULATORY - MEDICINE [place] C [facility] [facility] Jul 12, 2025 01:00 PM AMBULATORY - MEDICINE [facility] [place] [facility] Active, Pending, and Scheduled Orders This section includes a listing of several types of active, pending, and scheduled orders, including clinic medications orders, diagnostic test orders, procedure orders and consult orders; where the start date of the order is 45 days before the date of the Encounter or 45 days after the date of theEncounter. The data comes from all [place] treatment facilities. Test Date/Time Test Type Test Details Facility Name Dec 27, 2024 02:48 PM Consult Order COMMUNITY CARE-ORTHO SURGICAL Cons [employer] [place] [facility] [place] [facility] Social History: Smoking Status (Most current) and Tobacco Use (All prior to encounter date) This section includes the most current, and the historical, smoking and tobacco- related health factors from the [place] facility where the Encounter took place. Current Smoking Status This section includes the most current smoking, or tobacco-related health factor, from the [place] facility where the Encounter took place. Date/Time Current Smoking Status Comment Facil ity 2024 02:30 PM VA-TOBACCO FORMER USER [place] [facility] [place] [facility] Tobacco Use History This section includes a history of the smoking, or tobacco-related health factors, that were collected on or before the date of the Encounter. The data comes from the [place] facility where the Encounter took place. Date/Time Smoking Status/Tobacco Use Comment F acility 2024 02:30 PM VA-TOBACCO QUIT 15 YRS OR MORE MS [facility] [place] [facility] Dec 23, 2022 02:30 PM VA-TOBACCO FORMER USER MS [facility] [place] [facility] Dec 23, 2022 02:30 PM VA-TOBACCO QUIT 15 YRS OR MORE MS [facility] [place] [facility] Nov 19, 2021 02:00 PM VA-TOBACCO FORMER USER MS [facility] [place] [facility] Nov 19, 2021 02:00 PM VA-TOBACCO QUIT 15 YRS OR MORE MS [facility] [place] [facility] Dec 08, 2020 11:00 AM VA-TOBACCO FORMER USER MS [facility] [place] [facility] Dec 08, 2020 11:00 AM VA-TOBACCO QUIT 15 YRS OR MORE MS [facility] [place] [facility] Encounter Notes: All associated encounter notes This section contains the clinical notes associated to the Encounter. Date/Time Encounter Note(s) Provider Source January 31, 2025 12:58 PM OCCUPATIONAL MEDIC INE CONSULT: LOCAL TITLE: CONSULT REPORT/OCCUPATIONAL THERAPY STANDARD TITLE: OCCUPATIONAL MEDICINE CONSULT DATE OF NOTE: JANUARY 31, 2025@12:58 ENTRY DATE: JANUARY 31, 2025@12:59:01 AUTHOR: SHAVONNE FLORES EXP COSIGNER: AIYANA GELLER URGENCY: STATUS: COMPLETED Initial Evaluation date: January Progress Note Date: Treatment #: eval Treatment time: 50 minutes Diagnosis: Pain in left Shoulder(ICD-10-CM M25.512) Provider: Yimi OT Treatment Precautions: h/o CA Patient identified by full name and date of S: Mr. Ramirez is an 85 y/o [facility] male who was referred to OT for L shoulder pain. He was seen in the OT clinic on 01/31/2025. He is known to this technical document writer from previous sessions. PMH: Active problems - Computerized Problem List is the source for the followin. Low back pain 2. Cervicalgia 3. Sleep apnea 4. Primary malignant neoplasm of lacrimal gland duct 5. Diabetes Mellitus Type 2 ([facility] [id number]) 6. Hypertension 7. Erectile Dysfunction ([facility] [id number]) 8. Hyperlipidemia ([facility] [id number]) 9. Skin Lesion ([facility] [id number]) 10. Prostate Cancer ([facility] [id number]) 11. Under care of multiple providers 12. Tinnitus 13. Diverticulosis of colon without diverticulitis 14. Hand pain Pain Level: 6-7/10 at rest, increasing to 6-7/10 at worst Pain Location: lateral shoulder radiating distally to elbow Aggravating Factors: ER w/ shoulder abduction, IR Alleviating Factors: Tylenol O: Pt is R hand dominant. 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 hx: [employer] [id number]. Hobbies/extracurricular: gardening, yardwork, crossword puzzles, stamp collecting. Clinical Presentation: rounded shoulders, FHP slight infra atrophy noted on L>R Palpation: ttp and tightness noted in lateral delt/anterior delt, as well as mild ttp and tightness noted throughout anterior shoulder musculature. 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 will monitor. TX: *MHP x3' to L shoulder prior to tx *UBE x2' forward, 2' backward 1.0 *pulleys into flexion w/ 10 second hold on L, 1x10 *wall walks into flexion, 5x31 *wall slides into flexion, 1x10 *scap squeezes seated, 1x10 *mobilization/FDM to anterior shoulder musculature, seated, x8' Access Code: [email or web address] URL: [email or web address] Date: 01/31/2025 Prepared by: [facility] Exercises - Seated Shoulder Flexion AAROM with Christiano Behind - 1 x daily - 7 x weekly - 3 sets - 10 reps - 10 hold - Standing Shoulder Flexion Wall Walk - 1 x daily - 7 x weekly - 3 sets - 10 reps - Shoulder Flexion Wall Slide with Towel - 1 x daily - 7 x weekly - 3 sets - 10 reps - Seated Scapular Retraction - 1 x daily - 7 x weekly - 3 sets - 10 reps ASSESSMENT: Kenny is an 85 y/o male who presents to the OT clinic with s/s of L RTC impingement/tendinopathy as evidenced by clinical presentation and positive provocative testing. His AROM in all motions is significantly decreased and likely limited by pain. He also has recent onset of R dominant decrease in AROM. He tolerated tx well and reported improved pain following tx. He was interested in engaging in additional visits in order to improve his pain and function. PLAN: Pt will benefit from skilled OT 1x/week for 4-6 weeks. Tx to include: L shoulder ROM, L shoulder strengthening, scapular stability, mobilization/manual therapy, pt. education, and modalities: ice, heat. Pt is in agreement w/ this POC. LTG's (4 weeks): 1. Pain: 2-3, at worst L shoulder 2. pt will report 50% improvement since initiating tx STG's (2 weeks): 1. (I) w/ HEP 2. Pain: <6-7/10 at rest 3. Improve active ROM by 10-15* * The practitioner's co-signature on this note signifies agreement with plan of care and clinical diagnosis code. This treatment was primarily performed by THANIA Person, however, I, Shavonne Flores MS OTR/Lilly, CHT, was present during the course of this treatment in its entirety providing direct supervision for this student, I agree with treatment and plan of care as stated above. /amrita/ Shavonne Flores, MS MCKEONR/L, MARIPOSA Occupational Therapist Signed: 01/31/2025 14:24 /amrita/ Aiyana Geller DNP, MOVIE EDITOR-BC, CNL Primary Care Nurse Practitioner Cosigned: 01/31/2025 14:34 Receipt Acknowledged By: 02/01/2025 07:06 /amrita/ FABIEN TAYLOR OCCUPATIONAL THERAPY STUDENT SHAVONNE FLORES [facility]
--- OUTSIDE RECORDS SUMMARY | 2025-02-23 09:00 | XMS_ITS ---
Author Name [facility] [place] Organization [facility] [place] Address [address] [place] [address] Care Team Providers Care Truck Striker Name Role Phone AIYANA HANDY Primary Care [...] AGENC Y SUPPL E Mar 15, 2018 [id number] [phone] DOMINIC BEDOLLA RT PATIENT [facility] MEDICARE SU[employer]LEMEN [employer] [facility] [facility] SUPP [address] Mar 15, 2018 [id number] [phone] DOMINIC BEDOLLA RT PATIENT MEDICARE (WNR) MEDICARE (M) PART B Nov 13, 2010 PART B [id number] DOMINIC BEDOLLA RT PATIENT MEDICARE (WNR) MEDICARE (M) PART B Nov 13, 2010 PART B [id number] [phone] DOMINIC BEDOLLA RT PATIENT MEDICARE (WNR) MEDICARE (M) PART A January 13, 2007 PART A [id number] [phone] DOMINIC BEDOLLA RT PATIENT MEDICARE (WNR) MEDICARE (M) PART A January 13, 2007 PART A [id number] DOMINIC BEDOLLA RT PATIENT Selected Encounter This section includes the information on record at [place] for the Encounter. Date/Time Encounter Type Encounter Description Reason Provider Source Feb 23, 2025 01:00 PM THERAPEUTIC EXERCISES OCCUPATIONAL THERAPY ICD-10-CM M25.512 Pain in left shoulder SHAVONNE FLORES IHE Encounter Template Text not used by [place] Assessments - Encounter Diagnoses This section includes the primary and secondary diagnoses documented for the Encounter. Date/Time Primary/Secondary Diagnosis Diagnosis Name Provider Source Feb 23, 2025 04:14 PM PRIMARY Pain in left shoulder SHAVONNE FLORES [facility] [place] [facility] Plan of Treatment: Future Appointments [...] Date/Time Appointment Type Appointme nt Facility Name Mar 01, 2025 01:30 PM AMBULATORY - REHAB MEDICIN E [facility] [place] [facility] Mar 09, 2025 01:00 PM AMBULATORY - REHAB MEDICIN E [facility] [place] [facility] Jul 01, 2025 01:30 PM AMBULATORY - MEDICINE HI C [facility] [place] [facility] Jul 12, 2025 01:00 PM AMBULATORY - MEDICINE HI [facility] [place] [facility] Social History: Smoking Status (Most current) and Tobacco Use (All prior to encounter date) This section includes the most current, and the historical, smoking and tobacco- related health factors from the [facility] facility where the Encounter took place. Current Smoking Status This section includes the most current smoking, or tobacco-related health factor, from the [facility] facility where the Encounter took place. Date/Time Current Smoking Status Comment Facil itrashid 2024 02:30 PM VA-TOBACCO FORMER USER [facility] [place] [facility] Tobacco Use History This section includes a history of the smoking, or tobacco-related health factors, that were collected on or before the date of the Encounter. The data comes from the [place] facility where the Encounter took place. Date/Time Smoking Status/Tobacco Use Comment F acility 2024 02:30 PM VA-TOBACCO QUIT 15 YRS OR MORE HI [facility] [place] [facility] Dec 23, 2022 02:30 PM VA-TOBACCO FORMER USER VA [facility] [place] [facility] Dec 23, 2022 02:30 PM VA-TOBACCO QUIT 15 YRS OR MORE HI [facility] [place] [facility] Nov 19, 2021 02:00 PM VA-TOBACCO FORMER USER [facility] [place] [facility] Nov 19, 2021 02:00 PM VA-TOBACCO QUIT 15 YRS OR MORE HI [facility] [place] [facility] Dec 08, 2020 11:00 AM VA-TOBACCO FORMER USER [facility] [place] [facility] Dec 08, 2020 11:00 AM VA-TOBACCO QUIT 15 YRS OR MORE HI [facility] [place] [facility] Encounter Notes: All associated encounter notes This section contains the clinical notes associated to the Encounter. Date/Time Encounter Note(s) Provider Source Feb 23, 2025 12:54 PM OCCUPATIONAL THERAPY NOTE: LOCAL TITLE: OCCUPATIONAL THERAPY STANDARD TITLE: OCCUPATIONAL THERAPY NOTE DATE OF NOTE: FEB 23, 2025@12:54 ENTRY DATE: FEB 23, 2025@12:54:19 AUTHOR: SHAVONNE FLORES COSIGNER: URGENCY: STATUS: COMPLETED Initial Evaluation date: January Progress Note Date: Treatment #: 2 Treatment time: 31 minutes Diagnosis: Pain in left Shoulder(ICD-10-CM M25.512) Provider: Yimi MCKEON Treatment Precautions: h/o [place] Patient identified by full name and date of SUBJECTIVE: Reports 10-15% improvement in L shoulder with IR hurting the most. Reports compliance with HEP. He reports that his R shoulder is hurting more than his L lately. Pain Level: 3/10 at rest, increasing to 5-6/10 at worst OBJECTIVE: THERAPEUTIC EXERCISE: *UBE x2' forward, 2' backward 1.0 *pulleys into flexion w/ 10 second hold on L, 1x10 *wall walks into flexion, 5x34 *wall slides into flexion, 1x10 ADDED: *shoulder rows w/ blue band, 2x10 (issued blue band) Access Code: [email or web address] URL: [email or web address] / Date: 02/23/2025 Prepared by: [facility] Exercises - Seated Shoulder Flexion AAROM [...] - 3 sets - 10 reps - Split Stance Shoulder Row with Resistance - 1 x daily - 7 x weekly - 3 sets - 10 reps MINUTES: 18 MANUAL THERAPY: *mobilization/FDM to anterior shoulder musculature, seated MINUTES: 8 THERAPEUTIC DYNAMIC ACTIVITIES: MINUTES: NEUROMUSCULAR EDUCATION: MINUTES: OTHER: MINUTES: MODALITIES: *MHP to L shoulder prior to tx MINUTES: 3 [] Contraindication screen completed prior to modality [] Skin intact pre/post SELF CARE/EDUCATION: MINUTES: Patient education was provided for all aspects of care during this clinical encounter. ASSESSMENT: Pt tolerated tx well this date. He reported increased discomfort with UBE backwards, but tolerable. Added shoulder rows w/ blue band which pt r/d. Increased AROM noted this date evidenced by performing wall walks 5x34. Pt also reported decreased pain at rest and at worst since tx was initiated. Tightness and TTP in anterior delt/lateral delt noted during mobilization. Pt reported feeling good following tx. PLAN: continue w/ OT POC; modify as needed. pt was in agreement w/ this POC. This treatment was primarily performed by THANIA Person, however, Shavonne Asher MS OTR/L, CHT, was present during the course of this treatment in its entirety providing direct supervision for this student, I agree with treatment and plan of care as stated above. /amrita/ MS SHARMAINE Knapp CHT Occupational Therapist Signed: 02/23/2025 16:14 Receipt Acknowledged By: 02/24/2025 07:04 /amrita/ FABIEN TAYLOR OCCUPATIONAL THERAPY STUDENT SHAVONNE FLORES [facility]
--- OUTSIDE RECORDS SUMMARY | 2025-03-01 09:30 | XMS_ITS ---
Author Name [facility] [place] Address [address] [place] [address] Care Team Providers Care Venetian Blind Cleaner Name Role Phone AIYANA HANDY Primary Care [...] AGENC Y SUPPL E Mar 15, 2018 [id number] [phone] DOMINIC BEDOLLA RT PATIENT [facility] MEDICARE [employer] [facility]PP [facility] Mar 15, 2018 [id number] [phone] DOMINIC BEDOLLA RT PATIENT MEDICARE (WNR) MEDICARE (M) PART B Nov 13, 2010 PART B [id number] DOMINIC BEDOLLA RT PATIENT MEDICARE (WNR) MEDICARE (M) PART B Nov 13, 2010 PART B [id number] [phone] DOMINIC BEDOLLA RT PATIENT MEDICARE (WNR) MEDICARE (M) PART A January 13, 2007 PART A [id number] DOMINIC BEDOLLA RT PATIENT MEDICARE (WNR) MEDICARE (M) PART A January 13, 2007 PART A [id number] DOMINIC BEDOLLA RT PATIENT Selected Encounter This section includes the information on record at [place] for the Encounter. Date/Time Encounter Type Encounter Description Reason Provider Source Mar 01, 2025 01:30 PM THERAPEUTIC EXERCISES OCCUPATIONAL THERAPY ICD-10-CM M25.512 Pain in left shoulder SHAVONNE FLORES IHE Encounter Template Text not used by [place] Assessments - Encounter Diagnoses This section includes the primary and secondary diagnoses documented for the Encounter. Date/Time Primary/Secondary Diagnosis Diagnosis Name Provider Source Mar 01, 2025 04:18 PM PRIMARY Pain in left shoulder SHAVONNE FLORES [facility] Plan of Treatment: Future Appointments (+ 6 months) and Future Tests (+/- 45 days) The Plan of Treatment section includes future care activities for the patient from all [place] treatmentfacilities. This section includes future appointments and future orders which are active, pending or scheduled. Future Appointments This section includes appointments that were scheduled to occur 6 months from the date of the Encounter, up to a maximum of 20 appointments. The data comes from all [place] treatment facilities. Appointment Date/Time Appointment Type Appointme nt Facility Name Mar 09, 2025 01:00 PM AMBULATORY - REHAB MEDICIN E [facility] Jul 01, 2025 01:30 PM AMBULATORY - MEDICINE [facility] Jul 12, 2025 01:00 PM AMBULATORY - MEDICINE [facility] Social History: Smoking Status (Most current) [...] place. Date/Time Current Smoking Status Comment Efren booker 2024 02:30 PM VA-TOBACCO FORMER USER [facility] Tobacco Use History This section includes a history of the smoking, or tobacco-related health factors, that were collected on or before the date of the Encounter. The data comes from the [place] facility where the Encounter took place. Date/Time Smoking Status/Tobacco Use Comment F acility 2024 02:30 PM VA-TOBACCO QUIT 15 YRS OR MORE [facility] [place] [facility] Dec 23, 2022 02:30 PM VA-TOBACCO FORMER USER VA [facility] [place] [facility] Dec 23, 2022 02:30 PM VA-TOBACCO QUIT 15 YRS OR MORE [facility] [place] [facility] Nov 19, 2021 02:00 PM VA-TOBACCO FORMER USER VA [facility] [place] [facility] Nov 19, 2021 02:00 PM VA-TOBACCO QUIT 15 YRS OR MORE [facility] [place] [facility] Dec 08, 2020 11:00 AM VA-TOBACCO FORMER USER VA [facility] [place] [facility] Dec 08, 2020 11:00 AM VA-TOBACCO QUIT 15 YRS OR MORE [place] [facility] [place] [facility] Encounter Notes: All associated encounter notes This section contains the clinical notes associated to the Encounter. Date/Time Encounter Note(s) Provider Source Mar 01, 2025 01:08 PM OCCUPATIONAL THERAPY NOTE: LOCAL TITLE: OCCUPATIONAL THERAPY STANDARD TITLE: OCCUPATIONAL THERAPY NOTE DATE OF NOTE: MAR 01, 2025@13:08 ENTRY DATE: MAR 01, 2025@13:08:45 AUTHOR: SHAVONNE FLORES COSIGNER: URGENCY: STATUS: COMPLETED Initial Evaluation date: January Progress Note Date: Treatment #: 3 Treatment time: 30 minutes Diagnosis: Pain in left Shoulder(ICD-10-CM M25.512) Provider: Yimi OT Treatment Precautions: h/o [place] Patient identified by full name and date of SUBJECTIVE: Pt reports that he took Tylenol today so his shoulder isn't bad right now, but it wasn't good last night. Pain Level: 2/10 at rest, increasing to 4 or 5/10 at worst OBJECTIVE: THERAPEUTIC EXERCISE: *UBE x2' forward, 2' backward 1.0 *pulleys into flexion w/ 10 second hold on L, 1x10 *wall walks into flexion, 5x34 *wall slides into flexion, 1x10 *shoulder rows w/ blue band, 2x10 TRIALED: *shoulder extensions w/ blue band, [id number] d/t pain Access Code: [email or web address] URL: [email or web address] / Date: 02/23/2025 Prepared by: [facility] Exercises - Seated Shoulder Flexion AAROM [...] - 3 sets - 10 reps MINUTES: 16 MANUAL THERAPY: *mobilization/FDM to anterior shoulder musculature, seated MINUTES: 8 THERAPEUTIC DYNAMIC ACTIVITIES: MINUTES: NEUROMUSCULAR EDUCATION: MINUTES: OTHER: MINUTES: MODALITIES: *MHP to L shoulder prior to tx MINUTES: 3 [] Contraindication screen completed prior to modality [] Skin intact pre/post SELF CARE/EDUCATION: MINUTES: Patient education was provided for all aspects of care during this clinical encounter. ASSESSMENT: Pt tolerated tx well this date. His pain level is slightly decreased this date. Pt completed all TE with mild fatigue and decreased pain. trialed shoulder extensions but this was painful; held for now. Extreme tightness and TTP noted in the lateral deltoid during mobilization. Pt reported feeling good following tx. PLAN: continue w/ OT POC; modify as needed. pt will be undergoing CMC arthroplasty next week and may not be able to attend his final appt. he will call to cx if this is the case. pt was in agreement w/ this POC. This treatment was primarily performed by THANIA Person, however, Shavonne Asher, MS OTR/L, CHT, was present during the course of this treatment in its entirety providing direct supervision for this student, I agree with treatment and plan of care as stated above. /amrita/ Shavonne Flores, MS OTR/Lilly, CHT Occupational Therapist Signed: 03/01/2025 16:18 Receipt Acknowledged By: 03/01/2025 16:24 /amrita/ FABIEN TAYLOR OCCUPATIONAL THERAPY STUDENT SHAVONNE FLORES [facility]
--- OUTSIDE RECORDS SUMMARY | 2025-03-09 09:00 | XMS_ITS ---
Author Name [place] Address [address] [place] [address] Care Team Providers Care Emergency Department Aide Name Role Phone CECIL GELLER Primary Care [...] AGENC Y SUPPL E Mar 15, 2018 [id number] [phone] DOMINIC BEDOLLA RT PATIENT [facility] MEDICARE [employer] SUPP PL Mar 15, 2018 [id number] [phone] DOMINIC BEDOLLA RT PATIENT MEDICARE (WNR) MEDICARE (M) PART B Nov 13, 2010 PART B [id number] DOMINIC BEDOLLA RT PATIENT MEDICARE (WNR) MEDICARE (M) PART B Nov 13, 2010 PART B [id number] DOMINIC BEDOLLA RT PATIENT MEDICARE (WNR) MEDICARE (M) PART A January 13, 2007 PART A [id number] DOMINIC BEDOLLA RT PATIENT MEDICARE (WNR) MEDICARE (M) PART A January 13, 2007 PART A [id number] [phone] DOMINIC BEDOLLA RT PATIENT Selected Encounter This section includes the information on record at [place] for the Encounter. Date/Time Encounter Type Encounter Description Reason Provider Source Mar 09, 2025 01:00 PM THERAPEUTIC EXERCISES OCCUPATIONAL THERAPY ICD-10-CM M25.512 Pain in left shoulder MADDIE FLORES IHE Encounter Template Text not used by [place] Assessments - Encounter Diagnoses This section includes the primary and secondary diagnoses documented for the Encounter. Date/Time Primary/Secondary Diagnosis Diagnosis Name Provider Source Mar 09, 2025 04:17 PM PRIMARY Pain in left shoulder MADDIE FLORES [facility] Plan of Treatment: Future Appointments (+ 6 months) and Future Tests (+/- 45 days) The Plan of Treatment section includes future care activities for the patient from all [place] treatmentfacild[facility]. This section includes future appointments and future orders which are active, pending or scheduled. Future Appointments This section includes appointments that were scheduled to occur 6 months from the date of the Encounter, up to a maximum of 20 appointments. The data comes from all [place] treatment facilities. Appointment Date/Time Appointment Type Appointme nt Facility Name Jul 01, 2025 01:30 PM AMBULATORY - MEDICINE [facility] Jul 12, 2025 01:00 PM AMBULATORY - MEDICINE [facility] Social History: Smoking Status (Most current) and Tobacco Use (All prior to encounter date) This section includes the most current, and the historical, smoking and tobacco- related health factors from the [place] facility where the Encounter took place. Current Smoking Status This section includes the most current smoking, or tobacco-related health factor, from the [place] facility where the Encounter took place. Date/Time Current Smoking Status Comment Facil ity 2024 02:30 PM VA-TOBACCO FORMER USER [facility] Tobacco Use History This section includes a history of the smoking, or tobacco-related health factors, that were collected on or before the date of the Encounter. The data comes from the [place] facility where the Encounter took place. Date/Time Smoking Status/Tobacco Use Comment F acility 2024 02:30 PM VA-TOBACCO QUIT 15 YRS OR MORE VA [facility] [place] [facility] Dec 23, 2022 02:30 PM VA-TOBACCO FORMER USER [facility] [place] [facility] Dec 23, 2022 02:30 PM VA-TOBACCO QUIT 15 YRS OR MORE VA [facility] [place] [facility] Nov 19, 2021 02:00 PM VA-TOBACCO FORMER USER [facility] [place] [facility] Nov 19, 2021 02:00 PM VA-TOBACCO QUIT 15 YRS OR MORE VA [facility] [place] [facility] Dec 08, 2020 11:00 AM VA-TOBACCO FORMER USER [facility] [place] [facility] Dec 08, 2020 11:00 AM VA-TOBACCO QUIT 15 YRS OR MORE [facility] [place] [facility] Encounter Notes: All associated encounter notes This section contains the clinical notes associated to the Encounter. Date/Time Encounter Note(s) Provider Source Mar 09, 2025 01:15 PM OCCUPATIONAL THERAPY DISCHARGE NOTE: LOCAL TITLE: OCCUPATIONAL THERAPY DISCHARGE NOTE STANDARD TITLE: OCCUPATIONAL THERAPY DISCHARGE NOTE DATE OF NOTE: MAR 09, 2025@13:15 ENTRY DATE: MAR 09, 2025@16:16:20 AUTHOR: MADDIE FLORES COSIGNER: CECIL GELLER URGENCY: STATUS: COMPLETED Initial Evaluation date: January Progress Note Date: Treatment #: 4 Treatment time: 30 minutes Diagnosis: Pain in left Shoulder(ICD-10-CM M25.512) Provider: Yimi OT Treatment Precautions: h/o [place] Patient identified by full name and date of SUBJECTIVE: [place] reports that he only feels pain when he reaches behind his back. reports he has made ~75% improvement. Pain Level: 1/10 at rest, increasing to 4 or 5/10 at worst OBJECTIVE: THERAPEUTIC EXERCISE: *UBE x2' forward, 2' backward 1.0 *pulleys into flexion w/ 10 second hold on L, 1x10 *wall walks into flexion, 5x34 *wall slides into flexion, 1x10 *shoulder rows w/ blue band, 2x10 *shoulder extensions w/ blue band, 2x10 Access Code: [email or web address] URL: [email or web address] / Date: 03/09/2025 Prepared by: [facility] Exercises - Seated Shoulder Flexion AAROM [...] 3 sets - 10 reps - Shoulder Extension with Resistance - 1 x daily - [...] Pt tolerated tx well this date. He reports that he's made ~75% improvement in pain and function, with his pain level at ~1/10 at rest and increasing to 4-5/10 at worst. Added shoulder extensions this date. Pt VU and RD TE. Mobilization indicated extreme tightness in lateral deltoid/upper arm. Pt reported feeling good following tx. PLAN: Discharge from direct OT services at this time d/t pt undergoing R dominant CMC arthroplasty tomorrow. The pt feels good about his L shoulder at this time and is in agreement. He understands he may resume therapy for the shoulder if still needed oncehe recovers from CMC arthroplast. The practitioner's co-signature on this note signifies agreement with plan of care and clinical diagnosis code. /amrita/ Maddie Flores, MS OTR/L, CHT Occupational Therapist Signed: 03/09/2025 16:17 /amrita/ Cecil Geller DNP, SUPERVISOR LIME-BC, CNL Primary Care Nurse Practitioner Cosigned: 03/10/2025 06:44 MADDIE FLORES [facility]
--- OUTSIDE RECORDS SUMMARY | 2025-04-28 07:39 | XMS_ITS | Encounter Summary ---
Author Name [facility] Address [address] [place] [address] Care Team Providers Care Medical Laboratory Manager Name Role Phone CECIL GELLER Primary Care Provider [facility] Insurance Providers: All historical and current [...] Name Patient's Relationship to Policy [facility] MEDICARE [employer] E Mar 15, 2018 [id number] PATIENT [facility] MEDICARE [employer] [address] Mar 15, 2018 [id number] DOM[address]A RT PATIENT MEDICARE (WNR) MEDICARE (M) PART B Nov 13, 2010 PART B [id number] DOMINIC BEDOLLA RT PATIENT MEDICARE (WNR) MEDICARE (M) PART B Nov 13, 2010 PART B [id number] DOMINIC BEDOLLA RT PATIENT MEDICARE (WNR) MEDICARE (M) PART A January 13, 2007 PART A [id number] DOMINIC BEDOLLA RT PATIENT MEDICARE (WNR) MEDICARE (M) PART A January 13, 2007 PART A [id number] [phone] [id number] DOMINIC BEDOLLA RT PATIENT Selected Encounter This section includes the information on record at [place] for the Encounter. Date/Time Encounter Type Encounter Description Reason Pro vider Source Apr 28, 2025 11:39 AM Outpatient Encounter ADMIN PAT ACTIVTIES (MASNONCT) IHE Encounter Template Text not used by [place] Plan of Treatment: Future Appointments (+ 6 months) and Future Tests (+/- 45 days) The Plan of Treatment section includes future care activities for the patient from all [place] treatmentfacilities. This section includes future appointments and [...] 01, 2025 01:30 PM AMBULATORY - MEDICINE [facility] Jul 12, 2025 01:00 PM [facility] [place] [facility] Social History: Smoking Status (Most current) [...] ity 2024 02:30 PM [facility] [place] [facility] Tobacco Use History This section includes a history of the smoking, or tobacco-related health factors, that were collected on or before the date of the Encounter. The data comes from the [place] facility where the Encounter took place. Date/Time Smoking Status/Tobacco Use Comment F acility 2024 02:30 PM [place]-TOBACCO [facility] 15 YRS [facility] Dec 23, 2022 02:30 PM [facility] [place] [facility] Dec 23, 2022 02:30 PM VA-TOBACCO QUIT 15 YRS OR MORE [facility] [place] [facility] Nov 19, 2021 02:00 PM VA-TOBACCO FORMER USER [facility] [place] [facility] Nov 19, 2021 02:00 PM VA-TOBACCO QUIT 15 YRS OR MORE [facility] [place] [facility] Dec 08, 2020 11:00 AM VA-TOBACCO FORMER USER [place] [facility] [place] [facility] Dec 08, 2020 11:00 AM VA-TOBACCO QUIT 15 YRS OR MORE [facility] Encounter Notes: All associated encounter notes This section contains the clinical notes associated to the Encounter. Date/Time Encounter Note(s) Provider Source Apr 28, 2025 11:39 AM MEDICATION MGT NOT E: LOCAL TITLE: MEDICATION RENEWAL STANDARD TITLE: MEDICATION MGT NOTE DATE OF NOTE: APR 28, 2025@11:39 ENTRY DATE: APR 28, 2025@11:39:51 AUTHOR: JASMIN FRANZ EXP COSIGNER: URGENCY: STATUS: COMPLETED MEDICATION RENEWAL Has ADDENDA Hello, is requesting a refill on the following prescription(s). Please renew if appropriate.Thank you for your time. 1) INCONT LINER PREVAIL GUARDS #[id number] USE 1 LINER TOPICALLY ACTIVE EVERY 6 HOURS NEEDED /amrita/ JASMIN FRANZ Signed: 04/28/2025 11:41 Receipt Acknowledged By: 04/28/2025 11:57 /es/ Cecil Geller DNP, CLIMATE CHANGE RISK ASSESSOR-BC, CNL Primary Care Nurse Practitioner 04/28/2025 11:52 /amrita/ ALEN GATES MSN, RN, CNL Primary Care RN 04/28/2025 ADDENDUM STATUS: COMPLETED ordered as requested /qi GATES MSN, RN, CNL Primary Care RN Signed: 04/28/2025 11:52 JASMIN FRANZ [facility]
--- OUTSIDE RECORDS SUMMARY | 2025-05-10 09:09 | XMS_ITS | Continuity of Care Document ---
Author Name [facility] Organization [facility] Care Team Providers Care Transformation Analyst Name Role Phone [facility] Unavailable Unavailable Problems Combined list of problems from Department of Defense and Veterans Affairs facilities. It does not include entries that were removed or entered in error. Problem Status Onset Date Problem Type Date of Resolution Comments Source Cervicalgia Active Condition [facility] Diabetes Mellitus Type 2 (SCT [id number]) Active Condition [facility] Diverticulosis of colon without diverticulitis Active Condition [facility] Erectile Dysfunction (SCT [id number]) Active Condition [facility] Hand pain Active Condition [facility] Hyperlipidemia (SCT 57730271) Active Condition [facility] Hypertension Active Condition [facility] Low back pain Active Condition [facility] 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 Alva [facility] Skin Lesion (SCT 48712091) Active Condition Dec 08, 2020 Entered By: JARRETT HANDY AM Comment: maintains annual [facility] Sleep apnea Active Condition Dec 24, 2022 Entered By: JARRETT HANDY AM Comment: Sleep Study done at [facility] Tinnitus Active Condition [facility] Under care of multiple providers Active Condition Dec 08, 2020 Entered By: JARRETT HANDY AM Comment: [facility] Diagnosis: ICD-10-CM M25.512 Pain in left shoulder Active Diagnosis [facility] Diagnosis: ICD-10-CM Z13.6 Encounter for screening for cardiovascular disorders Active Diagnosis [facility] Diagnosis: ICD-10-CM E11.9 Type 2 diabetes mellitus [...] HCS Diagnosis: ICD-10-CM U07.1 COVID-[address] [facility] ([id number]) Diagnosis: ICD-10-CM L57.0 Actinic keratosis Active Diagnosis [facility] [place] Diagnosis: ICD-10-CM Z13.89 Encounter for screening for other disorder Active Diagnosis [facility] Diagnosis: ICD-10-CM M54.50 Low back pain, unspecified Active Diagnosis [facility] Diagnosis: ICD-10-CM J20.9 Acute bronchitis, unspecified Active Diagnosis [facility] Diagnosis: ICD-10-CM Z71.89 Other specified counseling Active Diagnosis [facility] Medications Combined list of outpatient [...] EVERY 4 HOURS NEEDED FOR PAIN ORAL 02/16/2025 [id number] AIYANA HANDY 2023 200 [facility] ASPIRIN 81MG TAB,EC TAKE ONE TABLET BY MOUTH ONCE DAILY ORAL ACTIVE AIYANA HANDY 2020 [facility] DICLOFENAC NA 1% GEL,TOP APPLY 2 GRAMS TOPICALL Y FOUR TIMES A DAY FOR OSTEOART HRITIS - USE DOSING CARD PROVIDED IN BOX TOPICManny L ACTIVE 12/28/2025 [id number] 5 AIYANA HANDY 2024 100 [facility] DICLOFENAC NA 50MG TAB,EC TAKE ONE TABLET BY MOUTH EVERY 8 HOURS NEEDED FOR PAIN AND INFLAMMA TION ORAL DISCONT INUED BY PROVIDE R 12/23/2024 [id number] 4 AIYANA HANDY 2023 90 [facility] GOV-NIRMATR CAREY 150MG X 1/RITONAVIR 100MG X 1 TAB RENAL PACK,2 TAKE 1 TABLET NILMATRE LVIR AND 1 TABLET RITONAVI R BY MOUTH TWICE DAILY FOR COVID-19 - PLEASE MELI Haas MAIL ORAL 07/15/2024 [id number] 4 HOLLIE DAVIS 2023 5 [facility] GUAIFENESIN 100MG/5ML (SF & AF) LIQUID TAKE 1 TEASPOON FUL BY MOUTH EVERY 6 HOURS NEEDED FOR COUGH -- PLEASE MAIL OVERANALY T WITH PAXLOVID . ORAL 07/15/2024 [id number] 4 HOLLIE DAVIS 2023 240 [facility] METFORMIN HCL 500MG TAB TAKE ONE-HALF TABLET BY MOUTH TWICE DAILY ORAL ACTIVE AIYANA HANDY 2021 [facility] METOPROLOL TARTRATE 50MG TAB TAKE ONE-HALF TABLET BY MOUTH TWICE DAILY ORAL ACTIVE AIYANA HANDY 2021 [facility] PRAVASTATIN NA 40MG TAB TAKE ONE TABLET BY MOUTH ONCE DAILY ORAL ACTIVE AIYANA HANDY 2021 [facility] Immunizations Combined list of available immunizations from the Department of Defense and Veterans Affairs facilities. Immunization Series Date Given Administered By Site Reaction Lot Number CVX Code Drug Grocery Shopper Status Comments Source INFLUENZA, UNSPECIFIED FORMULATION 2023 88 complet ed HISTORICA L INFORMATI ON - FROM PATIENT'S RECALL, per statement from vet [facility] INFLUENZA, HIGH-DOSE, QUADRIVALENT 2022 SREE [place] LEFT DELTO ID [id number] 197 complet ed Completed Series, ADMINISTE [place] AT [place], [facility] COVID-19 (PFIZER), [...] Dec 24, 2024 08:45 AM Reporting Lab: [facility] [address] Performing Lab: [facility]ENTERUSE[address] [address] [facility]ENTERUSE [facility] LIPID PANEL, NON FASTING TRIGLYCERID E [MASS/VOLUM E] IN SERUM OR PLASMA 109 mg/dL 0 - 150 12/24 Specimen Type: SERUM No comment entered. Ordering Provider: KATE HANDY Report Released Date/Time: Dec 24, 2024 08:45 AM Reporting Lab: [facility]ENTERUSE[address] [address] Performing Lab: [facility]ENTERUSE[address] [address] [facility] LIPID PANEL, NON FASTING CHOLESTEROL IN LDL [MASS/VOLUM E] IN SERUM OR PLASMA BY CALCULATION 60 mg/dL 0 - 129 12/24 Specimen Type: SERUM No comment entered. Ordering Provider: KATE HANDY Report Released Date/Time: Dec 24, 2024 08:45 AM Reporting Lab: [facility]ENTERUSE[address] [address] Performing Lab: [facility]ITALRSOUTHE[facility]ENTERN [facility]ENTERUSE[address] [address] [facility] LIPID PANEL, NON FASTING CHOLESTEROL .TOTAL/CHOL ESTEROL IN HDL [MASS RATIO] IN SERUM OR PLASMA 2.5 12/24 Specimen Type: SERUM No comment entered. Ordering Provider: KATE HANDY Report Released Date/Time: Dec 24, 2024 08:45 AM Reporting Lab: [facility]ENTERUSE[address] [address] Performing Lab: [facility]PITALRENCOMPASS [facility] REHABIL[facility]ATION HOSPITALTRN [facility]ENTERUSE[facility] [address] [facility] [address] [facility]N [facility]ENTERUSE [facility] LIPID PANEL, NON FASTING CHOLESTEROL IN HDL [MASS/VOLUM E] IN SERUM OR PLASMA 54 mg/dL 40 12/24 Specimen Type: SERUM No comment entered. Ordering Provider: KATE HANDY Report Released Date/Time: Dec 24, 2024 08:45 AM Reporting Lab: [facility]ITALRSOUTHEAST HEALTH MEDICAL CENTERN [facility]ENTERUSE[facility] [address] [facility] [address] Performing Lab: [facility]N [facility]ENTERUSE[facility] [address] [facility] [address] [facility]N [facility] BASIC METABOLIC PANEL (non-fast ing) UREA NITROGEN [MASS/VOLUM E] IN SERUM OR PLASMA 18 mg/dL 8 - 26 12/24 Specimen Type: SERUM No comment entered. Ordering Provider: KATE HANDY Report Released Date/Time: Dec 24, 2024 08:45 AM Reporting Lab: [facility]N [facility]ENTERUSE[facility] [address] [facility] [address] Performing Lab: [facility]ITALN [facility]ENTERUSE[facility] [address] [facility] [address] [facility] BASIC METABOLIC PANEL (non-fast ing) GLUCOSE [MASS/VOLUM E] IN SERUM OR PLASMA 156 mg/dL 65 - 100 12/24 H Specimen Type: SERUM No comment entered. Ordering Provider: KATE HANDY Report Released Date/Time: Dec 24, 2024 08:45 AM Reporting Lab: [facility]ITALRSOUTHEAST HE[facility] MEDICAL CENTERN [facility]ENTERUSECR[facility] [address] [facility] [address] Performing Lab: [facility]ITALN [facility]ENTERUSE[facility] [address] [facility] [address] [facility] BASIC METABOLIC PANEL (non-fast ing) SODIUM [MOLES/VOLU ME] IN SERUM OR PLASMA 140 mmol/L 136 - 145 12/24 Specimen Type: SERUM No comment entered. Ordering Provider: KATE HANDY Report Released Date/Time: Dec 24, 2024 08:45 AM Reporting Lab: [facility] [facility] [address] [facility] [address] Performing Lab: [facility] [place] [facility] [address] [facility] [address] [facility] BASIC METABOLIC PANEL (non-fast ing) POTASSIUM [MOLES/VOLU ME] IN SERUM OR PLASMA 4.8 mmol/L 3.5 - 5.1 12/24 Specimen Type: SERUM No comment entered. Ordering Provider: KATE HANDY Report Released Date/Time: Dec 24, 2024 08:45 AM Reporting Lab: [facility] [place] [facility] [address] [facility] [address] Performing Lab: [facility] [place] [facility] [address] [facility] [address] [facility]PITALRL WSTRN [place] TS [facility] BASIC METABOLIC PANEL (non-fast ing) CHLORIDE [MOLES/VOLU ME] IN SERUM OR PLASMA 104 mmol/L 98 - 107 12/24 Specimen Type: SERUM No comment entered. Ordering Provider: KATE HANDY Report Released Date/Time: Dec 24, 2024 08:45 AM Reporting Lab: [facility] [place] [facility] [address] [facility] [address] Performing Lab: [facility] [place] [facility] [address] [facility] [address] [facility]PITALRL WSTRN [place] [facility] BASIC METABOLIC PANEL (non-fast ing) CARBON DIOXIDE, TOTAL [MOLES/VOLU ME] IN SERUM OR PLASMA 27 meq/L 23 - 31 12/24 Specimen Type: SERUM No comment entered. Ordering Provider: KATE HANDY Report Released Date/Time: Dec 24, 2024 08:45 AM Reporting Lab: [facility] [place] [facility] [address] [facility] [address] Performing Lab: [facility] [place] [facility] [address] [facility] [address] [facility] BASIC METABOLIC PANEL (non-fast ing) CALCIUM [MASS/VOLUM E] IN SERUM OR PLASMA 9.9 mg/dL 8.8 - 10 12/24 Specimen Type: SERUM No comment entered. Ordering Provider: KATE HANDY Report Released Date/Time: Dec 24, 2024 08:45 AM Reporting Lab: [facility]ITALN [address] [address] Performing Lab: [facility]ITALRSOUTHEAST HEALTH MEDICAL CENTERN [address] [address] [facility] BASIC METABOLIC PANEL (non-fast ing) CREATININE [MASS/VOLUM E] IN SERUM OR PLASMA 1.10 mg/dL 0.72 - 1.25 12/24 Specimen Type: SERUM No comment entered. Ordering Provider: KATE HANDY Report Released Date/Time: Dec 24, 2024 08:45 AM Reporting Lab: [facility]ITALRSOUTHEAST HEALTH MED[facility] CENTERN [address] [address] Performing Lab: [facility]ITALRSOUTHEAST HEALTH MEDICAL CENTERN [address] [address] [facility] BASIC METABOLIC PANEL (non-fast ing) GLOMERULAR FILTRATION RATE/1.73 SQ M.PREDICTED [VOLUME RATE/AREA] IN SERUM, PLASMA OR BLOOD BY CREATININE- BASED FORMULA (CKD-EPI 2020) 67 mL/min 60 12/24 Specimen Type: SERUM No comment entered. Ordering Provider: KATE HANDY Report Released Date/Time: Dec 24, 2024 08:45 AM Reporting Lab: [facility]ITALRSOUTHEAST [facility] CENTERN [address] [address] Performing Lab: [facility]ITALRSOUTHEAST HEALTH MEDICAL CENTERN [address] [address] [facility] CBC LEUKOCYTES [#/VOLUME] IN BLOOD BY AUTOMATED COUNT 5.11 10*3/u L 4.50 - 11.00 12/24 Specimen Type: BLOOD No comment entered. Ordering Provider: KATE HANDY Report Released Date/Time: Dec 24, 2024 08:45 AM Reporting Lab: [facility] [address] [facility] [address] Performing Lab: [facility] [address] [facility] [address] [facility] CBC ERYTHROCYTE S [#/VOLUME] IN BLOOD BY AUTOMATED COUNT 4.56 10*6/u L 4.23 - 5.66 12/24 Specimen Type: BLOOD No comment entered. Ordering Provider: KATE HANDY Report Released Date/Time: Dec 24, 2024 08:45 AM Reporting Lab: [facility] [address] [facility] [address] Performing Lab: [facility] [place] [facility] [address] [facility] [address] [facility] CBC HEMOGLOBIN [MASS/VOLUM E] IN BLOOD 13.9 g/dL 12.8 - 17 12/24 Specimen Type: BLOOD No comment entered. Ordering Provider: KATE HANDY Report Released Date/Time: Dec 24, 2024 08:45 AM Reporting Lab: [facility] [place] [facility] [address] [facility] [address] Performing Lab: [facility] [place] [facility] [address] [facility] [address] [facility] [facility] CBC HEMATOCRIT [VOLUME FRACTION] OF BLOOD BY AUTOMATED COUNT 39.4 39.2 - 50.4 12/24 Specimen Type: BLOOD No comment entered. Ordering Provider: KATE HANDY Report Released Date/Time: Dec 24, 2024 08:45 AM Reporting Lab: [facility] [place] [facility] [address] [facility] [address] Performing Lab: [facility] [address] [facility] [address] [facility] [facility] CBC MCV [ENTITIC VOLUME] BY AUTOMATED COUNT 86.4 fL 82 - 99 12/24 Specimen Type: BLOOD No comment entered. Ordering Provider: KATE HANDY Report Released Date/Time: Dec 24, 2024 08:45 AM Reporting Lab: [facility] [address] [facility] [address] Performing Lab: [facility] [address] [facility] [address] [facility] CBC MCHC [MASS/VOLUM E] BY AUTOMATED COUNT 35.3 g/dL 30.8 - 35.1 12/24 H Specimen Type: BLOOD No comment entered. Ordering Provider: KATE HANDY Report Released Date/Time: Dec 24, 2024 08:45 AM Reporting Lab: [facility] [place] [facility] [address] [facility] [address] Performing Lab: [facility] [place] [facility] [address] [facility] [address] [facility] CBC PLATELETS [#/VOLUME] IN BLOOD BY AUTOMATED COUNT 155 10*3/u L 140 - 360 12/24 Specimen Type: BLOOD No comment entered. Ordering Provider: KATE HANDY Report Released Date/Time: Dec 24, 2024 08:45 AM Reporting Lab: [facility] [address] [facility] [address] Performing Lab: [facility] [address] [facility] [address] [facility] CBC PLATELET MEAN VOLUME [ENTITIC VOLUME] IN BLOOD BY AUTOMATED COUNT 9.2 fL 9.2 - 12.4 12/24 Specimen Type: BLOOD No comment entered. Ordering Provider: KATE HANDY Report Released Date/Time: Dec 24, 2024 08:45 AM Reporting Lab: [facility] [address] [facility] [address] Performing Lab: [facility] [address] [facility] [address] [facility] CBC ERYTHROCYTE DISTRIBUTIO N WIDTH [RATIO] BY AUTOMATED COUNT 12.6 12.0 - 16.0 12/24 Specimen Type: BLOOD No comment entered. Ordering Provider: KATE HANDY Report Released Date/Time: Dec 24, 2024 08:45 AM Reporting Lab: [facility] [place] [facility] [address] [facility] [address] Performing Lab: [facility] [place] [facility] [address] [facility] [address] [facility] CBC MCH [ENTITIC MASS] BY AUTOMATED COUNT 30.5 pg 26.2 - 32.6 12/24 Specimen Type: BLOOD No comment entered. Ordering Provider: KATE HANDY Report Released Date/Time: Dec 24, 2024 08:45 AM Reporting Lab: [facility] [place] [facility] [address] [facility] [address] Performing Lab: [facility] [place] [facility] [address] [facility] [address] [facility] [place] [facility] LIVER FUNCTION PROTEIN [MASS/VOLUM E] IN SERUM OR PLASMA 7.0 g/dL 6.4 - 8.3 12/24 Specimen Type: SERUM No comment entered. Ordering Provider: KATE HANDY Report Released Date/Time: Dec 24, 2024 08:45 AM Reporting Lab: [facility] [place] [facility] [address] [facility] [address] Performing Lab: [facility] [place] [facility] [address] [facility] [address] [facility] [place] [facility] LIVER FUNCTION ALBUMIN [MASS/VOLUM E] IN SERUM OR PLASMA BY BROMOCRESOL PURPLE (BCP) DYE BINDING METHOD 4.4 g/dL 3.2 - 4.6 12/24 Specimen Type: SERUM No comment entered. Ordering Provider: KATE HANDY Report Released Date/Time: Dec 24, 2024 08:45 AM Reporting Lab: [facility] [place] [facility] [address] [facility] [address] Performing Lab: [facility] [place] [address] [address] [facility] [place] [facility] LIVER FUNCTION ALKALINE PHOSPHATASE [ENZYMATIC ACTIVITY/VO LUME] IN SERUM OR PLASMA 87 U/L 40 - 150 12/24 Specimen Type: SERUM No comment entered. Ordering Provider: KATE HANDY Report Released Date/Time: Dec 24, 2024 08:45 AM Reporting Lab: [facility] [place] [facility] [address] [facility] [address] Performing Lab: [facility] [place] [facility] [address] [facility] [address] [facility] LIVER FUNCTION ASPARTATE AMINOTRANSF ERASE [ENZYMATIC ACTIVITY/VO LUME] IN SERUM OR PLASMA BY WITH P-5'-P 23 U/L 5 - 34 12/24 Specimen Type: SERUM No comment entered. Ordering Provider: KATE HANDY Report Released Date/Time: Dec 24, 2024 08:45 AM Reporting Lab: [facility] [place] [facility] [address] [facility] [address] Performing Lab: [facility] [place] [facility] [address] [facility] [address] [facility] W[facility]N [facility] LIVER FUNCTION ALANINE AMINOTRANSF ERASE [ENZYMATIC ACTIVITY/VO LUME] IN SERUM OR PLASMA BY WITH P-5'-P 22 U/L 12/24 Specimen Type: SERUM No comment entered. Ordering Provider: KATE HANDY Report Released Date/Time: Dec 24, 2024 08:45 AM Reporting Lab: [facility] [place] [facility] [address] [facility] [address] Performing Lab: [facility] [place] [facility] [address] [facility] [address] [facility]RL [facility]N [facility] LIVER FUNCTION BILIRUBIN.T OTAL [MASS/VOLUM E] IN SERUM OR PLASMA 0.7 mg/dL 0.2 - 1.2 12/24 Specimen Type: SERUM No comment entered. Ordering Provider: KATE HANDY Report Released Date/Time: Dec 24, 2024 08:45 AM Reporting Lab: [facility] [place] [address] [address] Performing Lab: [facility] [place] [address] [address] [facility] HEMOGLOBI N A1C PANEL HEMOGLOBIN A1C/HEMOGLO BIN.TOTAL IN BLOOD BY CC PROTOCOL 7.5 4.0 - 5.6 12/24 H [...] Dec 24, 2024 08:45 AM Reporting Lab: [facility]RL TRN [facility]ENTERUSETS [address] [address] Performing Lab: [facility] [place] [address] [address] [facility] [place] MICROALBU MIN CREATININ E RATIO PANEL MICROALBUMI N/CREATININ E [MASS RATIO] IN URINE 59.0 mg/g 0 - 29.9 12/24 H Specimen Type: URINE No comment entered. Ordering Provider: KATE HANDY Report Released Date/Time: Dec 24, 2024 08:45 AM Reporting Lab: [facility] [place] [address] [address] Performing Lab: [facility] [place] [address] [address] [facility] MICROALBU MIN CREATININ E RATIO PANEL MICROALBUMI N [MASS/VOLUM E] IN URINE BY DETECTION LIMIT <= 1.0 MG/L 8.0 mg/dL 12/24 Specimen Type: URINE No comment entered. Ordering Provider: KATE HANDY Report Released Date/Time: Dec 24, 2024 08:45 AM Reporting Lab: [facility] [place] [facility] [address] [facility] [address] Performing Lab: [facility] [place] [facility] [address] [facility] [address] [facility] [place] [facility] MICROALBU MIN CREATININ E RATIO PANEL CREATININE [MASS/VOLUM E] IN URINE 135.53 mg/dL 63 - 166 12/24 Specimen Type: URINE No comment entered. Ordering Provider: KATE HANDY Report Released Date/Time: Dec 24, 2024 08:45 AM Reporting Lab: [facility] [place] [facility] [address] [facility] [address] Performing Lab: [facility]RL WSTRN [facility]ENTERUSETS [facility] [address] [facility] [address] [facility]PITALRENCOM[facility] REHABIL[facility]ATION HOSPITALTRN [facility]ENTERUSE [facility] LIPID PANEL, NON FASTING CHOLESTEROL [MASS/VOLUM E] IN SERUM OR PLASMA 144 mg/dL 08/11 Specimen Type: SERUM No comment entered. Ordering Provider: KATE HANDY Report Released Date/Time: Jul 07, 2024 09:55 AM Reporting Lab: [facility]N [place] [facility] [address] [facility] [address] Performing Lab: [facility]ITALRL WSTRN [facility] CENTERUSETS [facility] [address] [facility] [phone] [facility] LIPID PANEL, NON FASTING TRIGLYCERID E [MASS/VOLUM E] IN SERUM OR PLASMA 204 mg/dL 0 - 150 08/11 H Specimen Type: SERUM No comment entered. Ordering Provider: KATE HANDY Report Released Date/Time: Jul 07, 2024 09:55 AM Reporting Lab: [facility] [place] [facility] [address] [facility] [address] Performing Lab: [facility] [place] [facility] [address] [facility] [phone] [facility] LIPID PANEL, NON FASTING CHOLESTEROL IN LDL [MASS/VOLUM E] IN SERUM OR PLASMA BY CALCULATION 52 mg/dL 0 - 129 08/11 Specimen Type: SERUM No comment entered. Ordering Provider: KATE HANDY Report Released Date/Time: Jul 07, 2024 09:55 AM Reporting Lab: [facility] [place] [facility] [address] [facility] [phone] Performing Lab: [facility] [place] [facility] [address] [facility] [phone] [facility] [place] [facility] LIPID PANEL, NON FASTING CHOLESTEROL .TOTAL/CHOL ESTEROL IN HDL [MASS RATIO] IN SERUM OR PLASMA 2.8 08/11 Specimen Type: SERUM No comment entered. Ordering Provider: KATE HANDY Report Released Date/Time: Jul 07, 2024 09:55 AM Reporting Lab: [facility] [place] [facility] [address] [facility] [address] Performing Lab: [facility] [place] [facility] [address] [facility] [address] [facility] [place] [facility] LIPID PANEL, NON FASTING CHOLESTEROL IN HDL [MASS/VOLUM E] IN SERUM OR PLASMA 51 mg/dL 40 - 60 08/11 Specimen Type: SERUM No comment entered. Ordering Provider: KATE HANDY Report Released Date/Time: Jul 07, 2024 09:55 AM Reporting Lab: [facility] [place] [facility] [address] [facility] [address] Performing Lab: [facility] [place] [address] [address] [facility] [place] [facility] CBC LEUKOCYTES [#/VOLUME] IN BLOOD BY AUTOMATED COUNT 6.26 10*3/u L 4.50 - 11.00 08/11 Specimen Type: BLOOD No comment entered. Ordering Provider: KATE HANDY Report Released Date/Time: Jul 07, 2024 09:55 AM Reporting Lab: [facility] [place] [facility] [address] [facility] [address] Performing Lab: [facility] [place] [facility] [address] [place] [address] [facility] [place] [facility] CBC ERYTHROCYTE S [#/VOLUME] IN BLOOD BY AUTOMATED COUNT 4.21 10*6/u L 4.23 - 5.66 08/11 L Specimen Type: BLOOD No comment entered. Ordering Provider: KATE HANDY Report Released Date/Time: Jul 07, 2024 09:55 AM Reporting Lab: [facility] [place] [facility] [address] [facility] [address] Performing Lab: [facility] [place] [facility] [address] [facility] [address] [facility] [place] [facility] CBC HEMOGLOBIN [MASS/VOLUM E] IN BLOOD 12.8 g/dL 12.8 - 17 08/11 Specimen Type: BLOOD No comment entered. Ordering Provider: KATE HANDY Report Released Date/Time: Jul 07, 2024 09:55 AM Reporting Lab: [facility] [place] [facility] [address] [facility] [address] Performing Lab: [facility] [place] [address] [address] [facility] [place] [facility] CBC HEMATOCRIT [VOLUME FRACTION] OF BLOOD BY AUTOMATED COUNT 36.2 39.2 - 50.4 08/11 L Specimen Type: BLOOD No comment entered. Ordering Provider: KATE HANDY Report Released Date/Time: Jul 07, 2024 09:55 AM Reporting Lab: [facility] [place] [address] [address] Performing Lab: [facility] [place] [address] [address] [facility] [place] [facility] CBC MCV [ENTITIC VOLUME] BY AUTOMATED COUNT 86.0 fL 82 - 99 08/11 Specimen Type: BLOOD No comment entered. Ordering Provider: KATE HANDY Report Released Date/Time: Jul 07, 2024 09:55 AM Reporting Lab: [facility] [place] [facility] [address] [facility] [address] Performing Lab: [facility] [place] [address] [address] [facility] [place] [facility] CBC MCHC [MASS/VOLUM E] BY AUTOMATED COUNT 35.4 g/dL 30.8 - 35.1 08/11 H Specimen Type: BLOOD No comment entered. Ordering Provider: KATE HANDY Report Released Date/Time: Jul 07, 2024 09:55 AM Reporting Lab: [facility] [place] [facility] [address] [facility] [address] Performing Lab: [facility] [place] [facility] [address] [facility] [address] [facility] [place] [facility] CBC PLATELETS [#/VOLUME] IN BLOOD BY AUTOMATED COUNT 149 10*3/u L 140 - 360 08/11 Specimen Type: BLOOD No comment entered. Ordering Provider: KATE HANDY Report Released Date/Time: Jul 07, 2024 09:55 AM Reporting Lab: [facility] [place] [address] [address] Performing Lab: [facility] [place] [address] [address] [facility] [place] [facility] CBC ERYTHROCYTE DISTRIBUTIO N WIDTH [RATIO] BY AUTOMATED COUNT 13.2 12.0 - 16.0 08/11 Specimen Type: BLOOD No comment entered. Ordering Provider: KATE HANDY Report Released Date/Time: Jul 07, 2024 09:55 AM Reporting Lab: [facility] [place] [address] [address] Performing Lab: [facility] [place] [facility] [address] [facility] [address] [facility] [place] [facility] CBC MCH [ENTITIC MASS] BY AUTOMATED COUNT 30.4 pg 26.2 - 32.6 08/11 Specimen Type: BLOOD No comment entered. Ordering Provider: KATE HANDY Report Released Date/Time: Jul 07, 2024 09:55 AM Reporting Lab: [facility] [place] [address] [address] Performing Lab: [facility] [place] [address] [address] [facility] BASIC METABOLIC PANEL (non-fast ing) UREA NITROGEN [MASS/VOLUM E] IN SERUM OR PLASMA 23 mg/dL 7 - 25 08/11 Specimen Type: SERUM No comment entered. Ordering Provider: KATE HANDY Report Released Date/Time: Jul 07, 2024 09:55 AM Reporting Lab: [address] [address] Performing Lab: [facility] [address] [address] [facility] BASIC METABOLIC PANEL (non-fast ing) GLUCOSE [MASS/VOLUM E] IN SERUM OR PLASMA 123 mg/dL 65 - 100 08/11 H Specimen Type: SERUM No comment entered. Ordering Provider: KATE HANDY Report Released Date/Time: Jul 07, 2024 09:55 AM Reporting Lab: [address] [address] Performing Lab: [address] [address] [facility] BASIC METABOLIC PANEL (non-fast ing) SODIUM [MOLES/VOLU ME] IN SERUM OR PLASMA 141 mmol/L 135 - 145 08/11 Specimen Type: SERUM No comment entered. Ordering Provider: KATE HANDY Report Released Date/Time: Jul 07, 2024 09:55 AM Reporting Lab: [address] [address] Performing Lab: [address] [address] [facility] BASIC METABOLIC PANEL (non-fast ing) POTASSIUM [MOLES/VOLU ME] IN SERUM OR PLASMA 4.9 mmol/L 3.5 - 5.0 08/11 Specimen Type: SERUM No comment entered. Ordering Provider: KATE HANDY Report Released Date/Time: Jul 07, 2024 09:55 AM Reporting Lab: [facility] [place] [facility] [address] [facility] [address] Performing Lab: [facility] [address] [facility] [address] [facility] BASIC METABOLIC PANEL (non-fast ing) CHLORIDE [MOLES/VOLU ME] IN SERUM OR PLASMA 108 mmol/L 100 - 110 08/11 Specimen Type: SERUM No comment entered. Ordering Provider: KATE HANDY Report Released Date/Time: Jul 07, 2024 09:55 AM Reporting Lab: [facility]REN[facility]PITALTRN [facility] [address] [facility] [address] Performing Lab: [facility]ITALRENCOM[facility] HOSPITALTRN [facility]ENTERUSE[address] [address] [facility] BASIC METABOLIC PANEL (non-fast ing) CARBON DIOXIDE, TOTAL [MOLES/VOLU ME] IN SERUM OR PLASMA 23 meq/L 20 - 30 08/11 Specimen Type: SERUM No comment entered. Ordering Provider: KATE HANDY Report Released Date/Time: Jul 07, 2024 09:55 AM Reporting Lab: [facility] HOSPITALTRN [facility] [address] [facility] [address] Performing Lab: [facility] TRN [facility]ENTERUSE[address] [address] [facility]ITALRSOUTHEAST HEALTH MEDICAL CENTERN [facility] BASIC METABOLIC PANEL (non-fast ing) CREATININE [MASS/VOLUM E] IN SERUM OR PLASMA 1.08 mg/dL 0.50 - 1.40 08/11 Specimen Type: SERUM No comment entered. Ordering Provider: KATE HANDY Report Released Date/Time: Jul 07, 2024 09:55 AM Reporting Lab: [facility] [place] [facility] [address] [facility] [address] Performing Lab: [facility]ITALREN[facility] HOSPITALTRN [facility]ENTERUSE[address] [address] [facility]ITALRSOUTHEAST HEALTH MEDICAL CENTERN [facility] BASIC METABOLIC PANEL (non-fast ing) GLOMERULAR FILTRATION RATE/1.73 SQ M.PREDICTED [VOLUME RATE/AREA] IN SERUM, PLASMA OR BLOOD BY CREATININE- BASED FORMULA (CKD-EPI 2020) 69 mL/min 60 08/11 Specimen Type: SERUM No comment entered. Ordering Provider: KATE HANDY Report Released Date/Time: Jul 07, 2024 09:55 AM Reporting Lab: [facility] [address] [facility] [address] Performing Lab: [facility]ITALRSOUTHEAST HEALTH MEDICAL CENTERN [facility]USE[facility] [address] [facility] [address] [facility]N [facility] HEMOGLOBI N A1C PANEL HEMOGLOBIN A1C/HEMOGLO [...] Jul 07, 2024 09:55 AM Reporting Lab: [facility]ITALN [facility] [address] [facility] [address] Performing Lab: [facility]ITALN [facility] CENTERUSE[address] [address] [facility] Vital Signs Combined list of inpatient and outpatient Vital Signs from Department of Defense and Veterans Affairs, ranging from 12 months to all on record, depending upon the facility. Vital Sign Value Date Comments Source SYSTOLIC BLOOD PRESSURE 140 12/28/19 25 14:22:26 [facility] DIASTOLIC BLOOD PRESSURE 69 025 14:22:26 [facility] PULSE OXIMETRY 97 12/27/2024 14:22:26 [facility]ITALRSOUT[facility] WEIGHT 163 12/27/2024 14:22:26 [facility] [place] [facility] BMI 27 kg/m2 12/27/2024 14:22:26 [facility] [place] [facility] DIASTOLIC BLOOD PRESSURE 71 024 13:49:44 [facility] [place] [facility] PULSE [...] 07/29/2024 13:49:44 [facility] [place] [facility] Encounters Combined [...] [facility] [place] [facility] En[facility] [id number] 11/10 [facility] [place] [place] [facility] [place] OFFICE O/P NEW LOW 30 MIN [id number] Diagnos is: ICD-10- CM L82.0 Inflame d seborrh eic keratos is LUIS ANGEL LOPEZ 11/11 [facility] [place] [place] En[facility] [id number] 11/25 [facility] [place] [facility] [place] En[facility] [id number] 11/26 [facility] [place] [place] [facility] [place] OFF/OP EST MAY X REQ PHY/QHP [id number] Diagnos is: ICD-10- CM Z71.89 Other specifi ed certified alcohol counselor Manny Stockton 11/30 [facility] [place] [place] OFFICE O/P EST LOW 20 MIN [id number] Diagnos is: ICD-10- CM J20.9 Acute bronchi tis, unspeci JACQUELINE De La Torre 11/30 [facility] [place] [place] En[facility] [id number] 11/30 [facility] [place] [facility] [place] En[facility] [id number] 12/23 [facility] [place] [facility] [place] En[facility] [id number] 01/20 [facility] [place] [facility] [place] En[facility] [id number] 01/26 [facility] [place] [place] OFFICE O/P EST LOW 20 MIN [id number] Diagnos is: ICD-10- CM M54.50 Low back pain, unspeci fied Nellie HANDY JENNIFERTimothy Pickens 01/28 [facility] [place] [place] En[facility] [id number] 02/01 [facility] [place] [facility] [place] En[facility] [id number] 02/15 [facility] [place] [place] En[facility] [id number] [facility] [place] [place] POS AIRWAY PRESSURE CPAP [id number] Diagnos is: ICD-10- CM G47.33 Obstruc tive sleep apnea (adult) (pediat jimena) MELODIE ESCALONA 03/09 [facility] [place] En[facility] [id number] 03/29 [facility] [place] [place] En[facility] [id number] 04/14 [facility] [place] [place] En[facility] [id number] 04/14 [facility] [place] [place] Encounter [id number] 04/28 [facility] [place] [facility] [place] En[facility] [id number] 04/30 [facility] [place] [place] En[facility] [id number] 05/03 [facility] [place] [place] Encounter [id number] [facility] [place] [place] En[facility] [id number] 1.05/13 [facility] [place] [place] En[facility] [id number] 1.05/14 [facility] [place] En[facility] [id number] 1.05/18 [facility] [place] [place] En[facility] [id number] [facility] [place] [place] Encounter [id number] [facility] [place] [place] UNLISTED SPEC DERM SVC/PX [id number] Diagnos is: ICD-10- CM Z13.89 Encount er for screeni ng for other disorde r PER PEREZ ICA A 05/21 [facility] [place] [facility] Outpatient Encounter [id number] Diagnos is: ICD-10- CM L57.0 Actinic keratos is DANIELLE PANTOJA PH 05/24 [facility] [place] [facility] [place] En[facility] [id number] 1.09 /2024 [facility] [place] En[facility] [id number] 05/25 [facility] [place] Encounter [id number] 05/26 [facility] [place] Encounter [id number] 06/11 [facility] [place] Encounter [id number] [facility] [place] Encounter [id number] Diagnos is: ICD-10- CM U07.1 COVID-1 9 EMANUEL PHELPS 06/15 [facility] [place] [facility] (631GE) QNHP OL DIG ASSMT&MGMT 5-10 [id number] 1GE. 94 Diagnos is: ICD-10- CM U07.1 COVID-1 9 NGHIA PRADO 06/15 [facility] (631GE) [facility] [place] En[facility] [id number] 06/24 [facility] [place] Encounter [id number] 07/06 [facility] [place] [facility] COLLJ & INTERPJ DATA EA 30 D [id number] Diagnos is: ICD-10- CM G47.33 Obstruc tive sleep apnea (adult) (pediat jimena) MELODIE ESCALONA 10/23 /2024 [place] [facility] Out[facility] Encounter [id number] Nellie HANDY 07/13 [facility] [place] [place] [facility] COMPRE OPH EXAM EST PT 1/ [id number] Diagnos is: ICD-10- CM 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 t, bilater al DAVON GIFFORD 07/14 [facility] [place] FIT SPECTACLES MULTIFOCAL [id number] Diagnos is: ICD-10- CM Z46.0 Encount er for fit/adj st of spectac les and contact lenses DAVNO GIFFORD 07/14 [facility] Out[facility] Encounter [id number] 07/23 [facility] [place] [facility] [place] [facility] RPR&REFITG SPECT XCP APHAKIA [id number] Diagnos is: ICD-10- CM Z46.0 Encount er for fit/adj st of spectac les and contact lenses ALEXIS GOLDSTEIN 07/23 [facility] [place] [place] [facility] OFFICE O/P EST MOD 30 MIN [id number] Diagnos is: ICD-10- CM M54.2 Cervica lgia Nellie HANDY 07/29 [facility] [place] Out[facility] Encounter [id number] 08/03 [facility] [place] Encounter [id number] 08/04 [facility] [place] MANUAL THERAPY 1/ REGIONS [id number] 1. Diagnos is: ICD-10- CM M79.643 Pain in unspeci fied hand MACHON,PAUL LIE E 08/18 [facility] [place] En[facility] [id number] 08/19 [facility] [place] Out[facility] Encounter [id number] 08/27 [facility] [place] Out[facility] Encounter [id number] 08/29 [facility] [place] Encounter [id number] [facility] [place] Encounter [id number] [facility] [place] PT EDUCATION NOC INDIVID [id number] Diagnos is: ICD-10- CM G47.33 Obstruc tive sleep apnea (adult) (pediat jimena) [facility] STEPHAN[facility] ROCHE E P 09/28 [facility] OFFICE O/P EST MOD 30 MIN [id number] Diagnos is: ICD-10- CM L82.0 Inflame d seborrh eic keratos is LUIS ANGEL LOPEZ 10/21 [facility] COLLJ & INTERPJ DATA EA 30 D [id number] Diagnos is: ICD-10- CM G47.33 Obstruc tive sleep apnea (adult) (pediat jimena) STEPHANIA MCDANIEL E P 11/04 [facility] [place] Outpatient Encounter [id number] 12/24 [facility] [place] [place] OFFICE O/P EST HI 40 MIN [id number] Diagnos is: ICD-10- CM E11.9 Type 2 diabete s mellitu s without complic ations Nellie HANDY 12/27 [facility] [place] [facility] ELECTROCAR DIOGRAM REPORT [id number] Diagnos is: ICD-10- CM Z13.6 Encount er for screeni ng for cardiov ascular disorde rs ZAIN SHAH N E 12/27 [place] [facility] [place] [facility] Outpatient Encounter [id number] 01/03 [facility] [place] [facility] [place] [facility] Outpatient Encounter [id number] 01/18 [facility] [place] [place] [facility] THERAPEUTI C EXERCISES [id number] Diagnos is: ICD-10- CM M25.512 Pain in left shoulde r MACHON,PAUL LIE E 01/31 [facility] [place] [place] [facility] THERAPEUTI C EXERCISES [id number] Diagnos is: ICD-10- CM M25.512 Pain in left shoulde r MACHON,PAUL LIE E 02/23 [facility] [place] THERAPEUTI C EXERCISES [id number] Diagnos is: ICD-10- CM M25.512 Pain in left shoulde r PAUL FLORES LIE E 03/01 [facility] [place] THERAPEUTI C EXERCISES [id number] Diagnos is: ICD-10- CM M25.512 Pain in left shoulde PAUL Olivier LIE E 03/09 [facility] [place] Out[facility] Encounter [id number] 03/22 [facility] [place] [place] [facility] Outpatient Encounter [id number] 04/06 [facility] [place] [facility] [place] Outpatient Encounter [id number] 04/28 [facility] [place] [facility] Social History Combined list of available smoking, tobacco, and other social history from Department of Defense and Veterans Affairs facilities. Social History Type Response Date Comment Sourc e Tobacco smoking status NHIS [facility]ACCO FORMER USER 2024 [facility] [place] [facility] [place] [facility] History [facility] tobacco use VA-TOBACCO FORMER USER 12/23/2022 [facility] [place] [facility] History [facility] tobacco use VA-TOBACCO FORMER USER 11/19/2021 [facility] [place] [facility] History of tobacco use VA-TOBACCO FORMER USER 12/08/2020 [place] [facility] [place] [facility] Plan of Care List of future care activities from Department of Veterans Affairs facilities. Additional future care activities may be listed in the Assessment and Plan section. Date/Time Care Activity Care Activity Detail Facili ty 07/01/2025 AMBULATORY - MEDICINE AMBULATORY - [facility] [place] [facility]
--- NOTE | 2025-05-10 13:35 | A.OFFPC_ITS ---
Vital Signs 05/10/25 13:43 Height 5 ft 7 in Weight 70.76 kg BMI 24.4 BP 130/64 Respiration 14 Pulse 53 Pulse Source Pulse Oximeter Temp 97.0 F Temp Source Temporal Artery Scan Pulse Oximetry (%) 99 Oxygen Delivery Method Room Air Intake Visit Reasons: routine Dye Machine Operator Required: No Accompanied by: Self / Same As Patient Allergies lactose (Lactose) Allergy (Mild, Verified 05/10/25 13:35) DIARRHEA Medication List - Last Reconciled 05/10/25 by RICH Banks aspirin 81 mg PO DAILY FreeStyle Lite Strips (blood sugar diagnostic) once daily NS metformin 500 mg PO DAILY metoprolol tartrate 25 mg PO BID NS pravastatin 40 mg PO DAILY [Probiotic 1 cap PO DAILY] Tobacco use date assessed: 01/20/25 Fall risk assessment: No Falls in past year Last assessed Fall Risk: 05/10/25 Dental Screening Dental Screen Date: 01/20/25 HPI HPI Comments History of Present Illness Details This is an 84-year-old male with a past medical history of vdo-pjgbmhi-xxhnqvvie diabetes, hypertension, hyperlipidemia and sleep apnea. Also follows MS Diabetes: on metformin 500mg daily. Last visit Reports blood glucose has been running high 130s- 150s. Uses freestyle lite. [facility] exam is up to date. A1c 7.1%. Intermittently getting blurry vision HTN- on [id number] BID. BP controlled HLD- on pravastatin AAKASH- on cpap. Follows with Dr. Capellan, supplies from Prostate cancer- 2006. s/p prostatectomy, Dr. Alva, no longer following Concerns: Bilateral hand pain-s/p trapeziectomy right hand, still with pain. Follows with doctors bath. Same issue in the left hand. We will be following up ROS CONSTITUTIONAL: Denies weight loss, fever and chills. HEENT: Denies changes in vision and hearing. RESPIRATORY: Denies SOB and cough. CV: Denies palpitations and CP GI: Denies abdominal pain, nausea, vomiting and diarrhea. : Denies dysuria and urinary frequency. MSK: Denies new myalgia and joint pain. SKIN: Denies rash and pruritus. NEUROLOGICAL: Denies headache PSYCHIATRIC: Denies recent changes in mood. PHYSICAL EXAM: GENERAL: Alert and oriented x 3. NAD EYES: EOMI. Anicteric. HENT: Moist mucous membranes. No scleral icterus. No cervical lymphadenopathy. LUNGS: Clear to auscultation bilaterally. CARDIOVASCULAR: Regular rate and rhythm. No murmur. No JVD. ABDOMEN: Soft, non-tender +bs EXTREMITIES: No edema. Non-tender. SKIN: No rashes or lesions. Warm. NEUROLOGIC: No focal neurological deficits. CN II-XII grossly intact PSYCHIATRIC: Cooperative. Appropriate mood and affect [facility] Medical History (Updated 05/10/25 @ 14:08 by RICH Banks) Prostate cancer Horners syndrome Diabetes Abdominal pain Abnormal abdominal CT scan History of prostate cancer AAKASH (obstructive sleep apnea) AAKASH on CPAP Surgical History History of colonoscopy (~02/12/23) S/P trigger finger release History of bladder surgery H/O prostatectomy History of eye surgery Family History Mother No problems noted. Father No problems noted. Social History Housing: House Comment: S3 Patient Tobacco Use Status: Former Tobacco user e-Cigarette/Vaping Use: Former Use Second Hand Smoke Exposure: No service: No Current occupational status: retired Current occupational exposures/hazards: No Cognitive needs: No Hearing needs: No Vision needs: Yes (rx glasses) Questionnaire PHQ-9 Over the last 2 weeks, how often have you been bothered by any of the following problems? 1. Little interest or pleasure in doing things: not at all 2. Feeling down, depressed, or hopeless: not at all 3. Trouble falling or staying asleep, or sleeping too much: not at all 4. Feeling tired or having little energy: not at all 5. Poor appetite or overeating: not at all 6. Feeling bad about yourself - or that you are a failure or have let yourself or your family down: not at all 7. Trouble concentrating on things, such as reading the newspaper or watching television: not at all 8. Moving or speaking so slowly that other people could have noticed. Or the opposite - being so fidgety or restless that you have been moving around a lot more than usual: not at all 9. Thoughts that you would be better off or of hurting yourself in some way: not at all Total score: 0 Depression Screening Interpretation: Negative Depression Screening Done: Yes 06102 - PHQ-9 Billing: Yes Source: Developed by Drs. Jose Angel Tinsley, Kit Marion and colleagues, with an educational cheko from [employer]. Thrive Questionnaire Date Thrive assessed: 05/10/25 I am a: Patient What is your living situation today?: I have a steady place to live Within the past 12 months, did the food you bought not last and you didn't have the money to get more?: Never true Within the past 12 months, did you worry whether your food would run out before you got money to buy more?: Never true Do you have trouble paying for medicines?: No Do you have trouble getting transportation to medical appointments?: No Do you have trouble paying your heating and electricity bill?: No Do you have trouble taking care of your child, family member or friend?: No Do you have trouble with day-to-day activities such as bathing, preparing meals, shopping, managing finances, etc.?: No Are you currently unemployed and looking for a job?: No Are you interested in more education?: No Please select the resources that you would like help with: None THRIVE Score: 0 GEOVANNA-7 AMB Questionnaire GEOVANNA-7 Date GEOVANNA - 7 assessed: 05/10/25 Feeling nervous, anxious, or on edge: 0 = Not at all Not being able to stop or control worryin = Several days Worrying too much about different things: 1 = Several days Trouble relaxin = Not at all Being so restless that it is hard to sit still: 0 = Not at all Becoming easily annoyed or irritable: 1 = Several days Feeling afraid as if something awful might happen: 0 = Not at all Total GEOVANNA-7 score (0-4 normal; 5-9 mild; 10-14 moderate; 15-21 severe): 3 Source: Developed by Drs. Jose Angel Tinsley, Diane England, Kit Lyon and colleagues, with an educational cheko from [employer]. GEOVANNA-7 Assessment Billing GEOVANNA-7 Assessment Tool: GEOVANNA-7 Assessment 44958 Physical exam (Primary Care) Vital Signs: Last Vital Signs Temp 97.0 F 05/10/25 13:43 Pulse 53 05/10/25 13:43 Resp 14 05/10/25 13:43 BP 130/64 05/10/25 13:43 Pulse Ox 99 05/10/25 13:43 Oxygen Delivery Method Room Air 05/10/25 13:43 BMI result Body Mass Index 24.4 Tobacco/Smoking Status: Tobacco use Status Tobacco use date assessed 01/20/25 05/10/25 13:36 Patient Tobacco Use Status Former Tobacco user 05/10/25 13:36 e-Cigarette/Vaping Use Former Use 05/10/25 13:36 PHQ-9: PHQ-9 Score PHQ-9: Total score 0 05/10/25 14:08 Depression Screening Interpretation: Negative Thrive Assessment: Date of Thrive Assessment Date Thrive assessed 05/10/25 05/10/25 13:47 Coding Level of Care Code New Pt Level 4 (04408) Complex EM visit Add On G2211 Diagnoses Type 2 diabetes mellitus with hyperglycemia, without long-term current use of insulin E11.65 Diabetes mellitus complication status: with hyperglycemia Diabetes mellitus termite control representative insulin use: without termite control representative use Diabetes mellitus type: type 2 AAKASH on CPAP G47.33; Z99.89 Prostate cancer C61 Additional Codes GEOVANNA-7 Assessment Billing - GEOVANNA-7 Assessment Tool: GEOVANNA-7 Assessment 83112 ([id number]) PHQ-9 - 63421 - PHQ-9 Billing: Yes ([id number]) Assessment & Plan Assessment & Plan (1) Diabetes: Code(s): E11.9 - Type 2 diabetes mellitus without complications Category: Medical Qualifiers: Diabetes mellitus complication status: with hyperglycemia Diabetes mellitus custodial insulin use: without termite control representative use Diabetes mellitus type: type 2 Qualified Code(s): E11.65 - Type 2 diabetes mellitus with hyperglycemia Plan: Reasonably controlled given age with A1c 7.1%. Continue metformin 500 mg daily. Diabetic diet. 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 HE IS VERY COMPLIANT, USING 100% OF THE TIME., AND SLEEPS VERY WELL. He is having some skin irritation due to the nasal mask, Complains of dry mouth because he is using nasal mask and most likely keeps his mouth open during sleep. Code(s): G47.33 - Obstructive sleep apnea (adult) (pediatric); Z99.89 - Dependence on oth er enabling machines and devices Category: Medical Plan: Continue with CPAP usage (3) Prostate cancer: Code(s): C61 - Malignant neoplasm of prostate Category: Medical Plan: In remission. Will obtain notes from [facility] Urology Orders: Orders Lipid Panel Today E11.65 - Type 2 diabetes mellitus with hyperglycemia, G47.33 - Obstructive sleep apnea (adult) (pediatric), Z99.89 - Dependence on other enabling machines and devices Hemoglobin A1c Today E11.65 - Type 2 diabetes mellitus with hyperglycemia, G47.33 - Obstructive sleep apnea (adult) (pediatric), Z99.89 - Dependence on other enabling machines and devices Basic Metabolic Panel Today E11.65 - Type 2 diabetes mellitus with hyperglycemia, G47.33 - Obstructive sleep apnea (adult) (pediatric), Z99.89 - Dependence on other enabling machines and devices
[2025-05-10 13:43] VITALS: BP 130/64; PULSE 53; RESP 14; TEMP 36.1; O2SAT 99; BMI 24.4
--- OUTSIDE RECORDS SUMMARY | 2025-05-10 14:16 | XMS_ITS | Patient Health Record ---
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) Active confirmed Problem 948167316 Abnormal CT scan , colon (R93.3) Active confirmed Problem 99513406 Hypertension, unspecified type (I10) Active confirmed Problem 371767314 RLQ abdominal pain (R10.31) Active confirmed Plan Of Treatment Future Test Test Name Order Date COLONOSCOPY 03/17/2019 COLONOSCOPY 01/31/2023 Insurance Providers Payer Name Payer Address Payer Phone Subscriber Number Group Number Insured Name Patient Relationship to Insured Coverage Start Date Coverage End Date MEDICARE OF [place] [address] [place] [address] [id number] HANNA JEAN-BAPTISTE Self - patient is the insured [facility] [address] [place] [phone] [id number] HANNA JEAN-BAPTISTE Self - patient is the insured Medical (General) History Medical History History ICD Code prostate cancer AAKASH/CPAP pre diabetes Elevated cholesterol Colon polyps, colonoscopy 07/03, five-ye ar followup Surgical History Surgery Date(Month/Year) prostatectomy Urethral sling 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
--- OUTSIDE RECORDS SUMMARY | 2025-05-10 14:16 | XMS_ITS | Encounter Summary ---
Author Organization [facility] Address [address] [place] [address] Phone Care Team Providers Care Retread Builder Name Role Phone Tom Capellan MD Primary Care Provider Encounter Details Date Type Department Care Team (Late st Contact Info) Description 10/31/2023 Procedure Pass [facility], [address] [address] Social History Tobacco Use Types Packs/Day Years [...] on file documented as of this encounter Visit Diagnoses Not on filedocumented in this encounter Care Teams Retread Builder Relationship Specialty Start Date End Date Tom Cpaellan MD [address] [place] [address] PCP - General Pulmonary Disease 12/19/22 documented as of this encounter Additional Source Comments The information contained in this document represents components of the legal health record. It is not the complete legal health record.[facility]
--- OUTSIDE RECORDS SUMMARY | 2025-05-10 14:16 | XMS_ITS | Patient Health Record ---
[facility] Address [address] [place] [address] Care Team Providers Care Teletypewriter Operator Name Role Phone Cecil Geller N.P Primary Care Provider Rachelv ailable Leslie Cho Unavailable [phone] Allergies No Known Allergies Results Component Value Reference Range Notes HEMOGLOBIN A1C (GLYCOHEMOGLO BIN) Reviewed date:01/18/2025 01:04:24 PM Interpretation: Performing Lab: Notes/Report: HEMOGLOBIN A1C % (HH) 7.5 Reason For Referral Diagnosis 1 Pain in unspecified foot (M79.673) Referring Provider First Name Cecil Referring Provider Last Name Yimi Referred [facility] Alexis Referred Provider Leslie Cho Referred Address [address],[place], [place],[address], Referred Provider Specialty Podiatry Referral Priority Routine [...] 01/18/2025 Encounters Encounter Location Date [facility] [address] 01/18/2025 Leslie Cho Type 2 diabetes mellitus without complication, without long-term current use of insulin E11.[address] [facility] [address] 01/18/2025 Leslie Cho [address] [address] 03/30/2025 Leslie Cho Assessments Encounter Date Diagnosis (ICD Code) Assessment Notes Treatment Notes Treatment Clinical Notes Section Notes 01/18/2025 Type 2 diabetes mellitus without complication, without long-term current use of insulin (ICD-10 - E11.9) Plan Of Treatment Next Appt Details Provider Name:Leslie brown, 01/17/2026 01:00:00 PM, [address] [place] [address], [phone], Insurance Providers Payer Name Payer Address Payer Phone Subscriber Number Group Number Insured Name Patient Relationship to Insured Coverage Start Date Coverage End Date [employer] [address] [place] [id number] Aldair Doran Self - patient is the insured Medical (General) History Medical History History ICD Code Arthritis Cancer covid-19 type II diabetes Diverticulosis raynauds disease Joint implants/screws Lactose intolerance Onychomycosis Surgical History Surgery Date(Month/Year) spinal fusion 04/12/2024 prostate cancer 12/2006
--- OUTSIDE RECORDS SUMMARY | 2025-05-10 14:16 | XMS_ITS | Encounter Summary ---
Author Organization [facility] Address [address] [place] [address] Phone Care Team Providers Care Reed Man Name Role Phone Tom Capellan MD Primary Care Provider Reason for Referral * MRI/CAT Scan - Closed Specialty Diagnoses / Procedures Referred By Contac t Referred To Contact Radiology Diagnoses Low back pain, unspecified back pain laterality, unspecified chronicity, unspecified whether sciatica present Procedures MRI Lumbar Spine CHG MRI, LUMBAR SPINE CHG MRI, LUMBAR SPINE COMBO CHG MRI, LUMBAR SPINE CONTRAST Cecil Geller NP [address] [place] [address] Phone: tel: fax: Referral ID Status Reason Start Date Expiration Date Visits Re quested Visits Authorized [id number] Closed 10/31/2023 12/30/2023 1 1 Encounter Details Date Type Department Care Team (Latest Contact Info) Description 10/31/2023 Transcribe Orders Virtual Department [address] [place] [address] Cecil Geller NP [address] [place] [address] Low back pain, unspecified back pain laterality, [...] and mild right at L5-S1. Cecil Geller ROLLER CLEANER IM MR XSPECIALTY [facility] al Result documented in this encounter Visit Diagnoses Diagnosis Low back pain, unspecified back pain laterality, unspecified chronicity, unspecified whether sciatica present- Primary Low back pain, unspecified back pain laterality, unspecified chronicity, unspecified whether sciatica present documented in this encounter Care Teams Reed Man Relationship Specialty Start Date End Date Tom Capellan MD [address] [place] [address] [address] [place] [address] PCP - General Pulmonary Disease 12/19/22 documented as of this encounter Additional Source Comments The information contained in this document represents components of the legal health record. It is not the complete legal health record.[facility]
--- OUTSIDE RECORDS SUMMARY | 2025-05-10 14:16 | XMS_ITS | Clinical Summary ---
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 Had extensive workup in the past. Arthritis of carpometacarpal (CMC) joint of both thumbs 02/15/2025 Pain of both elbows 08/30/2024 Encounters Date Type Department Care Team Description 05/04/2025 1:30 PM EDT Treatment [facility] Occupational Therapy [address] [phone] Kassandra Sylvester OT Arthritis of carpometacarpal (CMC) joint of both thumbs (Primary Dx) 04/28/2025 2:00 PM EDT Treatment [facility] Occupational Therapy [address] [phone] Kassandra Sylvester OT Arthritis of carpometacarpal (CMC) joint of both thumbs (Primary Dx) 04/21/2025 1:30 PM EDT Treatment [facility] Occupational Therapy [address] [phone] Kassandra Sylvester OT Arthritis of carpometacarpal (CMC) joint of both thumbs (Primary Dx) 04/14/2025 3:00 PM EDT Evaluation [facility] Occup[facility] [address] [phone] Kassandra Sylvester OT Arthritis of carpometacarpal (CMC) joint of both thumbs 04/14/2025 Plan of Care Documentation [facility] Occupational Therapy [address] [phone] 04/01/2025 11:15 AM EDT Office Visit Orthopedic [address] [phone] Gavi Ibarra MD Arthritis of carpometacarpal (CMC) joint of both thumbs (Primary Dx) 03/21/2025 2:45 PM EDT Office Visit [address] [phone] Carolee Hanson PA Surgery follow-up (Primary Dx) 03/10/2025 8:54 AM EDT Anesthesia Event [facility] [place] [address] [place] [phone] Veena Martinez MD Elliott, Barbara J, CRNA 03/10/2025 8:45 AM EDT - 03/10/2025 11:15 AM EDT Surgery [facility] [place] [address] [place] [phone] Gavi Ibarra MD Trapeziectomy w/ interpositional arthroplasty using flexor tendon-right [45782 (CPT ) +1 more] 03/10/2025 6:54 AM EDT - 03/10/2025 12:43 PM EDT Hospital Encounter [facility] [place] [address] [place] [phone] Gavi Ibarra MD Arthritis of carpometacarpal (CMC) joint of both thumbs Discharge Disposition: Home or Self Care 02/28/2025 10:15 AM EDT Consult Orthopedic [address] [phone] Gavi Ibarra MD Arthritis of carpometacarpal (CMC) joint of both thumbs (Primary Dx) 02/15/2025 3:30 PM EDT Consult [address] [phone] Gavi Ibarra MD Arthritis of carpometacarpal (CMC) [...] Comments Sleep apnea Hypertension Hyperlipidemia Diabetes mellitus ([facility] V24, [facility] V28) Diverticulosis Cancer ([facility] V24, [facility] V28) PROSTATE Hand pain Social History Tobacco Use Types Packs/Day Years Used Date Smoking Tobacco: Former Cigarettes Q uit: 1999 Tobacco Cessation:Counseling Given: Not Answered Alcohol Use [...] Care Team (Late st Contact Info) Description 05/12/2025 1:30 PM EDT Treatment [facility] Occupational Therapy [address] [phone] Kassandra Sylvester, OT 05/20/2025 10:45 AM EDT Treatment [facility] Occupational Therapy [address] [phone] Kassandra Sylvester, OT 05/20/2025 11:30 AM EDT Office Visit Orthopedic Surgery - [place] [facility] [address] [place] [address] Gavi Ibarra MD [address] [place] [phone] Health Maintenance Due Date Last Done Comments [...] 09/15/2024 COVID-19 Vaccine (11 - Pfizer risk 2023- [...] signif pain 09/14/24 MET 5. Non-dom L civil engineering project designer at least 70% of R 09/14/24 MET and EXCEEDED <enter goal here> General Yes Kassandra Sylvester OT Note: OT PATIENT GOAL REGAIN PAINFREE FUNCTIONAL USE DOMINANT RIGHT HAND OT STGS 8 TO 10 VISITS General On track( 025 2:21 PM EDT) No Kassandra Sylvester OT Note: # 1 NO VISIBLE EDEMA # 2 PARTICIPATE IN SCAR MANAGEMENT TO HAVE NO ADHERENCE # 3 IMPROVE SUPINATION FROM 50 TO 60 DEGREES TO RECEIVE ITEMS INTO PALM # 4 IMPROVE RIGHT WRIST EXTENSION FROM 30 TO 55 DEGREES WITH GOOD MINUS STRENGTH TO WEIGHTBEAR # 5 IMPROVE THUMB EXTENSION FROM 50 TO 55 DEGREES UPON REACH # 6 IMPROVE THUMB IP FLEXION FROM 25 TO 45 DEGREES TO MANIPULATE COINS IN PALM # 7 IMPROVE RIGHT VICE PRESIDENT MARKETING & DEVELOPMENT FROM 25 TO 35 POUNDS = 75 PERCENT OF THE LEFT Procedures Procedure Name Priority Date/Time Associated Diagnosis Comments CAST APPLICATION Routine 03/21/2025 3:23 PM EDT Surgery follow-up OXYGEN THERAPY, ADULT Routine 03/10/2025 11:14 AM EDT OXYGEN THERAPY, ADULT Routine 03/10/2025 11:14 AM EDT TISSUE EXAM Routine 03/10/2025 9:51 AM EDT Arthritis of carpometacarpal (CMC) joint of both thumbs TH AN LMA(NO CHARGE) Routine 03/10/2025 9:11 AM EDT AK XFER/TRNSPL TNDN CARPOMETACARPAL AREA/DORSUM HAND WO FREE GRAFT EA TNDN 03/10/2025 8:54 AM EDT Arthritis of carpometacarpal (CMC) joint of both thumbs Case Notes MINI C-ARM, WIRE FLEET MANAGER,BONE INSTRUMENTS, HUESTON SUTURE PASSER,MICRO MYTEC ANCHOR,SUPRACLAVICULAR BLOCK AK ARTHROPLASTY INTERCARPAL/CARPOMETA CARPAL JOINTS INTERPOSTION 03/10/2025 8:54 AM EDT Arthritis of carpometacarpal (CMC) joint of both thumbs Case Notes MINI C-ARM, WIRE FLEET MANAGER,BONE INSTRUMENTS, HUESTON SUTURE PASSER,MICRO MYTEC ANCHOR,SUPRACLAVICULAR BLOCK [...] WITH DEGENERATIVE CHANGES 03/14/2025 11:29 AM EDT [facility] Gross Description A. Hand, Digit Right, thumb trapezium: Labeled finger R, right immanuel . Received in formalin is a 4.2 x 3.8 x 0.6 cm aggregate of irregular pink-yellow trabecular bone. The cartilage covered articular surfaces are markedly disrupted. Civil Engineering Project Designer sections are submitted in one cassette following decalcification , multiple pieces. JOCELINE 03/14/2025 11:29 AM EDT [facility] Disclaimer Unless otherwise specified, all tissue is 10% NB formalin fixed and paraffin embedded. 03/14/2025 11:29 AM EDT [facility] Bone Structure of digit of right hand / Unknown 03/10/2025 9:51 AM EDT 03/10/2025 12:59 PM EDT Gavi Ibarra MD LAB PATHOLOGY ORDERABLES Briseyda l Result [facility] [address] [place] [address], [place] [phone] * TH AN LMA(NO CHARGE) (03/10/2025 9:11 AM EDT) Narrative Jennifer Morales CRNA - 03/10/2025 9:11 AM EDT Jennifer Morales CRNA 03/10/2025 9:14 AM General Information and Staff Patient location during procedure: OR Resident/SHELL PLATER: Jennifer Morales CRNA Performed: resident/SHELL PLATER/CAA Performed by: Jennifer Morales CRNA Authorized by: Veena Mratinez MD Intubation Additional Comments Inserted by Manager Strategic Partnerships Student Scott. Atraumatic, with +ETCO2, +BBS. Urgency: [...] Mask difficulty assessment: 0 - not attempted us Veena Martinez MD ANESTHESIA ORDERABLES Final Resu [...] sitting Prep: ChloraPrep Patient monitoring: heart rate, cardiac cath lab radiology technologist and continuous pulse ox Block type: supraclavicular [...] Additional Notes Procedure for post operative pain us Socrates Pham DO ANESTHESIA ORDERABLES Edited Result - Final * (ABNORMAL) POCT Glucose, blood (03/10/2025 7:12 AM EDT) Glucose POCT 149(H) 70 - 100 mg/dL 03/10/2025 7:13 AM EDT [facility] Blood Capillary blood specimen / Unknown 03/10/2025 7:12 AM EDT 03/10/2025 7:14 AM EDT Gavi Ibarra MD LAB POINT OF CARE TE ST DOCKED DEVICE UNSOLICITED RESULTS Final Result [facility] [address] [place] [address], [place] [phone] from Last 3 Months Insurance MEDICARE [facility] Care Teams Yarding Engineer Relationship Specialty Start Date End Date Flaquita Gómez MD [address] [place] [phone] PCP - General Internal Medicine 05/06/25
--- OUTSIDE RECORDS SUMMARY | 2025-05-10 14:16 | XMS_ITS | Clinical Summary ---
Author Organization [facility] Address [address] [place] [address] Phone Care Team Providers Care Composite Assembler Name Role Phone Tom Capellan MD Primary Care Provider Social History Tobacco Use Types Packs/Day Years [...] - Inhaled Oxygen Concentration - - Weight 74.8 kg (165 lb) 11/24/2023 11:41 AM EDT Height 170.2 cm (5' 7 ) 11/24/2023 11:41 AM EDT Body Mass Index 25.84 11/24/2023 11:41 AM EDT Plan of Treatment Not on file Medical Devices Not on file Insurance MEDICARE SUPPLEMENT Member Subscriber Plan / Payer (Ef fective 2018-Present) Name:Aldair Galvez Relation to Subscriber:Self Name:Aldair Galvez Payer ID:Not on file Type:Indemnity Address: ONE [address] [place] [place] MEDIC[place] SUPPLEMENT Member Subscriber Plan / Payer (Ef fective 2018-Present) Name:Aldair Galvez Relation to Subscriber:Self Name:CarolinabudAldair Payer ID:Not on file Type:Indemnity Address: ONE [address] [place] [address] MEDICARE SUPPLEMENT [facility] [place] MED[place] SUPPLEMENT [facility] [place] MEDIC[place] SUPPLEMENT Member Subscriber Plan / Payer (Ef fective 2018-Present) Name:CarolinabudAldair Relation to Subscriber:Self Name:Aldair Galvez Payer ID:Not on file Type:Indemnity Address: [address] [place] MEDIC[place] SUPPLEMENT Member Subscriber Plan / Payer ( fective 2018-) Name:Carolinabud Aldair Relation to Subscriber:Self Name:CarolinaricardoAldair singh Payer ID:Not on file Type:Indemnity Address: [address] Care Teams Composite Assembler Relationship Specialty Start Date End Date Tom Capellan MD [address] [place] [address] Drive [address] [place] [address] PCP - General Pulmonary Disease 12/19/22 Additional Source Comments The information contained in this document represents components of the legal health record. It is not the complete legal health record.[facility]
== END 2025-05-10 14:05 | disposition home or self-care (01) ==
LOC: HO.HMCHD 13:24
PROVIDERS: PCP Physician Assistant; Visit Provider Physician Assistant
DX: E11.65 Type 2 diabetes mellitus with hyperglycemia (principal); G47.33 Obstructive sleep apnea (adult) (pediatric); Z99.89 Dependence on other enabling machines and devices; C61 Malignant neoplasm of prostate

== ENCOUNTER → 2025-05-10 13:23 | Outpatient (BNVA) | payer MEDICARE, OTHER, SELFPAY | PROVIDERS: PCP Physician Assistant; Visit Provider Physician Assistant | DX: E11.65 Type 2 diabetes mellitus with hyperglycemia (principal); C61 Malignant neoplasm of prostate; G47.33 Obstructive sleep apnea (adult) (pediatric); Z99.89 Dependence on other enabling machines and devices | CPT/HCPCS: 96127; 99202 ==

== ENCOUNTER 2025-05-19 12:54 | Outpatient (AMB) | payer OTHER, SELFPAY ==
--- NOTE | 2025-05-19 13:15 | A.OFFVIS_ITS ---
Vital Signs 05/19/25 13:16 Height 5 ft 7 in Weight 156 lb 8.451 oz BMI 24.5 BP 120/62 Blood Pressure Location Lt brachial Position Sitting Pulse 56 Pulse Source Pulse Oximeter Pulse Oximetry (%) 96 Oxygen Delivery Method Room Air Intake Visit Reasons: Obstructive sleep apnea Intake Note: pt is here for follow up and states he feels good. Recreation Activities Coordinator Required: No Allergies lactose (Lactose) Allergy (Mild, Verified 05/19/25 13:21) DIARRHEA Medication List - Last Reconciled 05/19/25 by Tom Capellan MD aspirin 81 mg PO DAILY FreeStyle Lite Strips (blood sugar diagnostic) once daily NS metformin 500 mg PO DAILY metoprolol tartrate 25 mg PO BID NS pravastatin 40 mg PO DAILY [Probiotic 1 cap PO DAILY] Do you need a note to return to daycare/school/sports/work: No HPI HPI Obstructive sleep apnea: Details: Aldair is 85 years old. He comes up to 6 months for follow-up for his sleep apnea. 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 Uses CPAP very regularly and sleeps good. He has no issue with the mask or CPAP device. He gets his supplies regularly from [facility]. Since last 2 weeks he had hand surgery on both sides and was not able to put on the CPAP. Now he will start putting it on. He can notice the difference when he does not use the CPAP that his sleep not that sound, and he feels tired during the daytime. [facility] Medical History Prostate cancer Horners syndrome Diabetes Abdominal pain Abnormal abdominal CT scan History of prostate cancer AAKASH (obstructive sleep apnea) AAKASH on CPAP Surgical History History of colonoscopy (~02/12/23) S/P trigger finger release History of bladder surgery H/O prostatectomy History of eye surgery Family History Mother No problems noted. Father No problems noted. Social History Housing: House Comment: S3 Patient Tobacco Use Status: Former Tobacco user e-Cigarette/Vaping Use: Former Use Second Hand Smoke Exposure: No service: No Current occupational status: retired Current occupational exposures/hazards: No Cognitive needs: No Hearing needs: No Vision needs: Yes (rx glasses) Review of Systems Const All systems reviewed & are unremarkable except as noted in HPI and below Eyes Reports no additional complaints ENT Reports no additional complaints Card Denies chest pain, Denies irregular heart rhythm, Denies leg edema and Denies dyspnea Resp Denies cough, Denies dyspnea and Denies wheezing GI Reports no additional complaints Reports no additional complaints Skin/Breast Reports system reviewed and no additional complaints, except as documented Neuro Reports no additional complaints Psych Reports no additional complaints Aller/Immun Denies wheezing Physical Exam Vital Signs: Last Vital Signs Pulse 56 05/19/25 13:16 BP 120/62 05/19/25 13:16 Pulse Ox 96 05/19/25 13:16 Oxygen Delivery Method Room Air 05/19/25 13:16 BMI result Body Mass Index 24.5 Const General: healthy appearing, comfortable, no acute distress, alert and awake Orientation/consciousness: patient oriented x3 HEENT Head: Yes normal to inspection General nose exam: No nasal polyps present and No nasal discharge present Face and sinus: Yes sinuses nontender Mouth: oropharynx abnormals (But space is a bit narrow, Mallampati class 3.) Teeth and gingiva: other (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) Throat: Yes posterior oropharynx normal and Yes other (He has whitish covering on the tongue withreddish areas,geographical tongue) Eyes General: appearance normal, both eyes and all related structures Neck Neck: Yes normal visual inspection, Yes no lymphadenopathy, Yes trachea midline and Yes no JVD Thyroid: Thyroid normal Chest Chest palpation & inspection: normal inspection of the chest, normal palpation of entire chest wall and no tenderness Resp Effort & Inspection: normal respiratory effort Auscultation: clear to auscultation bilaterally and no wheezes Cardio Palpation: normal PMI Rate: regular rate Rhythm: regular rhythm Heart sounds: no gallops and no murmurs Peripheral pulses: Peripheral pulses 2+ throughout GI Palpation (GI): Soft to palpation, nontender, No hepatosplenomegaly present and no masses Auscultation: normal bowel sounds Back/Spine/Pelvis Thoracic/Lumbar Spine: Thoracic/lumbar spine scar(s) (TWO SMALL SCARS OVER THE LOWER BACK FROM RECENT SPINAL SURGERY) and thoraco-lumbar ROM limited Skin General skin exam: no rashes or lesions noted Neuro General: patient oriented x3 and no focal motor deficits Cranial nerves: Yes CN's II-XII intact bilaterally Extrem General: Yes normal to inspection, Yes no clubbing, cyanosis or edema and Yes no calf tenderness Psych Speech and movement: Normal speech and movement present Assessment & Plan Assessment & Plan (1) AAKASH on CPAP: Comment: ALDAIR DOES HAVE OBSTRUCTIVE SLEEP APNEA, 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 HE IS VERY COMPLIANT, USING 100% OF THE TIME., AND SLEEPS VERY WELL. He is having some skin irritation due to the nasal mask, It is okay now Code(s): G47.33 - Obstructive sleep apnea (adult) (pediatric); Z99.89 - Dependence on other enabling machines and devices Category: Medical Plan: Commended for good compliance and advised to continue using the CPAP every night. Coding Level of Care Code Est Pt Level 3 (81200) Diagnoses AAKSAH on CPAP G47.33; Z99.89
[2025-05-19 13:16] VITALS: BP 120/62; PULSE 56; O2SAT 96; BMI 24.5
--- OUTSIDE RECORDS SUMMARY | 2025-05-19 14:13 | XMS_ITS | Encounter Summary ---
Author Organization [facility] Address [address] [place] [address] Phone Care Team Providers Care Manager Convention Name Role Phone Tom Capellan MD Primary [...] SPINE CONTRAST Cecil Geller NP [address] [place] [address] Phone: tel: fax: Referral ID Status Reason Start Date Expiration Date Visits Re quested Visits Authorized [id number] Closed 10/31/2023 12/30/2023 1 1 Encounter Details Date Type Department Care Team (Latest Contact Info) Description 10/31/2023 Transcribe Orders Virtual Department [address] [place] [address] Cecil Geller NP [address] [place] [address] Low back pain, unspecified back pain laterality, [...] and mild right at L5-S1. Cecil Geller CUSTOMER SUCCESS MANAGER IM MR XSPECIALTY [facility] al Result documented in this encounter Visit Diagnoses Diagnosis Low back pain, unspecified back pain laterality, unspecified chronicity, unspecified whether sciatica present- Primary Low back pain, unspecified back pain laterality, unspecified chronicity, unspecified whether sciatica present documented in this encounter Care Teams Manager Convention Relationship Specialty Start Date End Date Tom Capellan MD [address] [place] [address] [address] [place] [address] PCP - General Pulmonary Disease 12/19/22 documented as of this encounter Additional Source Comments The information contained in this document represents components of the legal health record. It is not the complete legal health record.[facility]
--- OUTSIDE RECORDS SUMMARY | 2025-05-19 14:13 | XMS_ITS | Clinical Summary ---
Author Organization [facility] Address [address] [place] [address] Phone Care Team Providers Care Roller Printer Name Role Phone Tom Capellan MD Primary [...] Payer ID:Not on file Type:Indemnity Address: ONE [address] [place] MEDIC[place] SUPPLEMENT Member Subscriber Plan / Payer (Ef fective 2018-Present) Name:Aldair Galvez Relation to Subscriber:Self Name:CarolinabudAldair Payer ID:Not on file Type:Indemnity Address: ONE [address] [place] [address] MEDICARE SUPPLEMENT [facility] [place] [place] MEDIC[place] SUPPLEMENT [facility] [place] [place] MEDIC[place] SUPPLEMENT Member Subscriber Plan / Payer (Ef fective 2018-Present) Name:CarolinabudAldair Relation to Subscriber:Self Name:Aldair Galvez Payer ID:Not on file Type:Indemnity Address: [address] [employer] [place] MEDIC[place] SUPPLEMENT Member Subscriber Plan / Payer ( fective 2018-) Name:Carolinabud Aldair Relation to Subscriber:Self Name:CarolinaricardoAldair singh Payer ID:Not on file Type:Indemnity Address: [address] Care Teams Roller Printer Relationship Specialty Start Date End Date Tom Capellan MD [address] [place] [address] Drive [address] [place] [address] PCP - General Pulmonary Disease 12/19/22 Additional Source Comments The information contained in this document represents components of the legal health record. It is not the complete legal health record.[facility]
--- OUTSIDE RECORDS SUMMARY | 2025-05-19 14:13 | XMS_ITS | Encounter Summary ---
Author Organization [facility] Address [address] [facility] [address] [place] [address] Phone Care Team Providers Care Central Service Technician Name Role Phone Tom Capellan MD Primary Care Provider Encounter Details Date Type Department Care Team (Late st Contact Info) Description 10/31/2023 Procedure [facility], [address] [address] Social History Tobacco Use Types Packs/Day Years [...] on filedocumented in this encounter Care Teams Central Service Technician Relationship Specialty Start Date End Date Tom Capellan MD [address] [place] [address] PCP - General Pulmonary Disease 12/19/22 documented as of this encounter Additional Source Comments The information contained in this document represents components of the legal health record. It is not the complete legal health record.[facility]
--- OUTSIDE RECORDS SUMMARY | 2025-05-19 14:13 | XMS_ITS | Patient Health Record ---
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) Active confirmed Problem 197979851 Abnormal CT scan , colon (R93.3) Active confirmed Problem 31524913 Hypertension, unspecified type (I10) Active confirmed Problem 624797832 RLQ abdominal pain (R10.31) Active confirmed Plan Of Treatment Future Test Test Name Order Date COLONOSCOPY 03/17/2019 COLONOSCOPY 01/31/2023 Insurance Providers Payer Name Payer Address Payer Phone Subscriber Number Group Number Insured Name Patient Relationship to Insured Coverage Start Date Coverage End Date MEDICARE OF [place] [address] [place] [address] [id number] HANNA JEAN-BAPTISTE Self - patient is the insured [facility] [address] [place] [address] [id number] HANNA JEAN-BAPTISTE Self - patient is the insured Medical (General) History Medical History History ICD Code prostate cancer AAKASH/CPAP pre diabetes Elevated cholesterol Colon polyps, colonoscopy 07/03, five-ye ar followup Surgical History Surgery Date(Month/Year) prostatectomy Urethral sling 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
--- OUTSIDE RECORDS SUMMARY | 2025-05-19 14:13 | XMS_ITS | Patient Health Record ---
Author Organization [facility] [place] Address [address] [place] [address] Care Team Providers Care Cna Caregiver Name Role Phone Cecil Geller N.P Primary Care Provider Rachelv ailable Leslie Cho Unavailable [phone] Allergies No Known Allergies Results Component Value Reference Range Notes HEMOGLOBIN A1C (GLYCOHEMOGLO BIN) Reviewed date:01/18/2025 01:04:24 PM Interpretation: Performing Lab: Notes/Report: HEMOGLOBIN A1C % (HH) 7.5 Reason For Referral Diagnosis 1 Pain in unspecified foot (M79.673) Referring Provider First Name Cecil Referring Provider Last Name Yimi Referred [facility] [place] Referred Provider Leslie Cho Referred Address [address] [facility],[place], [place],[address], Referred Provider Specialty Podiatry Referral Priority Routine [...] Status W/U Status Risk Notes Problem Type II diabetes mellitus without complication (241751393) Type 2 diabetes mellitus without complication, without long-term current use of insulin (E11.9) Active confirmed Vital Signs Blood pressure diastolic 81 mm Hg 01/18/2025 Height 5ft7in in 01/18/2025 Blood pressure systolic 124 mm Hg 01/18/2025 Weight 155 lbs 01/18/2025 BMI 24.27 kg/m2 01/18/2025 Encounters Encounter Location Date Provider Diagnosis [address] [address] 01/18/2025 Leslie Cho Type 2 diabetes mellitus without complication, without long-term current use of insulin E11.[facility] [address] 01/18/2025 Leslie Cho [address] [address] 03/30/2025 Leslie Cho Assessments Encounter Date Diagnosis (ICD Code) Assessment Notes Treatment Notes Treatment Clinical Notes Section Notes 01/18/2025 Type 2 diabetes mellitus without complication, without long-term current use of insulin (ICD-10 - E11.9) Plan Of Treatment Next Appt Details Provider Name:Leslie brown, 01/17/2026 01:00:00 PM, [address] [place] [address], [phone], Insurance Providers Payer Name Payer Address Payer Phone Subscriber Number Group Number Insured Name Patient Relationship to Insured Coverage Start Date Coverage End Date [employer]AC[employer] [address] [place] [address] [id number] Aldair Doran Self - patient is the insured Medical (General) History Medical History History ICD Code Arthritis Cancer covid-19 type II diabetes Diverticulosis raynauds disease Joint implants/screws Lactose intolerance Onychomycosis Surgical History Surgery Date(Month/Year) spinal fusion 04/12/2024 prostate cancer 12/2006
--- OUTSIDE RECORDS SUMMARY | 2025-05-19 14:13 | XMS_ITS | Clinical Summary ---
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 Had extensive workup in the past. Arthritis of carpometacarpal (CMC) joint of both thumbs 02/15/2025 Pain of both elbows 08/30/2024 Encounters Date Type Department Care Team Description 05/12/2025 1:30 PM EDT Treatment [facility] Occupational Therapy [address] [phone] Kassandra Sylvester OT Arthritis of carpometacarpal (CMC) joint of both thumbs (Primary Dx) 05/04/2025 1:30 PM EDT Treatment [facility] Occupational Therapy [address] [phone] Kassandra Sylvester OT Arthritis of carpometacarpal (CMC) joint of both thumbs (Primary Dx) 04/28/2025 2:00 PM EDT Treatment [facility] Occupational Therapy [address] [phone] Kassandra Sylvester OT Arthritis of carpometacarpal (CMC) joint of both thumbs (Primary Dx) 04/21/2025 1:30 PM EDT Treatment [facility] Occupational Therapy [address] [phone] Kassandra Sylvester OT Arthritis of carpometacarpal (CMC) joint of both thumbs (Primary Dx) 04/14/2025 3:00 PM EDT Evaluation [facility] Occupational Therapy [address] [place] [phone] Kassandra Sylvester OT Arthritis of carpometacarpal (CMC) joint of both thumbs 04/14/2025 Plan of Care Documentation [facility] Occupational Therapy [address] [place] [phone] 04/01/2025 11:15 AM EDT Office Visit Orthopedic [address] [phone] Gavi Ibarra MD Arthritis of carpometacarpal (CMC) joint of both thumbs (Primary Dx) 03/21/2025 2:45 PM EDT Office Visit [address] [phone] Carolee Hanson PA Surgery follow-up (Primary Dx) 03/10/2025 8:54 AM EDT Anesthesia Event [facility] OR [address] [place] [phone] Veena Martinez MD Elliott, Barbara J, CRNA 03/10/2025 8:45 AM EDT - 03/10/2025 11:15 AM EDT Surgery [facility] OR [address] [place] [phone] Gavi Ibarra MD Trapeziectomy w/ interpositional arthroplasty using flexor tendon-right [87430 (CPT ) +1 more] 03/10/2025 6:54 AM EDT - 03/10/2025 12:43 PM EDT Hospital Encounter [facility] [place] [address] [place] [phone] Gavi Ibarra MD Arthritis of carpometacarpal (CMC) joint of both thumbs Discharge Disposition: Home or Self Care 02/28/2025 10:15 AM EDT Consult Orthopedic [address] [phone] Gavi Ibarra MD Arthritis of carpometacarpal (CMC) [...] Comments Sleep apnea Hypertension Hyperlipidemia Diabetes mellitus ([facility] V24, [facility] V28) Diverticulosis Cancer ([facility] V24, [facility] V28) PROSTATE Hand pain Social History Tobacco [...] Care Team (Late st Contact Info) Description 05/20/2025 10:45 AM EDT Treatment [facility] Occup[facility] 175 [facility] [address] [place] [phone] Kassandra Sylvester OT 05/20/2025 11:30 AM EDT Office Visit Orthopedic Surgery - [place] 175 [facility] [address] [place] [phone] Gavi Ibarra MD 175 [facility] [address] [place] [phone] Health Maintenance Due Date Last [...] Vaccine (11 - Pfizer risk 2023- season) 2025 05/28/2024, 06/16/2023, 01/10/2023, Additional history exists Influenza [...] signif pain 09/14/24 MET 5. Non-dom L safety officer at least 70% of R 09/14/24 MET and EXCEEDED <enter goal here> General Yes Kassandra Sylvester, OT Note: OT PATIENT GOAL REGAIN PAINFREE FUNCTIONAL USE DOMINANT RIGHT HAND OT STGS 8 TO 10 VISITS General On track( 025 1:36 PM EDT) No Kassandra Sylvester OT Note: [...] COINS IN PALM # 7 IMPROVE RIGHT CITY ADMINISTRATOR FROM 25 TO 35 POUNDS = 75 [...] LMA(NO CHARGE) Routine 03/10/2025 9:11 AM EDT ND XFER/TRNSPL TNDN CARPOMETACARPAL AREA/DORSUM HAND WO FREE GRAFT EA TNDN 03/10/2025 8:54 AM EDT Arthritis of carpometacarpal (CMC) joint of both thumbs Case Notes MINI C-ARM, WIRE AUTOMATION MANAGER,BONE INSTRUMENTS, HUESTON SUTURE PASSER,MICRO MYTEC ANCHOR,SUPRACLAVICULAR BLOCK ND ARTHROPLASTY INTERCARPAL/CARPOMETA CARPAL JOINTS INTERPOSTION 03/10/2025 8:54 AM EDT Arthritis of carpometacarpal (CMC) joint of both thumbs Case Notes MINI C-ARM, WIRE AUTOMATION MANAGER,BONE INSTRUMENTS, HUESTON SUTURE PASSER,MICRO MYTEC ANCHOR,SUPRACLAVICULAR [...] WITH DEGENERATIVE CHANGES 03/14/2025 11:29 AM EDT [facility] Gross Description A. Hand, Digit Right, thumb trapezium: Labeled finger R, right immanuel . Received in formalin is a 4.2 x 3.8 x 0.6 cm aggregate of irregular pink-yellow trabecular bone. The cartilage covered articular surfaces are markedly disrupted. Medical Liaison sections are submitted in one cassette following decalcification , multiple pieces. JOCELINE 03/14/2025 11:29 AM EDT [facility] Disclaimer Unless otherwise specified, all tissue is 10% NB formalin fixed and paraffin embedded. 03/14/2025 11:29 AM EDT [facility] Bone Structure of digit of right hand / Unknown 03/10/2025 9:51 AM EDT 03/10/2025 12:59 PM EDT Gavi Ibarra MD LAB PATHOLOGY ORDERABLES Briseyda l Result [facility]AM[facility] ([facility] [address] [place] [address], * TH AN LMA(NO CHARGE) (03/10/2025 9:11 AM EDT) Narrative Jennifer Morales CRNA - 03/10/2025 9:11 AM EDT Jennifer Morales CRNA 03/10/2025 9:14 AM General Information and Staff Patient location during procedure: OR Resident/FORESTRY LABORER: Jennifer Morales CRNA Performed: resident/WALKER/CAA Performed by: Jennifer Morales CRNA Authorized by: Veena Martinez MD Intubation Additional Comments Inserted by Import/Export Clerk Student Scott. Atraumatic, with +ETCO2, +BBS. Urgency: [...] sitting Prep: ChloraPrep Patient monitoring: heart rate, manager cardiac and continuous pulse ox Block type: supraclavicular [...] - 100 mg/dL 03/10/2025 7:13 AM EDT [facility] Blood Capillary blood specimen / Unknown 03/10/2025 7:12 AM EDT 03/10/2025 7:14 AM EDT Gavi Ibarra MD LAB POINT OF CARE TE ST DOCKED DEVICE UNSOLICITED RESULTS Final Result [facility] [address] [place] [address], [place] [phone] from Last 3 Months Insurance MEDICARE [facility] Care Teams Food And Beverage Service Manager Relationship Specialty Start Date End Date Flaquita Gómez MD [address] [place] [phone] PCP - General Internal Medicine 05/06/25
== END 2025-05-19 13:38 | disposition home or self-care (01) ==
LOC: HO.HPS 12:54
PROVIDERS: PCP Internal Medicine; Referring Provider Internal Medicine; Visit Provider Internal Medicine
DX: G47.33 Obstructive sleep apnea (adult) (pediatric) (principal); Z99.89 Dependence on other enabling machines and devices
CPT/HCPCS: 99213

== ENCOUNTER → 2025-05-19 12:54 | Outpatient (BNVA) | payer MEDICARE, OTHER, SELFPAY | PROVIDERS: PCP Internal Medicine; Visit Provider Internal Medicine | DX: G47.33 Obstructive sleep apnea (adult) (pediatric) (principal); Z99.89 Dependence on other enabling machines and devices | CPT/HCPCS: 99212 ==